=== PATIENT | female | born 1960 | race Caucasian/White ===

== ENCOUNTER 2018-08-02 11:29 | Inpatient (IN) | payer MEDICARE, MEDICAID ==
[2018-08-02] MEDS ORDERED: Sodium Chloride 0.9% 1,000 ML IV ONE (11:40)
--- NOTE | 2018-08-02 11:48 | ED Physician Chart ---
ED Chief Complaint/HPI - Patient Information Date Seen:: 08/02/18 Time Seen:: 11:30 Chief Complaint:: G-Tube Leakage History of Present Illness:: pt presents to ER with G-Tube Leakage, N/V, and hematemesis; no report of trauma , H/As, S/T, neck pain, cough, C/P, SOB, Abd. Pain, A/D/C, fever, chills, or urinary s/s Allergies:: Allergies Allergy/AdvReac Type Severity Reaction Status Date / Time piperacillin sodium Allergy Verified 10/03/15 23:12 [From Zosyn] tazobactam sodium Allergy Verified 10/03/15 23:12 [From Zosyn] Historian:: Patient, EMS Review:: Nurse's Note Reviewed, Old Chart Reviewed, EMS run form Reviewed ED Review of Systems - Review of Systems General/Constitutional: No fever, No chills, No weight loss, No weakness, No diaphoresis, No edema, No loss of appetite Skin: No skin lesions, No rash, No bruising Head: No headache, No light-headedness Eyes: No loss of vision, No pain, No diplopia ENT: No earache, No nasal drainage, No sore throat, No tinnitus Neck: No neck pain, No swelling, No thyromegaly, No stiffness, No mass noted Cardio Vascular: No chest pain, No palpitations, No PND, No orthopnea, No edema Pulmonary: SOB, Cough, No sputum, Wheezing GI: Nausea, Vomiting, Diarrhea, Pain, No melena, No hematochezia, No constipation, Hematemesis G/U: No dysuria, No frequency, No hematuria, No nacturia Stage Rigger: No vaginal discharge, No abnormal vaginal bleed, No contraction Musculoskeletal: No bone or joint pain, No back pain, No muscle pain Endocrine: No polyuria, No polydipsia Psychiatric: No prior psych history, No depression, No anxiety, No suicidal ideation, No homicidal ideation, No auditory hallucination, No visual hallucination Hematopoietic: No bruising, No lymphadenopathy Allergic/Immuno: No urticaria, No angioedema Neurological: No syncope, No focal symptoms, No weakness, No paresthesia, No headache, No seizure, No dizziness, No confusion, No vertigo ED Past Medical History - Past Medical History Past Medical History: No significant medical hx, HTN, DM, Asthma/COPD, Dyslipidemia, Other (Respiratory Failure) Family History: HTN Social History: Non Smoker, No Alcohol, No Drug Use, , Care Facility Surgical History: PEG/GTube, other (Tracheostomy) Psychiatricy History: None Medication: Reviewed Family Medical History - Family Member Mother History Unknown: Yes Ethnicity: Hx Family Coronary Artery Disease: No Hx Family Congestive Heart Failure: No Hx Family Hypertension: Yes Hx Family Stroke: Yes Hx Family Diabetes: Yes Hx Family Seizures: No Hx Family Dementia: No Hx Family AIDS: No Hx Family HIV: No Hx Family COPD: No Hx Family Hepatitis: No Hx Family Psychiatric Problems: No Hx Family Tuberculosis: No ED Physical Exam - Physical Examination General/Constitutional: Awake, Well-developed, well-nourished, Alert, No distress, GCS 15, Non-toxic appearing, Ambulatory Head: Atraumatic Eyes: Lids, conjuctiva normal, PERRL, EOMI Skin: Nl inspection, No rash, No skin lesions, No ecchymosis, Well hydrated, No lymphadenopathy ENMT: External ears, nose nl, TM canals nl, Nasal exam nl, Lips, teeth, gums nl , Oropharynx nl, Tonsils nl Neck: Nontender, Full ROM w/o pain, No JVD, No nuchal rigidity, No bruit, No mass, No stridor Respiratory: Nl effort/Exclusion Other Respiratory comments:: Lungs: + Rales and Rhonchi Cardio Vascular: RRR, No murmur, gallop, rubs, NL S1 S2, Carotid/Femoral/Distal pulses equal bilaterally GI: No tenderness/rebounding/guarding, No organomegaly, No hernia, Normal BS's, Nondistended, No mass/bruits, No McBurney tenderness Other GI comments:: + G-Tube Dysfunction/Leakage : No CVA tenderness Extremities: No tenderness or effusion, Full ROM, normal strength in all extremities, No edema, Normal digits & nails Neuro/Psych: Alert/oriented, DTR's symmetric, Normal sensory exam, Normal motor strength, Judgement/insight normal, Mood normal, Normal gait, No focal deficits Misc: Normal back, No paraspinal tenderness ED Labs/Radiology/EKG Results - Lab Results Comments:: Reviewed - Radiology Results Comments:: CXR: + RLL Infiltrate; COPD - EKG Interpretations EKG Time:: 12:25 Rate & Rhythm: 99; NSR Comments:: non-specific st-t changes ED Septic Shock - . Is Septic Shock (SBP<90, OR Lactate>4 mmol\L) present?: No ED Reassessment (Disposition) - Reassessment Reassessment Condition:: Improved - Diagnosis Diagnosis:: Hematemesis; N/V/D; GI Bleed; Respiratory Failure; G-Tube Dysfunction; Pneumonia ; Sepsis; Hypokalemia - Aftercare/Follow up Instructions Aftercare/Follow-Up Instructions:: Counseled pt regarding lab results/diagnosis & need follow up, Counseled pt & family regarding lab results/diagnosis & need follow up - Patient Disposition Discharge/Transfer:: Acute Care w/in this hosp Accepting Physician:: Dr. Dietz Time Called:: 1300 Time Responded:: 13:00 Admitted to:: ICU Spoke to:: Dr. Dietz Admitting Medical Physician:: Dr. Dietz Condition at Disposition:: Stable, Improved
[2018-08-02 12:10] LABS: % BASOPHILS 0.6 % (0.0-2.0); % EOSINOPHILS 1.8 % (0.0-5.0); % LYMPHOCYTES 23.6 % (20.0-50.0); % MONOCYTES 5.2 % (2.0-10.0); % NEUTROPHILS 68.8 % (40.0-80.0); BASOPHILE ABSOLUTE 0.1 Th/cumm (0-0.2); EOSINOPHILE ABSOLUTE 0.2 Th/cmm (0.1-0.4); HEMATOCRIT 39.7 % (41.0-60); HEMOGLOBIN 12.9 gm/dL (12-16); LYMPHOCYTE ABSOLUTE 2.6 Th/cmm (1.5-3.0); MEAN CELL VOLUME 80.1 fl (81-100); MEAN CORPUSCULAR HEMOGLOBIN 25.9 pg (27.0-31.0); MEAN CORPUSCULAR HGB CONC 32.3 pg (28.0-36.0); MEAN PLATELET VOLUME 7.1 fl; MONOCYTE ABSOLUTE 0.6 Th/cmm (0.3-1.0); NEUTROPHILE ABSOLUTE 7.5 Th/cmm (1.8-8.0); PLATELET COUNT 553 Th/cmm (150-400); RED BLOOD COUNT 4.96 Mil/cmm (3.80-5.10)
[2018-08-02] MEDS ORDERED: Levofloxacin 500mg/100mL 500 MG/100 ML BAG IV ONE ×2 (12:12→12:59)
[2018-08-02] MEDS ORDERED: Albuterol/Ipratropium Neb 3 ML AERS HHN ONE ×2 (12:13→12:26)
[2018-08-02 12:19] LABS: INR 0.93 (0.5-1.4); PROTHROMBIN TIME (TEST) 9.7 SECONDS (9.5-11.5)
[2018-08-02 12:26] LABS: ALB/GLOB RATIO 0.9 (1.0-1.8); ALBUMIN 3.7 gm/dL (3.7-5.3); ALKALINE PHOSPHATASE 126 U/L (34-104); AMYLASE SERUM 17 U/L (29-103); BILIRUBIN,TOTAL 0.3 mg/dL (0.3-1.0); BUN - UREA NITROGEN 13 mg/dL (7-25); CALCIUM SERUM 9.6 mg/dL (8.6-10.3); CARBON DIOXIDE 25.4 mEq/L (21.0-31.0); CHLORIDE 98 mEq/L (98-107); CHOLESTEROL 123 mg/dL (<200); CREATININE - SERUM 0.2 mg/dL (0.6-1.2); CREATININE KINASE 12 U/L (30-223); GFR AFRICAN-AMERICAN > 60.0 ml/min (>90); GFR NON AFRICAN-AMERICAN > 60.0 ml/min; GLUCOSE 135 mg/dL (70-105); HDL -HIGH DENSITY LIPOPROTEIN 40 mg/dL (23-92); LIPASE 7 U/L (11-82); POTASSIUM SERUM 3.4 mEq/L (3.5-5.1); SGOT 11 U/L (13-39); SGPT/ALT 7 U/L (7-52); SODIUM SERUM 138 mEq/L (136-145); TOTAL PROTEIN,SERUM 7.7 gm/dL (6.0-8.3); TRIGLYCERIDES 218 mg/dL (<150)
[2018-08-02] MEDS ORDERED: Potassium Chloride Elixir 20 mEq /15 mL UDC GT ONE (13:13)
[2018-08-02] MEDS ORDERED: D5-0.45NS 1,000 ML IV SCH (14:15)
[2018-08-02] MEDS ORDERED: cefTRIAXone 1 GM in Sodium Chloride 0.9% 50 ML IV SCH (16:00)
[2018-08-02] MEDS ORDERED: Diatrizoate Meglumine/Diatri 30 mL Sol ONE (18:15)
[2018-08-02 20:02] VITALS: BP 148/56
[2018-08-02] MEDS: Azithromycin 500 MG in Sodium Chloride 0.9% 250 ML IV SCH (20:17)
[2018-08-02] MEDS: Chlorhexidine Gluconate 0.12% 15mL Mouthwash MM SCH (20:30)
[2018-08-02] MEDS ORDERED: GLUCAGON HCl 1 MG KIT IM PRN (20:53)
[2018-08-02] MEDS ORDERED: Dextrose 50% 50 mL Abboject IVP PRN (20:53)
[2018-08-02] MEDS: Meropenem 1 GM in Sodium Chloride 0.9% 100 ML IV SCH (21:55)
[2018-08-02] MEDS ORDERED: KCL 20mEq/100mL Premix 20 MEQ/100 ML PIGGYBACK IV ONE (23:00)
[2018-08-03] MEDS: INSULIN LISPRO SLIDING SCALE 100 UNITS/ML UNIT SUBQ SCH ×5 (00:15→23:36)
[2018-08-03 04:36] LABS: % BASOPHILS 0.4 % (0.0-2.0); % EOSINOPHILS 1.5 % (0.0-5.0); % LYMPHOCYTES 24.1 % (20.0-50.0); % MONOCYTES 5.1 % (2.0-10.0); % NEUTROPHILS 68.9 % (40.0-80.0); EOSINOPHILE ABSOLUTE 0.2 Th/cmm (0.1-0.4); HEMATOCRIT 35.5 % (41.0-60); HEMOGLOBIN 11.6 gm/dL (12-16); LYMPHOCYTE ABSOLUTE 2.4 Th/cmm (1.5-3.0); MEAN CELL VOLUME 79.3 fl (81-100); MEAN CORPUSCULAR HGB CONC 32.8 pg (28.0-36.0); MONOCYTE ABSOLUTE 0.5 Th/cmm (0.3-1.0); PLATELET COUNT 479 Th/cmm (150-400); RED BLOOD COUNT 4.47 Mil/cmm (3.80-5.10); WHITE BLOOD COUNT 10.1 Th/cmm (4.8-10.8)
[2018-08-03 04:46] LABS: INR 0.99 (0.5-1.4); PROTHROMBIN TIME (TEST) 10.3 SECONDS (9.5-11.5)
[2018-08-03 05:11] LABS: ANION GAP 14.2 (7.0-16.0); BUN - UREA NITROGEN 9 mg/dL (7-25); CARBON DIOXIDE 22.3 mEq/L (21.0-31.0); CHLORIDE 108 mEq/L (98-107); GLUCOSE 104 mg/dL (70-105); POTASSIUM SERUM 3.5 mEq/L (3.5-5.1); SODIUM SERUM 141 mEq/L (136-145)
[2018-08-03 05:16] LABS: GFR AFRICAN-AMERICAN > 60.0 ml/min (>90); GFR NON AFRICAN-AMERICAN > 60.0 ml/min
[2018-08-03 05:17] LABS: CREATININE - SERUM 0.2 mg/dL (0.6-1.2)
[2018-08-03] MEDS: Meropenem 1 GM in Sodium Chloride 0.9% 100 ML IV SCH ×3 (05:45→20:06)
[2018-08-03 08:02] LABS: URINE SOURCE CLEAN C
[2018-08-03 08:06] LABS: URINE BILIRUBIN NEGATIVE (NEGATIVE); URINE BLOOD TRACE (NEGATIVE); URINE GLUCOSE (UA) NEGATIVE (NEGATIVE); URINE KETONE 15 mg/dL (NEGATIVE); URINE LEUKOCYTE ESTERASE MODERATE (NEGATIVE); URINE MICROSCOPIC INDICATED? YES; URINE NITRATE NEGATIVE (NEGATIVE); URINE PH 8.5 (4.6 - 8.0); URINE PROTEIN 30 mg/dL (NEGATIVE); URINE UROBILINOGEN 0.2 E.U./dL (0.2 - 1.0)
[2018-08-03 08:15] LABS: URINE CLARITY HAZY (CLEAR); URINE COLOR YELLOW
[2018-08-03 08:17] LABS: URINE BACTERIA MODERATE /hpf (NONE SEEN); URINE EPITHELIAL CELLS FEW /lpf (FEW); URINE WBC 25-50 /hpf (0-5)
[2018-08-03] MEDS: Chlorhexidine Gluconate 0.12% 15mL Mouthwash MM SCH ×2 (08:30→20:08)
--- NOTE | 2018-08-03 09:03 | Diagnostic Imaging Report ---
Portable chest x-ray HISTORY: Pain The overall heart size is difficult to assess with portable technique in a poor inspiration. Accentuation of the lower interstitial lung markings. However, no focal pulmonary processes are seen. Tracheostomy noted. IMPRESSION: 1. No acute focal pulmonary processes 2. Tracheostomy
--- NOTE | 2018-08-03 09:18 | Diagnostic Imaging Report ---
Upper GI (Limited) HISTORY: Gastrostomy tube placement Water-soluble contrast was instilled through patient's gastrostomy tube. The exam demonstrates opacification of the gastric lumen. No extravasation. IMPRESSION: 1. Confirmation of gastrostomy tube within the gastric lumen.
--- NOTE | 2018-08-03 11:16 | Diagnostic Imaging Report ---
Renal ultrasound HISTORY: Urinary tract infection The right kidney measures 12.7 x 5.7 x 6.2 cm. Normal cortical contour and echogenicity. No focal lesions. No hydronephrosis. The left kidney measures 12.1 x 6.4 x 8.4 cm. Multiple echogenic foci with acoustic shadowing noted within the medullary region. Findings consistent with calculi. No hydronephrosis. Evaluation of the urinary bladder limited due to lack of distention. IMPRESSION: 1. Findings consistent with multiple nonobstructing calculi within the left kidney. If needed, a CT scan would provide additional assessment and evaluation.
--- NOTE | 2018-08-03 12:44 | History and Physical ---
History of Present Illness - HPI Chief Complaint: 58 y/o female patient was brought in to ER due to complaints of G-tube Leakage. HPI: 58 y/o female patient was admitted to [facility] due to complaints of G- tube Leakage. No report of trauma. Patient has past medical history of Hypertension, Diabetes, Asthma/Copd, Dyslipidemia, Respiratory Failure and UTI. Patient had an ER assessment and a complete workup was done. Patient had a Chest xray done which showed Right lower Lobe Infiltrate;Copd. Patient also had a Renal Ultrasound which showed multiple nonobstructing calculi within the left kidney. Patient had a Upper GI series which showed G-tube within the Gastric Lumen. Patient was diagnosed with Kidney stones, Copd, Asthma and will have G-tube repair. Patient will have a GI consult and I will follow, treat and monitor patient. Patient will continue current treatment plan as ordered. 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 [employer]: Report: No Pertinent Hx GI: Report: Other ( G-tube present, complains of leakage.) Psych: Report: No Pertinent Hx Musculoskeletal: Report: No Pertinent Hx Rheumatologic: Report: No pertinent Hx Infectious Disease: Report: No Pertinent Hx Renal/: Report: No Pertinent Hx Endocrine: Report: Diabetes Dermatology: Report: No Pertinent Hx - Past Surgical History Past Surgical History: Other (Trach and G-tube placement.) Family Medical History - Family Member Mother History Unknown: Yes Ethnicity: Hx Family Coronary Artery Disease: No Hx Family Congestive Heart Failure: No Hx Family Hypertension: Yes Hx Family Stroke: Yes Hx Family Diabetes: Yes Hx Family Seizures: No Hx Family Dementia: No Hx Family AIDS: No Hx Family HIV: No Hx Family COPD: No Hx Family Hepatitis: No Hx Family Psychiatric Problems: No Hx Family Tuberculosis: No Social History Smoke: No Alcohol: None Drugs: None Lives: Long-Term Domestic Violence: Negative Health Maintenance Health Maintenance: Other (see chart.) - Medications Home Medications: Home Medication Medication Instructions Recorded Type Acetaminophen [Tylenol] 650 mg INH Q6H PRN 08/02/18 History Albuterol/Ipratropium Neb [Duoneb 3 ml HHN Q6HR 08/02/18 History Neb] Ascorbic Acid [Vitamin C] 500 mg GT DAILY 08/02/18 History Bacitracin [Baciquent] 1 appl TP DAILY 08/02/18 History Calcium Alginate [Fritz] 1 each TP DAILY 08/02/18 History Clopidogrel [Plavix] 75 mg GT DAILY 08/02/18 History Collagen, Hydrolysate (Bovine) 100 gm MC DAILY 08/02/18 History [Collagen Hydrolysate] Collagenase Clostridium Hist. 1 appl TP DAILY 08/02/18 History [Santyl] Cranberry Fruit Concentrate 900 mg GT DAILY 08/02/18 History [Cranberry] Docusate Sodium 100 mg GT BID 08/02/18 History Famotidine [Pepcid*] 40 mg GT DAILY 08/02/18 History Glipizide 5 mg GT Q12H 08/02/18 History Insulin Glargine [Lantus Insulin] 18 unit SQ HS 08/02/18 History Insulin Lispro [Humalog] 100 unit SQ ACHS 08/02/18 History Metformin HCl 1,000 mg GT Q12H 08/02/18 History Multivitamin w/ Minerals 1 tab GT DAILY 08/02/18 History [Theragran M] Sennosides A and B [Senna] 17.2 mg GT HS 08/02/18 History Triamcinolone Acet 0.1% Cream 1 appl TP DAILY 08/02/18 History [Kenalog 0.1%] - Allergies Allergies/Adverse Reactions: Allergies Allergy/AdvReac Type Severity Reaction Status Date / Time piperacillin sodium Allergy Verified 10/03/15 23:12 [From Zosyn] tazobactam sodium Allergy Verified 10/03/15 23:12 [From Zosyn] Review of Systems - Review of Systems Constitutional: Report: No Significant Eyes: Report: No Significant ENT: Report: No Significant Respiratory: Report: No Significant Cardiovascular: Report: No Significant Gastrointestinal: Report: Other (G-tube leakage.) Genitourinary: Report: No Significant Musculoskeletal: Report: No Significant Skin: Report: No Significant Neurological: Report: No Significant Physical Exam - Physical Exam HEENT: Report: Ears Nose Throat within normal limits Neck: Report: Tracheostomy site noted to be clean Cardiovascular Systems: Report: +s1/s2 noted, Regular, Rate and Rhythm Respiratory: Report: Breath Sounds are within normal limits Abdomen: Report: Other (G-tube leakage.) Back: Report: Inspection of back is within normal limits. Extremities: Report: Non-tender to palpation. Skin: Report: Color of skin is within normal limits Neuro/Psych: Report: Mood affect is within normal limits - Lab Results All Lab Results last 24 hours: Laboratory Results - last 24 hr 08/02/18 08/02/18 08/02/18 11:39 12:00 12:00 WBC 11.0 H RBC 4.96 Hgb 12.9 Hct 39.7 L MCV 80.1 L MCH 25.9 L MCHC Differential 32.3 RDW 19.0 Plt Count 553 H MPV 7.1 Neutrophils % 68.8 Lymphocytes % 23.6 Monocytes % 5.2 Eosinophils % 1.8 Basophils % 0.6 PT 9.7 INR 0.93 PTT (Actin FS) 28.5 Sodium 138 Potassium 3.4 L Chloride 98 Carbon Dioxide 25.4 Anion Gap 18.0 H BUN 13 Creatinine 0.2 L Est GFR ( Amer) > 60.0 Est GFR (Non-Af Amer) > 60.0 BUN/Creatinine Ratio 65.0 Glucose 135 H POC Glucose Whole Bld Lactic Acid Calcium 9.6 Total Bilirubin 0.3 AST 11 L ALT 7 Alkaline Phosphatase 126 H Creatine Kinase 12 L Troponin I B-Natriuretic Peptide Total Protein 7.7 Albumin 3.7 Globulin 4.0 Albumin/Globulin Ratio 0.9 L Triglycerides 218 H Cholesterol 123 LDL Cholesterol Direct 60 L HDL Cholesterol 40 Amylase 17 L Lipase 7 L Urine Source Urine Color Urine Clarity Urine pH Ur Specific [place] Urine Protein Urine Glucose (UA) Urine Ketones Urine Blood Urine Nitrate Urine Bilirubin Urine Urobilinogen Ur Leukocyte Esterase Urine RBC Urine WBC Ur Epithelial Cells Urine Bacteria 08/02/18 08/02/18 08/02/18 12:00 12:00 12:20 WBC RBC Hgb Hct MCV MCH MCHC Differential RDW Plt Count MPV Neutrophils % Lymphocytes % Monocytes % Eosinophils % Basophils % PT INR PTT (Actin FS) Sodium Potassium Chloride Carbon Dioxide Anion Gap BUN Creatinine Est GFR ( Amer) Est GFR (Non-Af Amer) BUN/Creatinine Ratio Glucose POC Glucose Whole Bld Lactic Acid 1.37 Calcium Total Bilirubin AST ALT Alkaline Phosphatase Creatine Kinase Troponin I < 0.01 L B-Natriuretic Peptide 19.9 Total Protein Albumin Globulin Albumin/Globulin Ratio Triglycerides Cholesterol LDL Cholesterol Direct HDL Cholesterol Amylase Lipase Urine Source Urine Color Urine Clarity Urine pH Ur Specific [place] Urine Protein Urine Glucose (UA) Urine Ketones Urine Blood Urine Nitrate Urine Bilirubin Urine Urobilinogen Ur Leukocyte Esterase Urine RBC Urine WBC Ur Epithelial Cells Urine Bacteria 08/03/18 08/03/18 08/03/18 00:27 04:00 04:00 WBC 10.1 RBC 4.47 Hgb 11.6 L Hct 35.5 L MCV 79.3 L MCH 26.0 L MCHC Differential 32.8 RDW 19.0 Plt Count 479 H MPV 7.0 Neutrophils % 68.9 Lymphocytes % 24.1 Monocytes % 5.1 Eosinophils % 1.5 Basophils % 0.4 PT 10.3 INR 0.99 PTT (Actin FS) 28.8 Sodium Potassium Chloride Carbon Dioxide Anion Gap BUN Creatinine Est GFR ( Amer) Est GFR (Non-Af Amer) BUN/Creatinine Ratio Glucose POC Glucose 98 Whole Bld Lactic Acid Calcium Total Bilirubin AST ALT Alkaline Phosphatase Creatine Kinase Troponin I B-Natriuretic Peptide Total Protein Albumin Globulin Albumin/Globulin Ratio Triglycerides Cholesterol LDL Cholesterol Direct HDL Cholesterol Amylase Lipase Urine Source Urine Color Urine Clarity Urine pH Ur Specific [place] Urine Protein Urine Glucose (UA) Urine Ketones Urine Blood Urine Nitrate Urine Bilirubin Urine Urobilinogen Ur Leukocyte Esterase Urine RBC Urine WBC Ur Epithelial Cells Urine Bacteria 08/03/18 08/03/18 08/03/18 04:00 06:20 07:45 WBC RBC Hgb Hct MCV MCH MCHC Differential RDW Plt Count MPV Neutrophils % Lymphocytes % Monocytes % Eosinophils % Basophils % PT INR PTT (Actin FS) Sodium 141 Potassium 3.5 Chloride 108 H Carbon Dioxide 22.3 Anion Gap 14.2 BUN 9 Creatinine 0.2 L Est GFR ( Amer) > 60.0 Est GFR (Non-Af Amer) > 60.0 BUN/Creatinine Ratio 45.0 Glucose 104 POC Glucose 93 Whole Bld Lactic Acid Calcium 9.0 Total Bilirubin AST ALT Alkaline Phosphatase Creatine Kinase Troponin I B-Natriuretic Peptide Total Protein Albumin Globulin Albumin/Globulin Ratio Triglycerides Cholesterol LDL Cholesterol Direct HDL Cholesterol Amylase Lipase Urine Source CLEAN C Urine Color YELLOW Urine Clarity HAZY Urine pH 8.5 Ur Specific [place] 1.010 Urine Protein 30 H Urine Glucose (UA) NEGATIVE Urine Ketones 15 H Urine Blood TRACE Urine Nitrate NEGATIVE Urine Bilirubin NEGATIVE Urine Urobilinogen 0.2 Ur Leukocyte Esterase MODERATE H Urine RBC 2-5 Urine WBC 25-50 H Ur Epithelial Cells FEW Urine Bacteria MODERATE H 08/03/18 11:52 WBC RBC Hgb Hct MCV MCH MCHC Differential RDW Plt Count MPV Neutrophils % Lymphocytes % Monocytes % Eosinophils % Basophils % PT INR PTT (Actin FS) Sodium Potassium Chloride Carbon Dioxide Anion Gap BUN Creatinine Est GFR ( Amer) Est GFR (Non-Af Amer) BUN/Creatinine Ratio Glucose POC Glucose 114 H Whole Bld Lactic Acid Calcium Total Bilirubin AST ALT Alkaline Phosphatase Creatine Kinase Troponin I B-Natriuretic Peptide Total Protein Albumin Globulin Albumin/Globulin Ratio Triglycerides Cholesterol LDL Cholesterol Direct HDL Cholesterol Amylase Lipase Urine Source Urine Color Urine Clarity Urine pH Ur Specific [place] Urine Protein Urine Glucose (UA) Urine Ketones Urine Blood Urine Nitrate Urine Bilirubin Urine Urobilinogen Ur Leukocyte Esterase Urine RBC Urine WBC Ur Epithelial Cells Urine Bacteria - Assessment Assessment: Current Active Problems Problem Status Onset LEAKING GASTRIC TUBE STOMA AREA; COFFEE Acute Kidney stones Htn Diabetes Asthma Copd S/p Trach - Plan Plan: Continuation of care Continue present meds as directed GI consult Monitor labs, vitals G-tube repair/Monitor diet/G-tube Feedings once G-tube repaired Pain management Fall precaution Continue current treatment plan as ordered
[2018-08-03] MEDS: Azithromycin 500 MG in Sodium Chloride 0.9% 250 ML IV SCH (15:30)
[2018-08-03] MEDS: Metoclopramide 5 mg/mL 2mL Vial IVP SCH (19:05)
--- NOTE | 2018-08-03 20:57 | History & Physical ---
ADMIT DATE: 08/03/2018 CHIEF COMPLAINT: G-tube leakage. HISTORY OF PRESENT ILLNESS: This is a 58-year-old female who is a resident of [facility], admitted to the ICU unit due to G-tube leakage. In the ER, the patient had a chest x-ray and showed right lower lobe pneumonia. The patient had upper GI series, which showed G-tube with gastric lumen. For continuation of care the patient now here in ICU. PAST MEDICAL HISTORY: Acute respiratory failure, CVA, VDRF, VRE urine and ESBL, COPD, asthma. PAST SURGICAL HISTORY: Tracheostomy and G-tube placement. SOCIAL HISTORY: The patient is a subacute resident, requiring 24-hour nursing care. FAMILY HISTORY: Noncontributory. ALLERGIES: ZOSYN AND TAZOBACTAM. REVIEW OF SYSTEMS: Unable to obtain due to the patient's mental status. PHYSICAL EXAMINATION: GENERAL: Well developed, well nourished, no apparent distress. VITAL SIGNS: Temperature 98.5, heart rate 100, blood pressure 141/36, respirations 14, O2 99%. HEENT: Head normocephalic, atraumatic. NECK: Tracheostomy site in place. HEART: Regular rhythm. No murmurs, rubs or gallops. ABDOMEN: The patient is noted with G-tube. Surrounding G-tube site is noted with redness with G-tube leakage. LABORATORY DATA: WBC 10.1, H and H 11.6 and 35.5, platelets of 479. Sodium 141, potassium 3.5, chloride 108, BUN 9, creatinine 0.2. ASSESSMENT: Acute on chronic respiratory failure, ventilator-dependent respiratory failure, G-tube site leakage, right lower lobe pneumonia, hypertension, history of cerebrovascular accident, microcytic anemia, hypokalemia, history of diabetes, acute urinary tract infection. PLAN: The patient to be admitted to the ICU. Treat the patient with IV antibiotics of Merrem 1 gram IV q.12 hours. Do a wound culture, urine culture as well. A.m. labs. We will get Pulmonology on the case as well as GI. We will continue to monitor this patient. JOB# [id number]
--- NOTE | 2018-08-03 22:35 | Consultation ---
DATE OF CONSULTATION: 08/03/2018 REASON FOR CONSULTATION: Leaking G-tube. HISTORY OF PRESENT ILLNESS: This consult was obtained through the courtesy of Dr. Dietz for this 58-year-old with multiple medical problems including respiratory failure, status post tracheostomy, dysphagia, status post G-tube, multiple abdominal surgeries, diabetes who was admitted to the hospital for leaking G-tube. The patient seems to be responsive, but nonverbal. Apparently, the tube has not been working well and it was leaking, so the patient was sent to the hospital for further evaluation. Also, there is some maceration around the G-tube. PAST MEDICAL HISTORY: Diabetes, respiratory failure, and dysphagia. PAST SURGICAL HISTORY: She had tracheostomy. She had surgical G-tube. She has abdominal surgery that seems to be hepatobiliary and bowel surgeries. SOCIAL HISTORY: Nonsmoker, nonalcoholic, no IV drug abuser. FAMILY HISTORY: Noncontributory. ALLERGIES: PIPERACILLIN AND TAZOBACTAM. MEDICATIONS: The patient is on Rocephin, Zithromax, insulin, and meropenem. REVIEW OF SYSTEMS: Unobtainable. PHYSICAL EXAMINATION: GENERAL: The patient is awake, responsive, moderate distress, on a vent. VITAL SIGNS: Blood pressure is 118/43, heart rate was 81, respiratory rate was 20, temperature was 99.4. HEAD AND NECK: Pupils reactive to light. Extraocular muscles could not be tested. Oral cavity, no lesion. NECK: Supple. Also, in the neck, the patient had a tracheostomy. CHEST: Good air entry. LUNGS: Showed few rhonchi. CARDIOVASCULAR SYSTEM: Regular rate and rhythm. No murmur or gallop. ABDOMEN: Soft, distended, but not tender. There were several scars of previous surgery. There is a G-tube with some maceration around the G-tube site. EXTREMITIES: Lower extremities cachectic, no edema. CENTRAL NERVOUS SYSTEM: Unable to evaluate. LABORATORY DATA: White count is 11, now is 10.1; H and H of 11.6 and 35.5; MCV slightly low at 79.3; RDW is normal and platelets were 79. PT is normal. Glucose is 140. Liver enzymes were normal except alkaline phosphatase 126. The patient had a Gastrografin study, which showed that G-tube was in place and not leaking. IMPRESSION: A 58-year-old with leaking G-tube. ASSESSMENT AND PLAN: Leaking G-tube without gastroparesis versus delayed gastric emptying versus ileus versus fecal impaction versus atony of the stomach wall. RECOMMENDATIONS: 1. Trial of mineral oil. See if this would facilitate bowel movements and allow stomach and intestine to accommodate feeding. 2. Reglan around the clock. 3. Feeding tube, at a small dose. 4. If this does not help then might consider erythromycin or converting the G-tube to a gastrojejunostomy tube or even taking it out completely and letting the hole close gradually and then put a new one in whether through the same hole or a new hole. Other medical problems such as respiratory failure, diabetes, history of previous surgeries, etc., as per Dr. Dietz. Thank you, Dr. Dietz, for allowing me to participate in the care the patient. If you have any further questions, please let me know. JOB# [id number] MTDD
--- NOTE | 2018-08-03 23:24 | Consultation ---
DATE OF CONSULTATION: 08/03/[address] Dietz. Thank you very much for this consultation, Dr. Dietz. HISTORY OF PRESENT ILLNESS: This is a 58-year-old female with history of chronic respiratory failure and ventilator dependent, who presented with leaking G-tube, was admitted for treatment and management. The patient was started on antibiotics for G-tube site cellulitis. Also, was found to have early infiltrate in right lower lobe area, this is from pneumonia and called for consultation. The patient is on chronic ventilator dependent and IMV mode with pressure support, unable to give any history. PHYSICAL EXAMINATION: VITAL SIGNS: Temperature 99.4, pulse 94, respiration ____, saturation is 100%. HEENT: Atraumatic and normocephalic. Pupils reactive to light and accommodation. Ears, nose and throat normal. NECK: Supple. No JVD. CHEST: There are good breath sounds. No wheezing. Minimal rhonchi. HEART: Regular rate and rhythm. ABDOMEN: Soft. LOWER EXTREMITIES: No edema. LABORATORY DATA: WBC is 10.1, hemoglobin 9.6, hematocrit 35.5 and platelets 479. Sodium is 140, potassium 3.5, BUN is 9, creatinine 0.2. UA showed wbc's, moderate leukocyte esterase. DIAGNOSTIC DATA: Chest x-ray, right lower lobe infiltrate. IMPRESSION: This is a 58-year-old female with: 1. Chronic respiratory failure. 2. G-tube site cellulitis. 3. Urinary tract infection. 4. Pneumonia. PLAN: 1. Continue antibiotics. 2. Nebulizer treatment. 3. Sputum culture and urine culture. We will follow the patient with you. Thank you very much for this consultation. JOB# [id number]
[2018-08-04] MEDS: Metoclopramide 5 mg/mL 2mL Vial IVP SCH ×5 (00:10→23:18)
[2018-08-04] MEDS: Albuterol/Ipratropium Neb 3 ML AERS HHN SCH ×4 (00:35→18:36)
[2018-08-04] MEDS: Meropenem 1 GM in Sodium Chloride 0.9% 100 ML IV SCH ×3 (05:21→20:15)
[2018-08-04] MEDS: INSULIN LISPRO SLIDING SCALE 100 UNITS/ML UNIT SUBQ SCH ×4 (05:25→23:20)
[2018-08-04 07:13] LABS: % BASOPHILS 0.5 % (0.0-2.0); % EOSINOPHILS 1.5 % (0.0-5.0); % LYMPHOCYTES 26.8 % (20.0-50.0); % MONOCYTES 6.4 % (2.0-10.0); % NEUTROPHILS 64.8 % (40.0-80.0); EOSINOPHILE ABSOLUTE 0.1 Th/cmm (0.1-0.4); HEMATOCRIT 31.5 % (41.0-60); HEMOGLOBIN 10.3 gm/dL (12-16); LYMPHOCYTE ABSOLUTE 1.6 Th/cmm (1.5-3.0); MEAN CELL VOLUME 79.2 fl (81-100); MEAN CORPUSCULAR HEMOGLOBIN 25.9 pg (27.0-31.0); MEAN CORPUSCULAR HGB CONC 32.6 pg (28.0-36.0); MEAN PLATELET VOLUME 6.7 fl; MONOCYTE ABSOLUTE 0.4 Th/cmm (0.3-1.0); NEUTROPHILE ABSOLUTE 3.7 Th/cmm (1.8-8.0); PLATELET COUNT 409 Th/cmm (150-400); RED BLOOD COUNT 3.98 Mil/cmm (3.80-5.10); RED CELL DISTRIBUTION WIDTH 18.9 % (11.5-20.0); WHITE BLOOD COUNT 5.8 Th/cmm (4.8-10.8)
[2018-08-04 07:31] LABS: ANION GAP 11.2 (7.0-16.0); BUN - UREA NITROGEN 10 mg/dL (7-25); CALCIUM SERUM 8.7 mg/dL (8.6-10.3); CARBON DIOXIDE 21.6 mEq/L (21.0-31.0); CHLORIDE 112 mEq/L (98-107); CREATININE - SERUM 0.2 mg/dL (0.6-1.2); GFR AFRICAN-AMERICAN > 60.0 ml/min (>90); GFR NON AFRICAN-AMERICAN > 60.0 ml/min; GLUCOSE 174 mg/dL (70-105); SODIUM SERUM 142 mEq/L (136-145)
[2018-08-04 08:10] LABS: POTASSIUM SERUM 2.8 mEq/L (3.5-5.1)
[2018-08-04] MEDS: Potassium Chloride Elixir 20 mEq /15 mL UDC GT SCH ×2 (08:43→12:25)
[2018-08-04] MEDS: Chlorhexidine Gluconate 0.12% 15mL Mouthwash MM SCH ×2 (08:44→20:15)
--- NOTE | 2018-08-04 11:16 | Infectious Disease Prog Note ---
Infectious Disease Subjective - Review of Systems Service Date: 08/04/18 Subjective: On the ventilator Infectious Disease Objective - Results Result Diagrams: 08/04/18 06:52 08/04/18 06:52 Recent Labs: Laboratory Last Values WBC 5.8 Th/cmm (4.8-10.8) 08/04/18 06:52 RBC 3.98 Mil/cmm (3.80-5.10) 08/04/18 06:52 Hgb 10.3 gm/dL (12-16) L 08/04/18 06:52 Hct 31.5 % (41.0-60) L 08/04/18 06:52 MCV 79.2 fl (81-100) L 08/04/18 06:52 MCH 25.9 pg (27.0-31.0) L 08/04/18 06:52 MCHC Differential 32.6 pg (28.0-36.0) 08/04/18 06:52 RDW 18.9 % (11.5-20.0) 08/04/18 06:52 Plt Count 409 Th/cmm (150-400) H 08/04/18 06:52 MPV 6.7 fl 08/04/18 06:52 Neutrophils % 64.8 % (40.0-80.0) 08/04/18 06:52 Lymphocytes % 26.8 % (20.0-50.0) 08/04/18 06:52 Monocytes % 6.4 % (2.0-10.0) 08/04/18 06:52 Eosinophils % 1.5 % (0.0-5.0) 08/04/18 06:52 Basophils % 0.5 % (0.0-2.0) 08/04/18 06:52 PT 10.3 SECONDS (9.5-11.5) 08/03/18 04:00 INR 0.99 (0.5-1.4) 08/03/18 04:00 PTT (Actin FS) 28.8 SECONDS (26.0-38.0) 08/03/18 04:00 Sodium 142 mEq/L (136-145) 08/04/18 06:52 Potassium 2.8 mEq/L (3.5-5.1) L* 08/04/18 06:52 Chloride 112 mEq/L (98-107) H 08/04/18 06:52 Carbon Dioxide 21.6 mEq/L (21.0-31.0) 08/04/18 06:52 Anion Gap 11.2 (7.0-16.0) 08/04/18 06:52 BUN 10 mg/dL (7-25) 08/04/18 06:52 Creatinine 0.2 mg/dL (0.6-1.2) L 08/04/18 06:52 Est GFR ( Amer) > 60.0 ml/min (>90) 08/04/18 06:52 Est GFR (Non-Af Amer) > 60.0 ml/min 08/04/18 06:52 BUN/Creatinine Ratio 50.0 08/04/18 06:52 Glucose 174 mg/dL (70-105) H 08/04/18 06:52 POC Glucose 160 MG/DL (70 - 105) H 08/04/18 05:23 Whole Bld Lactic Acid 1.37 mmol/L (0.60-1.99) 08/02/18 12:20 Calcium 8.7 mg/dL (8.6-10.3) 08/04/18 06:52 Total Bilirubin 0.3 mg/dL (0.3-1.0) 08/02/18 12:00 AST 11 U/L (13-39) L 08/02/18 12:00 ALT 7 U/L (7-52) 08/02/18 12:00 Alkaline Phosphatase 126 U/L (34-104) H 08/02/18 12:00 Creatine Kinase 12 U/L (30-223) L 08/02/18 12:00 Troponin I < 0.01 ng/mL (0.01-0.05) L 08/02/18 12:00 B-Natriuretic Peptide 19.9 pg/mL (5.0-100.0) 08/02/18 12:00 Total Protein 7.7 gm/dL (6.0-8.3) 08/02/18 12:00 Albumin 3.7 gm/dL (3.7-5.3) 08/02/18 12:00 Globulin 4.0 gm/dL 08/02/18 12:00 Albumin/Globulin Ratio 0.9 (1.0-1.8) L 08/02/18 12:00 Triglycerides 218 mg/dL (<150) H 08/02/18 12:00 Cholesterol 123 mg/dL (<200) 08/02/18 12:00 LDL Cholesterol Direct 60 mg/dL (75-193) L 08/02/18 12:00 HDL Cholesterol 40 mg/dL (23-92) 08/02/18 12:00 Amylase 17 U/L (29-103) L 08/02/18 12:00 Lipase 7 U/L (11-82) L 08/02/18 12:00 Urine Source CLEAN C 08/03/18 07:45 Urine Color YELLOW 08/03/18 07:45 Urine Clarity HAZY (CLEAR) 08/03/18 07:45 Urine pH 8.5 (4.6 - 8.0) 08/03/18 07:45 Ur Specific [place] 1.010 (1.005-1.030) 08/03/18 07:45 Urine Protein 30 mg/dL (NEGATIVE) H 08/03/18 07:45 Urine Glucose (UA) NEGATIVE mg/dL (NEGATIVE) 08/03/18 07:45 Urine Ketones 15 mg/dL (NEGATIVE) H 08/03/18 07:45 Urine Blood TRACE (NEGATIVE) 08/03/18 07:45 Urine Nitrate NEGATIVE (NEGATIVE) 08/03/18 07:45 Urine Bilirubin NEGATIVE (NEGATIVE) 08/03/18 07:45 Urine Urobilinogen 0.2 E.U./dL (0.2 - 1.0) 08/03/18 07:45 Ur Leukocyte Esterase MODERATE (NEGATIVE) H 08/03/18 07:45 Urine RBC 2-5 /hpf (0-5) 08/03/18 07:45 Urine WBC 25-50 /hpf (0-5) H 08/03/18 07:45 Ur Epithelial Cells FEW /lpf (FEW) 08/03/18 07:45 Urine Bacteria MODERATE /hpf (NONE SEEN) H 08/03/18 07:45 - Physical Exam Vitals and I&O: Vital Signs Temp 98.1 F 08/04/18 08:00 Pulse 106 08/04/18 09:28 Resp 12 08/04/18 08:00 BP 114/43 08/04/18 08:00 Pulse Ox 99 08/04/18 09:28 Intake & Output 08/03/18 08/04/1819 18:59 06:59 18:59 Intake Total 800 540 Output Total 575 420 Balance 225 120 Weight (lbs) 45.382 kg 45.586 kg Intake: Intake, IV Amount 450 100 Azithromycin 500 mg In 250 Sodium Chloride 0.9% 250 ml @ 250 mls/hr IV Q24HR [facility] Rx#:[id number] Meropenem 1 gm In Sodium 200 100 Chloride 0.9% 100 ml @ 100 mls/hr IV Q8H [facility] Rx# :[id number] Tube Feeding 240 Other 350 200 Output: Gastric Drainage 100 Urine 475 420 Other: # Bowel Movements 1 Stool Characteristics Soft Liquid Brown Weight Source Bedscale Bedscale Active Medications: Current Medications Albuterol/Ipratropium (Duoneb Neb) 3 ml HHN Q6HRT [facility] Stop: 10/03/18 00:59 Last Admin: 08/04/18 07:34 Dose: 3 ml [place] Oil/[place] Balsam/Trypsin (Venelex) 1 appl TP DAILY [facility] Stop: 10/03/18 08:59 Chlorhexidine Gluconate (Peridex) 15 ml MM 0800,1999 [facility] Stop: 10/01/18 19:59 Last Admin: 08/04/18 08:44 Dose: 15 ml Dextrose (D50w) 50 ml IVP PRN PRN PRN Reason: Blood Glucose less than 70 Stop: 10/01/18 20:52 Dextrose (Glutose 40%) 18.75 gm PO PRN PRN PRN Reason: Blood Glucose less than 70 Stop: 10/01/18 20:52 Glucagon (Glucagen) 1 mg IM PRN PRN PRN Reason: Blood Glucose less than 70 Stop: 10/01/18 20:52 Azithromycin 500 mg/ Sodium (Chloride) 250 mls @ 250 mls/hr IV Q24HR [facility] Stop: 10/01/18 14:59 Last Infusion: 08/03/18 18:48 Dose: Infused Meropenem 1 gm/ Sodium (Chloride) 100 mls @ 100 mls/hr IV Q8H [facility] Stop: 10/01/18 20:59 Last Admin: 08/04/18 05:21 Dose: 100 mls/hr Insulin Human Lispro (Humalog Insulin Sliding Scale) 0 units SUBQ Q6HR [facility]; Protocol Stop: 10/02/18 00:00 Last Admin: 08/04/18 05:25 Dose: 2 units Metoclopramide HCl (Reglan) 10 mg IVP Q6HR [facility] Stop: 10/02/18 17:59 Last Admin: 08/04/18 05:21 Dose: 10 mg Mineral Oil (Mineral Oil 30 Ml) 30 ml GT BID [facility] Stop: 08/05/18 19:29 Last Admin: 08/04/18 09:02 Dose: 30 ml Potassium Chloride (Potassium Chloride Elixir) 40 meq GT Q4H [facility] Stop: 08/04/18 12:16 Last Admin: 08/04/18 08:43 Dose: 40 meq General: no acute distress, cachectic HEENT: atraumatic, normocephalic, PERRLA, EOMI Neck: supple, tracheostomy, no thyromegaly, no lymphadenopathy Cardiovascular: S1S2, regular Lungs: clear to auscultation bilaterally, clear to percussion Abdomen: soft, other (g tube keak and redness of surrounding skin with excoriation.), no tender, no distended Extremities: other (severe contractures ), no cyanosis, no clubbing, no edema Neurological: awake, alert, other (aohasic) Skin: intact - Procedures Procedures: Procedures Procedure Code Date CHANGE FEEDING DEVICE IN UP INTEST TRACT, [employer] APPROACH [id number] 10/04/15 CHANGE GASTROSTOMY TUBE 65868 10/04/15 INSERT TUNNELED CV CATH [id number] 10/04/15 INSERTION OF FEEDING DEVICE INTO STOMACH, OPEN APPROACH [id number] 10/06/16 INSERTION OF INFUSION DEV INTO L SUBCLAV VEIN, PERC APPROACH [id number] 10/04/15 INSPECTION OF UPPER VEIN, PERCUTANEOUS APPROACH [id number] 10/04/15 PLACE GASTROSTOMY TUBE 86344 10/06/16 RESPIRATORY VENTILATION, 24-96 CONSECUTIVE HOURS [id number] 08/02/18 ULTRASONOGRAPHY OF LEFT SUBCLAVIAN VEIN, GUIDANCE [id number] 10/04/15 Infectious Disease Assmt/Plan - Problem List Patient Problems: All Active Problems LEAKING GASTRIC TUBE STOMA AREA; COFFEE (Acute) - Assessment Assessment: 1. Abdominal wall cellulitis 2/2 G tube leak. 2. UTI, nephrolithiasis. 3. CVA. 4. G tube malfunction. 5. COPD. 6. Protein calorie malnutrition. - Plan Plan: Will continue meropenem. urology consuklt with Dr Angulo. Nutritional Asmnt/Malnutr-PDOC - Dietary Evaluation Malnutrition Findings (Please click <Entered> for more info): Nutritional Asmnt/Malnutrition Start: 08/03/18 14: 53 Text: Status: Complete Freq: Protocol: Document 08/03/18 15:01 LCROYALG (Rec: 08/03/18 15:35 LCROYALG MIRIAN-[email or web address]) Nutritional Asmnt/Malnutrition Patient General Information Nutritional Screening High Risk Consult Diagnosis Gtube malfunction, PNA Pertinent Medical Hx/Surgical Hx HTN, DM, asthma/COPD, PEG/ Gtube, Trach, dyslipidemia, resp failure Subjective Information Pt seen resting in bed, trach on vent. Consult received for Gtube feeding. Per RN, old Gtube was leaking, waiting for Gtube replacement. Current Diet Order/ Nutrition Support NPO Pertinent Medications humalog Pertinent Labs 08/03 Cl 108, Cr 0.2, Glucose 104, POC 93-114 Nutritional Hx/Data Height 1.52 m Height (Calculated Centimeters) 152.4 Current Weight (lbs) 45.359 kg Weight (Calculated Kilograms) 45.4 Weight (Calculated Grams) 66442.2 Energy Body Weight 100 Body Mass Index (BMI) 19.5 Weight Status Approriate GI Symptoms GI Symptoms None Last BM 08/02 Difficult in: None Usual diet at home Diabetisource at 50ml/hr x 20hr Skin Integrity/Comment: pressure ulcer to coccyx, abrasion to left upper abdomen , rash to left lower thigh Estimated Nutritional Goals BEE in Kcals: Using Current wt Calories/Kcals/Kg 23-27 Kcals Calculated 5282-7912 Protein: Using Current wt Protein g/k.2-1.4 Protein Calculated 54-63 Fluid: ml 1035-1215ml (1ml/kcal) Nutritional Problem 1. Problem Problem inadequte intake from enteral feeding Etiology Gtube malfunction Signs/Symptoms: TF not initiated Malnutrition Alert Is there a minimum of two criteria No selected? Query Text:Check all the applicable criteria. A minimum of two criteria are recommended for diagnosis of either severe or non-severe malnutrition. Malnutrition Related to Morbid Obesity Malnutrition related to morbid obesity No Intervention/Recommendation Comments 1. After GT replaced, recommend Glucerna 1.2 at 50ml /hr x 20hr to provide 1200kcal , 60g protein and 805ml free water, meeting 100% of nutritional needs. 2. Monitor TF rate, tolerance, wt, skin integrity and labs 3. F/U as high risk in 2-3 days Expected Outcomes/Goals Expected Outcomes/Goals 1. Pt to meet at least 90% of nutritional needs via nutrition support with tolerance 2. Wt stability, skin to remain intact, labs to approach WNL.
[2018-08-04] MEDS: Venelex 60gm Tube TP SCH (14:00)
[2018-08-04] MEDS: Azithromycin 500 MG in Sodium Chloride 0.9% 250 ML IV SCH (16:44)
--- NOTE | 2018-08-04 17:01 | Internal Medicine Prog Note ---
Internal Medicine Subjective - Subjective Service Date: 08/04/18 Patient seen and examined:: with staff, chart reviewed Patient is:: asleep, in bed Patient Complaints of:: congestion, other (on ventilator.) Per staff patient has:: no adverse event, no episodes of fall, tolerating meds Internal Medicine Objective - Results Result Diagrams: 08/04/18 06:52 08/04/18 06:52 Recent Labs: Laboratory Last Values WBC 5.8 Th/cmm (4.8-10.8) 08/04/18 06:52 RBC 3.98 Mil/cmm (3.80-5.10) 08/04/18 06:52 Hgb 10.3 gm/dL (12-16) L 08/04/18 06:52 Hct 31.5 % (41.0-60) L 08/04/18 06:52 MCV 79.2 fl (81-100) L 08/04/18 06:52 MCH 25.9 pg (27.0-31.0) L 08/04/18 06:52 MCHC Differential 32.6 pg (28.0-36.0) 08/04/18 06:52 RDW 18.9 % (11.5-20.0) 08/04/18 06:52 Plt Count 409 Th/cmm (150-400) H 08/04/18 06:52 MPV 6.7 fl 08/04/18 06:52 Neutrophils % 64.8 % (40.0-80.0) 08/04/18 06:52 Lymphocytes % 26.8 % (20.0-50.0) 08/04/18 06:52 Monocytes % 6.4 % (2.0-10.0) 08/04/18 06:52 Eosinophils % 1.5 % (0.0-5.0) 08/04/18 06:52 Basophils % 0.5 % (0.0-2.0) 08/04/18 06:52 PT 10.3 SECONDS (9.5-11.5) 08/03/18 04:00 INR 0.99 (0.5-1.4) 08/03/18 04:00 PTT (Actin FS) 28.8 SECONDS (26.0-38.0) 08/03/18 04:00 Sodium 142 mEq/L (136-145) 08/04/18 06:52 Potassium 2.8 mEq/L (3.5-5.1) L* 08/04/18 06:52 Chloride 112 mEq/L (98-107) H 08/04/18 06:52 Carbon Dioxide 21.6 mEq/L (21.0-31.0) 08/04/18 06:52 Anion Gap 11.2 (7.0-16.0) 08/04/18 06:52 BUN 10 mg/dL (7-25) 08/04/18 06:52 Creatinine 0.2 mg/dL (0.6-1.2) L 08/04/18 06:52 Est GFR ( Amer) > 60.0 ml/min (>90) 08/04/18 06:52 Est GFR (Non-Af Amer) > 60.0 ml/min 08/04/18 06:52 BUN/Creatinine Ratio 50.0 08/04/18 06:52 Glucose 174 mg/dL (70-105) H 08/04/18 06:52 POC Glucose 190 MG/DL (70 - 105) H 08/04/18 12:00 Whole Bld Lactic Acid 1.37 mmol/L (0.60-1.99) 08/02/18 12:20 Calcium 8.7 mg/dL (8.6-10.3) 08/04/18 06:52 Total Bilirubin 0.3 mg/dL (0.3-1.0) 08/02/18 12:00 AST 11 U/L (13-39) L 08/02/18 12:00 ALT 7 U/L (7-52) 08/02/18 12:00 Alkaline Phosphatase 126 U/L (34-104) H 08/02/18 12:00 Creatine Kinase 12 U/L (30-223) L 08/02/18 12:00 Troponin I < 0.01 ng/mL (0.01-0.05) L 08/02/18 12:00 B-Natriuretic Peptide 19.9 pg/mL (5.0-100.0) 08/02/18 12:00 Total Protein 7.7 gm/dL (6.0-8.3) 08/02/18 12:00 Albumin 3.7 gm/dL (3.7-5.3) 08/02/18 12:00 Globulin 4.0 gm/dL 08/02/18 12:00 Albumin/Globulin Ratio 0.9 (1.0-1.8) L 08/02/18 12:00 Triglycerides 218 mg/dL (<150) H 08/02/18 12:00 Cholesterol 123 mg/dL (<200) 08/02/18 12:00 LDL Cholesterol Direct 60 mg/dL (75-193) L 08/02/18 12:00 HDL Cholesterol 40 mg/dL (23-92) 08/02/18 12:00 Amylase 17 U/L (29-103) L 08/02/18 12:00 Lipase 7 U/L (11-82) L 08/02/18 12:00 Urine Source CLEAN C 08/03/18 07:45 Urine Color YELLOW 08/03/18 07:45 Urine Clarity HAZY (CLEAR) 08/03/18 07:45 Urine pH 8.5 (4.6 - 8.0) 08/03/18 07:45 Ur Specific [place] 1.010 (1.005-1.030) 08/03/18 07:45 Urine Protein 30 mg/dL (NEGATIVE) H 08/03/18 07:45 Urine Glucose (UA) NEGATIVE mg/dL (NEGATIVE) 08/03/18 07:45 Urine Ketones 15 mg/dL (NEGATIVE) H 08/03/18 07:45 Urine Blood TRACE (NEGATIVE) 08/03/18 07:45 Urine Nitrate NEGATIVE (NEGATIVE) 08/03/18 07:45 Urine Bilirubin NEGATIVE (NEGATIVE) 08/03/18 07:45 Urine Urobilinogen 0.2 E.U./dL (0.2 - 1.0) 08/03/18 07:45 Ur Leukocyte Esterase MODERATE (NEGATIVE) H 08/03/18 07:45 Urine RBC 2-5 /hpf (0-5) 08/03/18 07:45 Urine WBC 25-50 /hpf (0-5) H 08/03/18 07:45 Ur Epithelial Cells FEW /lpf (FEW) 08/03/18 07:45 Urine Bacteria MODERATE /hpf (NONE SEEN) H 08/03/18 07:45 - Physical Exam Vitals and I&O: Vital Signs Temp 98.1 F 08/04/18 12:00 Pulse 94 08/04/18 13:00 Resp 12 08/04/18 13:00 BP 95/32 08/04/18 13:00 Pulse Ox 96 08/04/18 13:00 Intake & Output 08/03/18 08/04/18 08/04/18 18:59 06:59 18:59 Intake Total 800 640 Output Total 575 420 Balance 225 220 Weight (lbs) 45.382 kg 45.586 kg Intake: Intake, IV Amount 450 200 Azithromycin 500 mg In 250 Sodium Chloride 0.9% 250 ml @ 250 mls/hr IV Q24HR [facility] Rx#:[id number] Meropenem 1 gm In Sodium 200 200 Chloride 0.9% 100 ml @ 100 mls/hr IV Q8H [facility] Rx# :[id number] Tube Feeding 240 Other 350 200 Output: Gastric Drainage 100 Urine 475 420 Other: # Bowel Movements 1 Stool Characteristics Soft Liquid Brown Weight Source Bedscale Bedscale Active Medications: Current Medications Albuterol/Ipratropium (Duoneb Neb) 3 ml HHN Q6HRT [facility] Stop: 10/03/18 00:59 Last Admin: 08/04/18 13:00 Dose: 3 ml [place] Oil/[place] Balsam/Trypsin (Venelex) 1 appl TP DAILY [facility] Stop: 10/03/18 08:59 Last Admin: 08/04/18 14:00 Dose: 1 appl Chlorhexidine Gluconate (Peridex) 15 ml MM 0800,1999 [facility] Stop: 10/01/18 19:59 Last Admin: 08/04/18 08:44 Dose: 15 ml Dextrose (D50w) 50 ml IVP PRN PRN PRN Reason: Blood Glucose less than 70 Stop: 10/01/18 20:52 Dextrose (Glutose 40%) 18.75 gm PO PRN PRN PRN Reason: Blood Glucose less than 70 Stop: 10/01/18 20:52 Glucagon (Glucagen) 1 mg IM PRN PRN PRN Reason: Blood Glucose less than 70 Stop: 10/01/18 20:52 Azithromycin 500 mg/ Sodium (Chloride) 250 mls @ 250 mls/hr IV Q24HR [facility] Stop: 10/01/18 14:59 Last Admin: 08/04/18 16:44 Dose: 100 mls/hr Meropenem 1 gm/ Sodium (Chloride) 100 mls @ 100 mls/hr IV Q8H [facility] Stop: 10/01/18 20:59 Last Admin: 08/04/18 12:26 Dose: 100 mls/hr Insulin Human Lispro (Humalog Insulin Sliding Scale) 0 units SUBQ Q6HR [facility]; Protocol Stop: 10/02/18 00:00 Last Admin: 08/04/18 12:06 Dose: 2 units Metoclopramide HCl (Reglan) 10 mg IVP Q6HR [facility] Stop: 10/02/18 17:59 Last Admin: 08/04/18 12:25 Dose: 10 mg Mineral Oil (Mineral Oil 30 Ml) 30 ml GT BID [facility] Stop: 08/05/18 19:29 Last Admin: 08/04/18 09:02 Dose: 30 ml General: weak HEENT: NC/AT, PERRLA Neck: Supple, No JVD Lungs: CTAB Cardiovascular: RRR, Normal S1 Abdomen: soft, non-tender Extremities: clear Neurological: no change - Procedures Procedures: Procedures Procedure Code Date CHANGE FEEDING DEVICE IN UP INTEST TRACT, LIQUID SUGAR MELTER APPROACH [id number] 10/04/15 CHANGE GASTROSTOMY TUBE 76747 10/04/15 INSERT TUNNELED CV CATH 79082 10/04/15 INSERTION OF FEEDING DEVICE INTO STOMACH, OPEN APPROACH [id number] 10/06/16 INSERTION OF INFUSION DEV INTO L SUBCLAV VEIN, PERC APPROACH 21T788Z 10/04/15 INSPECTION OF UPPER VEIN, PERCUTANEOUS APPROACH 03NI5IJ 10/04/15 PLACE GASTROSTOMY TUBE 13218 10/06/16 RESPIRATORY VENTILATION, 24-96 CONSECUTIVE HOURS [id number] 08/02/18 ULTRASONOGRAPHY OF LEFT SUBCLAVIAN VEIN, GUIDANCE [id number] 10/04/15 Internal Medicine Assmt/Plan - Assessment Assessment: Kidney stones Htn Diabetes Asthma Copd S/p Trach Current Active Problems Problem Status Onset LEAKING GASTRIC TUBE STOMA AREA; COFFEE Acute - Plan Plan: Continuation of care Continue present meds as directed GI consult Monitor labs, vitals G-tube repair/Monitor diet/G-tube Feedings once G-tube repaired Pain management Fall precaution Continue current treatment plan as ordered Nutritional Asmnt/Malnutr-PDOC - Dietary Evaluation Malnutrition Findings (Please click <Entered> for more info): Nutritional Asmnt/Malnutrition Start: 08/03/18 14: 53 Text: Status: Complete Freq: Protocol: Document 08/03/18 15:01 LCHENG (Rec: 08/03/18 15:35 [facility] MIRIAN-[email or web address]) Nutritional Asmnt/Malnutrition Patient General Information Nutritional Screening High Risk Consult Diagnosis Gtube malfunction, PNA Pertinent Medical Hx/Surgical Hx HTN, DM, asthma/COPD, PEG/ Gtube, Trach, dyslipidemia, resp failure Subjective Information Pt seen resting in bed, trach on vent. Consult received for Gtube feeding. Per RN, old Gtube was leaking, waiting for Gtube replacement. Current Diet Order/ Nutrition Support NPO Pertinent Medications humalog Pertinent Labs 08/03 Cl 108, Cr 0.2, Glucose 104, POC 93-114 Nutritional Hx/Data Height 1.52 m Height (Calculated Centimeters) 152.4 Current Weight (lbs) 45.359 kg Weight (Calculated Kilograms) 45.4 Weight (Calculated Grams) 75268.2 [place] Body Weight 100 Body Mass Index (BMI) 19.5 Weight Status Approriate GI Symptoms GI Symptoms None Last BM 08/02 Difficult in: None Usual diet at home Diabetisource at 50ml/hr x 20hr Skin Integrity/Comment: pressure ulcer to coccyx, abrasion to left upper abdomen , rash to left lower thigh Estimated Nutritional Goals BEE in Kcals: Using Current wt Calories/Kcals/Kg 23-27 Kcals Calculated 1347-7423 Protein: Using Current wt Protein g/k.2-1.4 Protein Calculated 54-63 Fluid: ml 1035-1215ml (1ml/kcal) Nutritional Problem 1. Problem Problem inadequte intake from enteral feeding Etiology Gtube malfunction Signs/Symptoms: TF not initiated Malnutrition Alert Is there a minimum of two criteria No selected? Query Text:Check all the applicable criteria. A minimum of two criteria are recommended for diagnosis of either severe or non-severe malnutrition. Malnutrition Related to Morbid Obesity Malnutrition related to morbid obesity No Intervention/Recommendation Comments 1. After GT replaced, recommend Glucerna 1.2 at 50ml /hr x 20hr to provide 1200kcal , 60g protein and 805ml free water, meeting 100% of nutritional needs. 2. Monitor TF rate, tolerance, wt, skin integrity and labs 3. F/U as high risk in 2-3 days Expected Outcomes/Goals Expected Outcomes/Goals 1. Pt to meet at least 90% of nutritional needs via nutrition support with tolerance 2. Wt stability, skin to remain intact, labs to approach WNL.
--- NOTE | 2018-08-04 17:08 | Consultation ---
DATE OF CONSULTATION: 08/04/2018 INFECTIOUS DISEASE CONSULTATION REFERRING PHYSICIAN: Dr. Dietz. REASON FOR CONSULTATION: Sepsis, pneumonia. HISTORY OF PRESENT ILLNESS: The patient is known to me from previous admissions. I have admitted this patient to [facility] multiple times. The patient has multiple admissions to long-term acute care facility also. The patient is a 58-year-old female with a past medical history of respiratory failure, on ventilator recently. 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 ESBL Klebsiella pneumoniae, sepsis on multiple occasions, infected ureteral stent, COPD, asthma, removal of broken ureteral stent by suprapubic approach by Dr. Angulo in the past at [facility], seen by multiple urologist for her recurrent UTI and a stent infection, nephrolithiasis, tracheostomy, G-tube placement, admitted to the hospital for G-tube leak. The patient had issues with G-tube in the past and G-tube was removed. , GI consult has taken care at [facility] and [facility] as well as [facility], but still remains same. On initial evaluation, her temperature was 98.5 degree Fahrenheit and WBC count was 11,000. Urinalysis showed bacteriuria and pyuria. ID consult was called for further antibiotic management. Chest x-ray also showed, no active disease. ID consult was called for further evaluation and management. PAST MEDICAL HISTORY: Includes ureteral stent infection, nephrolithiasis, COPD, asthma, cerebrovascular accident, contractures, sacral decubitus ulcer, G-tube leaks on multiple occasions and replacement on multiple times, ESBL Klebsiella pneumoniae infection, VRE in the urine in the past, ESBL Klebsiella sepsis and UTI, stent infection, tracheostomy, G-tube placement, protein-calorie malnutrition, dysphagia, severe flexion contractures, pneumonias in the past. FAMILY HISTORY: Unknown. SOCIAL HISTORY: The patient lives at subacute facility. No history of smoking, alcohol or drug use. REVIEW OF SYSTEMS: The patient unable to give any history. PHYSICAL EXAMINATION: VITAL SIGNS: Shows temperature is 98.5 degrees Fahrenheit, pulse 99, respirations 12, blood pressure 129/29. GENERAL: The patient is comfortable, cachectic, not in acute distress, on the ventilator support. HEENT: Head is normocephalic, atraumatic. Oral cavity moist, pink tongue. Eyes: Pallor is present, no icterus. PERRLA, EOMI. NECK: Supple. Trach site is clear. CHEST: Bilateral breath sounds. Occasional crackles. HEART: S1, S2 within normal limits. Regular rhythm. No murmur, no gallop. ABDOMEN: Soft, nontender, nondistended. Bowel sounds present. G-tube leaking and the patient has excoriation and redness of the abdominal wall. The patient has suprapubic abdominal wall completely healed. EXTREMITIES: No cyanosis, no clubbing. The patient has severe flexion contractures. NEUROLOGIC: Open eyes. Unable to communicate. BACK: The patient has stage 4 sacral decubitus ulcer with well-defined border. No discharge. LABORATORY DATA: Current lab shows WBC count is 11,000, hemoglobin 12.9, hematocrit 39.7, platelets are 553,000, neutrophils 68.8%. Sodium is 138, potassium 3.4, chloride 98, bicarbonate is 25, BUN is 18, creatinine is 0.2, glucose 135. Chest x-ray shows no active disease. Urinalysis pending. IMPRESSION: 1. Recurrent infection secondary to stent infection. 2. G-tube leak with abdominal wall cellulitis. 3. Vent dependent respiratory failure. 4. Chronic obstructive pulmonary disease. 5. Sacral decubitus ulcer stage 4. No sign of infection. 6. Stent infection, hydronephrosis. 7. History of MDRO infections and colonization in the past. 8. Dysphagia, G-tube placement, recurrent G-tube site leak. 9. Cerebrovascular accident. 10. Anemia of chronic disease. 11. Protein calorie mellitus. RECOMMENDATIONS: We will start meropenem and discontinue other antibiotics. Check urinalysis, urine culture. Renal ultrasound. Thank you, Dr. Dietz for involving me in taking care of this patient. JOB# [id number]
--- NOTE | 2018-08-04 17:44 | GI Progress Note ---
Subjective - Review of Systems Service Date: 08/04/18 Events since last encounter: No events Subjective: Non verbal Leakage is less Objective - Results Result Diagrams: 08/04/18 06:52 08/04/18 06:52 Recent Labs: Laboratory Last Values WBC 5.8 Th/cmm (4.8-10.8) 08/04/18 06:52 RBC 3.98 Mil/cmm (3.80-5.10) 08/04/18 06:52 Hgb 10.3 gm/dL (12-16) L 08/04/18 06:52 Hct 31.5 % (41.0-60) L 08/04/18 06:52 MCV 79.2 fl (81-100) L 08/04/18 06:52 MCH 25.9 pg (27.0-31.0) L 08/04/18 06:52 MCHC Differential 32.6 pg (28.0-36.0) 08/04/18 06:52 RDW 18.9 % (11.5-20.0) 08/04/18 06:52 Plt Count 409 Th/cmm (150-400) H 08/04/18 06:52 MPV 6.7 fl 08/04/18 06:52 Neutrophils % 64.8 % (40.0-80.0) 08/04/18 06:52 Lymphocytes % 26.8 % (20.0-50.0) 08/04/18 06:52 Monocytes % 6.4 % (2.0-10.0) 08/04/18 06:52 Eosinophils % 1.5 % (0.0-5.0) 08/04/18 06:52 Basophils % 0.5 % (0.0-2.0) 08/04/18 06:52 PT 10.3 SECONDS (9.5-11.5) 08/03/18 04:00 INR 0.99 (0.5-1.4) 08/03/18 04:00 PTT (Actin FS) 28.8 SECONDS (26.0-38.0) 08/03/18 04:00 Sodium 142 mEq/L (136-145) 08/04/18 06:52 Potassium 2.8 mEq/L (3.5-5.1) L* 08/04/18 06:52 Chloride 112 mEq/L (98-107) H 08/04/18 06:52 Carbon Dioxide 21.6 mEq/L (21.0-31.0) 08/04/18 06:52 Anion Gap 11.2 (7.0-16.0) 08/04/18 06:52 BUN 10 mg/dL (7-25) 08/04/18 06:52 Creatinine 0.2 mg/dL (0.6-1.2) L 08/04/18 06:52 Est GFR ( Amer) > 60.0 ml/min (>90) 08/04/18 06:52 Est GFR (Non-Af Amer) > 60.0 ml/min 08/04/18 06:52 BUN/Creatinine Ratio 50.0 08/04/18 06:52 Glucose 174 mg/dL (70-105) H 08/04/18 06:52 POC Glucose 190 MG/DL (70 - 105) H 08/04/18 12:00 Whole Bld Lactic Acid 1.37 mmol/L (0.60-1.99) 08/02/18 12:20 Calcium 8.7 mg/dL (8.6-10.3) 08/04/18 06:52 Total Bilirubin 0.3 mg/dL (0.3-1.0) 08/02/18 12:00 AST 11 U/L (13-39) L 08/02/18 12:00 ALT 7 U/L (7-52) 08/02/18 12:00 Alkaline Phosphatase 126 U/L (34-104) H 08/02/18 12:00 Creatine Kinase 12 U/L (30-223) L 08/02/18 12:00 Troponin I < 0.01 ng/mL (0.01-0.05) L 08/02/18 12:00 B-Natriuretic Peptide 19.9 pg/mL (5.0-100.0) 08/02/18 12:00 Total Protein 7.7 gm/dL (6.0-8.3) 08/02/18 12:00 Albumin 3.7 gm/dL (3.7-5.3) 08/02/18 12:00 Globulin 4.0 gm/dL 08/02/18 12:00 Albumin/Globulin Ratio 0.9 (1.0-1.8) L 08/02/18 12:00 Triglycerides 218 mg/dL (<150) H 08/02/18 12:00 Cholesterol 123 mg/dL (<200) 08/02/18 12:00 LDL Cholesterol Direct 60 mg/dL (75-193) L 08/02/18 12:00 HDL Cholesterol 40 mg/dL (23-92) 08/02/18 12:00 Amylase 17 U/L (29-103) L 08/02/18 12:00 Lipase 7 U/L (11-82) L 08/02/18 12:00 Urine Source CLEAN C 08/03/18 07:45 Urine Color YELLOW 08/03/18 07:45 Urine Clarity HAZY (CLEAR) 08/03/18 07:45 Urine pH 8.5 (4.6 - 8.0) 08/03/18 07:45 Ur Specific [place] 1.010 (1.005-1.030) 08/03/18 07:45 Urine Protein 30 mg/dL (NEGATIVE) H 08/03/18 07:45 Urine Glucose (UA) NEGATIVE mg/dL (NEGATIVE) 08/03/18 07:45 Urine Ketones 15 mg/dL (NEGATIVE) H 08/03/18 07:45 Urine Blood TRACE (NEGATIVE) 08/03/18 07:45 Urine Nitrate NEGATIVE (NEGATIVE) 08/03/18 07:45 Urine Bilirubin NEGATIVE (NEGATIVE) 08/03/18 07:45 Urine Urobilinogen 0.2 E.U./dL (0.2 - 1.0) 08/03/18 07:45 Ur Leukocyte Esterase MODERATE (NEGATIVE) H 08/03/18 07:45 Urine RBC 2-5 /hpf (0-5) 08/03/18 07:45 Urine WBC 25-50 /hpf (0-5) H 08/03/18 07:45 Ur Epithelial Cells FEW /lpf (FEW) 08/03/18 07:45 Urine Bacteria MODERATE /hpf (NONE SEEN) H 08/03/18 07:45 - Physical Exam Vitals and I&O: Vital Signs Temp 98.1 F 08/04/18 12:00 Pulse 93 08/04/18 17:33 Resp 12 08/04/18 17:00 BP 143/44 08/04/18 17:00 Pulse Ox 99 08/04/18 17:33 Intake & Output 08/03/18 08/04/18 08/04/18 18:59 06:59 18:59 Intake Total 800 640 100 Output Total 575 420 Balance 225 220 100 Weight (lbs) 45.382 kg 45.586 kg Intake: Intake, IV Amount 450 200 100 Azithromycin 500 mg In 250 Sodium Chloride 0.9% 250 ml @ 250 mls/hr IV Q24HR [facility] Rx#:[id number] Meropenem 1 gm In Sodium 200 200 100 Chloride 0.9% 100 ml @ 100 mls/hr IV Q8H [facility] Rx# :[id number] Tube Feeding 240 Other 350 200 Output: Gastric Drainage 100 Urine 475 420 Other: # Bowel Movements 1 Stool Characteristics Soft Soft Liquid Formed Brown Brown Weight Source Bedscale Bedscale Active Medications: Current Medications Albuterol/Ipratropium (Duoneb Neb) 3 ml HHN Q6HRT [facility] Stop: 10/03/18 00:59 Last Admin: 08/04/18 13:00 Dose: 3 ml [place] Oil/[place] Balsam/Trypsin (Venelex) 1 appl TP DAILY [facility] Stop: 10/03/18 08:59 Last Admin: 08/04/18 14:00 Dose: 1 appl Chlorhexidine Gluconate (Peridex) 15 ml MM 08,1999 [facility] Stop: 10/01/18 19:59 Last Admin: 08/04/18 08:44 Dose: 15 ml Dextrose (D50w) 50 ml IVP PRN PRN PRN Reason: Blood Glucose less than 70 Stop: 10/01/18 20:52 Dextrose (Glutose 40%) 18.75 gm PO PRN PRN PRN Reason: Blood Glucose less than 70 Stop: 10/01/18 20:52 Glucagon (Glucagen) 1 mg IM PRN PRN PRN Reason: Blood Glucose less than 70 Stop: 10/01/18 20:52 Azithromycin 500 mg/ Sodium (Chloride) 250 mls @ 250 mls/hr IV Q24HR [facility] Stop: 10/01/18 14:59 Last Admin: 08/04/18 16:44 Dose: 100 mls/hr Meropenem 1 gm/ Sodium (Chloride) 100 mls @ 100 mls/hr IV Q8H [facility] Stop: 10/01/18 20:59 Last Infusion: 08/04/18 17:03 Dose: Infused Insulin Human Lispro (Humalog Insulin Sliding Scale) 0 units SUBQ Q6HR [facility]; Protocol Stop: 10/02/18 00:00 Last Admin: 08/04/18 12:06 Dose: 2 units Metoclopramide HCl (Reglan) 10 mg IVP Q6HR [facility] Stop: 10/02/18 17:59 Last Admin: 08/04/18 12:25 Dose: 10 mg Mineral Oil (Mineral Oil 30 Ml) 30 ml GT BID [facility] Stop: 08/05/18 19:29 Last Admin: 08/04/18 09:02 Dose: 30 ml General: Alert, Mild distress Cardiovascular: Regular rate, Normal S1, Normal S2 Lungs: Other (few rhonchi) - Procedures Procedures: Procedures Procedure Code Date CHANGE FEEDING DEVICE IN UP INTEST TRACT, DIRECTOR OF [employer] [facility] APPROACH [id number] 10/04/15 CHANGE GASTROSTOMY TUBE 15393 10/04/15 INSERT TUNNELED CV CATH 06567 10/04/15 INSERTION OF FEEDING DEVICE INTO STOMACH, OPEN APPROACH [id number] 10/06/16 INSERTION OF INFUSION DEV INTO L SUBCLAV VEIN, PERC APPROACH [id number] 10/04/15 INSPECTION OF UPPER VEIN, PERCUTANEOUS APPROACH [id number] 10/04/15 PLACE GASTROSTOMY TUBE 73217 10/06/16 RESPIRATORY VENTILATION, 24-96 CONSECUTIVE HOURS [id number] 08/02/18 ULTRASONOGRAPHY OF LEFT SUBCLAVIAN VEIN, GUIDANCE [id number] 10/04/15 Assessment/Plan - Problem List Patient Problems: All Active Problems LEAKING GASTRIC TUBE STOMA AREA; COFFEE (Acute) - Assessment Assessment: Leaking G Tube Dysphagia - Plan Plan: 1. Leaking G Tube Slightly better Cont reglan and low rate feeding and advance gradually. Dysphagia as above
--- NOTE | 2018-08-04 23:31 | Progress Notes ---
DATE: 08/04/2018 PULMONARY PROGRESS NOTE SUBJECTIVE: The patient appears to be doing okay, comfortable on the vent, no distress, not much secretion. OBJECTIVE: VITAL SIGNS: Temperature 98.1, pulse 92, respiration 12, blood pressure 195/32, saturation 99%. CHEST: Good breath sounds. No wheezing or crackles. HEART: Regular rate and rhythm. ABDOMEN: Soft. EXTREMITIES: Lower extremities, no edema. LABORATORY AND DIAGNOSTIC DATA: WBC 5.8, hemoglobin 10.3. Sodium 142, potassium 2.8, BUN is 10, creatinine 0.2. IMPRESSION: 1. Respiratory failure. 2. Urinary tract infection. 3. Pneumonia. PLAN: 1. IV antibiotics. 2. Nebulizer. 3. Pulmonary toilet with supportive care. Follow up chest x-ray. 4. Ventilatory support. JOB# [id number]
[2018-08-05] MEDS: Albuterol/Ipratropium Neb 3 ML AERS HHN SCH ×4 (01:08→18:46)
[2018-08-05 04:45] LABS: % BASOPHILS 0.5 % (0.0-2.0); % LYMPHOCYTES 17.8 % (20.0-50.0); % MONOCYTES 5.7 % (2.0-10.0); EOSINOPHILE ABSOLUTE 0.1 Th/cmm (0.1-0.4); HEMATOCRIT 31.3 % (41.0-60); HEMOGLOBIN 10.2 gm/dL (12-16); LYMPHOCYTE ABSOLUTE 1.8 Th/cmm (1.5-3.0); MEAN CELL VOLUME 80.6 fl (81-100); MEAN CORPUSCULAR HEMOGLOBIN 26.2 pg (27.0-31.0); MEAN CORPUSCULAR HGB CONC 32.5 pg (28.0-36.0); MEAN PLATELET VOLUME 6.8 fl; MONOCYTE ABSOLUTE 0.6 Th/cmm (0.3-1.0); NEUTROPHILE ABSOLUTE 7.5 Th/cmm (1.8-8.0); PLATELET COUNT 396 Th/cmm (150-400); RED BLOOD COUNT 3.88 Mil/cmm (3.80-5.10); RED CELL DISTRIBUTION WIDTH 18.4 % (11.5-20.0)
[2018-08-05] MEDS: Meropenem 1 GM in Sodium Chloride 0.9% 100 ML IV SCH ×3 (04:59→21:00)
[2018-08-05] MEDS: Metoclopramide 5 mg/mL 2mL Vial IVP SCH ×3 (05:01→18:39)
[2018-08-05 05:35] LABS: ANION GAP 11.4 (7.0-16.0); BUN - UREA NITROGEN 6 mg/dL (7-25); CALCIUM SERUM 8.4 mg/dL (8.6-10.3); CARBON DIOXIDE 20.8 mEq/L (21.0-31.0); CHLORIDE 109 mEq/L (98-107); GLUCOSE 187 mg/dL (70-105); POTASSIUM SERUM 3.2 mEq/L (3.5-5.1); SODIUM SERUM 138 mEq/L (136-145)
[2018-08-05 05:40] LABS: CREATININE - SERUM 0.2 mg/dL (0.6-1.2); GFR AFRICAN-AMERICAN > 60.0 ml/min (>90); GFR NON AFRICAN-AMERICAN > 60.0 ml/min
[2018-08-05] MEDS: INSULIN LISPRO SLIDING SCALE 100 UNITS/ML UNIT SUBQ SCH ×3 (05:57→17:47)
[2018-08-05] MEDS ORDERED: Potassium Chloride Elixir 20 mEq /15 mL UDC GT ONE (06:27)
--- NOTE | 2018-08-05 06:32 | Consultation ---
DATE OF CONSULTATION: SURGICAL CONSULTATION NOTE HISTORY OF PRESENT ILLNESS: The patient presented to the Emergency Room with a G-tube leakage. There was some cellulitis around the G-tube site, some nausea, vomiting and hematemesis as well. No reports of trauma and surgical consultation requested for management of sacrococcyx decubitus wound and evaluate for possible debridement. PAST MEDICAL HISTORY: Includes hypertension, diabetes, asthma, COPD, dyslipidemia, respiratory failure with trach and vent, encephalopathic. REVIEW OF SYSTEMS: Unable to be obtained. PHYSICAL EXAMINATION: VITAL SIGNS: 52 kilograms. BMI of 22.6. GENERAL: She is resting in bed comfortably, in no acute distress. HEENT AND NECK: Within normal limits. She is encephalopathic, does not follow commands. She has a trach. She has no JVD, carotid bruits or neck mass, lymphadenopathy. CHEST: Clear to auscultation bilaterally. CARDIAC: Regular rhythm and rate. ABDOMEN: Soft, nontender, nondistended. There is a G-tube with surrounding cellulitis. There is some leak of G-tube contents around the G-tube site. There are some dressings intact. The skin opening is slightly larger than the tube. There is no fluctuance or crepitus of the abdominal wall at that site. The patient has a very large sacrococcyx decubitus wound that measures about 8 x 9 cm in size. There was significant tunneling that is noted as well too, but there is no ischemic gangrenous or infected tissue that requires debridement. Some packing was placed and iodoform packing was placed. EXTREMITIES: The patient with some superficial wounds of the lower extremities. LABORATORY DATA: White blood cell count is 5.8, H and H is 10 and 31.5, platelet count is 409. Potassium is 2.8, chloride is 112, creatinine 0.2, glucose 174. Coags are normal. MEDICATIONS: The patient is on azithromycin, insulin, meropenem, Reglan, mineral oil, Protonix. DIAGNOSTIC STUDIES: The patient had an upper GI series confirmation of G-tube within the gastric lumen. Chest x-ray, no acute focal pulmonary processes. Tracheostomy tube is intact. IMPRESSION AND PLAN: The G-tube site has a significant cellulitis from the site that was leaking. Dr. Andre is following this case closely. We will have him manage this. In regards to the sacrococcyx decubitus wound, it is fairly clean. It is a large tunneling wound, but no debridement required at this time. The patient is a poor candidate for flap closure given her multiple medical comorbidities, bedridden state and overall poor protein nutrition and malnutrition. Continue local wound care. No obvious signs of sepsis. Antibiotic for the abdominal G-tube site cellulitis and generalized wounds. The patient with respiratory failure and encephalopathy. [facility]# [id number]
[2018-08-05] MEDS: Venelex 60gm Tube TP SCH (08:12)
[2018-08-05] MEDS: Chlorhexidine Gluconate 0.12% 15mL Mouthwash MM SCH ×2 (08:12→20:00)
--- NOTE | 2018-08-05 08:48 | Diagnostic Imaging Report ---
Exam: Portable chest x-ray HISTORY: Shortness of breath. COMPARISON: 08/02/2018 Findings: Portable summation of chest at the 0 811 reviewed the study compared to prior examination of 08/02/2018 demonstrates COPD changes. Tracheostomy tube remains midline. Bony thorax is intact. Old healed fracture left humeral neck appreciated. The costophrenic angles are clear. IMPRESSION: COPD changes.
--- NOTE | 2018-08-05 12:20 | GI Progress Note ---
Subjective - Review of Systems Service Date: 08/05/18 Events since last encounter: Leaking G tube Subjective: Non verbal Leakage is less Objective - Results Result Diagrams: 08/05/18 04:20 08/05/18 04:20 Recent Labs: Laboratory Last Values WBC 10.0 Th/cmm (4.8-10.8) D 08/05/18 04:20 RBC 3.88 Mil/cmm (3.80-5.10) 08/05/18 04:20 Hgb 10.2 gm/dL (12-16) L 08/05/18 04:20 Hct 31.3 % (41.0-60) L 08/05/18 04:20 MCV 80.6 fl (81-100) L 08/05/18 04:20 MCH 26.2 pg (27.0-31.0) L 08/05/18 04:20 MCHC Differential 32.5 pg (28.0-36.0) 08/05/18 04:20 RDW 18.4 % (11.5-20.0) 08/05/18 04:20 Plt Count 396 Th/cmm (150-400) 08/05/18 04:20 MPV 6.8 fl 08/05/18 04:20 Neutrophils % 75.0 % (40.0-80.0) 08/05/18 04:20 Lymphocytes % 17.8 % (20.0-50.0) L 08/05/18 04:20 Monocytes % 5.7 % (2.0-10.0) 08/05/18 04:20 Eosinophils % 1.0 % (0.0-5.0) 08/05/18 04:20 Basophils % 0.5 % (0.0-2.0) 08/05/18 04:20 PT 10.3 SECONDS (9.5-11.5) 08/03/18 04:00 INR 0.99 (0.5-1.4) 08/03/18 04:00 PTT (Actin FS) 28.8 SECONDS (26.0-38.0) 08/03/18 04:00 Sodium 138 mEq/L (136-145) 08/05/18 04:20 Potassium 3.2 mEq/L (3.5-5.1) L 08/05/18 04:20 Chloride 109 mEq/L (98-107) H 08/05/18 04:20 Carbon Dioxide 20.8 mEq/L (21.0-31.0) L 08/05/18 04:20 Anion Gap 11.4 (7.0-16.0) 08/05/18 04:20 BUN 6 mg/dL (7-25) L 08/05/18 04:20 Creatinine 0.2 mg/dL (0.6-1.2) L 08/05/18 04:20 Est GFR ( Amer) > 60.0 ml/min (>90) 08/05/18 04:20 Est GFR (Non-Af Amer) > 60.0 ml/min 08/05/18 04:20 BUN/Creatinine Ratio 30.0 08/05/18 04:20 Glucose 187 mg/dL (70-105) H 08/05/18 04:20 POC Glucose 142 MG/DL (70 - 105) H 08/05/18 11:22 Whole Bld Lactic Acid 1.37 mmol/L (0.60-1.99) 08/02/18 12:20 Calcium 8.4 mg/dL (8.6-10.3) L 08/05/18 04:20 Total Bilirubin 0.3 mg/dL (0.3-1.0) 08/02/18 12:00 AST 11 U/L (13-39) L 08/02/18 12:00 ALT 7 U/L (7-52) 08/02/18 12:00 Alkaline Phosphatase 126 U/L (34-104) H 08/02/18 12:00 Creatine Kinase 12 U/L (30-223) L 08/02/18 12:00 Troponin I < 0.01 ng/mL (0.01-0.05) L 08/02/18 12:00 B-Natriuretic Peptide 19.9 pg/mL (5.0-100.0) 08/02/18 12:00 Total Protein 7.7 gm/dL (6.0-8.3) 08/02/18 12:00 Albumin 3.7 gm/dL (3.7-5.3) 08/02/18 12:00 Globulin 4.0 gm/dL 08/02/18 12:00 Albumin/Globulin Ratio 0.9 (1.0-1.8) L 08/02/18 12:00 Triglycerides 218 mg/dL (<150) H 08/02/18 12:00 Cholesterol 123 mg/dL (<200) 08/02/18 12:00 LDL Cholesterol Direct 60 mg/dL (75-193) L 08/02/18 12:00 HDL Cholesterol 40 mg/dL (23-92) 08/02/18 12:00 Amylase 17 U/L (29-103) L 08/02/18 12:00 Lipase 7 U/L (11-82) L 08/02/18 12:00 Urine Source CLEAN C 08/03/18 07:45 Urine Color YELLOW 08/03/18 07:45 Urine Clarity HAZY (CLEAR) 08/03/18 07:45 Urine pH 8.5 (4.6 - 8.0) 08/03/18 07:45 Ur Specific [place] 1.010 (1.005-1.030) 08/03/18 07:45 Urine Protein 30 mg/dL (NEGATIVE) H 08/03/18 07:45 Urine Glucose (UA) NEGATIVE mg/dL (NEGATIVE) 08/03/18 07:45 Urine Ketones 15 mg/dL (NEGATIVE) H 08/03/18 07:45 Urine Blood TRACE (NEGATIVE) 08/03/18 07:45 Urine Nitrate NEGATIVE (NEGATIVE) 08/03/18 07:45 Urine Bilirubin NEGATIVE (NEGATIVE) 08/03/18 07:45 Urine Urobilinogen 0.2 E.U./dL (0.2 - 1.0) 08/03/18 07:45 Ur Leukocyte Esterase MODERATE (NEGATIVE) H 08/03/18 07:45 Urine RBC 2-5 /hpf (0-5) 08/03/18 07:45 Urine WBC 25-50 /hpf (0-5) H 08/03/18 07:45 Ur Epithelial Cells FEW /lpf (FEW) 08/03/18 07:45 Urine Bacteria MODERATE /hpf (NONE SEEN) H 08/03/18 07:45 - Physical Exam Vitals and I&O: Vital Signs Temp 97.8 F 08/05/18 10:55 Pulse 93 08/05/18 10:55 Resp 18 08/05/18 10:55 BP 123/35 08/05/18 10:55 Pulse Ox 99 08/05/18 10:55 Intake & Output 08/04/18 08/05/18 08/05/18 18:59 06:59 18:59 Intake Total 790 890 Output Total 1150 1100 Balance -360 -210 Weight (lbs) 52.481 kg 51.795 kg Intake: Intake, IV Amount 100 450 Azithromycin 500 mg In 250 Sodium Chloride 0.9% 250 ml @ 250 mls/hr IV Q24HR [facility] Rx#:[id number] Meropenem 1 gm In Sodium 100 200 Chloride 0.9% 100 ml @ 100 mls/hr IV Q8H [facility] Rx# :[id number] Tube Feeding 240 240 Other 450 200 Output: Urine 1150 1100 Other: # Bowel Movements 1 0 Stool Characteristics Soft Soft Formed Brown Weight Source Bedscale Bedscale Active Medications: Current Medications Albuterol/Ipratropium (Duoneb Neb) 3 ml HHN Q6HRT [facility] Stop: 10/03/18 00:59 Last Admin: 08/05/18 06:44 Dose: 3 ml [place] Oil/[place]ian Balsam/Trypsin (Venelex) 1 appl TP DAILY [facility] Stop: 10/03/18 08:59 Last Admin: 08/05/18 08:12 Dose: 1 appl Chlorhexidine Gluconate (Peridex) 15 ml MM 08,1999 [facility] Stop: 10/01/18 19:59 Last Admin: 08/05/18 08:12 Dose: 15 ml Dextrose (D50w) 50 ml IVP PRN PRN PRN Reason: Blood Glucose less than 70 Stop: 10/01/18 20:52 Dextrose (Glutose 40%) 18.75 gm PO PRN PRN PRN Reason: Blood Glucose less than 70 Stop: 10/01/18 20:52 Glucagon (Glucagen) 1 mg IM PRN PRN PRN Reason: Blood Glucose less than 70 Stop: 10/01/18 20:52 Azithromycin 500 mg/ Sodium (Chloride) 250 mls @ 250 mls/hr IV Q24HR [facility] Stop: 10/01/18 14:59 Last Infusion: 08/04/18 19:15 Dose: Infused Meropenem 1 gm/ Sodium (Chloride) 100 mls @ 100 mls/hr IV Q8H [facility] Stop: 10/01/18 20:59 Last Infusion: 08/05/18 06:00 Dose: Infused Insulin Human Lispro (Humalog Insulin Sliding Scale) 0 units SUBQ Q6HR [facility]; Protocol Stop: 10/02/18 00:00 Last Admin: 08/05/18 11:38 Dose: Not Given Metoclopramide HCl (Reglan) 10 mg IVP Q6HR [facility] Stop: 10/02/18 17:59 Last Admin: 08/05/18 11:41 Dose: 10 mg Mineral Oil (Mineral Oil 30 Ml) 30 ml GT BID [facility] Stop: 08/05/18 19:29 Last Admin: 08/05/18 08:12 Dose: 30 ml Pantoprazole Sodium (Protonix) 40 mg IVP DAILY [facility] Stop: 10/04/18 08:59 Last Admin: 08/05/18 08:12 Dose: 40 mg General: Alert, Mild distress Cardiovascular: Regular rate, Normal S1, Normal S2 Lungs: Other (few rhonchi) Abdomen: Bowel sounds, Soft, Other (G tube and ), no Tender - Procedures Procedures: Procedures Procedure Code Date CHANGE FEEDING DEVICE IN UP INTEST TRACT, [employer]ELOPMENT APPROACH [id number] 10/04/15 CHANGE GASTROSTOMY TUBE 11096 10/04/15 INSERT TUNNELED CV CATH 12560 10/04/15 INSERTION OF FEEDING DEVICE INTO STOMACH, OPEN APPROACH [id number] 10/06/16 INSERTION OF INFUSION DEV INTO L SUBCLAV VEIN, PERC APPROACH [id number] 10/04/15 INSPECTION OF UPPER VEIN, PERCUTANEOUS APPROACH [id number] 10/04/15 PLACE GASTROSTOMY TUBE 11707 10/06/16 RESPIRATORY VENTILATION, 24-96 CONSECUTIVE HOURS [id number] 08/02/18 ULTRASONOGRAPHY OF LEFT SUBCLAVIAN VEIN, GUIDANCE [id number] 10/04/15 Assessment/Plan - Problem List Patient Problems: All Active Problems LEAKING GASTRIC TUBE STOMA AREA; COFFEE (Acute) - Assessment Assessment: Leaking G Tube Dysphagia - Plan Plan: 1. Leaking G Tube Getting worse Remove the G tube and apply a colostomy bag then replace the tube when the opening is smaller Dysphagia PPN/TPN for now
[2018-08-05 14:24] LABS: ALB/GLOB RATIO 0.9 (1.0-1.8); ALKALINE PHOSPHATASE 106 U/L (34-104); ANION GAP 11.7 (7.0-16.0); BILIRUBIN,TOTAL 0.4 mg/dL (0.3-1.0); BUN - UREA NITROGEN 5 mg/dL (7-25); CALCIUM SERUM 8.9 mg/dL (8.6-10.3); CARBON DIOXIDE 20.4 mEq/L (21.0-31.0); CHLORIDE 109 mEq/L (98-107); CREATININE - SERUM 0.2 mg/dL (0.6-1.2); GFR AFRICAN-AMERICAN > 60.0 ml/min (>90); GFR NON AFRICAN-AMERICAN > 60.0 ml/min; GLUCOSE 170 mg/dL (70-105); POTASSIUM SERUM 4.1 mEq/L (3.5-5.1); SGOT 9 U/L (13-39); SGPT/ALT 7 U/L (7-52); SODIUM SERUM 137 mEq/L (136-145); TOTAL PROTEIN,SERUM 6.4 gm/dL (6.0-8.3)
[2018-08-05] MEDS: Azithromycin 500 MG in Sodium Chloride 0.9% 250 ML IV SCH (15:04)
[2018-08-05] MEDS: Amino Acids 3% / Electrolytes 1,000 ML IV SCH (16:34)
--- NOTE | 2018-08-05 18:54 | Internal Medicine Prog Note ---
Internal Medicine Subjective - Subjective Service Date: 08/05/18 Patient is:: asleep, non-verbal, in bed Patient Complaints of:: congestion, other (on ventilator.) Per staff patient has:: no adverse event, no episodes of fall, tolerating meds Internal Medicine Objective - Results Result Diagrams: 08/05/18 04:20 08/05/18 14:00 Recent Labs: Laboratory Last Values WBC 10.0 Th/cmm (4.8-10.8) D 08/05/18 04:20 RBC 3.88 Mil/cmm (3.80-5.10) 08/05/18 04:20 Hgb 10.2 gm/dL (12-16) L 08/05/18 04:20 Hct 31.3 % (41.0-60) L 08/05/18 04:20 MCV 80.6 fl (81-100) L 08/05/18 04:20 MCH 26.2 pg (27.0-31.0) L 08/05/18 04:20 MCHC Differential 32.5 pg (28.0-36.0) 08/05/18 04:20 RDW 18.4 % (11.5-20.0) 08/05/18 04:20 Plt Count 396 Th/cmm (150-400) 08/05/18 04:20 MPV 6.8 fl 08/05/18 04:20 Neutrophils % 75.0 % (40.0-80.0) 08/05/18 04:20 Lymphocytes % 17.8 % (20.0-50.0) L 08/05/18 04:20 Monocytes % 5.7 % (2.0-10.0) 08/05/18 04:20 Eosinophils % 1.0 % (0.0-5.0) 08/05/18 04:20 Basophils % 0.5 % (0.0-2.0) 08/05/18 04:20 PT 10.3 SECONDS (9.5-11.5) 08/03/18 04:00 INR 0.99 (0.5-1.4) 08/03/18 04:00 PTT (Actin FS) 28.8 SECONDS (26.0-38.0) 08/03/18 04:00 Sodium 137 mEq/L (136-145) 08/05/18 14:00 Potassium 4.1 mEq/L (3.5-5.1) 08/05/18 14:00 Chloride 109 mEq/L (98-107) H 08/05/18 14:00 Carbon Dioxide 20.4 mEq/L (21.0-31.0) L 08/05/18 14:00 Anion Gap 11.7 (7.0-16.0) 08/05/18 14:00 BUN 5 mg/dL (7-25) L 08/05/18 14:00 Creatinine 0.2 mg/dL (0.6-1.2) L 08/05/18 14:00 Est GFR ( Amer) > 60.0 ml/min (>90) 08/05/18 14:00 Est GFR (Non-Af Amer) > 60.0 ml/min 08/05/18 14:00 BUN/Creatinine Ratio 25.0 08/05/18 14:00 Glucose 170 mg/dL (70-105) H 08/05/18 14:00 POC Glucose 156 MG/DL (70 - 105) H 08/05/18 17:41 Whole Bld Lactic Acid 1.37 mmol/L (0.60-1.99) 08/02/18 12:20 Calcium 8.9 mg/dL (8.6-10.3) 08/05/18 14:00 Total Bilirubin 0.4 mg/dL (0.3-1.0) 08/05/18 14:00 AST 9 U/L (13-39) L 08/05/18 14:00 ALT 7 U/L (7-52) 08/05/18 14:00 Alkaline Phosphatase 106 U/L (34-104) H 08/05/18 14:00 Creatine Kinase 12 U/L (30-223) L 08/02/18 12:00 Troponin I < 0.01 ng/mL (0.01-0.05) L 08/02/18 12:00 B-Natriuretic Peptide 19.9 pg/mL (5.0-100.0) 08/02/18 12:00 Total Protein 6.4 gm/dL (6.0-8.3) 08/05/18 14:00 Albumin 3.0 gm/dL (3.7-5.3) L 08/05/18 14:00 Globulin 3.4 gm/dL 08/05/18 14:00 Albumin/Globulin Ratio 0.9 (1.0-1.8) L 08/05/18 14:00 Triglycerides 218 mg/dL (<150) H 08/02/18 12:00 Cholesterol 123 mg/dL (<200) 08/02/18 12:00 LDL Cholesterol Direct 60 mg/dL (75-193) L 08/02/18 12:00 HDL Cholesterol 40 mg/dL (23-92) 08/02/18 12:00 Amylase 17 U/L (29-103) L 08/02/18 12:00 Lipase 7 U/L (11-82) L 08/02/18 12:00 Urine Source CLEAN C 08/03/18 07:45 Urine Color YELLOW 08/03/18 07:45 Urine Clarity HAZY (CLEAR) 08/03/18 07:45 Urine pH 8.5 (4.6 - 8.0) 08/03/18 07:45 Ur Specific [place] 1.010 (1.005-1.030) 08/03/18 07:45 Urine Protein 30 mg/dL (NEGATIVE) H 08/03/18 07:45 Urine Glucose (UA) NEGATIVE mg/dL (NEGATIVE) 08/03/18 07:45 Urine Ketones 15 mg/dL (NEGATIVE) H 08/03/18 07:45 Urine Blood TRACE (NEGATIVE) 08/03/18 07:45 Urine Nitrate NEGATIVE (NEGATIVE) 08/03/18 07:45 Urine Bilirubin NEGATIVE (NEGATIVE) 08/03/18 07:45 Urine Urobilinogen 0.2 E.U./dL (0.2 - 1.0) 08/03/18 07:45 Ur Leukocyte Esterase MODERATE (NEGATIVE) H 08/03/18 07:45 Urine RBC 2-5 /hpf (0-5) 08/03/18 07:45 Urine WBC 25-50 /hpf (0-5) H 08/03/18 07:45 Ur Epithelial Cells FEW /lpf (FEW) 08/03/18 07:45 Urine Bacteria MODERATE /hpf (NONE SEEN) H 08/03/18 07:45 - Physical Exam Vitals and I&O: Vital Signs Temp 97.8 F 08/05/18 18:15 Pulse 86 08/05/18 18:46 Resp 18 08/05/18 18:15 BP 129/42 08/05/18 18:15 Pulse Ox 99 08/05/18 18:46 Intake & Output 08/04/18 08/05/18 08/05/18 18:59 06:59 18:59 Intake Total 790 890 450 Output Total 1150 1100 1400 Balance -360 -210 -950 Weight (lbs) 115 lb 11.2 oz 114 lb 3 oz 121 lb Intake: Intake, IV Amount 100 450 350 Azithromycin 500 mg In 250 250 Sodium Chloride 0.9% 250 ml @ 250 mls/hr IV Q24HR [facility] Rx#:[id number] Meropenem 1 gm In Sodium 100 200 100 Chloride 0.9% 100 ml @ 100 mls/hr IV Q8H [facility] Rx# :[id number] Tube Feeding 240 240 100 Other 450 200 Output: Urine 1150 1100 1400 Other: # Bowel Movements 1 0 Stool Characteristics Soft Soft Formed Brown Weight Source Bedscale Bedscale Bedscale Active Medications: Current Medications Albuterol/Ipratropium (Duoneb Neb) 3 ml HHN Q6HRT [facility] Stop: 10/03/18 00:59 Last Admin: 08/05/18 18:46 Dose: 3 ml [place] Oil/Cam[place]onian Balsam/Trypsin (Venelex) 1 appl TP DAILY [facility] Stop: 10/03/18 08:59 Last Admin: 08/05/18 08:12 Dose: 1 appl Chlorhexidine Gluconate (Peridex) 15 ml MM 0800,1999 [facility] Stop: 10/01/18 19:59 Last Admin: 08/05/18 08:12 Dose: 15 ml Dextrose (D50w) 50 ml IVP PRN PRN PRN Reason: Blood Glucose less than 70 Stop: 10/01/18 20:52 Dextrose (Glutose 40%) 18.75 gm PO PRN PRN PRN Reason: Blood Glucose less than 70 Stop: 10/01/18 20:52 Glucagon (Glucagen) 1 mg IM PRN PRN PRN Reason: Blood Glucose less than 70 Stop: 10/01/18 20:52 Azithromycin 500 mg/ Sodium (Chloride) 250 mls @ 250 mls/hr IV Q24HR [facility] Stop: 10/01/18 14:59 Last Infusion: 08/05/18 18:51 Dose: Infused Meropenem 1 gm/ Sodium (Chloride) 100 mls @ 100 mls/hr IV Q8H [facility] Stop: 10/01/18 20:59 Last Infusion: 08/05/18 18:40 Dose: Infused Amino Acids/Electrolytes (Procalamine) 1,000 mls @ 60 mls/hr IV .[id number] [facility] Stop: 10/04/18 15:59 Last Admin: 08/05/18 16:34 Dose: 60 mls/hr Insulin Human Lispro (Humalog Insulin Sliding Scale) 0 units SUBQ Q6HR [facility]; Protocol Stop: 10/02/18 00:00 Last Admin: 08/05/18 17:47 Dose: 2 units Metoclopramide HCl (Reglan) 10 mg IVP Q6HR [facility] Stop: 10/02/18 17:59 Last Admin: 08/05/18 18:39 Dose: Not Given Mineral Oil (Mineral Oil 30 Ml) 30 ml GT BID [facility] Stop: 08/05/18 19:29 Last Admin: 08/05/18 16:52 Dose: Not Given Miscellaneous (Ppn Per Pharmacy) 1 ea [facility] PRN PRN PRN Reason: PROTOCOL Stop: 10/04/18 12:46 Pantoprazole Sodium (Protonix) 40 mg IVP DAILY [facility] Stop: 10/04/18 08:59 Last Admin: 08/05/18 08:12 Dose: 40 mg General: weak HEENT: NC/AT, PERRLA Neck: Supple, No JVD Lungs: CTAB Cardiovascular: RRR, Normal S1 Abdomen: soft, non-tender Extremities: clear Neurological: no change - Procedures Procedures: Procedures Procedure Code Date CHANGE FEEDING DEVICE IN UP INTEST TRACT, COUPON AND BOND COLLECTION CLERK APPROACH [id number] 10/04/15 CHANGE GASTROSTOMY TUBE 21700 10/04/15 INSERT TUNNELED CV CATH 78002 10/04/15 INSERTION OF FEEDING DEVICE INTO STOMACH, OPEN APPROACH [id number] 10/06/16 INSERTION OF INFUSION DEV INTO L SUBCLAV VEIN, PERC APPROACH [id number] 10/04/15 INSPECTION OF UPPER VEIN, PERCUTANEOUS APPROACH [id number] 10/04/15 PLACE GASTROSTOMY TUBE 63351 10/06/16 RESPIRATORY VENTILATION, 24-96 CONSECUTIVE HOURS [id number] 08/02/18 ULTRASONOGRAPHY OF LEFT SUBCLAVIAN VEIN, GUIDANCE [id number] 10/04/15 Internal Medicine Assmt/Plan - Assessment Assessment: Kidney stones Htn Diabetes Asthma Copd S/p Trach - Plan Plan: tpn for nutritional support wound care am labs continue current plan of care Nutritional Asmnt/Malnutr-PDOC - Dietary Evaluation Malnutrition Findings (Please click <Entered> for more info): Nutritional Asmnt/Malnutrition Start: 08/03/18 14: 53 Text: Status: Complete Freq: Protocol: Document 08/03/18 15:01 ALANSheryl (Rec: 08/03/18 15:35 VIJAY [email or web address]) Nutritional Asmnt/Malnutrition Patient General Information Nutritional Screening High Risk Consult Diagnosis Gtube malfunction, PNA Pertinent Medical Hx/Surgical Hx HTN, DM, asthma/COPD, PEG/ Gtube, Trach, dyslipidemia, resp failure Subjective Information Pt seen resting in bed, trach on vent. Consult received for Gtube feeding. Per RN, old Gtube was leaking, waiting for Gtube replacement. Current Diet Order/ Nutrition Support NPO Pertinent Medications humalog Pertinent Labs 08/03 Cl 108, Cr 0.2, Glucose 104, POC 93-114 Nutritional Hx/Data Height 5 ft Height (Calculated Centimeters) 152.4 Current Weight (lbs) 100 lb Weight (Calculated Kilograms) 45.4 Weight (Calculated Grams) 96582.2 [place] Body Weight 100 Body Mass Index (BMI) 19.5 Weight Status Approriate GI Symptoms GI Symptoms None Last BM 08/02 Difficult in: None Usual diet at home Diabetisource at 50ml/hr x 20hr Skin Integrity/Comment: pressure ulcer to coccyx, abrasion to left upper abdomen , rash to left lower thigh Estimated Nutritional Goals BEE in Kcals: Using Current wt Calories/Kcals/Kg 23-27 Kcals Calculated 4406-7956 Protein: Using Current wt Protein g/k.2-1.4 Protein Calculated 54-63 Fluid: ml 1035-1215ml (1ml/kcal) Nutritional Problem 1. Problem Problem inadequte intake from enteral feeding Etiology Gtube malfunction Signs/Symptoms: TF not initiated Malnutrition Alert Is there a minimum of two criteria No selected? Query Text:Check all the applicable criteria. A minimum of two criteria are recommended for diagnosis of either severe or non-severe malnutrition. Malnutrition Related to Morbid Obesity Malnutrition related to morbid obesity No Intervention/Recommendation Comments 1. After GT replaced, recommend Glucerna 1.2 at 50ml /hr x 20hr to provide 1200kcal , 60g protein and 805ml free water, meeting 100% of nutritional needs. 2. Monitor TF rate, tolerance, wt, skin integrity and labs 3. F/U as high risk in 2-3 days Expected Outcomes/Goals Expected Outcomes/Goals 1. Pt to meet at least 90% of nutritional needs via nutrition support with tolerance 2. Wt stability, skin to remain intact, labs to approach WNL.
--- NOTE | 2018-08-05 21:09 | Progress Notes ---
DATE: 08/05/2018 SUBJECTIVE: The patient appears to be doing okay, comfortable, no distress. Breathing with the ventilator and no other spontaneous breathing. PHYSICAL EXAMINATION: VITAL SIGNS: Temperature 98.0, pulse 90, respiration 18, blood pressure 122/44, saturation 98%. CHEST: Good breath sounds. No wheezing, no crackles. HEART: Regular rate and rhythm. ABDOMEN: Soft. EXTREMITIES: No edema. LABORATORY DATA: Sodium is 137, potassium 4.1, BUN 5, creatinine 0.2. WBC is 10.0, hemoglobin 10.2, hematocrit 31.3, platelets 396. IMPRESSION: 1. Respiratory failure, chronic. 2. G-tube malfunction, removed, and will be on TPN. PLAN: 1. Continue nebulizer and antibiotics. 2. We will try weaning as tolerated. According to the family, the patient was on the vent at one point, but the patient does not have much of spontaneous breathing, so we will see how she tolerates lower rate of the IMV. [facility]# [id number]
[2018-08-06] MEDS: INSULIN LISPRO SLIDING SCALE 100 UNITS/ML UNIT SUBQ SCH ×4 (00:10→18:24)
[2018-08-06] MEDS: Albuterol/Ipratropium Neb 3 ML AERS HHN SCH ×4 (00:16→19:37)
[2018-08-06 04:55] LABS: % BASOPHILS 0.4 % (0.0-2.0); % EOSINOPHILS 1.4 % (0.0-5.0); % LYMPHOCYTES 24.2 % (20.0-50.0); % MONOCYTES 7.8 % (2.0-10.0); % NEUTROPHILS 66.2 % (40.0-80.0); EOSINOPHILE ABSOLUTE 0.1 Th/cmm (0.1-0.4); HEMATOCRIT 31.5 % (41.0-60); HEMOGLOBIN 10.4 gm/dL (12-16); MEAN CELL VOLUME 80.5 fl (81-100); MEAN CORPUSCULAR HEMOGLOBIN 26.5 pg (27.0-31.0); MEAN CORPUSCULAR HGB CONC 32.9 pg (28.0-36.0); MONOCYTE ABSOLUTE 0.6 Th/cmm (0.3-1.0); NEUTROPHILE ABSOLUTE 5.4 Th/cmm (1.8-8.0); PLATELET COUNT 389 Th/cmm (150-400); RED BLOOD COUNT 3.91 Mil/cmm (3.80-5.10); RED CELL DISTRIBUTION WIDTH 18.3 % (11.5-20.0); WHITE BLOOD COUNT 8.1 Th/cmm (4.8-10.8)
[2018-08-06 05:20] LABS: ALB/GLOB RATIO 0.9 (1.0-1.8); ALBUMIN 2.8 gm/dL (3.7-5.3); ALKALINE PHOSPHATASE 94 U/L (34-104); ANION GAP 10.9 (7.0-16.0); BILIRUBIN,TOTAL 0.3 mg/dL (0.3-1.0); BUN - UREA NITROGEN 7 mg/dL (7-25); CALCIUM SERUM 8.7 mg/dL (8.6-10.3); CARBON DIOXIDE 22.5 mEq/L (21.0-31.0); CHLORIDE 108 mEq/L (98-107); GLUCOSE 144 mg/dL (70-105); PHOSPHOROUS 2.6 mg/dL (2.5-5.0); POTASSIUM SERUM 3.4 mEq/L (3.5-5.1); SGOT 6 U/L (13-39); SGPT/ALT 6 U/L (7-52); SODIUM SERUM 138 mEq/L (136-145)
[2018-08-06] MEDS: Meropenem 1 GM in Sodium Chloride 0.9% 100 ML IV SCH ×3 (05:20→20:35)
[2018-08-06 05:40] LABS: CREATININE - SERUM 0.2 mg/dL (0.6-1.2); GFR AFRICAN-AMERICAN > 60.0 ml/min (>90); GFR NON AFRICAN-AMERICAN > 60.0 ml/min
--- NOTE | 2018-08-06 06:25 | Progress Notes ---
DATE: 08/05/2018 SURGICAL PROGRESS NOTE TIME: 9:42 p.m. SUBJECTIVE: The patient resting in bed comfortably, in no acute distress. Reportedly, Dr. Andre removed the G-tube because of leaking around the G-tube site and cellulitis around the G-tube site. PHYSICAL EXAMINATION: VITAL SIGNS: Afebrile. Vital signs otherwise stable. CHEST: Clear to auscultation bilaterally. HEART: Regular rhythm and rate. Trace with encephalopathy. ABDOMEN: Has cellulitis around the G-tube site opening. G-tube has been removed. There is no crepitus. There is no fluctuance, but it is tender to examination. The patient has a protuberant abdomen because of her voluntary guarding, bedridden state. LABORATORY DATA: White blood cell count today is 10, H and H is 10 and 31, and platelet count 396. Complete metabolic panel: Chloride 109, bicarbonate 20, BUN and creatinine 5 and 0.2, and alkaline phosphatase 106. IMPRESSION AND PLAN: The patient seen by Dr. Andre earlier today. The G-tube site was leaking and significant cellulitis around the G-tube site. Dr. Andre decided to remove the G tube and ostomy bag has been placed over the G-tube site. The patient is on TPN for now and n.p.o. Regarding the sacrococcyx decubitus wound, it is clean and dried. No debridement required. Continue local wound care. No obvious signs of sepsis. We will allow Dr. Andre to manage the gastrocutaneous fistula and eventual enteral feeding access. [facility]# [id number]
[2018-08-06] MEDS: Chlorhexidine Gluconate 0.12% 15mL Mouthwash MM SCH ×2 (08:10→20:37)
[2018-08-06] MEDS: Venelex 60gm Tube TP SCH (08:10)
[2018-08-06] MEDS: Amino Acids 3% / Electrolytes 1,000 ML IV SCH (08:11)
--- NOTE | 2018-08-06 13:55 | GI Progress Note ---
Subjective - Review of Systems Service Date: 08/06/18 Events since last encounter: Less drainage Subjective: Non verbal Leakage is less Objective - Results Result Diagrams: 08/06/18 04:05 08/06/18 04:05 Recent Labs: Laboratory Last Values WBC 8.1 Th/cmm (4.8-10.8) 08/06/18 04:05 RBC 3.91 Mil/cmm (3.80-5.10) 08/06/18 04:05 Hgb 10.4 gm/dL (12-16) L 08/06/18 04:05 Hct 31.5 % (41.0-60) L 08/06/18 04:05 MCV 80.5 fl (81-100) L 08/06/18 04:05 MCH 26.5 pg (27.0-31.0) L 08/06/18 04:05 MCHC Differential 32.9 pg (28.0-36.0) 08/06/18 04:05 RDW 18.3 % (11.5-20.0) 08/06/18 04:05 Plt Count 389 Th/cmm (150-400) 08/06/18 04:05 MPV 7.0 fl 08/06/18 04:05 Neutrophils % 66.2 % (40.0-80.0) 08/06/18 04:05 Lymphocytes % 24.2 % (20.0-50.0) 08/06/18 04:05 Monocytes % 7.8 % (2.0-10.0) 08/06/18 04:05 Eosinophils % 1.4 % (0.0-5.0) 08/06/18 04:05 Basophils % 0.4 % (0.0-2.0) 08/06/18 04:05 PT 10.3 SECONDS (9.5-11.5) 08/03/18 04:00 INR 0.99 (0.5-1.4) 08/03/18 04:00 PTT (Actin FS) 28.8 SECONDS (26.0-38.0) 08/03/18 04:00 Sodium 138 mEq/L (136-145) 08/06/18 04:05 Potassium 3.4 mEq/L (3.5-5.1) L 08/06/18 04:05 Chloride 108 mEq/L (98-107) H 08/06/18 04:05 Carbon Dioxide 22.5 mEq/L (21.0-31.0) 08/06/18 04:05 Anion Gap 10.9 (7.0-16.0) 08/06/18 04:05 BUN 7 mg/dL (7-25) 08/06/18 04:05 Creatinine 0.2 mg/dL (0.6-1.2) L 08/06/18 04:05 Est GFR ( Amer) > 60.0 ml/min (>90) 08/06/18 04:05 Est GFR (Non-Af Amer) > 60.0 ml/min 08/06/18 04:05 BUN/Creatinine Ratio 35.0 08/06/18 04:05 Glucose 144 mg/dL (70-105) H 08/06/18 04:05 POC Glucose 175 MG/DL (70 - 105) H 08/06/18 05:21 Whole Bld Lactic Acid 1.37 mmol/L (0.60-1.99) 08/02/18 12:20 Calcium 8.7 mg/dL (8.6-10.3) 08/06/18 04:05 Phosphorus 2.6 mg/dL (2.5-5.0) 08/06/18 04:05 Magnesium 2.0 mg/dL (1.9-2.7) 08/06/18 04:05 Total Bilirubin 0.3 mg/dL (0.3-1.0) 08/06/18 04:05 AST 6 U/L (13-39) L 08/06/18 04:05 ALT 6 U/L (7-52) L 08/06/18 04:05 Alkaline Phosphatase 94 U/L (34-104) 08/06/18 04:05 Creatine Kinase 12 U/L (30-223) L 08/02/18 12:00 Troponin I < 0.01 ng/mL (0.01-0.05) L 08/02/18 12:00 B-Natriuretic Peptide 19.9 pg/mL (5.0-100.0) 08/02/18 12:00 Total Protein 6.0 gm/dL (6.0-8.3) 08/06/18 04:05 Albumin 2.8 gm/dL (3.7-5.3) L 08/06/18 04:05 Globulin 3.2 gm/dL 08/06/18 04:05 Albumin/Globulin Ratio 0.9 (1.0-1.8) L 08/06/18 04:05 Triglycerides 218 mg/dL (<150) H 08/02/18 12:00 Cholesterol 123 mg/dL (<200) 08/02/18 12:00 LDL Cholesterol Direct 60 mg/dL (75-193) L 08/02/18 12:00 HDL Cholesterol 40 mg/dL (23-92) 08/02/18 12:00 Amylase 17 U/L (29-103) L 08/02/18 12:00 Lipase 7 U/L (11-82) L 08/02/18 12:00 Urine Source CLEAN C 08/03/18 07:45 Urine Color YELLOW 08/03/18 07:45 Urine Clarity HAZY (CLEAR) 08/03/18 07:45 Urine pH 8.5 (4.6 - 8.0) 08/03/18 07:45 Ur Specific [place] 1.010 (1.005-1.030) 08/03/18 07:45 Urine Protein 30 mg/dL (NEGATIVE) H 08/03/18 07:45 Urine Glucose (UA) NEGATIVE mg/dL (NEGATIVE) 08/03/18 07:45 Urine Ketones 15 mg/dL (NEGATIVE) H 08/03/18 07:45 Urine Blood TRACE (NEGATIVE) 08/03/18 07:45 Urine Nitrate NEGATIVE (NEGATIVE) 08/03/18 07:45 Urine Bilirubin NEGATIVE (NEGATIVE) 08/03/18 07:45 Urine Urobilinogen 0.2 E.U./dL (0.2 - 1.0) 08/03/18 07:45 Ur Leukocyte Esterase MODERATE (NEGATIVE) H 08/03/18 07:45 Urine RBC 2-5 /hpf (0-5) 08/03/18 07:45 Urine WBC 25-50 /hpf (0-5) H 08/03/18 07:45 Ur Epithelial Cells FEW /lpf (FEW) 08/03/18 07:45 Urine Bacteria MODERATE /hpf (NONE SEEN) H 08/03/18 07:45 - Physical Exam Vitals and I&O: Vital Signs Temp 97.5 F 08/06/18 13:30 Pulse 99 08/06/18 13:30 Resp 16 08/06/18 13:30 BP 130/67 08/06/18 13:30 Pulse Ox 98 08/06/18 13:39 Intake & Output 08/05/18 08/06/18 08/06/18 18:59 06:59 18:59 Intake Total 450 920 937 Output Total 1400 1350 Balance -950 -430 937 Weight (lbs) 54.885 kg 45.416 kg Intake: Intake, IV Amount 350 200 937 Amino Acids 3% / 937 Electrolytes 1,000 ml @ 60 mls/hr IV .[id number] [facility] Rx#:[id number] Azithromycin 500 mg In 250 Sodium Chloride 0.9% 250 ml @ 250 mls/hr IV Q24HR [facility] Rx#:[id number] Meropenem 1 gm In Sodium 100 200 Chloride 0.9% 100 ml @ 100 mls/hr IV Q8H [facility] Rx# :[id number] Oral 0 Tube Feeding 100 0 TPN/PPN 720 Output: Gastric Drainage 50 Urine 1400 1300 Other: # Bowel Movements 0 Stool Characteristics Soft Weight Source Bedscale Bedscale Active Medications: Current Medications Albuterol/Ipratropium (Duoneb Neb) 3 ml HHN Q6HRT [facility] Stop: 10/03/18 00:59 Last Admin: 08/06/18 13:14 Dose: 3 ml [place] Oil/[place]itt[place] Balsam/Trypsin (Venelex) 1 appl TP DAILY [facility] Stop: 10/03/18 08:59 Last Admin: 08/06/18 08:10 Dose: 1 appl Chlorhexidine Gluconate (Peridex) 15 ml MM 0800,1999 [facility] Stop: 10/01/18 19:59 Last Admin: 08/06/18 08:10 Dose: 15 ml Dextrose (D50w) 50 ml IVP PRN PRN PRN Reason: BS below 70 & not tolerate po Stop: 10/01/18 20:52 Dextrose (Glutose 40%) 18.75 gm PO PRN PRN PRN Reason: BS below 70 & tolerate po Stop: 10/01/18 20:52 Glucagon (Glucagen) 1 mg IM PRN PRN PRN Reason: BS below 70&dextrose ineffecti Stop: 10/01/18 20:52 Azithromycin 500 mg/ Sodium (Chloride) 250 mls @ 250 mls/hr IV Q24HR [facility] Stop: 10/01/18 14:59 Last Infusion: 08/05/18 18:51 Dose: Infused Meropenem 1 gm/ Sodium (Chloride) 100 mls @ 100 mls/hr IV Q8H [facility] Stop: 10/01/18 20:59 Last Admin: 08/06/18 13:22 Dose: 100 mls/hr Amino Acids/Electrolytes (Procalamine) 1,000 mls @ 60 mls/hr IV .[id number] [facility] Stop: 08/06/18 16:00 Last Admin: 08/06/18 08:11 Dose: 60 mls/hr Multivitamins/Minerals 10 ml/Chromium/Copper/Manganese/Zinc 1 ml/ Insulin Human Regular 5 units/ Amino Acids 1,451.05 mls @ 60 mls/hr IV .Q24H [facility] Stop: 09/02/18 15:59 Insulin Human Lispro (Humalog Insulin Sliding Scale) 0 units SUBQ Q6HR [facility]; Protocol Stop: 10/02/18 00:00 Last Admin: 08/06/18 12:11 Dose: 2 units Miscellaneous (Ppn Per Pharmacy) 1 [facility] PRN PRN PRN Reason: PROTOCOL Stop: 10/04/18 12:46 Pantoprazole Sodium (Protonix) 40 mg IVP DAILY [facility] Stop: 10/04/18 08:59 Last Admin: 08/06/18 08:11 Dose: 40 mg General: Alert, Mild distress Cardiovascular: Regular rate, Normal S1, Normal S2 Lungs: Other (few rhonchi) Abdomen: Bowel sounds, Soft, Other (Colostomy bag overlying the GT site), no Tender - Procedures Procedures: Procedures Procedure Code Date CHANGE FEEDING DEVICE IN UP INTEST TRACT, IT SYSTEMS ADMINISTRATOR APPROACH [id number] 10/04/15 CHANGE GASTROSTOMY TUBE 00450 10/04/15 INSERT TUNNELED CV CATH 53322 10/04/15 INSERTION OF FEEDING DEVICE INTO STOMACH, OPEN APPROACH [id number] 10/06/16 INSERTION OF INFUSION DEV INTO L SUBCLAV VEIN, PERC APPROACH 68T119B 10/04/15 INSPECTION OF UPPER VEIN, PERCUTANEOUS APPROACH 15PS1DJ 10/04/15 PLACE GASTROSTOMY TUBE 58714 10/06/16 REMOVAL OF FEEDING DEV FROM UP INTEST TRACT, IT SYSTEMS ADMINISTRATOR APPROACH [id number] 08/02/18 RESPIRATORY VENTILATION, 24-96 CONSECUTIVE HOURS [id number] 08/02/18 ULTRASONOGRAPHY OF LEFT SUBCLAVIAN VEIN, GUIDANCE [id number] 10/04/15 Assessment/Plan - Problem List Patient Problems: All Active Problems LEAKING GASTRIC TUBE STOMA AREA; COFFEE (Acute) - Assessment Assessment: Leaking G Tube Dysphagia - Plan Plan: 1. Leaking G Tube Getting worse G tube was removed and colostomy bag was placed then replace the tube when the opening is smaller 2.Dysphagia PPN/TPN for now
[2018-08-06] MEDS: Azithromycin 500 MG in Sodium Chloride 0.9% 250 ML IV SCH (14:42)
[2018-08-06] MEDS ORDERED: PPN D20%/AMI 8.5% IV SCH (16:00)
--- NOTE | 2018-08-06 18:03 | Internal Medicine Prog Note ---
Internal Medicine Subjective - Subjective Service Date: 08/06/18 Patient seen and examined:: with staff, chart reviewed Patient is:: asleep, non-verbal, in bed Patient Complaints of:: congestion, other (on ventilator.) Per staff patient has:: no episodes of fall, tolerating meds Internal Medicine Objective - Results Result Diagrams: 08/06/18 04:05 08/06/18 04:05 Recent Labs: Laboratory Last Values WBC 8.1 Th/cmm (4.8-10.8) 08/06/18 04:05 RBC 3.91 Mil/cmm (3.80-5.10) 08/06/18 04:05 Hgb 10.4 gm/dL (12-16) L 08/06/18 04:05 Hct 31.5 % (41.0-60) L 08/06/18 04:05 MCV 80.5 fl (81-100) L 08/06/18 04:05 MCH 26.5 pg (27.0-31.0) L 08/06/18 04:05 MCHC Differential 32.9 pg (28.0-36.0) 08/06/18 04:05 RDW 18.3 % (11.5-20.0) 08/06/18 04:05 Plt Count 389 Th/cmm (150-400) 08/06/18 04:05 MPV 7.0 fl 08/06/18 04:05 Neutrophils % 66.2 % (40.0-80.0) 08/06/18 04:05 Lymphocytes % 24.2 % (20.0-50.0) 08/06/18 04:05 Monocytes % 7.8 % (2.0-10.0) 08/06/18 04:05 Eosinophils % 1.4 % (0.0-5.0) 08/06/18 04:05 Basophils % 0.4 % (0.0-2.0) 08/06/18 04:05 PT 10.3 SECONDS (9.5-11.5) 08/03/18 04:00 INR 0.99 (0.5-1.4) 08/03/18 04:00 PTT (Actin FS) 28.8 SECONDS (26.0-38.0) 08/03/18 04:00 Sodium 138 mEq/L (136-145) 08/06/18 04:05 Potassium 3.4 mEq/L (3.5-5.1) L 08/06/18 04:05 Chloride 108 mEq/L (98-107) H 08/06/18 04:05 Carbon Dioxide 22.5 mEq/L (21.0-31.0) 08/06/18 04:05 Anion Gap 10.9 (7.0-16.0) 08/06/18 04:05 BUN 7 mg/dL (7-25) 08/06/18 04:05 Creatinine 0.2 mg/dL (0.6-1.2) L 08/06/18 04:05 Est GFR ( Amer) > 60.0 ml/min (>90) 08/06/18 04:05 Est GFR (Non-Af Amer) > 60.0 ml/min 08/06/18 04:05 BUN/Creatinine Ratio 35.0 08/06/18 04:05 Glucose 144 mg/dL (70-105) H 08/06/18 04:05 POC Glucose 175 MG/DL (70 - 105) H 08/06/18 05:21 Whole Bld Lactic Acid 1.37 mmol/L (0.60-1.99) 08/02/18 12:20 Calcium 8.7 mg/dL (8.6-10.3) 08/06/18 04:05 Phosphorus 2.6 mg/dL (2.5-5.0) 08/06/18 04:05 Magnesium 2.0 mg/dL (1.9-2.7) 08/06/18 04:05 Total Bilirubin 0.3 mg/dL (0.3-1.0) 08/06/18 04:05 AST 6 U/L (13-39) L 08/06/18 04:05 ALT 6 U/L (7-52) L 08/06/18 04:05 Alkaline Phosphatase 94 U/L (34-104) 08/06/18 04:05 Creatine Kinase 12 U/L (30-223) L 08/02/18 12:00 Troponin I < 0.01 ng/mL (0.01-0.05) L 08/02/18 12:00 B-Natriuretic Peptide 19.9 pg/mL (5.0-100.0) 08/02/18 12:00 Total Protein 6.0 gm/dL (6.0-8.3) 08/06/18 04:05 Albumin 2.8 gm/dL (3.7-5.3) L 08/06/18 04:05 Globulin 3.2 gm/dL 08/06/18 04:05 Albumin/Globulin Ratio 0.9 (1.0-1.8) L 08/06/18 04:05 Triglycerides 218 mg/dL (<150) H 08/02/18 12:00 Cholesterol 123 mg/dL (<200) 08/02/18 12:00 LDL Cholesterol Direct 60 mg/dL (75-193) L 08/02/18 12:00 HDL Cholesterol 40 mg/dL (23-92) 08/02/18 12:00 Amylase 17 U/L (29-103) L 08/02/18 12:00 Lipase 7 U/L (11-82) L 08/02/18 12:00 Urine Source CLEAN C 08/03/18 07:45 Urine Color YELLOW 08/03/18 07:45 Urine Clarity HAZY (CLEAR) 08/03/18 07:45 Urine pH 8.5 (4.6 - 8.0) 08/03/18 07:45 Ur Specific [place] 1.010 (1.005-1.030) 08/03/18 07:45 Urine Protein 30 mg/dL (NEGATIVE) H 08/03/18 07:45 Urine Glucose (UA) NEGATIVE mg/dL (NEGATIVE) 08/03/18 07:45 Urine Ketones 15 mg/dL (NEGATIVE) H 08/03/18 07:45 Urine Blood TRACE (NEGATIVE) 08/03/18 07:45 Urine Nitrate NEGATIVE (NEGATIVE) 08/03/18 07:45 Urine Bilirubin NEGATIVE (NEGATIVE) 08/03/18 07:45 Urine Urobilinogen 0.2 E.U./dL (0.2 - 1.0) 08/03/18 07:45 Ur Leukocyte Esterase MODERATE (NEGATIVE) H 08/03/18 07:45 Urine RBC 2-5 /hpf (0-5) 08/03/18 07:45 Urine WBC 25-50 /hpf (0-5) H 08/03/18 07:45 Ur Epithelial Cells FEW /lpf (FEW) 08/03/18 07:45 Urine Bacteria MODERATE /hpf (NONE SEEN) H 08/03/18 07:45 - Physical Exam Vitals and I&O: Vital Signs Temp 98.1 F 08/06/18 17:00 Pulse 99 08/06/18 17:20 Resp 18 08/06/18 17:00 BP 124/32 08/06/18 17:00 Pulse Ox 100 08/06/18 17:20 Intake & Output 08/05/18 08/06/18 08/06/18 18:59 06:59 18:59 Intake Total 405 954 6250 Output Total 1400 1350 Balance -950 -430 1037 Weight (lbs) 54.885 kg 45.416 kg Intake: Intake, IV Amount 397 176 1687 Amino Acids 3% / 937 Electrolytes 1,000 ml @ 60 mls/hr IV .[id number] [facility] Rx#:[id number] Azithromycin 500 mg In 250 Sodium Chloride 0.9% 250 ml @ 250 mls/hr IV Q24HR [facility] Rx#:[id number] Meropenem 1 gm In Sodium 100 200 100 Chloride 0.9% 100 ml @ 100 mls/hr IV Q8H [facility] Rx# :[id number] Oral 0 Tube Feeding 100 0 TPN/PPN 720 Output: Gastric Drainage 50 Urine 1400 1300 Other: # Bowel Movements 0 Stool Characteristics Soft Weight Source Bedscale Bedscale Active Medications: Current Medications Albuterol/Ipratropium (Duoneb Neb) 3 ml HHN Q6HRT [facility] Stop: 10/03/18 00:59 Last Admin: 08/06/18 13:14 Dose: 3 ml [place] Oil/[place] Balsam/Trypsin (Venelex) 1 appl TP DAILY [facility] Stop: 10/03/18 08:59 Last Admin: 08/06/18 08:10 Dose: 1 appl Chlorhexidine Gluconate (Peridex) 15 ml MM 0800,1999 [facility] Stop: 10/01/18 19:59 Last Admin: 08/06/18 08:10 Dose: 15 ml Dextrose (D50w) 50 ml IVP PRN PRN PRN Reason: BS below 70 & not tolerate po Stop: 10/01/18 20:52 Dextrose (Glutose 40%) 18.75 gm PO PRN PRN PRN Reason: BS below 70 & tolerate po Stop: 10/01/18 20:52 Glucagon (Glucagen) 1 mg IM PRN PRN PRN Reason: BS below 70&dextrose ineffecti Stop: 10/01/18 20:52 Azithromycin 500 mg/ Sodium (Chloride) 250 mls @ 250 mls/hr IV Q24HR [facility] Stop: 10/01/18 14:59 Last Admin: 08/06/18 14:42 Dose: 100 mls/hr Meropenem 1 gm/ Sodium (Chloride) 100 mls @ 100 mls/hr IV Q8H [facility] Stop: 10/01/18 20:59 Last Infusion: 08/06/18 14:39 Dose: Infused Multivitamins/Minerals 10 ml/Chromium/Copper/Manganese/Zinc 1 ml/ Insulin Human Regular 5 units/ Amino Acids 1,451.05 mls @ 60 mls/hr IV .Q24H [facility] Stop: 09/02/18 15:59 Last Admin: 08/06/18 15:07 Dose: 60 mls/hr Insulin Human Lispro (Humalog Insulin Sliding Scale) 0 units SUBQ Q6HR [facility]; Protocol Stop: 10/02/18 00:00 Last Admin: 08/06/18 12:11 Dose: 2 units Miscellaneous (Ppn Per Pharmacy) 1 ea MC PRN PRN PRN Reason: PROTOCOL Stop: 10/04/18 12:46 Pantoprazole Sodium (Protonix) 40 mg IVP DAILY [facility] Stop: 10/04/18 08:59 Last Admin: 08/06/18 08:11 Dose: 40 mg General: weak HEENT: NC/AT, PERRLA Neck: Supple, No JVD Lungs: CTAB Cardiovascular: RRR, Normal S1 Abdomen: soft, non-tender Extremities: clear Neurological: no change - Procedures Procedures: Procedures Procedure Code Date CHANGE FEEDING DEVICE IN UP INTEST TRACT, GIS CONSULTANT APPROACH [id number] 10/04/15 CHANGE GASTROSTOMY TUBE 84818 10/04/15 INSERT TUNNELED CV CATH [id number] 10/04/15 INSERTION OF FEEDING DEVICE INTO STOMACH, OPEN APPROACH [id number] 10/06/16 INSERTION OF INFUSION DEV INTO L SUBCLAV VEIN, PERC APPROACH 55N745C 10/04/15 INSPECTION OF UPPER VEIN, PERCUTANEOUS APPROACH 16CP5ZP 10/04/15 PLACE GASTROSTOMY TUBE 50944 10/06/16 REMOVAL OF FEEDING DEV FROM UP INTEST TRACT, GIS CONSULTANT APPROACH [id number] 08/02/18 RESPIRATORY VENTILATION, 24-96 CONSECUTIVE HOURS [id number] 08/02/18 RESPIRATORY VENTILATION, GREATER THAN 96 CONSECUTIVE HOURS [id number] 08/02/18 ULTRASONOGRAPHY OF LEFT SUBCLAVIAN VEIN, GUIDANCE [id number] 10/04/15 Internal Medicine Assmt/Plan - Assessment Assessment: Kidney stones Htn Diabetes Asthma Copd S/p Trach Less leakage Current Active Problems Problem Status Onset LEAKING GASTRIC TUBE STOMA AREA; COFFEE Acute - Plan Plan: Continuation of care Continue present meds as directed GI followup G- tube was removed and Colostomy bag was replaced then tube will be replaced when the opening is smaller by GI. Monitor labs, vitals, Nutritional support Wound care Pain management Fall precaution Continue current treatment plan as ordered Nutritional Asmnt/Malnutr-PDOC - Dietary Evaluation Malnutrition Findings (Please click <Entered> for more info): Nutritional Asmnt/Malnutrition Start: 08/03/18 14: 53 Text: Status: Complete Freq: Protocol: Document 08/03/18 15:01 ALANG (Rec: 08/03/18 15:35 LCROYALG [email or web address]) Nutritional Asmnt/Malnutrition Patient General Information Nutritional Screening High Risk Consult Diagnosis Gtube malfunction, PNA Pertinent Medical Hx/Surgical Hx HTN, DM, asthma/COPD, PEG/ Gtube, Trach, dyslipidemia, resp failure Subjective Information Pt seen resting in bed, trach on vent. Consult received for Gtube feeding. Per RN, old Gtube was leaking, waiting for Gtube replacement. Current Diet Order/ Nutrition Support NPO Pertinent Medications humalog Pertinent Labs 08/03 Cl 108, Cr 0.2, Glucose 104, POC 93-114 Nutritional Hx/Data Height 1.52 m Height (Calculated Centimeters) 152.4 Current Weight (lbs) 45.359 kg Weight (Calculated Kilograms) 45.4 Weight (Calculated Grams) 40093.2 [place] Body Weight 100 Body Mass Index (BMI) 19.5 Weight Status Approriate GI Symptoms GI Symptoms None Last BM 08/02 Difficult in: None Usual diet at home Diabetisource at 50ml/hr x 20hr Skin Integrity/Comment: pressure ulcer to coccyx, abrasion to left upper abdomen , rash to left lower thigh Estimated Nutritional Goals BEE in Kcals: Using Current wt Calories/Kcals/Kg 23-27 Kcals Calculated 7487-5794 Protein: Using Current wt Protein g/k.2-1.4 Protein Calculated 54-63 Fluid: ml 1035-1215ml (1ml/kcal) Nutritional Problem 1. Problem Problem inadequte intake from enteral feeding Etiology Gtube malfunction Signs/Symptoms: TF not initiated Malnutrition Alert Is there a minimum of two criteria No selected? Query Text:Check all the applicable criteria. A minimum of two criteria are recommended for diagnosis of either severe or non-severe malnutrition. Malnutrition Related to Morbid Obesity Malnutrition related to morbid obesity No Intervention/Recommendation Comments 1. After GT replaced, recommend Glucerna 1.2 at 50ml /hr x 20hr to provide 1200kcal , 60g protein and 805ml free water, meeting 100% of nutritional needs. 2. Monitor TF rate, tolerance, wt, skin integrity and labs 3. F/U as high risk in 2-3 days Expected Outcomes/Goals Expected Outcomes/Goals 1. Pt to meet at least 90% of nutritional needs via nutrition support with tolerance 2. Wt stability, skin to remain intact, labs to approach WNL.
--- NOTE | 2018-08-06 22:56 | Progress Notes ---
DATE: 08/06/2018 SURGICAL PROGRESS NOTE TIME: 1:41 p.m. OBJECTIVE: VITAL SIGNS: The patient is afebrile. Vital signs otherwise stable. GENERAL: Resting in bed comfortably, in no acute distress, encephalopathy, trach. CHEST: Clear to auscultation bilaterally. HEART: Regular rhythm and rate. ABDOMEN: Soft, nontender, nondistended. There is no guarding, rebound, or generalized peritoneal signs. The G-tube is removed and the patient has an ostomy bag over the G-tube site with some gastric drainage. NEUROVASCULAR AND EXTREMITIES: Otherwise normal. LABORATORY DATA: White blood cell count 8.1, H and H of 10 and 31.5, platelet count 389. Potassium 3.4, chloride 108. Metabolic panel otherwise unremarkable. IMPRESSION/PLAN: Overall stable. G-tube removed by GI. There is an ostomy bag with good seal around the G-tube site. The cellulitis has improved. Continue IV antibiotics. [facility] If that is the case, will likely be followed by GI, Dr. Andre and associates. If surgeon help with required at that time, I am available. Continue local wound care at the G-tube site. We will allow the whole site to contracture and then likely replace the G-tube through the same opening later. Continue TPN for now. JOB# [id number]
--- NOTE | 2018-08-07 00:08 | Consultation ---
DATE OF CONSULTATION: UROLOGY CONSULTATION The patient was seen earlier today in the ICU for kidney stones. HISTORY OF PRESENT ILLNESS: This is a 58-year-old care home resident who is noncommunicative and was admitted for leakage around the G-tube with some cellulitis. NG tube was removed with the plans to insert a new one later on. During the workup, an ultrasound was done that showed multiple stones in one of the kidneys, but nonobstructive. The patient also has a Knutson catheter, mostly for preventing and treating bedsores. PAST MEDICAL HISTORY: Consists of CVA followed by respiratory failure and ventilator dependency. She has had multiple infections in the urine with VRE and ESBL. She has history of COPD and asthma as well. She also has diabetes. HOME MEDICATIONS: Pantoprazole, vitamins, insulin, inhalers, senna, metformin, glipizide, stool softeners, Plavix, calcium supplement. ALLERGIES: PIPERACILLIN AND TAZOBACTAM. SURGICAL HISTORY: Tracheostomy and G-tube placement. She has also had suprapubic procedure most likely to remove bladder stones. However, I was not able to confirm this from her family members who had stepped out of the ICU when I saw her. REVIEW OF SYSTEMS: The patient had no fever or documented weight loss, but she does have evidence of malnutrition and contractures in all 4 extremities and decubiti. No chest pain recorded or seizures seen. She is stable on the ventilator. No vomiting or diarrhea noted. Knutson catheter has clear urine and no blood. PHYSICAL EXAMINATION: GENERAL: On exam, she is bedbound, quadriplegic with contractures in all 4 extremities. VITAL SIGNS: Temperature 98.5, heart rate 102, blood pressure 134/64, O2 saturation 100% on FiO2 of 30%. HEAD AND NECK: Normocephalic. Trachea central with tracheostomy. Pupils equal and reactive. No jaundice. Thyroid not palpable. No lymphadenopathy. CHEST: Symmetrical. LUNGS: Clear with coarse breath sounds, occasional rhonchi. No rales. HEART: Sounds normal in sinus rhythm, no murmur. ABDOMEN: Soft, nontender, no organomegaly, mass, or hernia. G-tube site is covered up with a bandage after removal of the tube. Knutson catheter draining clear urine. EXTREMITIES: No edema or lymphadenopathy, but all 4 are contracted as mentioned earlier. LAB: White count 8.1 down from 11.1 on admission, hemoglobin 10.4, platelets normal. PT, PTT are normal. Electrolytes are unremarkable with BUN 7, creatinine 0.2, glucose numbers 239, 171, 175, 162. Liver functions also within normal range and blood cultures were negative. MRSA was not seen and urine culture shows mixed urogenital tiny. Ultrasound of the kidneys showed multiple nonobstructing stones in the left kidney without hydronephrosis or masses. The patient was seen in consultation by Dr. Andre, who recommended mineral oil, Reglan and if necessary, converting the G-tube to a gastrojejunostomy. Dr. Rodríguez also saw her and recommended to continue antibiotics for the left lower lobe infiltrate and nebulizer treatment. She was also seen by Infectious Disease, Dr. Torres for the sepsis and pneumonia. He recommended meropenem and urine cultures and renal ultrasound. IMPRESSION: Nonobstructing stones in the left kidney in a bedbound patient, which is somewhat not uncommon and needs to be treated on selective basis and as needed for emergency. No EV or simple treatment would be applicable in this setting as access to the stones would be very difficult in her condition with the ventilator and contractures. I would only treat urinary tract infections if they are symptomatic with a temperature more than 101 and leukocytosis. If not, the stones can be simply observed and treated as needed. 1. G-tube related infection and cellulitis as per gastroenterologists. 2. Ventilator dependency with chronic obstructive pulmonary disease and possibly pneumonia, being seen by Pulmonary Medicine. 3. History of stroke, quadriplegia, and contractures with ongoing chronic care. 4. Diabetes as per medical treatment and sliding scale. JOB# [id number]
--- NOTE | 2018-08-07 01:14 | Progress Notes ---
DATE: 08/04/2018 PULMONARY PROGRESS NOTE SUBJECTIVE: The patient appears to be doing to be okay, no distress. OBJECTIVE: VITAL SIGNS: Temperature 98.2, pulse 100, respiration 19, blood pressure 146/48, saturation 98%. CHEST: Good breath sounds. No wheeze, no crackles. HEART: Regular rate and rhythm. ABDOMEN: Soft. EXTREMITIES: Lower extremities, no edema. LABORATORY DATA: WBC is 8.1, hemoglobin 10.4, hematocrit 31.5, platelets 389. Sodium 138, potassium 3.4, BUN is 7, creatinine 0.2. IMPRESSION: 1. Respiratory failure. 2. G-tube malfunction, leaking, status post removal, on PPN now. PLAN: Going to LTAC for further evaluation, PPN treatment, antibiotics until the G-tube site heals or reinsertion of a new one. JOB# [id number]
--- NOTE | 2018-08-16 19:49 | Discharge Summary ---
DATE OF DISCHARGE: 08/06/2018 The patient was admitted on 08/02 and the patient was discharged and sent to [facility] on 08/06. The patient known to me from [facility]. Unfortunate patient with a history of hypertension, diabetes, hyperlipidemia, respiratory failure, status post PEG, status post trach and the patient is contracted, came in for increasing respiratory failure, was admitted initially to the ICU and also had pneumonia. The patient was treated with IV antibiotics and had ID doctor see the patient as well as pulmonary doctor see the patient. The patient improved, but still having some leakage through gastric stoma, which was addressed. The patient was still short of breath requiring continued respiratory management as well as IV antibiotic therapy. The patient was sent to long-term acute care at [facility]. I will be following the patient. Condition at the time of discharge is stable. JOB# [id number]
== END 2018-08-06 21:17 | DRG 393 ==
LOC: ER 11:29 → ICU 14:05
PROVIDERS: ADMIT Internal Medicine; ATTEND Internal Medicine
PROC: 5A1955Z Respiratory Ventilation, Greater than 96 Consecutive Hours (ICD-10-PCS; principal; 2018-08-02)
PROC: 0DP6XUZ Removal of Feeding Device from Stomach, External Approach (ICD-10-PCS; 2018-08-05)
PROC: 3E0336Z Introduction of Nutritional Substance into Peripheral Vein, Percutaneous Approach (ICD-10-PCS; 2018-08-05)
DX: K94.22 Gastrostomy infection (principal); A41.9 Sepsis, unspecified organism; L89.154 Pressure ulcer of sacral region, stage 4; J96.20 Acute and chronic respiratory failure, unspecified whether with hypoxia or hypercapnia; G82.50 Quadriplegia, unspecified; J18.1 Lobar pneumonia, unspecified organism; E41 Nutritional marasmus; T85.598A Other mechanical complication of other gastrointestinal prosthetic devices, implants and grafts, initial encounter; T83.592A Infection and inflammatory reaction due to indwelling ureteral stent, initial encounter; E87.1 Hypo-osmolality and hyponatremia; K92.2 Gastrointestinal hemorrhage, unspecified; J44.0 Chronic obstructive pulmonary disease with (acute) lower respiratory infection; L03.311 Cellulitis of abdominal wall; N13.6 Pyonephrosis; Z68.1 Body mass index [BMI] 19.9 or less, adult; Z99.11 Dependence on respirator [ventilator] status; K94.23 Gastrostomy malfunction; I10 Essential (primary) hypertension; E11.9 Type 2 diabetes mellitus without complications; E78.5 Hyperlipidemia, unspecified; E87.6 Hypokalemia; N20.0 Calculus of kidney; Y83.8 Other surgical procedures as the cause of abnormal reaction of the patient, or of later complication, without mention of misadventure at the time of the procedure; D50.9 Iron deficiency anemia, unspecified; D63.8 Anemia in other chronic diseases classified elsewhere; R13.10 Dysphagia, unspecified; Y92.89 Other specified places as the place of occurrence of the external cause; Z74.01 Bed confinement status; Z79.4 Long term (current) use of insulin; Z86.73 Personal history of transient ischemic attack (TIA), and cerebral infarction without residual deficits
CPT/HCPCS: 36415-UA; 71045-TC; 76770-TC; 80048-TC; 80053-TC; 80061-TC; 81001-TC; 82150-TC; 82550-TC; 82948-90; 83036-90; 83605; 83690-TC; 83735-TC; 83880-TC; 84100-TC; 84484-TC; 85025-TC; 85610-TC; 85730-TC; 87070; 87086-90; 90799; 93005; 94002; 94003; 94640; 94760; 96374; 96375; A4217; C9113; J0456; J0696; J1815; J1956; J2185; J2765; J3480; J7030; X6598; Z7610

== ENCOUNTER 2018-09-13 19:50 | Inpatient (IN) | payer MEDICARE, MEDICAID ==
--- NOTE | 2018-09-13 21:02 | ED Physician Chart ---
ED Chief Complaint/HPI - Patient Information Date Seen:: 09/13/18 Time Seen:: 20:00 Chief Complaint:: leaking g tube Allergies:: Allergies Allergy/AdvReac Type Severity Reaction Status Date / Time Penicillins Allergy Verified 09/13/18 19:56 piperacillin sodium Allergy Verified 10/03/15 23:12 [From Zosyn] tazobactam sodium Allergy Verified 10/03/15 23:12 [From Zosyn] Vitals:: Vital Signs - 8 hr 09/13/18 19:55 Temp 98.5 F HR 101 RR 18 BP 98/68 O2 Sat % 97 Review:: Nurse's Note Reviewed, Old Chart Reviewed, Patient unable to respond ED Review of Systems - Review of Systems General/Constitutional: No fever ED Past Medical History - Past Medical History Past Medical History: DM, Asthma/COPD, CVA/TIA Surgical History: None (trach gtube) Family Medical History - Family Member Mother History Unknown: Yes Ethnicity: Hx Family Coronary Artery Disease: No Hx Family Congestive Heart Failure: No Hx Family Hypertension: Yes Hx Family Stroke: Yes Hx Family Diabetes: Yes Hx Family Seizures: No Hx Family Dementia: No Hx Family AIDS: No Hx Family HIV: No Hx Family COPD: No Hx Family Hepatitis: No Hx Family Psychiatric Problems: No Hx Family Tuberculosis: No ED Physical Exam - Physical Examination General/Constitutional: No distress, Non-toxic appearing Head: Atraumatic Eyes: Lids, conjuctiva normal Skin: No rash (minimal induration g tube) ENMT: External ears, nose nl Respiratory: Nl effort/Exclusion ED Assessment - Assessment General Assessment: malfunctiong gtube ED Septic Shock - . Is Septic Shock (SBP<90, OR Lactate>4 mmol\L) present?: No - <6hrs of presentation: Vital Signs: Vital Signs - 8 hr 09/13/18 19:55 Temp 98.5 F HR 101 RR 18 BP 98/68 O2 Sat % 97 ED Reassessment (Disposition) - Patient Disposition Discharge/Transfer:: Acute Care w/in this hosp
[2018-09-13 21:55] LABS: % BASOPHILS 0.8 % (0.0-2.0); % EOSINOPHILS 1.4 % (0.0-5.0); % LYMPHOCYTES 26.1 % (20.0-50.0); % MONOCYTES 5.3 % (2.0-10.0); % NEUTROPHILS 66.4 % (40.0-80.0); BASOPHILE ABSOLUTE 0.1 Th/cumm (0-0.2); EOSINOPHILE ABSOLUTE 0.1 Th/cmm (0.1-0.4); HEMATOCRIT 41.1 % (41.0-60); HEMOGLOBIN 13.3 gm/dL (12-16); LYMPHOCYTE ABSOLUTE 2.3 Th/cmm (1.5-3.0); MEAN CELL VOLUME 78.7 fl (81-100); MEAN CORPUSCULAR HEMOGLOBIN 25.5 pg (27.0-31.0); MEAN CORPUSCULAR HGB CONC 32.4 pg (28.0-36.0); MEAN PLATELET VOLUME 7.2 fl; MONOCYTE ABSOLUTE 0.5 Th/cmm (0.3-1.0); NEUTROPHILE ABSOLUTE 5.7 Th/cmm (1.8-8.0); PLATELET COUNT 547 Th/cmm (150-400); RED BLOOD COUNT 5.22 Mil/cmm (3.80-5.10); RED CELL DISTRIBUTION WIDTH 16.5 % (11.5-20.0); WHITE BLOOD COUNT 8.7 Th/cmm (4.8-10.8)
[2018-09-13 22:09] LABS: ALB/GLOB RATIO 0.7 (1.0-1.8); ALBUMIN 3.5 gm/dL (3.7-5.3); ALKALINE PHOSPHATASE 140 U/L (34-104); ANION GAP 12.7 (7.0-16.0); BILIRUBIN,TOTAL 0.2 mg/dL (0.3-1.0); BUN - UREA NITROGEN 13 mg/dL (7-25); CALCIUM SERUM 9.7 mg/dL (8.6-10.3); CARBON DIOXIDE 26.4 mEq/L (21.0-31.0); CHLORIDE 99 mEq/L (98-107); CREATININE - SERUM 0.3 mg/dL (0.6-1.2); GFR AFRICAN-AMERICAN > 60.0 ml/min (>90); GFR NON AFRICAN-AMERICAN > 60.0 ml/min; GLUCOSE 280 mg/dL (70-105); POTASSIUM SERUM 4.1 mEq/L (3.5-5.1); SGOT 9 U/L (13-39); SGPT/ALT 7 U/L (7-52); SODIUM SERUM 134 mEq/L (136-145); TOTAL PROTEIN,SERUM 8.6 gm/dL (6.0-8.3)
[2018-09-13 22:45] VITALS: BP 105/74
[2018-09-13] MEDS ORDERED: Albuterol Nebulizer 2.5mg/3mL HHN PRN (22:58)
[2018-09-13] MEDS: D5-0.45NS 1,000 ML IV SCH (23:10)
[2018-09-14 05:42] LABS: % BASOPHILS 0.6 % (0.0-2.0); % EOSINOPHILS 2.2 % (0.0-5.0); % LYMPHOCYTES 29.2 % (20.0-50.0); % MONOCYTES 4.3 % (2.0-10.0); % NEUTROPHILS 63.7 % (40.0-80.0); BASOPHILE ABSOLUTE 0.1 Th/cumm (0-0.2); EOSINOPHILE ABSOLUTE 0.2 Th/cmm (0.1-0.4); HEMOGLOBIN 11.3 gm/dL (12-16); LYMPHOCYTE ABSOLUTE 2.6 Th/cmm (1.5-3.0); MEAN CELL VOLUME 77.5 fl (81-100); MEAN CORPUSCULAR HEMOGLOBIN 25.3 pg (27.0-31.0); MEAN CORPUSCULAR HGB CONC 32.6 pg (28.0-36.0); MEAN PLATELET VOLUME 7.6 fl; MONOCYTE ABSOLUTE 0.4 Th/cmm (0.3-1.0); NEUTROPHILE ABSOLUTE 5.6 Th/cmm (1.8-8.0); PLATELET COUNT 508 Th/cmm (150-400); RED BLOOD COUNT 4.47 Mil/cmm (3.80-5.10); RED CELL DISTRIBUTION WIDTH 15.9 % (11.5-20.0); WHITE BLOOD COUNT 8.9 Th/cmm (4.8-10.8)
[2018-09-14 05:49] LABS: ANION GAP 11.5 (7.0-16.0); BUN - UREA NITROGEN 11 mg/dL (7-25); CALCIUM SERUM 9.2 mg/dL (8.6-10.3); CARBON DIOXIDE 26.2 mEq/L (21.0-31.0); CHLORIDE 102 mEq/L (98-107); CREATININE - SERUM 0.3 mg/dL (0.6-1.2); GFR AFRICAN-AMERICAN > 60.0 ml/min (>90); GFR NON AFRICAN-AMERICAN > 60.0 ml/min; GLUCOSE 288 mg/dL (70-105); POTASSIUM SERUM 3.7 mEq/L (3.5-5.1); SODIUM SERUM 136 mEq/L (136-145)
[2018-09-14 05:51] LABS: HEMATOCRIT 34.6 % (41.0-60)
[2018-09-14 06:03] LABS: INR 0.99 (0.5-1.4); PROTHROMBIN TIME (TEST) 10.3 SECONDS (9.5-11.5)
[2018-09-14] MEDS: Diltiazem 30 mg Tab GT SCH ×2 (13:58→20:23)
[2018-09-14] MEDS ORDERED: Diatrizoate Meglumine/Diatri 30 mL Sol PO ONE (14:33)
[2018-09-14 16:47] LABS: URINE SOURCE FOLEY PORT
[2018-09-14 16:50] LABS: URINE BILIRUBIN NEGATIVE (NEGATIVE); URINE BLOOD TRACE (NEGATIVE); URINE GLUCOSE (UA) NEGATIVE (NEGATIVE); URINE KETONE NEGATIVE (NEGATIVE); URINE LEUKOCYTE ESTERASE LARGE (NEGATIVE); URINE MICROSCOPIC INDICATED? YES; URINE NITRATE NEGATIVE (NEGATIVE); URINE PROTEIN TRACE mg/dL (NEGATIVE); URINE UROBILINOGEN 0.2 E.U./dL (0.2 - 1.0)
[2018-09-14 16:51] LABS: URINE CLARITY HAZY (CLEAR); URINE COLOR YELLOW
[2018-09-14 16:57] LABS: URINE BACTERIA 3+ /hpf (NONE SEEN); URINE EPITHELIAL CELLS FEW /lpf (FEW)
[2018-09-14] MEDS: Docusate Sodium 100 mg/10 mL UD GT SCH (17:32)
[2018-09-14] MEDS ORDERED: Menthol/Zinc Oxide Oint 113gm Tube TP PRN (18:13)
[2018-09-14] MEDS: Albuterol/Ipratropium Neb 3 ML AERS HHN SCH (19:13)
--- NOTE | 2018-09-14 23:13 | History & Physical ---
ADMIT DATE: 09/13/2018 CHIEF COMPLAINT: G-tube leakage. HISTORY OF PRESENT ILLNESS: A 58-year-old female who is a [facility] resident of [facility], admitted to the med/surg unit due to 1-day history of leaking G-tube. The patient has been admitted in the past for the same reason. PAST MEDICAL HISTORY: Acute respiratory failure, diabetes, asthma, COPD, CVA. PAST SURGICAL HISTORY: Tracheostomy and G-tube. ALLERGIES: PENICILLIN and ZOSYN. FAMILY HISTORY: Noncontributory. SOCIAL HISTORY: The patient is a [facility] resident. MEDICATIONS: See medication list. REVIEW OF SYSTEMS: Unable to obtain due to the patient's mental status. PHYSICAL EXAMINATION: GENERAL: The patient is well developed, well nourished, in no apparent distress. VITAL SIGNS: Temperature 96.8, heart rate 84, blood pressure 98/63, respirations 17, O2 96%. HEAD: Normocephalic, atraumatic. NECK: Supple. No mass. LUNGS: Clear bilaterally. CARDIOVASCULAR: Regular rhythm. ABDOMEN: Soft, nontender, nondistended. LABORATORY DATA: WBC 8.9, H and H 11.3 and 34.6, platelets of 508. Sodium 136, potassium 3.7, chloride 102, BUN 11, creatinine 0.3. ASSESSMENT: G-tube malfunction, acute respiratory failure, tracheostomy status, gastrostomy status, anemia, moderate protein-calorie malnutrition, type 2 diabetes, history of cerebrovascular accident, asthma, and chronic obstructive pulmonary disease. PLAN: The patient will be admitted to med/surg unit. We will get GI on the case. We will get wound care on the case as well. We will continue to monitor this patient. JOB# [id number]
--- NOTE | 2018-09-15 00:17 | Consultation ---
DATE OF CONSULTATION: 09/14/2018 REQUESTING PHYSICIAN: Dr. Dietz. REASON FOR CONSULTATION: Malfunctioning G-tube. HISTORY OF PRESENT ILLNESS: Thank you for asking me to see this patient in consultation. This is a 58-year-old female who is a halfway resident who has dysphagia and advanced disability, who presents with malfunctioning G-tube. Of note, the patient was here approximately 2 months ago with malfunctioning G-tube, at that time required removal of G-tube to allow wound to clean, to heal up, and then reinserted the G-tube afterwards. At this time, she has a cracked G-tube as well as some jimmy-ostomy leakage. PAST MEDICAL HISTORY: Acute respiratory failure, diabetes, asthma, and COPD. PAST SURGICAL HISTORY: Tracheostomy and G-tube. MEDICATIONS: Have been reviewed. SOCIAL HISTORY: She lives in a halfway. PHYSICAL EXAMINATION: VITAL SIGNS: Temperature 96.8, heart rate of 84, blood pressure is 98/63, respiratory rate of 18, and satting 96% on room air. GENERALLY: She is in no acute distress. HEENT: Normocephalic, atraumatic. PERRLA positive. LUNGS: Clear bilaterally. No wheezes, rales, or rhonchi. HEART: Regular rate and rhythm, normal S1, S2. ABDOMEN: Soft and nontender. There is an intact G-tube seen with a crack in the middle of the G-tube, right at the exit of the ostomy site. EXTREMITIES: Show no lower extremity edema. LABORATORY DATA: White count of 8.9, hemoglobin of 11.3, and platelet count of 508,000. ASSESSMENT AND PLAN: This is a 58-year-old female with chronic respiratory failure, tracheostomy status, and gastrostomy status, who presents with malfunctioning G-tube. 1. Malfunctioning G-tube. 2. Jimmy-ostomy leakage. 3. Dysphagia. Given the patient's malfunctioning G-tube, we will change his G-tube at the bedside. I discussed the plan of care with the patient's . PROCEDURE IN DETAIL: First the previous G-tube was visualized. Then, we deflated this with removing approximately 20 mL of sterile water. The G-tube was a 22-Thai and was easily removed. Then, in its place, I replaced it with a repeat 22-Thai G-tube which went in smoothly. I inflated the balloon port with about 15 mL of sterile water and brought this close to the ostomy edge to try and tamponade any further leakage. The gastrostomy tube was then held firmly in place and secured. RECOMMENDATIONS: 1. Obtain KUB with Gastrografin to confirm G-tube placement. 2. Following confirmation of G-tube, would rate at least 24 hours to allow us to start G-tube feedings to prevent any jimmy-ostomy leakage. 3. Supportive care and management per primary team. Thank you for allowing us to participate in this patient's care. JOB# [id number] RYNE
[2018-09-15] MEDS: Albuterol/Ipratropium Neb 3 ML AERS HHN SCH ×3 (00:57→12:52)
[2018-09-15] MEDS: D5-0.45NS 1,000 ML IV SCH (04:55)
[2018-09-15 05:42] LABS: % MONOCYTES 6.9 % (2.0-10.0); EOSINOPHILE ABSOLUTE 0.1 Th/cmm (0.1-0.4); MEAN PLATELET VOLUME 7.3 fl; MONOCYTE ABSOLUTE 0.6 Th/cmm (0.3-1.0); NEUTROPHILE ABSOLUTE 5.7 Th/cmm (1.8-8.0)
[2018-09-15 05:56] LABS: % BASOPHILS 0.4 % (0.0-2.0); % LYMPHOCYTES 23.8 % (20.0-50.0); % NEUTROPHILS 67.9 % (40.0-80.0); HEMATOCRIT 35.8 % (41.0-60); HEMOGLOBIN 11.3 gm/dL (12-16); MEAN CELL VOLUME 78.8 fl (81-100); MEAN CORPUSCULAR HEMOGLOBIN 24.9 pg (27.0-31.0); MEAN CORPUSCULAR HGB CONC 31.6 pg (28.0-36.0); PLATELET COUNT 477 Th/cmm (150-400); RED BLOOD COUNT 4.54 Mil/cmm (3.80-5.10); RED CELL DISTRIBUTION WIDTH 16.3 % (11.5-20.0); WHITE BLOOD COUNT 8.4 Th/cmm (4.8-10.8)
[2018-09-15 06:05] LABS: ANION GAP 12.3 (7.0-16.0); BUN - UREA NITROGEN 17 mg/dL (7-25); CARBON DIOXIDE 25.4 mEq/L (21.0-31.0); CHLORIDE 104 mEq/L (98-107); CREATININE - SERUM 0.3 mg/dL (0.6-1.2); GFR AFRICAN-AMERICAN > 60.0 ml/min (>90); GFR NON AFRICAN-AMERICAN > 60.0 ml/min; GLUCOSE 320 mg/dL (70-105); POTASSIUM SERUM 3.7 mEq/L (3.5-5.1); SODIUM SERUM 138 mEq/L (136-145)
--- NOTE | 2018-09-15 08:27 | Diagnostic Imaging Report ---
Upper GI (Limited) HISTORY: Gastrostomy tube placement Water-soluble contrast was instilled through the patient's gastrostomy tube. The exam demonstrates opacification of the gastric lumen. IMPRESSION: 1. Confirmation of gastrostomy tube within the gastric lumen
[2018-09-15] MEDS ORDERED: Venelex 60gm Tube TP SCH (09:00)
[2018-09-15] MEDS ORDERED: Multivitamin w/ Minerals Tab GT SCH (09:00)
[2018-09-15] MEDS ORDERED: Non-Formulary Item 1 EA (Amino Acids/Protein Hydrolys [Pro-Stat Awc Liquid] 30 ML) GT SCH (09:00)
[2018-09-15] MEDS: Diltiazem 30 mg Tab GT SCH ×2 (09:14→13:08)
[2018-09-15] MEDS ORDERED: Albuterol/Ipratropium Neb 3 ML AERS HHN PRN (09:56)
[2018-09-15] MEDS ORDERED: GLUCAGON HCl 1 MG KIT IM PRN (10:01)
[2018-09-15] MEDS ORDERED: Dextrose 50% 50 mL Abboject IVP PRN (10:01)
[2018-09-15] MEDS: Docusate Sodium 100 mg/10 mL UD GT SCH ×2 (10:06→16:01)
--- NOTE | 2018-09-15 11:25 | Internal Medicine Prog Note ---
Internal Medicine Subjective - Subjective Service Date: 09/15/18 Patient seen and examined:: with staff, chart reviewed Patient is:: awake Patient Complaints of:: other ( Malfunctioning G-tube persists.) Per staff patient has:: no adverse event, no episodes of fall Internal Medicine Objective - Results Result Diagrams: 09/15/18 05:00 09/15/18 05:00 Recent Labs: Laboratory Last Values WBC 8.4 Th/cmm (4.8-10.8) 09/15/18 05:00 RBC 4.54 Mil/cmm (3.80-5.10) 09/15/18 05:00 Hgb 11.3 gm/dL (12-16) L 09/15/18 05:00 Hct 35.8 % (41.0-60) L 09/15/18 05:00 MCV 78.8 fl (81-100) L 09/15/18 05:00 MCH 24.9 pg (27.0-31.0) L 09/15/18 05:00 MCHC Differential 31.6 pg (28.0-36.0) 09/15/18 05:00 RDW 16.3 % (11.5-20.0) 09/15/18 05:00 Plt Count 477 Th/cmm (150-400) H 09/15/18 05:00 MPV 7.3 fl 09/15/18 05:00 Neutrophils % 67.9 % (40.0-80.0) 09/15/18 05:00 Lymphocytes % 23.8 % (20.0-50.0) 09/15/18 05:00 Monocytes % 6.9 % (2.0-10.0) 09/15/18 05:00 Eosinophils % 1.0 % (0.0-5.0) 09/15/18 05:00 Basophils % 0.4 % (0.0-2.0) 09/15/18 05:00 PT 10.3 SECONDS (9.5-11.5) 09/14/18 04:40 INR 0.99 (0.5-1.4) 09/14/18 04:40 PTT (Actin FS) 28.9 SECONDS (26.0-38.0) 09/14/18 04:40 Sodium 138 mEq/L (136-145) 09/15/18 05:00 Potassium 3.7 mEq/L (3.5-5.1) 09/15/18 05:00 Chloride 104 mEq/L (98-107) 09/15/18 05:00 Carbon Dioxide 25.4 mEq/L (21.0-31.0) 09/15/18 05:00 Anion Gap 12.3 (7.0-16.0) 09/15/18 05:00 BUN 17 mg/dL (7-25) 09/15/18 05:00 Creatinine 0.3 mg/dL (0.6-1.2) L 09/15/18 05:00 Est GFR ( Amer) > 60.0 ml/min (>90) 09/15/18 05:00 Est GFR (Non-Af Amer) > 60.0 ml/min 09/15/18 05:00 BUN/Creatinine Ratio 56.7 09/15/18 05:00 Glucose 320 mg/dL (70-105) H 09/15/18 05:00 Calcium 9.0 mg/dL (8.6-10.3) 09/15/18 05:00 Total Bilirubin 0.2 mg/dL (0.3-1.0) L 09/13/18 21:35 AST 9 U/L (13-39) L 09/13/18 21:35 ALT 7 U/L (7-52) 09/13/18 21:35 Alkaline Phosphatase 140 U/L (34-104) H 09/13/18 21:35 Total Protein 8.6 gm/dL (6.0-8.3) H 09/13/18 21:35 Albumin 3.5 gm/dL (3.7-5.3) L 09/13/18 21:35 Globulin 5.1 gm/dL 09/13/18 21:35 Albumin/Globulin Ratio 0.7 (1.0-1.8) L 09/13/18 21:35 Urine Source [place] 09/14/18 16:00 Urine Color YELLOW 09/14/18 16:00 Urine Clarity HAZY (CLEAR) 09/14/18 16:00 Urine pH 7.0 (4.6 - 8.0) 09/14/18 16:00 Ur Specific [place] 1.010 (1.005-1.030) 09/14/18 16:00 Urine Protein TRACE mg/dL (NEGATIVE) 09/14/18 16:00 Urine Glucose (UA) NEGATIVE mg/dL (NEGATIVE) 09/14/18 16:00 Urine Ketones NEGATIVE mg/dL (NEGATIVE) 09/14/18 16:00 Urine Blood TRACE (NEGATIVE) 09/14/18 16:00 Urine Nitrate NEGATIVE (NEGATIVE) 09/14/18 16:00 Urine Bilirubin NEGATIVE (NEGATIVE) 09/14/18 16:00 Urine Urobilinogen 0.2 E.U./dL (0.2 - 1.0) 09/14/18 16:00 Ur Leukocyte Esterase LARGE (NEGATIVE) H 09/14/18 16:00 Urine RBC 2-5 /hpf (0-5) 09/14/18 16:00 Urine WBC 10-25 /hpf (0-5) H 09/14/18 16:00 Ur Epithelial Cells FEW /lpf (FEW) 09/14/18 16:00 Urine Bacteria 3+ /hpf (NONE SEEN) H 09/14/18 16:00 - Physical Exam Vitals and I&O: Vital Signs Temp 96.0 F 09/15/18 09:07 Pulse 90 09/15/18 09:14 Resp 18 09/15/18 09:07 BP 93/56 09/15/18 09:07 Pulse Ox 98 09/15/18 09:07 Intake & Output 09/14/18 09/15/18 09/15/18 18:59 06:59 18:59 Intake Total 100 1000 Output Total 300 450 Balance -200 550 Weight (lbs) 44.135 kg 44.135 kg Intake: Intake, IV Amount 100 1000 D5-0.45NS 1,000 ml @ 50 1000 mls/hr IV .Q20H [facility] Rx#: [id number] Tigecycline 50 mg In 100 Sodium Chloride 0.9% 100 ml @ 100 mls/hr IV Q12H [facility] Rx#:[id number] Output: Urine 300 450 Other: # Bowel Movements 0 Weight Source Bedscale Bedscale Active Medications: Current Medications Acetaminophen (Tylenol 650mg/20.3ml Suspension) 650 mg GT Q6H PRN PRN Reason: MILD PAIN OR FEVER >100.4 Last Admin: 09/14/18 20:22 Dose: 650 mg Albuterol Sulfate (Albuterol 2.5mg/3ml Neb Ud) 2.5 mg HHN Q4HRT PRN PRN Reason: Congestion Stop: 11/12/18 22:57 Last Admin: 09/14/18 14:26 Dose: 2.5 mg Albuterol/Ipratropium (Duoneb Neb) 3 ml HHN Q6HRT [facility] Stop: 11/13/18 18:59 Last Admin: 09/15/18 07:02 Dose: 3 ml Albuterol/Ipratropium (Duoneb Neb) 3 ml HHN Q2HR PRN PRN Reason: Shortness of Breath Stop: 11/14/18 09:55 Ascorbic Acid (Vitamin C) 500 mg GT DAILY [facility] Stop: 11/14/18 08:59 Last Admin: 09/15/18 10:07 Dose: 500 mg Calamine/Phenol (Calmoseptine) 1 appl TP QID PRN PRN Reason: Skin Irritation Stop: 11/13/18 18:12 Spearman Oil/Spanish Balsam/Trypsin (Venelex) 1 appl TP DAILY [facility] Stop: 11/14/18 08:59 Last Admin: 09/15/18 10:02 Dose: 1 appl Ciprofloxacin (Cipro) 500 mg GT Q12HR [facility] Stop: 11/13/18 20:59 Last Admin: 09/15/18 10:06 Dose: 500 mg Dextrose (D50w) 50 ml IVP PRN PRN PRN Reason: BS below 70& not tolerate po Stop: 11/14/18 10:00 Dextrose (Glutose 40%) 18.75 gm PO PRN PRN PRN Reason: BS below 70&tolerate po Stop: 11/14/18 10:00 Diltiazem HCl (Cardizem) 60 mg GT TID [facility] Stop: 11/13/18 13:59 Last Admin: 09/15/18 09:14 Dose: Not Given Docusate Sodium (Colace) 100 mg GT BID [facility] Stop: 11/13/18 16:59 Last Admin: 09/15/18 10:06 Dose: 100 mg Glucagon (Glucagen) 1 mg IM PRN PRN PRN Reason: BS below 70&dextrose ineffecti Stop: 11/14/18 10:00 Dextrose/Sodium Chloride (D5-0.45ns) 1,000 mls @ 50 mls/hr IV .Q20H [facility] Stop: 11/12/18 22:59 Last Admin: 09/15/18 04:55 Dose: 50 mls/hr Tigecycline 50 mg/ Sodium (Chloride) 100 mls @ 100 mls/hr IV Q12H [facility] Stop: 11/13/18 16:59 Last Admin: 09/15/18 04:47 Dose: 100 mls/hr Insulin Glargine (Lantus Insulin) 10 units SUBQ BID [facility] Stop: 11/14/18 16:59 Insulin Human Lispro (Humalog Insulin Sliding Scale) 0 units SUBQ Q6HR [facility]; Protocol Stop: 11/14/18 11:59 Metoclopramide HCl (Reglan) 10 mg GT Q8HR [facility] Stop: 11/13/18 20:59 Last Admin: 09/15/18 04:46 Dose: 10 mg Zinc Sulfate (Zinc Sulfate) 220 mg GT DAILY [facility] Stop: 11/14/18 08:59 Last Admin: 09/15/18 10:06 Dose: 220 mg Physical Exam: 58 y/o female patient has trach status and has persistent malfuctioning G-tube General: weak HEENT: NC/AT Neck: + trach Lungs: other (Acute respiratory failure.) Cardiovascular: RRR, Normal S1 Abdomen: soft, non-tender, +GT, other (G-tube malfunctioning.) Extremities: clear Neurological: no change - Procedures Procedures: Procedures Procedure Code Date CHANGE FEEDING DEVICE IN UP INTEST TRACT, POUND KEEPER APPROACH [id number] 10/04/15 CHANGE GASTROSTOMY TUBE 97245 10/04/15 INSERT TUNNELED CV CATH 26336 10/04/15 INSERTION OF FEEDING DEVICE INTO STOMACH, OPEN APPROACH [id number] 10/06/16 INSERTION OF INFUSION DEV INTO L SUBCLAV VEIN, PERC APPROACH 83D865M 10/04/15 INSPECTION OF UPPER VEIN, PERCUTANEOUS APPROACH [id number] 10/04/15 INTRODUCTION OF NUTRITIONAL INTO PERIPH VEIN, PERC APPROACH [id number] 08/02/[address] PLACE GASTROSTOMY TUBE 97139 10/06/16 REMOVAL OF FEEDING DEVICE FROM STOMACH, EXTERNAL APPROACH [id number] 08/02/18 RESPIRATORY VENTILATION, GREATER THAN 96 CONSECUTIVE HOURS [id number] 08/02/18 ULTRASONOGRAPHY OF LEFT SUBCLAVIAN VEIN, GUIDANCE [id number] 10/04/15 Internal Medicine Assmt/Plan - Assessment Assessment: G-tube malfunction. Acute respiratory failure. Trach status. Anemia. Moderate protein-calorie malnutrition. Diabetes Type 2. Hx of CVA . Asthma. COPD. - Plan Plan: Continuation of care. GI consult/followup. G-tube care. Continue present meds as directed. Monitor vitals, diet and labs. Fall precaution. Pain management. Breathing Treatments and Pulmonary support prn. Continue present care management. Nutritional Asmnt/Malnutr-PDOC - Dietary Evaluation Malnutrition Findings (Please click <Entered> for more info): Nutritional Asmnt/Malnutrition Start: 09/14/18 11: 56 Text: Status: Complete Freq: Protocol: Document 09/14/18 11:56 VIJAY (Rec: 09/14/18 12:05 ROYAL [email or web address]) Nutritional Asmnt/Malnutrition Patient General Information Nutritional Screening High Risk Consult Diagnosis gtube malfunction Pertinent Medical Hx/Surgical Hx DM, asthma/COPD, CVA/TIA, trach, gtube Subjective Information Pt came for leaking gtube. Pt is on trach, non verbal. Per nurse note, GT was replaced in the afternoon by MD. Current Diet Order/ Nutrition Support NPO Pertinent Medications D5-0.45ns Pertinent Labs 09/14 Cr 0.3, Glucose 288 09/13 Na 134, Cr 0.3, Glucose 280, alb 3.5 Nutritional Hx/Data Height 1.52 m Height (Calculated Centimeters) 152.4 Current Weight (lbs) 43.998 kg Weight (Calculated Kilograms) 44.0 Weight (Calculated Grams) 04798.5 [place] Body Weight 100 Body Mass Index (BMI) 18.9 Weight Status Approriate GI Symptoms GI Symptoms None Last BM none Difficult in: None Usual diet at home diabetisource at 60ml/hr x 20hr to provide 1440kcal., supplement prostate 30ml daily at care facility per pt chart . Skin Integrity/Comment: decubitus ulceration to sacrum Estimated Nutritional Goals BEE in Kcals: Using Current wt Calories/Kcals/Kg 27-32 Kcals Calculated 7519-5817 Protein: Using Current wt Protein g/k.2 Protein Calculated 56 Fluid: ml 1269-1504ml (1ml/kcal) Nutritional Problem 3. Problem Problem increased nutritional needs ( kcal and protein) Etiology impaired skin integrity Signs/Symptoms: decubitus ulcer to sacrum 2. Problem Problem inadequate intake from enteral feeding Etiology Gtube malfunction Signs/Symptoms: TF not initiated 1. Problem Problem altered nutrition related labs Etiology hyperglycemia Signs/Symptoms: glucose 280-288 Intervention/Recommendation Comments 1. When medically appropriate, recommend TF with Glucerna 1. 2 at 50ml/hr x 20hr. It provides 1200kcal, 60g protein , 805ml free water, meeting 100% of nutritional needs. Add Jeanmarie BID for wound healing. 2. Monitor TF rate, tolerance, wt, skin integrity and labs 3. F/U as high risk in 2-3 days Expected Outcomes/Goals Expected Outcomes/Goals 1. Pt to meet at least 90% of nutritional needs via nutrition support with tolerance 2. Wt stability, skin to remain intact, labs to approach WNL.
[2018-09-15] MEDS ORDERED: INSULIN LISPRO SLIDING SCALE 100 UNITS/ML UNIT SUBQ SCH (12:00)
[2018-09-15] MEDS ORDERED: Insulin Glargine 100 units/ml 10ml Vial SUBQ SCH (17:00)
--- NOTE | 2018-09-15 17:29 | GI Progress Note ---
Subjective - Review of Systems Service Date: 09/15/18 Events since last encounter: No events Subjective: responsive but not oriented Objective - Results Result Diagrams: 09/15/18 05:00 09/15/18 05:00 Recent Labs: Laboratory Last Values WBC 8.4 Th/cmm (4.8-10.8) 09/15/18 05:00 RBC 4.54 Mil/cmm (3.80-5.10) 09/15/18 05:00 Hgb 11.3 gm/dL (12-16) L 09/15/18 05:00 Hct 35.8 % (41.0-60) L 09/15/18 05:00 MCV 78.8 fl (81-100) L 09/15/18 05:00 MCH 24.9 pg (27.0-31.0) L 09/15/18 05:00 MCHC Differential 31.6 pg (28.0-36.0) 09/15/18 05:00 RDW 16.3 % (11.5-20.0) 09/15/18 05:00 Plt Count 477 Th/cmm (150-400) H 09/15/18 05:00 MPV 7.3 fl 09/15/18 05:00 Neutrophils % 67.9 % (40.0-80.0) 09/15/18 05:00 Lymphocytes % 23.8 % (20.0-50.0) 09/15/18 05:00 Monocytes % 6.9 % (2.0-10.0) 09/15/18 05:00 Eosinophils % 1.0 % (0.0-5.0) 09/15/18 05:00 Basophils % 0.4 % (0.0-2.0) 09/15/18 05:00 PT 10.3 SECONDS (9.5-11.5) 09/14/18 04:40 INR 0.99 (0.5-1.4) 09/14/18 04:40 PTT (Actin FS) 28.9 SECONDS (26.0-38.0) 09/14/18 04:40 Sodium 138 mEq/L (136-145) 09/15/18 05:00 Potassium 3.7 mEq/L (3.5-5.1) 09/15/18 05:00 Chloride 104 mEq/L (98-107) 09/15/18 05:00 Carbon Dioxide 25.4 mEq/L (21.0-31.0) 09/15/18 05:00 Anion Gap 12.3 (7.0-16.0) 09/15/18 05:00 BUN 17 mg/dL (7-25) 09/15/18 05:00 Creatinine 0.3 mg/dL (0.6-1.2) L 09/15/18 05:00 Est GFR ( Amer) > 60.0 ml/min (>90) 09/15/18 05:00 Est GFR (Non-Af Amer) > 60.0 ml/min 09/15/18 05:00 BUN/Creatinine Ratio 56.7 09/15/18 05:00 Glucose 320 mg/dL (70-105) H 09/15/18 05:00 POC Glucose 304 MG/DL (70 - 105) H 09/15/18 11:49 Calcium 9.0 mg/dL (8.6-10.3) 09/15/18 05:00 Total Bilirubin 0.2 mg/dL (0.3-1.0) L 09/13/18 21:35 AST 9 U/L (13-39) L 09/13/18 21:35 ALT 7 U/L (7-52) 09/13/18 21:35 Alkaline Phosphatase 140 U/L (34-104) H 09/13/18 21:35 Total Protein 8.6 gm/dL (6.0-8.3) H 09/13/18 21:35 Albumin 3.5 gm/dL (3.7-5.3) L 09/13/18 21:35 Globulin 5.1 gm/dL 09/13/18 21:35 Albumin/Globulin Ratio 0.7 (1.0-1.8) L 09/13/18 21:35 Urine Source [place] 09/14/18 16:00 Urine Color YELLOW 09/14/18 16:00 Urine Clarity HAZY (CLEAR) 09/14/18 16:00 Urine pH 7.0 (4.6 - 8.0) 09/14/18 16:00 Ur Specific [place] 1.010 (1.005-1.030) 09/14/18 16:00 Urine Protein TRACE mg/dL (NEGATIVE) 09/14/18 16:00 Urine Glucose (UA) NEGATIVE mg/dL (NEGATIVE) 09/14/18 16:00 Urine Ketones NEGATIVE mg/dL (NEGATIVE) 09/14/18 16:00 Urine Blood TRACE (NEGATIVE) 09/14/18 16:00 Urine Nitrate NEGATIVE (NEGATIVE) 09/14/18 16:00 Urine Bilirubin NEGATIVE (NEGATIVE) 09/14/18 16:00 Urine Urobilinogen 0.2 E.U./dL (0.2 - 1.0) 09/14/18 16:00 Ur Leukocyte Esterase LARGE (NEGATIVE) H 09/14/18 16:00 Urine RBC 2-5 /hpf (0-5) 09/14/18 16:00 Urine WBC 10-25 /hpf (0-5) H 09/14/18 16:00 Ur Epithelial Cells FEW /lpf (FEW) 09/14/18 16:00 Urine Bacteria 3+ /hpf (NONE SEEN) H 09/14/18 16:00 - Physical Exam Vitals and I&O: Vital Signs Temp 97.8 F 09/15/18 15:30 Pulse 97 09/15/18 15:30 Resp 18 09/15/18 15:30 BP 97/67 09/15/18 15:30 Pulse Ox 98 09/15/18 15:30 Intake & Output 09/14/18 09/15/18 09/15/18 18:59 06:59 18:59 Intake Total 100 1100 150 Output Total 300 450 350 Balance -200 650 -200 Weight (lbs) 44.135 kg 44.135 kg 43.998 kg Intake: Intake, IV Amount 100 1100 D5-0.45NS 1,000 ml @ 50 1000 mls/hr IV .Q20H [facility] Rx#: [id number] Tigecycline 50 mg In 100 100 Sodium Chloride 0.9% 100 ml @ 100 mls/hr IV Q12H [facility] Rx#:[id number] Tube Feeding 150 Output: Urine 300 450 350 Other: # Bowel Movements 0 Weight Source Bedscale Bedscale Bedscale Cardiovascular: Regular rate, Normal S1 Lungs: Clear to auscultation Abdomen: Bowel sounds, Soft, Other (G tube), no Tender - Procedures Procedures: Procedures Procedure Code Date CHANGE FEEDING DEVICE IN UP INTEST TRACT, STRAIGHT CUTTER MACHINE APPROACH [id number] 10/04/15 CHANGE GASTROSTOMY TUBE 56887 10/04/15 INSERT TUNNELED CV CATH 78841 10/04/15 INSERTION OF FEEDING DEVICE INTO STOMACH, OPEN APPROACH [id number] 10/06/16 INSERTION OF INFUSION DEV INTO L SUBCLAV VEIN, PERC APPROACH 89V958T 10/04/15 INSPECTION OF UPPER VEIN, PERCUTANEOUS APPROACH 89OV7MB 10/04/15 INTRODUCTION OF NUTRITIONAL INTO PERIPH VEIN, PERC APPROACH [id number] 08/02/18 PLACE GASTROSTOMY TUBE 34035 10/06/16 REMOVAL OF FEEDING DEVICE FROM STOMACH, EXTERNAL APPROACH [id number] 08/02/18 RESPIRATORY VENTILATION, GREATER THAN 96 CONSECUTIVE HOURS [id number] 08/02/18 ULTRASONOGRAPHY OF LEFT SUBCLAVIAN VEIN, GUIDANCE [id number] 10/04/15 Assessment/Plan - Assessment Assessment: 1. Malfunctioning G tube 2. Dysphagia - Plan Plan: 1. Malfunctioning G tube S/P change Better 2. Dysphagia Start tube feeding
== END 2018-09-15 17:05 | DRG 393 ==
LOC: ER 19:50 → MSI 21:00
PROVIDERS: ADMIT Internal Medicine; ATTEND Internal Medicine
PROC: 0D20XUZ Change Feeding Device in Upper Intestinal Tract, External Approach (ICD-10-PCS; principal; 2018-09-14)
DX: K94.23 Gastrostomy malfunction (principal); J96.20 Acute and chronic respiratory failure, unspecified whether with hypoxia or hypercapnia; E44.0 Moderate protein-calorie malnutrition; Z68.1 Body mass index [BMI] 19.9 or less, adult; E11.9 Type 2 diabetes mellitus without complications; J44.9 Chronic obstructive pulmonary disease, unspecified; D64.9 Anemia, unspecified; R13.10 Dysphagia, unspecified; Y83.3 Surgical operation with formation of external stoma as the cause of abnormal reaction of the patient, or of later complication, without mention of misadventure at the time of the procedure; Y92.89 Other specified places as the place of occurrence of the external cause; Z86.73 Personal history of transient ischemic attack (TIA), and cerebral infarction without residual deficits; Z88.0 Allergy status to penicillin
CPT/HCPCS: 36415-UA; 80048-TC; 80053-TC; 81001-TC; 82948-90; 83036-90; 85025-TC; 85610-TC; 87086-90; 94640; 94760; J1815; J3243; J7613; Z7610

== ENCOUNTER 2018-09-23 17:21 | Inpatient (IN) | payer MEDICARE, MEDICAID ==
--- NOTE | 2018-09-23 17:34 | ED Physician Chart ---
ED Chief Complaint/HPI - Patient Information Date Seen:: 09/23/18 Time Seen:: 17:25 Chief Complaint:: G-tube malfunction History of Present Illness:: Patient was sent here for G-tube malfunction. Allergies:: Allergies Allergy/AdvReac Type Severity Reaction Status Date / Time Penicillins Allergy Verified 09/13/18 19:56 piperacillin sodium Allergy Verified 10/03/15 23:12 [From Zosyn] tazobactam sodium Allergy Verified 10/03/15 23:12 [From Zosyn] Historian:: EMS Review:: Transfer documents Reviewed ED Review of Systems - Review of Systems General/Constitutional: No fever, No chills, No weight loss, No weakness, No diaphoresis, No edema, No loss of appetite Skin: No skin lesions, No rash, No bruising Head: No headache, No light-headedness Eyes: No loss of vision, No pain, No diplopia ENT: No earache, No nasal drainage, No sore throat, No tinnitus Neck: No neck pain, No swelling, No thyromegaly, No stiffness, No mass noted Cardio Vascular: No chest pain, No palpitations, No PND, No orthopnea, No edema Pulmonary: No SOB, No cough, No sputum, No wheezing GI: No nausea, No vomiting, No diarrhea, No pain, No melena, No hematochezia, No constipation, No hematemesis G/U: No dysuria, No frequency, No hematuria Musculoskeletal: No bone or joint pain, No back pain, No muscle pain Endocrine: No polyuria, No polydipsia Psychiatric: No prior psych history, No depression, No anxiety, No suicidal ideation Hematopoietic: No bruising, No lymphadenopathy Allergic/Immuno: No urticaria, No angioedema Neurological: No syncope, No focal symptoms, No weakness, No paresthesia, No headache, No seizure, No dizziness, No confusion, No vertigo ED Past Medical History - Past Medical History Past Medical History: HTN, DM, Asthma/COPD, PUD/GERD, Other (status post 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; anemia; urinary tract infection; history of pneumonia) Family History: Other Social History: Care Facility Surgical History: PEG/GTube, other (trach) Psychiatricy History: Other (nonresponsive) Medication: Reviewed Family Medical History - Family Member Mother History Unknown: Yes Ethnicity: Hx Family Coronary Artery Disease: No Hx Family Congestive Heart Failure: No Hx Family Hypertension: Yes Hx Family Stroke: Yes Hx Family Diabetes: Yes Hx Family Seizures: No Hx Family Dementia: No Hx Family AIDS: No Hx Family HIV: No Hx Family COPD: No Hx Family Hepatitis: No Hx Family Psychiatric Problems: No Hx Family Tuberculosis: No ED Physical Exam - Physical Examination Other Gen/Cons comments:: Chronically ill-appearing; nonresponsive; extremities contractured Head: Atraumatic Eyes: Lids, conjuctiva normal Other Skin comments:: About 15 cm of erythema and crusting around the G-tube stoma ENMT: External ears, nose nl Neck: No mass Respiratory: Nl effort/Exclusion, Clear to Auscultation Cardio Vascular: RRR, No murmur, gallop, rubs GI: Normal BS's, Nondistended, No mass/bruits Other comments:: Contractured extremities Extremities: No edema Other Neuro/Psych comments:: Nonresponsive ED Labs/Radiology/EKG Results - Lab Results Results: Laboratory Results WBC 16.7 Th/cmm (4.8-10.8) H 09/23/18 18:45 RBC 5.52 Mil/cmm (3.80-5.10) H 09/23/18 18:45 Hgb 13.7 gm/dL (12-16) 09/23/18 18:45 Hct 43.0 % (41.0-60) 09/23/18 18:45 MCV 77.8 fl (81-100) L 09/23/18 18:45 MCH 24.9 pg (27.0-31.0) L 09/23/18 18:45 MCHC Differential 32.0 pg (28.0-36.0) 09/23/18 18:45 RDW 16.1 % (11.5-20.0) 09/23/18 18:45 Plt Count 433 Th/cmm (150-400) H 09/23/18 18:45 MPV 8.8 fl 09/23/18 18:45 Add Manual Diff YES 09/23/18 18:45 Neutrophils % BUS STEWARD 09/23/18 18:45 Band Neutrophils % 0 % (0-10) 09/23/18 18:45 Lymphocytes % BUS STEWARD 09/23/18 18:45 Monocytes % BUS STEWARD 09/23/18 18:45 Eosinophils % BUS STEWARD 09/23/18 18:45 Basophils % BUS STEWARD 09/23/18 18:45 Neutrophils (Manual) 80 % (40-80) 09/23/18 18:45 Lymphocytes 15 % (20-50) L 09/23/18 18:45 Monocytes 4 % (2-10) 09/23/18 18:45 Eosinophils 1 % (0-5) 09/23/18 18:45 Basophils 0 % (0-3) 09/23/18 18:45 Platelet Estimate ADEQUATE (NORMAL) 09/23/18 18:45 PT 11.4 SECONDS (9.5-11.5) 09/23/18 18:45 INR 1.11 (0.5-1.4) 09/23/18 18:45 PTT (Actin FS) 28.0 SECONDS (26.0-38.0) 09/23/18 18:45 Sodium 150 mEq/L (136-145) H 09/23/18 18:45 Potassium 3.2 mEq/L (3.5-5.1) L 09/23/18 18:45 Chloride 109 mEq/L (98-107) H 09/23/18 18:45 Carbon Dioxide 35.3 mEq/L (21.0-31.0) H 09/23/18 18:45 Anion Gap 8.9 (7.0-16.0) 09/23/18 18:45 BUN 25 mg/dL (7-25) 09/23/18 18:45 Creatinine 0.3 mg/dL (0.6-1.2) L 09/23/18 18:45 Est GFR ( Amer) > 60.0 ml/min (>90) 09/23/18 18:45 Est GFR (Non-Af Amer) > 60.0 ml/min 09/23/18 18:45 BUN/Creatinine Ratio 83.3 09/23/18 18:45 Glucose 149 mg/dL (70-105) H 09/23/18 18:45 Calcium 9.5 mg/dL (8.6-10.3) 09/23/18 18:45 ED Assessment - Assessment General Assessment: As of 1859 blood could not be drawn because of the patient's extreme contractures. ED Septic Shock - . Is Septic Shock (SBP<90, OR Lactate>4 mmol\L) present?: No ED Reassessment (Disposition) - Reassessment Reassessment Condition:: Unchanged - Diagnosis Diagnosis:: G-tube leak; abdominal wall cellulitis and crusting - Patient Disposition Admitted to:: Med/Surg
[2018-09-23 18:52] LABS: MEAN CELL VOLUME 77.8 fl (81-100)
[2018-09-23 19:04] LABS: ANION GAP 8.9 (7.0-16.0); BUN - UREA NITROGEN 25 mg/dL (7-25); CALCIUM SERUM 9.5 mg/dL (8.6-10.3); CARBON DIOXIDE 35.3 mEq/L (21.0-31.0); CHLORIDE 109 mEq/L (98-107); CREATININE - SERUM 0.3 mg/dL (0.6-1.2); GFR AFRICAN-AMERICAN > 60.0 ml/min (>90); GFR NON AFRICAN-AMERICAN > 60.0 ml/min; GLUCOSE 149 mg/dL (70-105); POTASSIUM SERUM 3.2 mEq/L (3.5-5.1); SODIUM SERUM 150 mEq/L (136-145)
[2018-09-23 19:05] LABS: INR 1.11 (0.5-1.4)
[2018-09-23 19:15] LABS: HEMOGLOBIN 13.7 gm/dL (12-16); MEAN CORPUSCULAR HEMOGLOBIN 24.9 pg (27.0-31.0); RED CELL DISTRIBUTION WIDTH 16.1 % (11.5-20.0)
[2018-09-23 19:37] LABS: BAND NEUTROPHILE 0 % (0-10)
[2018-09-23 19:38] LABS: BASOPHIL 0 % (0-3); EOSINOPHIL 1 % (0-5); MONOCYTE 4 % (2-10)
[2018-09-23 19:44] LABS: RED BLOOD COUNT 5.52 Mil/cmm (3.80-5.10)
[2018-09-23 19:46] LABS: PLATELET ESTIMATE INCREASED PLATELETS (NORMAL)
[2018-09-23 19:58] LABS: LYMPHOCYTE 15 % (20-50)
[2018-09-23 20:04] LABS: WHITE BLOOD COUNT 16.7 Th/cmm (4.8-10.8)
[2018-09-23 20:07] LABS: PLATELET COUNT 433 Th/cmm (150-400)
[2018-09-23 20:09] LABS: NEUTROPHILS 80 % (40-80)
[2018-09-23 22:27] VITALS: BP 130/90
[2018-09-23] MEDS ORDERED: Dextrose 50% 50 mL Abboject IVP PRN (23:12)
[2018-09-23] MEDS ORDERED: GLUCAGON HCl 1 MG KIT IM PRN (23:12)
[2018-09-23] MEDS ORDERED: Albuterol/Ipratropium Neb 3 ML AERS HHN PRN (23:15)
[2018-09-23] MEDS: D5-0.45NS 1,000 ML IV SCH (23:56)
[2018-09-24] MEDS: INSULIN LISPRO SLIDING SCALE 100 UNITS/ML UNIT SUBQ SCH ×4 (00:16→18:42)
[2018-09-24] MEDS: Albuterol/Ipratropium Neb 3 ML AERS HHN SCH ×4 (00:30→18:58)
[2018-09-24 07:41] LABS: EOSINOPHILE ABSOLUTE 0.1 Th/cmm (0.1-0.4)
[2018-09-24 07:57] LABS: ALB/GLOB RATIO 0.6 (1.0-1.8); ALBUMIN 2.8 gm/dL (3.7-5.3); ALKALINE PHOSPHATASE 243 U/L (34-104); ANION GAP 11.6 (7.0-16.0); BILIRUBIN,TOTAL 0.6 mg/dL (0.3-1.0); BUN - UREA NITROGEN 23 mg/dL (7-25); CALCIUM SERUM 9.3 mg/dL (8.6-10.3); CARBON DIOXIDE 34.6 mEq/L (21.0-31.0); CHLORIDE 111 mEq/L (98-107); CREATININE - SERUM 0.3 mg/dL (0.6-1.2); GFR AFRICAN-AMERICAN > 60.0 ml/min (>90); GFR NON AFRICAN-AMERICAN > 60.0 ml/min; GLUCOSE 196 mg/dL (70-105); POTASSIUM SERUM 3.2 mEq/L (3.5-5.1); SGOT 20 U/L (13-39); SGPT/ALT 18 U/L (7-52); SODIUM SERUM 154 mEq/L (136-145); TOTAL PROTEIN,SERUM 7.5 gm/dL (6.0-8.3)
[2018-09-24] MEDS ORDERED: Albuterol/Ipratropium Neb 3 ML AERS HHN PRN (08:23)
[2018-09-24] MEDS ORDERED: Non-Formulary Item 1 EA (Amino Acids/Protein Hydrolys [Pro-Stat Awc Liquid] 30 ML) GT SCH (09:00)
[2018-09-24 09:30] LABS: % BASOPHILS 0.3 % (0.0-2.0); % LYMPHOCYTES 23.6 % (20.0-50.0); % MONOCYTES 6.4 % (2.0-10.0); % NEUTROPHILS 68.7 % (40.0-80.0); HEMATOCRIT 41.8 % (41.0-60); HEMOGLOBIN 13.3 gm/dL (12-16); LYMPHOCYTE ABSOLUTE 2.8 Th/cmm (1.5-3.0); MEAN CELL VOLUME 78.6 fl (81-100); MEAN CORPUSCULAR HGB CONC 31.8 pg (28.0-36.0); MONOCYTE ABSOLUTE 0.8 Th/cmm (0.3-1.0); NEUTROPHILE ABSOLUTE 8.3 Th/cmm (1.8-8.0); PLATELET COUNT 403 Th/cmm (150-400); RED BLOOD COUNT 5.32 Mil/cmm (3.80-5.10); RED CELL DISTRIBUTION WIDTH 16.3 % (11.5-20.0)
[2018-09-24] MEDS: Diltiazem 30 mg Tab GT SCH ×3 (09:35→22:19)
[2018-09-24] MEDS: Insulin Glargine 100 units/ml 10ml Vial SUBQ SCH ×2 (09:36→18:45)
[2018-09-24] MEDS: Docusate Sodium 100 mg/10 mL UD GT SCH ×2 (09:36→18:46)
--- NOTE | 2018-09-24 11:49 | History and Physical ---
History of Present Illness - HPI Chief Complaint: 58 y/o female patient was brought into ER due to G-tube malfunction. HPI: 58 y/o female patient was admitted due to [facility] due to G- tube leakage/malfunction. Patient has history of Hypertension, Diabetes, Asthma, COPD, PUD, GERD, Anemia, Urinary Tract Infection, G-tube status and Trach status. Patient had an ER Assessment and had a complete workup done. Patient was diagnosed with G-tube leakage/malfunction, Abdominal wall cellulitis and crusting. Patient will have a GI consult and I will follow, treat and monitor patient. Patient will continue current treatment plan as ordered. Vital Signs: Last Vital Signs Temp 96.8 F 09/24/18 08:00 Pulse 97 09/24/18 09:35 Resp 20 09/24/18 08:00 BP 120/67 09/24/18 08:00 Pulse Ox 97 09/24/18 08:00 Past Medical History Cardiovascular: Report: HTN Pulmonary: Report: Asthma, COPD PHYSICAL THER: Report: Other (Extreme contractures.) GI: Report: GERD, Peptic Ulcer Psych: Report: Other Musculoskeletal: Report: Other (Extreme contractures.) Rheumatologic: Report: No pertinent Hx Infectious Disease: Report: No Pertinent Hx Renal/: Report: No Pertinent Hx Endocrine: Report: Diabetes Dermatology: Report: No Pertinent Hx - Past Surgical History Past Surgical History: Other (S/P G-tube and S/P Trach.) Family Medical History - Family Member Mother History Unknown: Yes Ethnicity: Hx Family Coronary Artery Disease: No Hx Family Congestive Heart Failure: No Hx Family Hypertension: Yes Hx Family Stroke: Yes Hx Family Diabetes: Yes Hx Family Seizures: No Hx Family Dementia: No Hx Family AIDS: No Hx Family HIV: No Hx Family COPD: No Hx Family Hepatitis: No Hx Family Psychiatric Problems: No Hx Family Tuberculosis: No Social History Smoke: No Alcohol: None Drugs: None Lives: Assisted Domestic Violence: Negative Health Maintenance Health Maintenance: Other (see chart.) - Medications Home Medications: Home Medication Medication Instructions Recorded Type Acetaminophen [Tylenol] 650 mg GT Q6H PRN 08/02/18 History Albuterol/Ipratropium Neb [Duoneb 3 ml HHN Q2HR PRN 08/02/18 History Neb] Ascorbic Acid [Vitamin C] 500 mg GT DAILY 08/02/18 History Docusate Sodium 100 mg GT BID 08/02/18 History Insulin Glargine [Lantus Insulin] 10 unit SQ BID 08/02/18 History Multivitamin w/ Minerals 1 tab GT DAILY 08/02/18 History [Theragran M] Albuterol/Ipratropium Neb [Duoneb 3 ml HHN Q6HRT aers 08/06/18 Rx Neb] Amino Acids/Protein Hydrolys 30 ml GT DAILY 09/13/18 History [Pro-Stat Awc Liquid] Ciprofloxacin [Cipro] 500 mg GT Q12HR 09/13/18 History Diltiazem [Cardizem*] 60 mg GT TID 09/13/18 History Insulin Aspart Sliding Scale See Protocol SUBQ Q6HR 09/13/18 History [NovoLOG INSULIN SLIDING SCALE] Metoclopramide HCl [Reglan] 10 mg GT Q8HR 09/13/18 History Zinc Sulfate 220 mg GT DAILY 09/13/18 History Tigecycline [Tygacil] 50 mg IV Q12H vial 09/15/18 Rx Other Medications: Please see medication reconciliation sheet. - Allergies Allergies/Adverse Reactions: Allergies Allergy/AdvReac Type Severity Reaction Status Date / Time Penicillins Allergy Verified 09/23/18 17:28 piperacillin sodium Allergy Verified 09/23/18 17:28 [From Zosyn] tazobactam sodium Allergy Verified 09/23/18 17:28 [From Zosyn] Review of Systems - Review of Systems Review of Systems: Patient is very weak. Constitutional: Report: Weakness Eyes: Report: No Significant ENT: Report: No Significant Respiratory: Report: No Significant Cardiovascular: Report: No Significant Gastrointestinal: Report: No Significant Genitourinary: Report: Frequency Musculoskeletal: Report: Other (Extreme contractures.) Neurological: Report: Weakness Physical Exam - Physical Exam HEENT: Report: Ears Nose Throat within normal limits Neck: Report: Tracheostomy site noted to be clean Cardiovascular Systems: Report: +s1/s2 noted, Regular, Rate and Rhythm Respiratory: Report: Breath Sounds are within normal limits Abdomen: Report: PEG site is clean Back: Report: Inspection of back is within normal limits. Extremities: Report: Non-tender to palpation. Skin: Report: Color of skin is within normal limits Neuro/Psych: Report: Other (AMS, Hx of Dementia.) - Lab Results All Lab Results last 24 hours: Laboratory Results - last 24 hr 09/23/18 09/23/18 09/23/18 18:45 18:45 18:45 WBC 16.7 H RBC 5.52 H Hgb 13.7 Hct 43.0 MCV 77.8 L MCH 24.9 L MCHC Differential 32.0 RDW 16.1 Plt Count 433 H MPV 8.8 Add Manual Diff YES Neutrophils % NEWS PHOTOGRAPHER Band Neutrophils % 0 Lymphocytes % NEWS PHOTOGRAPHER Monocytes % NEWS PHOTOGRAPHER Eosinophils % NEWS PHOTOGRAPHER Basophils % NEWS PHOTOGRAPHER Neutrophils (Manual) 80 Lymphocytes 15 L Monocytes 4 Eosinophils 1 Basophils 0 Platelet Estimate INCREASED PLATELETS Microcytosis 1+ Smear Path Review PT 11.4 INR 1.11 PTT (Actin FS) 28.0 Sodium 150 H Potassium 3.2 L Chloride 109 H Carbon Dioxide 35.3 H Anion Gap 8.9 BUN 25 Creatinine 0.3 L Est GFR ( Amer) > 60.0 Est GFR (Non-Af Amer) > 60.0 BUN/Creatinine Ratio 83.3 Glucose 149 H POC Glucose Whole Bld Lactic Acid Calcium 9.5 Total Bilirubin AST ALT Alkaline Phosphatase Total Protein Albumin Globulin Albumin/Globulin Ratio 09/23/18 09/23/18 09/24/18 18:48 22:38 00:16 WBC RBC Hgb Hct MCV MCH MCHC Differential RDW Plt Count MPV Add Manual Diff Neutrophils % Band Neutrophils % Lymphocytes % Monocytes % Eosinophils % Basophils % Neutrophils (Manual) Lymphocytes Monocytes Eosinophils Basophils Platelet Estimate Microcytosis Smear Path Review PT INR PTT (Actin FS) Sodium Potassium Chloride Carbon Dioxide Anion Gap BUN Creatinine Est GFR ( Amer) Est GFR (Non-Af Amer) BUN/Creatinine Ratio Glucose POC Glucose 185 H Whole Bld Lactic Acid 1.49 1.00 Calcium Total Bilirubin AST ALT Alkaline Phosphatase Total Protein Albumin Globulin Albumin/Globulin Ratio 09/24/18 09/24/18 09/24/18 05:14 07:10 07:10 WBC 12.0 H D RBC 5.32 H Hgb 13.3 Hct 41.8 MCV 78.6 L MCH 25.0 L MCHC Differential 31.8 RDW 16.3 Plt Count 403 H MPV 8.9 Add Manual Diff Neutrophils % 68.7 Band Neutrophils % Lymphocytes % 23.6 Monocytes % 6.4 Eosinophils % 1.0 Basophils % 0.3 Neutrophils (Manual) Lymphocytes Monocytes Eosinophils Basophils Platelet Estimate Microcytosis Smear Path Review PT INR PTT (Actin FS) Sodium 154 H Potassium 3.2 L Chloride 111 H Carbon Dioxide 34.6 H Anion Gap 11.6 BUN 23 Creatinine 0.3 L Est GFR ( Amer) > 60.0 Est GFR (Non-Af Amer) > 60.0 BUN/Creatinine Ratio 76.7 Glucose 196 H POC Glucose 196 H Whole Bld Lactic Acid Calcium 9.3 Total Bilirubin 0.6 AST 20 ALT 18 Alkaline Phosphatase 243 H Total Protein 7.5 Albumin 2.8 L Globulin 4.7 Albumin/Globulin Ratio 0.6 L - Assessment Assessment: G-tube Leakage/Malfunction. Cellulitis abdominal wall. HTN. Diabetes. Asthma. COPD. PUD. GERD. Extreme contractures. History of Anemia. History of UTI. - Plan Plan: Continuation of care. GI consult requested. Monitor Labs, Monitor Hemoglobin levels. Continue present meds as directed. Respiratory treatments and Pulmonary support prn. Supplemental Oxygen prn. Aspiration precaution. Deep suctioning prn. Monitor Diet/Nutritional support/Continue PEG tube feedings. PEG tube and Trach care. Monitor mental status progression. Monitor behavioral health status. Pain Management. Physical therapy. Occupational therapy. Safety precaution. Supportive care. Fall precaution, frequent nursing rounds, and as needed restraints to prevent fall. Continue collaborating with consulting specialists, case management and nursing team. Will Monitor patient and continue current treatment plan as ordered.
[2018-09-24] MEDS ORDERED: Albuterol/Ipratropium Neb 3 ML AERS HHN SCH (13:00)
[2018-09-24] MEDS ORDERED: VTE Chemical Prophylaxis Screen/Admission MC PRN (13:27)
[2018-09-24] MEDS: Metoclopramide 5 mg/mL 2mL Vial IVP SCH ×2 (13:47→22:17)
[2018-09-24] MEDS ORDERED: Menthol/Zinc Oxide Oint 113gm Tube TP PRN (16:37)
[2018-09-24] MEDS: D5-0.45NS 1,000 ML IV SCH (18:54)
--- NOTE | 2018-09-24 20:08 | Consultation ---
Consult Note - Consult Note Service Date: 09/24/18 Referring Physician: Rasheed Dietz Consult Note: PHYSICIAN Consultation Note: Date of Admission: 09/23/18 Purpose of Consultation: decubitus ulcer Chief Complaint: non healing ulcer History of Present Illness: Patient ZACH ORANTES was admitted to [facility] I with GT SITE CELLULITIS. Past Medical History: Allergies Allergy/AdvReac Type Severity Reaction Status Date / Time Penicillins Allergy Verified 09/23/18 17:28 piperacillin sodium Allergy Verified 09/23/18 17:28 [From Zosyn] tazobactam sodium Allergy Verified 09/23/18 17:28 [From Zosyn] Vital Signs Temp 97.5 F 09/24/18 16:00 Pulse 75 09/24/18 16:00 Resp 19 09/24/18 16:00 BP 107/57 09/24/18 16:00 Pulse Ox 98 09/24/18 16:00 Intake & Output 09/24/18 09/24/18 09/25/18 06:59 18:59 06:59 Intake Total 948.333 Balance 948.333 Weight (lbs) 91 lb 8 oz Intake: Intake, IV Amount 948.333 D5-0.45NS 1,000 ml @ 50 948.333 mls/hr IV .Q20H [facility] Rx#: [id number] Laboratory Results - last 24 hr 09/23/18 09/23/18 09/24/18 18:45 22:38 00:16 WBC 16.7 H RBC 5.52 H Hgb Hct MCV MCH MCHC Differential RDW Plt Count 433 H MPV Neutrophils % Lymphocytes % Monocytes % Eosinophils % Basophils % Neutrophils (Manual) 80 Lymphocytes 15 L Smear Path Review Sodium Potassium Chloride Carbon Dioxide Anion Gap BUN Creatinine Est GFR ( Amer) Est GFR (Non-Af Amer) BUN/Creatinine Ratio Glucose POC Glucose 185 H Whole Bld Lactic Acid 1.00 Calcium Total Bilirubin AST ALT Alkaline Phosphatase Total Protein Albumin Globulin Albumin/Globulin Ratio 09/24/18 09/24/18 09/24/18 05:14 07:10 07:10 WBC 12.0 H D RBC 5.32 H Hgb 13.3 Hct 41.8 MCV 78.6 L MCH 25.0 L MCHC Differential 31.8 RDW 16.3 Plt Count 403 H MPV 8.9 Neutrophils % 68.7 Lymphocytes % 23.6 Monocytes % 6.4 Eosinophils % 1.0 Basophils % 0.3 Neutrophils (Manual) Lymphocytes Smear Path Review Sodium 154 H Potassium 3.2 L Chloride 111 H Carbon Dioxide 34.6 H Anion Gap 11.6 BUN 23 Creatinine 0.3 L Est GFR ( Amer) > 60.0 Est GFR (Non-Af Amer) > 60.0 BUN/Creatinine Ratio 76.7 Glucose 196 H POC Glucose 196 H Whole Bld Lactic Acid Calcium 9.3 Total Bilirubin 0.6 AST 20 ALT 18 Alkaline Phosphatase 243 H Total Protein 7.5 Albumin 2.8 L Globulin 4.7 Albumin/Globulin Ratio 0.6 L 09/24/18 09/24/18 11:49 18:18 WBC RBC Hgb Hct MCV MCH MCHC Differential RDW Plt Count MPV Neutrophils % Lymphocytes % Monocytes % Eosinophils % Basophils % Neutrophils (Manual) Lymphocytes Smear Path Review Sodium Potassium Chloride Carbon Dioxide Anion Gap BUN Creatinine Est GFR ( Amer) Est GFR (Non-Af Amer) BUN/Creatinine Ratio Glucose POC Glucose 224 H 177 H Whole Bld Lactic Acid Calcium Total Bilirubin AST ALT Alkaline Phosphatase Total Protein Albumin Globulin Albumin/Globulin Ratio Home Medication Medication Instructions Recorded Type Acetaminophen [Tylenol] 650 mg GT Q6H PRN 08/02/18 History Albuterol/Ipratropium Neb [Duoneb 3 ml HHN Q2HR PRN 08/02/18 History Neb] Ascorbic Acid [Vitamin C] 500 mg GT DAILY 08/02/18 History Docusate Sodium 100 mg GT BID 08/02/18 History Insulin Glargine [Lantus Insulin] 10 unit SQ BID 08/02/18 History Multivitamin w/ Minerals 1 tab GT DAILY 08/02/18 History [Theragran M] Albuterol/Ipratropium Neb [Duoneb 3 ml HHN Q6HRT aers 08/06/18 Rx Neb] Amino Acids/Protein Hydrolys 30 ml GT DAILY 09/13/18 History [Pro-Stat Awc Liquid] Ciprofloxacin [Cipro] 500 mg GT Q12HR 09/13/18 History Diltiazem [Cardizem*] 60 mg GT TID 09/13/18 History Insulin Aspart Sliding Scale See Protocol SUBQ Q6HR 09/13/18 History [NovoLOG INSULIN SLIDING SCALE] Metoclopramide HCl [Reglan] 10 mg GT Q8HR 09/13/18 History Zinc Sulfate 220 mg GT DAILY 09/13/18 History Tigecycline [Tygacil] 50 mg IV Q12H vial 09/15/18 Rx Current Medications Generic Name Dose Route Start Last Admin Trade Name Freq PRN Reason Stop Dose Admin Acetaminophen 650 mg 09/24/18 08:23 Tylenol 650mg/20.3ml Suspension GT Q6H PRN MILD PAIN OR FEVER >100.4 Albuterol/Ipratropium 3 ml 09/24/18 00:00 09/24/18 18:58 Duoneb Neb [facility] 11/23/18 00:00 3 ml Q6HRT ELVIA Administration Albuterol/Ipratropium 3 ml 09/23/18 23:15 Duoneb Neb [facility] 11/22/18 23:14 Q2HRT PRN Wheezing Ascorbic Acid 500 mg 09/24/18 09:00 09/24/18 09:36 Vitamin C GT 11/23/18 08:59 500 mg DAILY ELVIA Administration Calamine/Phenol 1 appl 09/24/18 16:37 Calmoseptine TP 11/23/18 16:36 QID PRN Skin Irritation [place] Oil/[place]eless Balsam/Trypsin 1 appl 09/25/18 09:00 Venelex TP 11/24/18 08:59 DAILY ELVIA Dextrose 50 ml 09/23/18 23:12 D50w IVP 11/22/18 23:11 PRN PRN Blood Glucose less than 70 Dextrose 18.75 gm 09/23/18 23:12 Glutose 40% PO 11/22/18 23:11 PRN PRN Blood Glucose less than 70 Diltiazem HCl 60 mg 09/24/18 09:00 09/24/18 13:47 Cardizem GT 11/23/18 08:59 60 mg TID ELVIA Administration Docusate Sodium 100 mg 09/24/18 09:00 09/24/18 18:46 Colace GT 11/23/18 08:59 100 mg BID ELVIA Administration Glucagon 1 mg 09/23/18 23:12 Glucagen IM 11/22/18 23:11 PRN PRN Blood Glucose less than 70 Heparin Sodium (Porcine) 5,000 units 09/24/18 21:00 Heparin SUBQ 11/23/18 20:59 Q12H ELVIA Dextrose/Sodium Chloride 1,000 mls @ 50 mls/hr 09/23/18 22:24 09/24/18 18:54 D5-0.45ns IV 11/22/18 22:23 50 mls/hr .Q20H ELVIA Administration Insulin Glargine 10 units 09/24/18 09:00 09/24/18 18:45 Lantus Insulin SUBQ 11/23/18 08:59 10 units BID ELVIA Administration Insulin Human Lispro 0 units 09/24/18 00:00 09/24/18 18:42 Humalog Insulin Sliding Scale SUBQ 11/23/18 00:00 4 units Q6HR ELVIA Administration Protocol Metoclopramide HCl 10 mg 09/24/18 13:00 09/24/18 13:47 Reglan IVP 11/23/18 12:59 10 mg Q8HR ELVIA Administration Miscellaneous 1 ea 09/24/18 13:27 Vte Chemical Prophylaxis Screen/ Admission 11/23/18 13:26 PRN PRN PROTOCOL Review of Systems: A 12 point ROS was reviewed with the pertinent positive and negatives noted in the HPI. Social History Smoking Status Smoker, status unknown Family Medical History Family Medical History Start: 09/23/18 22: 22 Freq: ONCE Status: Active Protocol: Document 09/23/18 22:40 BENNETT (Rec: 09/23/18 22:47 BENNETT [id number]) Family Medical History Mother History Unknown Yes Physical Exam: General: HEENT: Neck: Cardio: Respiratory: Abdominal: Genital/Urinary: sacral decubitus ulcer 10 x 5 cm Extremities: Neurological: Assessment: decubitus ulcer sacrum leaking Gtube will need to be revised at some time Plan: medical clearance medline placement consent for debridement of sacral decubitus ulcer with possible wound vac and minilaparotomy for new g tube placement and closure of old g tube Signed, Marely Kaplan [id number]
[2018-09-24] MEDS: Heparin Sod 5,000Units/ML 5,000 UNITS/ML VIAL SUBQ SCH (22:21)
[2018-09-25] MEDS: INSULIN LISPRO SLIDING SCALE 100 UNITS/ML UNIT SUBQ SCH ×5 (00:58→23:22)
[2018-09-25] MEDS: Albuterol/Ipratropium Neb 3 ML AERS HHN SCH ×4 (01:21→18:53)
--- NOTE | 2018-09-25 01:31 | Consultation ---
DATE OF CONSULTATION: 09/24/2018 REASON FOR CONSULTATION: Cellulitis of the G-tube site. HISTORY OF PRESENT ILLNESS: This consult was obtained through the courtesy of Dr. Dietz for this 58-year-old who has multiple medical problems including respiratory failure, status post tracheostomy, diabetes, asthma, COPD, dysphagia on G-tube feeding, who had a problem with a G-tube for a long time and she had surgery to replace the G-tube and close it 2016. The patient has been having issues with G-tube for the last several months. She was seen on several occasions including at [facility] and here for the same problem and she presented again with another attack of cellulitis. The patient is responsive, not able to provide any history. PAST MEDICAL HISTORY: Diabetes, respiratory failure, dysphagia, asthma. PAST SURGICAL HISTORY: Tracheostomy, G-tube. SOCIAL HISTORY: Nonsmoker, nonalcoholic, no IV drug abuser. FAMILY HISTORY: Unobtainable, noncontributory. ALLERGIES: PENICILLIN, ZOSYN, TAZOBACTAM. MEDICATIONS: The patient is on Tylenol, albuterol, DuoNeb, vitamin C, Cardizem, Colace, glucagon, insulin. REVIEW OF SYSTEMS: Unobtainable. PHYSICAL EXAMINATION: GENERAL: The patient is awake, responsive, mild distress. VITAL SIGNS: Blood pressure is 120/67, heart rate 97, respiratory rate 20, temperature 96.8. HEAD AND NECK: Pupils reactive to light and accommodation. NECK: Supple. No jugular venous distention, no carotid bruit, no lymph node. CHEST: Good respiratory movements. CARDIOVASCULAR SYSTEM: Regular S1, S2. No S3 or murmur. ABDOMEN: Soft, positive bowel sound. Abdomen was not tender. There is some maceration at the G-tube site with some cellulitis, but there was no current leaking. CENTRAL NERVOUS SYSTEM: Unable to evaluate. LABORATORY DATA: White count 12, it was 16.7; H and H are 13.3 and 41.8 with platelets of 403. Sodium is 154. Liver enzymes are normal except alkaline phosphatase 243. IMPRESSION: A 59-year-old with dysphagia presenting with cellulitis of G-tube site. ASSESSMENT AND PLAN: Cellulitis. This is a difficult problem, it has been going on for a while. It was treated surgically and it recurred again. So, at this time, options would be either to continue conservative management, trying to optimize G-tube meaning using a good size, using motility agent trying to promote emptying of the stomach to promote healing or converting the G-tube to a gastrojejunostomy tube. Other option would be to repeat surgery and try to do this on both of them carried own down sides, but on the other hand, it seems trying to conservative management would be better for on the patient on long-term if it succeed. So at this time, we will recommend to start using some Reglan, use tube feeding, keep the patient in a position, which does not leak and if this fails, then do a gastrojejunostomy. Other medical problems such as asthma, respiratory failure, diabetes, COPD, and CVA as per Dr. Dietz. Thank you Dr. Dietz for allowing me to participate in the care of the patient. If you have any further questions, please let me know. JOB# [id number]
[2018-09-25] MEDS: Metoclopramide 5 mg/mL 2mL Vial IVP SCH ×3 (04:51→21:10)
[2018-09-25 06:20] LABS: % EOSINOPHILS 1.7 % (0.0-5.0); % LYMPHOCYTES 29.1 % (20.0-50.0); % NEUTROPHILS 62.2 % (40.0-80.0); EOSINOPHILE ABSOLUTE 0.2 Th/cmm (0.1-0.4); HEMATOCRIT 41.6 % (41.0-60); HEMOGLOBIN 13.1 gm/dL (12-16); LYMPHOCYTE ABSOLUTE 3.1 Th/cmm (1.5-3.0); MEAN CELL VOLUME 77.3 fl (81-100); MEAN CORPUSCULAR HEMOGLOBIN 24.4 pg (27.0-31.0); MEAN CORPUSCULAR HGB CONC 31.6 pg (28.0-36.0); MONOCYTE ABSOLUTE 0.7 Th/cmm (0.3-1.0); NEUTROPHILE ABSOLUTE 6.6 Th/cmm (1.8-8.0); RED BLOOD COUNT 5.38 Mil/cmm (3.80-5.10); RED CELL DISTRIBUTION WIDTH 16.4 % (11.5-20.0); WHITE BLOOD COUNT 10.6 Th/cmm (4.8-10.8)
[2018-09-25 06:24] LABS: PLATELET COUNT 251 Th/cmm (150-400)
[2018-09-25 06:27] LABS: BUN - UREA NITROGEN 17 mg/dL (7-25); CALCIUM SERUM 9.1 mg/dL (8.6-10.3); CARBON DIOXIDE 30.5 mEq/L (21.0-31.0); CHLORIDE 108 mEq/L (98-107); CREATININE - SERUM 0.3 mg/dL (0.6-1.2); GFR AFRICAN-AMERICAN > 60.0 ml/min (>90); GFR NON AFRICAN-AMERICAN > 60.0 ml/min; GLUCOSE 232 mg/dL (70-105); POTASSIUM SERUM 3.5 mEq/L (3.5-5.1); SODIUM SERUM 146 mEq/L (136-145)
[2018-09-25] MEDS: Docusate Sodium 100 mg/10 mL UD GT SCH ×2 (08:43→17:33)
[2018-09-25] MEDS: Diltiazem 30 mg Tab GT SCH ×3 (08:43→21:10)
[2018-09-25] MEDS: Heparin Sod 5,000Units/ML 5,000 UNITS/ML VIAL SUBQ SCH ×2 (08:44→21:10)
[2018-09-25] MEDS: Venelex 60gm Tube TP SCH (08:51)
[2018-09-25] MEDS: Insulin Glargine 100 units/ml 10ml Vial SUBQ SCH ×2 (08:52→17:32)
--- NOTE | 2018-09-25 11:14 | GI Progress Note ---
Subjective - Review of Systems Service Date: 09/25/18 Events since last encounter: No events Subjective: Leaking G tube Objective - Results Result Diagrams: 09/25/18 06:00 09/25/18 06:00 Recent Labs: Laboratory Last Values WBC 10.6 Th/cmm (4.8-10.8) 09/25/18 06:00 RBC 5.38 Mil/cmm (3.80-5.10) H 09/25/18 06:00 Hgb 13.1 gm/dL (12-16) 09/25/18 06:00 Hct 41.6 % (41.0-60) 09/25/18 06:00 MCV 77.3 fl (81-100) L 09/25/18 06:00 MCH 24.4 pg (27.0-31.0) L 09/25/18 06:00 MCHC Differential 31.6 pg (28.0-36.0) 09/25/18 06:00 RDW 16.4 % (11.5-20.0) 09/25/18 06:00 Plt Count 251 Th/cmm (150-400) D 09/25/18 06:00 MPV 9.6 fl 09/25/18 06:00 Add Manual Diff YES 09/23/18 18:45 Neutrophils % 62.2 % (40.0-80.0) 09/25/18 06:00 Band Neutrophils % 0 % (0-10) 09/23/18 18:45 Lymphocytes % 29.1 % (20.0-50.0) 09/25/18 06:00 Monocytes % 7.0 % (2.0-10.0) 09/25/18 06:00 Eosinophils % 1.7 % (0.0-5.0) 09/25/18 06:00 Basophils % 0.0 % (0.0-2.0) 09/25/18 06:00 Neutrophils (Manual) 80 % (40-80) 09/23/18 18:45 Lymphocytes 15 % (20-50) L 09/23/18 18:45 Monocytes 4 % (2-10) 09/23/18 18:45 Eosinophils 1 % (0-5) 09/23/18 18:45 Basophils 0 % (0-3) 09/23/18 18:45 Platelet Estimate INCREASED PLATELETS (NORMAL) 09/23/18 18:45 Microcytosis 1+ 09/23/18 18:45 Smear Path Review 09/23/18 18:45 PT 11.4 SECONDS (9.5-11.5) 09/23/18 18:45 INR 1.11 (0.5-1.4) 09/23/18 18:45 PTT (Actin FS) 28.0 SECONDS (26.0-38.0) 09/23/18 18:45 Sodium 146 mEq/L (136-145) H 09/25/18 06:00 Potassium 3.5 mEq/L (3.5-5.1) 09/25/18 06:00 Chloride 108 mEq/L (98-107) H 09/25/18 06:00 Carbon Dioxide 30.5 mEq/L (21.0-31.0) 09/25/18 06:00 Anion Gap 11.0 (7.0-16.0) 09/25/18 06:00 BUN 17 mg/dL (7-25) 09/25/18 06:00 Creatinine 0.3 mg/dL (0.6-1.2) L 09/25/18 06:00 Est GFR ( Amer) > 60.0 ml/min (>90) 09/25/18 06:00 Est GFR (Non-Af Amer) > 60.0 ml/min 09/25/18 06:00 BUN/Creatinine Ratio 56.7 09/25/18 06:00 Glucose 232 mg/dL (70-105) H 09/25/18 06:00 POC Glucose 195 MG/DL (70 - 105) H 09/25/18 05:32 Whole Bld Lactic Acid 1.00 mmol/L (0.60-1.99) 09/23/18 22:38 Calcium 9.1 mg/dL (8.6-10.3) 09/25/18 06:00 Total Bilirubin 0.6 mg/dL (0.3-1.0) 09/24/18 07:10 AST 20 U/L (13-39) 09/24/18 07:10 ALT 18 U/L (7-52) 09/24/18 07:10 Alkaline Phosphatase 243 U/L (34-104) H 09/24/18 07:10 Total Protein 7.5 gm/dL (6.0-8.3) 09/24/18 07:10 Albumin 2.8 gm/dL (3.7-5.3) L 09/24/18 07:10 Globulin 4.7 gm/dL 09/24/18 07:10 Albumin/Globulin Ratio 0.6 (1.0-1.8) L 09/24/18 07:10 - Physical Exam Vitals and I&O: Vital Signs Temp 96.8 F 09/25/18 07:53 Pulse 70 09/25/18 08:43 Resp 21 09/25/18 07:53 BP 119/68 09/25/18 07:53 Pulse Ox 98 09/25/18 07:53 Intake & Output 09/24/18 09/25/18 09/25/18 18:59 06:59 18:59 Intake Total 948.333 Output Total 300 Balance 948.333 -300 Weight (lbs) 43.998 kg Intake: Intake, IV Amount 948.333 D5-0.45NS 1,000 ml @ 50 948.333 mls/hr IV .Q20H [facility] Rx#: [id number] Output: Urine 300 Other: Weight Source Bedscale Active Medications: Current Medications Acetaminophen (Tylenol 650mg/20.3ml Suspension) 650 mg GT Q6H PRN PRN Reason: MILD PAIN OR FEVER >100.4 Albuterol/Ipratropium (Duoneb Neb) 3 ml HHN Q6HRT ELVIA Stop: 11/23/18 00:00 Last Admin: 09/25/18 07:15 Dose: 3 ml Albuterol/Ipratropium (Duoneb Neb) 3 ml HHN Q2HRT PRN PRN Reason: Wheezing Stop: 11/22/18 23:14 Ascorbic Acid (Vitamin C) 500 mg GT DAILY [facility] Stop: 11/23/18 08:59 Last Admin: 09/25/18 08:43 Dose: 500 mg Calamine/Phenol (Calmoseptine) 1 appl TP QID PRN PRN Reason: Skin Irritation Stop: 11/23/18 16:36 [place] Oil/[place] Balsam/Trypsin (Venelex) 1 appl TP DAILY [facility] Stop: 11/24/18 08:59 Last Admin: 09/25/18 08:51 Dose: 1 appl Dextrose (D50w) 50 ml IVP PRN PRN PRN Reason: Blood Glucose less than 70 Stop: 11/22/18 23:11 Dextrose (Glutose 40%) 18.75 gm PO PRN PRN PRN Reason: Blood Glucose less than 70 Stop: 11/22/18 23:11 Diltiazem HCl (Cardizem) 60 mg GT TID [facility] Stop: 11/23/18 08:59 Last Admin: 09/25/18 08:43 Dose: 60 mg Docusate Sodium (Colace) 100 mg GT BID [facility] Stop: 11/23/18 08:59 Last Admin: 09/25/18 08:43 Dose: 100 mg Glucagon (Glucagen) 1 mg IM PRN PRN PRN Reason: Blood Glucose less than 70 Stop: 11/22/18 23:11 Heparin Sodium (Porcine) (Heparin) 5,000 units SUBQ Q12H [facility] Stop: 11/23/18 20:59 Last Admin: 09/25/18 08:44 Dose: 5,000 units Dextrose/Sodium Chloride (D5-0.45ns) 1,000 mls @ 50 mls/hr IV .Q20H [facility] Stop: 11/22/18 22:23 Last Admin: 09/24/18 18:54 Dose: 50 mls/hr Insulin Glargine (Lantus Insulin) 10 units SUBQ BID [facility] Stop: 11/23/18 08:59 Last Admin: 09/25/18 08:52 Dose: 10 units Insulin Human Lispro (Humalog Insulin Sliding Scale) 0 units SUBQ Q6HR [facility]; Protocol Stop: 11/23/18 00:00 Last Admin: 09/25/18 06:18 Dose: 2 units Metoclopramide HCl (Reglan) 10 mg IVP Q8HR [facility] Stop: 11/23/18 12:59 Last Admin: 09/25/18 04:51 Dose: 10 mg Miscellaneous (Vte Chemical Prophylaxis Screen/ Admission) 1 ea [facility] PRN PRN PRN Reason: PROTOCOL Stop: 11/23/18 13:26 General: No acute distress Cardiovascular: Regular rate, Normal S1, Normal S2 Lungs: Clear to auscultation Abdomen: Bowel sounds, Soft, Other (G Tube with a colostomy bag around it), no Tender - Procedures Procedures: Procedures Procedure Code Date CHANGE FEEDING DEVICE IN UP INTEST TRACT, PRESS CLIPPER APPROACH [id number] 09/13/18 CHANGE GASTROSTOMY TUBE 35878 10/04/15 INSERT TUNNELED CV CATH [id number] 10/04/15 INSERTION OF FEEDING DEVICE INTO STOMACH, OPEN APPROACH [id number] 10/06/16 INSERTION OF INFUSION DEV INTO L SUBCLAV VEIN, PERC APPROACH [id number] 10/04/15 INSPECTION OF UPPER VEIN, PERCUTANEOUS APPROACH [id number] 10/04/15 INTRODUCTION OF NUTRITIONAL INTO PERIPH VEIN, PERC APPROACH [id number] 08/02/18 PLACE GASTROSTOMY TUBE 09646 10/06/16 REMOVAL OF FEEDING DEVICE FROM STOMACH, EXTERNAL APPROACH [id number] 08/02/18 RESPIRATORY VENTILATION, GREATER THAN 96 CONSECUTIVE HOURS [id number] 08/02/18 ULTRASONOGRAPHY OF LEFT SUBCLAVIAN VEIN, GUIDANCE [id number] 10/04/15 Assessment/Plan - Assessment Assessment: 1. Malfunctioning G tube 2.Dysphagia - Plan Plan: 1. Malfunctioning G tube Cont conservative management May have surgery On Thursday to close the current fistula and insert a new GT 2.Dysphagia As above Feeding if possible
--- NOTE | 2018-09-25 14:36 | General Progress Note ---
Subjective - Review of Systems Service Date: 09/25/18 Subjective: Patient still has chronic respiratory failure with tracheostomy Objective - Results Result Diagrams: 09/25/18 06:00 09/25/18 06:00 Recent Labs: Laboratory Last Values WBC 10.6 Th/cmm (4.8-10.8) 09/25/18 06:00 RBC 5.38 Mil/cmm (3.80-5.10) H 09/25/18 06:00 Hgb 13.1 gm/dL (12-16) 09/25/18 06:00 Hct 41.6 % (41.0-60) 09/25/18 06:00 MCV 77.3 fl (81-100) L 09/25/18 06:00 MCH 24.4 pg (27.0-31.0) L 09/25/18 06:00 MCHC Differential 31.6 pg (28.0-36.0) 09/25/18 06:00 RDW 16.4 % (11.5-20.0) 09/25/18 06:00 Plt Count 251 Th/cmm (150-400) D 09/25/18 06:00 MPV 9.6 fl 09/25/18 06:00 Add Manual Diff YES 09/23/18 18:45 Neutrophils % 62.2 % (40.0-80.0) 09/25/18 06:00 Band Neutrophils % 0 % (0-10) 09/23/18 18:45 Lymphocytes % 29.1 % (20.0-50.0) 09/25/18 06:00 Monocytes % 7.0 % (2.0-10.0) 09/25/18 06:00 Eosinophils % 1.7 % (0.0-5.0) 09/25/18 06:00 Basophils % 0.0 % (0.0-2.0) 09/25/18 06:00 Neutrophils (Manual) 80 % (40-80) 09/23/18 18:45 Lymphocytes 15 % (20-50) L 09/23/18 18:45 Monocytes 4 % (2-10) 09/23/18 18:45 Eosinophils 1 % (0-5) 09/23/18 18:45 Basophils 0 % (0-3) 09/23/18 18:45 Platelet Estimate INCREASED PLATELETS (NORMAL) 09/23/18 18:45 Microcytosis 1+ 09/23/18 18:45 Smear Path Review 09/23/18 18:45 PT 11.4 SECONDS (9.5-11.5) 09/23/18 18:45 INR 1.11 (0.5-1.4) 09/23/18 18:45 PTT (Actin FS) 28.0 SECONDS (26.0-38.0) 09/23/18 18:45 Sodium 146 mEq/L (136-145) H 09/25/18 06:00 Potassium 3.5 mEq/L (3.5-5.1) 09/25/18 06:00 Chloride 108 mEq/L (98-107) H 09/25/18 06:00 Carbon Dioxide 30.5 mEq/L (21.0-31.0) 09/25/18 06:00 Anion Gap 11.0 (7.0-16.0) 09/25/18 06:00 BUN 17 mg/dL (7-25) 09/25/18 06:00 Creatinine 0.3 mg/dL (0.6-1.2) L 09/25/18 06:00 Est GFR ( Amer) > 60.0 ml/min (>90) 09/25/18 06:00 Est GFR (Non-Af Amer) > 60.0 ml/min 09/25/18 06:00 BUN/Creatinine Ratio 56.7 09/25/18 06:00 Glucose 232 mg/dL (70-105) H 09/25/18 06:00 POC Glucose 248 MG/DL (70 - 105) H 09/25/18 11:54 Whole Bld Lactic Acid 1.00 mmol/L (0.60-1.99) 09/23/18 22:38 Calcium 9.1 mg/dL (8.6-10.3) 09/25/18 06:00 Total Bilirubin 0.6 mg/dL (0.3-1.0) 09/24/18 07:10 AST 20 U/L (13-39) 09/24/18 07:10 ALT 18 U/L (7-52) 09/24/18 07:10 Alkaline Phosphatase 243 U/L (34-104) H 09/24/18 07:10 Total Protein 7.5 gm/dL (6.0-8.3) 09/24/18 07:10 Albumin 2.8 gm/dL (3.7-5.3) L 09/24/18 07:10 Globulin 4.7 gm/dL 09/24/18 07:10 Albumin/Globulin Ratio 0.6 (1.0-1.8) L 09/24/18 07:10 - Physical Exam Vitals and I&O: Vital Signs Temp 97.2 F 09/25/18 12:00 Pulse 95 09/25/18 13:21 Resp 18 09/25/18 12:23 BP 114/42 09/25/18 12:00 Pulse Ox 96 09/25/18 12:23 Intake & Output 09/24/18 09/25/18 09/25/18 18:59 06:59 18:59 Intake Total 948.333 Output Total 300 Balance 948.333 -300 Weight (lbs) 43.998 kg Intake: Intake, IV Amount 948.333 D5-0.45NS 1,000 ml @ 50 948.333 mls/hr IV .Q20H [facility] Rx#: [id number] Output: Urine 300 Other: Weight Source Bedscale Active Medications: Current Medications Acetaminophen (Tylenol 650mg/20.3ml Suspension) 650 mg GT Q6H PRN PRN Reason: MILD PAIN OR FEVER >100.4 Albuterol/Ipratropium (Duoneb Neb) 3 ml HHN Q6HRT [facility] Stop: 11/23/18 00:00 Last Admin: 09/25/18 12:14 Dose: 3 ml Albuterol/Ipratropium (Duoneb Neb) 3 ml HHN Q2HRT PRN PRN Reason: Wheezing Stop: 11/22/18 23:14 Ascorbic Acid (Vitamin C) 500 mg GT DAILY [facility] Stop: 11/23/18 08:59 Last Admin: 09/25/18 08:43 Dose: 500 mg Calamine/Phenol (Calmoseptine) 1 appl TP QID PRN PRN Reason: Skin Irritation Stop: 11/23/18 16:36 [place] Oil/[place] Balsam/Trypsin (Venelex) 1 appl TP DAILY [facility] Stop: 11/24/18 08:59 Last Admin: 09/25/18 08:51 Dose: 1 appl Dextrose (D50w) 50 ml IVP PRN PRN PRN Reason: Blood Glucose less than 70 Stop: 11/22/18 23:11 Dextrose (Glutose 40%) 18.75 gm PO PRN PRN PRN Reason: Blood Glucose less than 70 Stop: 11/22/18 23:11 Diltiazem HCl (Cardizem) 60 mg GT TID [facility] Stop: 11/23/18 08:59 Last Admin: 09/25/18 13:21 Dose: 60 mg Docusate Sodium (Colace) 100 mg GT BID [facility] Stop: 11/23/18 08:59 Last Admin: 09/25/18 08:43 Dose: 100 mg Glucagon (Glucagen) 1 mg IM PRN PRN PRN Reason: Blood Glucose less than 70 Stop: 11/22/18 23:11 Heparin Sodium (Porcine) (Heparin) 5,000 units SUBQ Q12H [facility] Stop: 11/23/18 20:59 Last Admin: 09/25/18 08:44 Dose: 5,000 units Dextrose/Sodium Chloride (D5-0.45ns) 1,000 mls @ 50 mls/hr IV .Q20H [facility] Stop: 11/22/18 22:23 Last Admin: 09/24/18 18:54 Dose: 50 mls/hr Insulin Glargine (Lantus Insulin) 10 units SUBQ BID [facility] Stop: 11/23/18 08:59 Last Admin: 09/25/18 08:52 Dose: 10 units Insulin Human Lispro (Humalog Insulin Sliding Scale) 0 units SUBQ Q6HR [facility]; Protocol Stop: 11/23/18 00:00 Last Admin: 09/25/18 12:29 Dose: 4 units Metoclopramide HCl (Reglan) 10 mg IVP Q8HR [facility] Stop: 11/23/18 12:59 Last Admin: 09/25/18 13:21 Dose: 10 mg Miscellaneous (Vte Chemical Prophylaxis Screen/ Admission) 1 ea MC PRN PRN PRN Reason: PROTOCOL Stop: 11/23/18 13:26 General: No acute distress Cardiovascular: Regular rate, Normal S1, Normal S2 Lungs: Clear to auscultation Abdomen: Bowel sounds, Soft, Other (G-tube in place), no Tender Extremities: Other (contractures of both extremities) - Procedures Procedures: Procedures Procedure Code Date CHANGE FEEDING DEVICE IN UP INTEST TRACT, GEOINT ANALYST APPROACH [id number] 09/13/18 CHANGE GASTROSTOMY TUBE 78728 10/04/15 INSERT TUNNELED CV CATH [id number] 10/04/15 INSERTION OF FEEDING DEVICE INTO STOMACH, OPEN APPROACH [id number] 10/06/16 INSERTION OF INFUSION DEV INTO L SUBCLAV VEIN, PERC APPROACH [id number] 10/04/15 INSPECTION OF UPPER VEIN, PERCUTANEOUS APPROACH [id number] 10/04/15 INTRODUCTION OF NUTRITIONAL INTO PERIPH VEIN, PERC APPROACH [id number] 08/02/[address] PL[address] GASTROSTOMY TUBE 91116 10/06/16 REMOVAL OF FEEDING DEVICE FROM STOMACH, EXTERNAL APPROACH [id number] 08/02/18 RESPIRATORY VENTILATION, GREATER THAN 96 CONSECUTIVE HOURS [id number] 08/02/18 ULTRASONOGRAPHY OF LEFT SUBCLAVIAN VEIN, GUIDANCE [id number] 10/04/15 Assessment/Plan - Assessment Assessment: Sacral decubitus ulcer stage IV Chronic respiratory failure with tracheostomy G-tube protein calorie malnutrition Diabetes mellitus type 2 COPD Asthma Peptic ulcer GERD Contracture of the extremities 9 deficiency anemia Urinary tract infection - Plan Plan: Continue present management patient cleared for surgery Nutritional Asmnt/Malnutr-PDOC - Dietary Evaluation Malnutrition Findings (Please click <Entered> for more info): Nutritional Asmnt/Malnutrition Start: 09/24/18 15: 59 Text: Status: Complete Freq: Protocol: Document 09/24/18 15:59 LCHENG (Rec: 09/24/18 16:19 LCHENG [email or web address]) Nutritional Asmnt/Malnutrition Patient General Information Nutritional Screening High Risk Consult Diagnosis GI site cellulitis Pertinent Medical Hx/Surgical Hx HTN, DM asthma/COPD, PUD/GERD, 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 Per nurse note, glucerna 1.2 initiated at 60ml /hr in the afternoon, no residual noted. Current Diet Order/ Nutrition Support glucerna 1.2 at 60m, Pertinent Medications vit C, D5-0.45ns, colace, lantus, humalog, reglan Pertinent Labs 09/24 Na 154, K 3.2, Cl 111, Cr 0.3, Glucose 196, POC 185-224 , Alb 2.8 09/23 Na 150, K 3.2, Cr 0.3, Glucose 149 Nutritional Hx/Data Height 1.52 m Height (Calculated Centimeters) 152.4 Current Weight (lbs) 41.277 kg Weight (Calculated Kilograms) 41.3 Weight (Calculated Grams) 33425.9 [place] Body Weight 100 Body Mass Index (BMI) 17.7 Weight Status Underweight GI Symptoms GI Symptoms None Last BM not indicated Difficult in: None Skin Integrity/Comment: pressure ulcer to sacro/coccyx Estimated Nutritional Goals BEE in Kcals: Using Current wt Calories/Kcals/Kg 30-35 Kcals Calculated 9601-9624 Protein: Using Current wt Protein g/k.2-1.4 Protein Calculated 49-57 Fluid: ml 1230-1435ml (1ml/kcal) Nutritional Problem 1. Problem Problem increased nutrition needs Etiology impaired skin integrity Signs/Symptoms: pressure ulcer Intervention/Recommendation Comments 1. Recommend Glucerna 1.2 at 60ml/hr x 16hr to meet nutritional needs. It will provide 1152kcal, 57g protein and 773ml free water. 2. Monitor TF rate, tolerance, wt, skin integrity and labs 3. F/U as high risk in 2-3 days Expected Outcomes/Goals Expected Outcomes/Goals 1. Pt to meet at least 90% of nutritional needs via nutrition support with tolerance 2. Wt stability, skin to remain intact, labs to approach WNL.
[2018-09-25] MEDS: D5-0.45NS 1,000 ML IV SCH (17:36)
--- NOTE | 2018-09-25 23:15 | Consultation ---
DATE OF CONSULTATION: 09/25/[address] Dietz. HISTORY AND PHYSICAL: This is a 58-year-old female patient, who was brought to the hospital with infected sacral decubitus ulcer. The patient needs a clearance for debridement of surgery. PAST MEDICAL HISTORY: Sacral decubitus ulcer stage 4, chronic respiratory failure with tracheostomy, G-tube with protein-calorie malnutrition, diabetes mellitus type 2, COPD, asthma, peptic ulcer disease, GERD, contracture of the extremities, anemia, urinary tract infection. FAMILY HISTORY: Unremarkable. SOCIAL HISTORY: No history of smoking or alcohol abuse. ALLERGIES: None. PHYSICAL EXAMINATION: VITAL SIGNS: Blood pressure 130/80, pulse 70, respirations 20. The patient has tracheostomy. HEENT: Head normocephalic. No lumps or bumps. EYES: Pupils equal, reactive to light. Fundi show AV nicking, sclerae white, conjunctivae pink. NECK: Carotid 2+. Normal upstroke. JVD 10 cm above sternal angle. Thyroid not palpable. Lymph nodes not palpable. CHEST: Shows increased AP diameter. No kyphosis or scoliosis. LUNGS: Bilateral wheezing, rhonchi, prolonged expiration. HEART: PMI fifth intercostal space with lateral to midclavicular line. S1, S2, S3, S4, soft systolic murmur. ABDOMEN: Soft. Liver, spleen not palpable. No organomegaly. The patient has G-tube and sacral decubitus ulcer stage 4. EXTREMITIES: Peripheral pulses 1+. No pedal edema. The patient has contracture of both upper and lower extremity. CLINICAL IMPRESSION: Sacral decubitus ulcer stage 4, chronic respiratory failure, tracheostomy, G-tube with protein-calorie malnutrition, diabetes mellitus type 2, chronic obstructive pulmonary disease, asthma, peptic ulcer disease, gastroesophageal reflux disease, contracture of the extremities, anemia iron deficiency, urinary tract infection. PLAN: The patient is cleared for surgery. JOB# [id number]
[2018-09-26] MEDS: Albuterol/Ipratropium Neb 3 ML AERS HHN SCH ×4 (00:45→20:17)
[2018-09-26] MEDS: Metoclopramide 5 mg/mL 2mL Vial IVP SCH ×3 (05:40→21:51)
[2018-09-26] MEDS: INSULIN LISPRO SLIDING SCALE 100 UNITS/ML UNIT SUBQ SCH ×3 (05:44→18:20)
--- NOTE | 2018-09-26 09:44 | Diagnostic Imaging Report ---
Exam: Chest x-ray HISTORY: PICC line placement Findings: Frontal examination of chest was reviewed, the study demonstrates right-sided PICC line terminates in superior vena cava. Gastrostomy tube midline. There is evidence for right lower infiltrate and effusion. Visualized bony thorax is intact. IMPRESSION: Right-sided PICC line terminates in superior vena cava. Right lower lobe infiltrate and effusion. Follow-up exam is recommended
[2018-09-26] MEDS: Diltiazem 30 mg Tab GT SCH ×3 (09:59→21:47)
[2018-09-26] MEDS: Heparin Sod 5,000Units/ML 5,000 UNITS/ML VIAL SUBQ SCH ×3 (10:05→21:51)
[2018-09-26] MEDS: Docusate Sodium 100 mg/10 mL UD GT SCH ×2 (10:06→16:04)
[2018-09-26] MEDS: Venelex 60gm Tube TP SCH (10:06)
[2018-09-26] MEDS: Insulin Glargine 100 units/ml 10ml Vial SUBQ SCH ×2 (10:06→16:02)
--- NOTE | 2018-09-26 10:11 | GI Progress Note ---
Subjective - Review of Systems Service Date: 09/26/18 Events since last encounter: No events Subjective: Leaking G tube Objective - Results Result Diagrams: 09/25/18 06:00 09/25/18 06:00 Recent Labs: Laboratory Last Values WBC 10.6 Th/cmm (4.8-10.8) 09/25/18 06:00 RBC 5.38 Mil/cmm (3.80-5.10) H 09/25/18 06:00 Hgb 13.1 gm/dL (12-16) 09/25/18 06:00 Hct 41.6 % (41.0-60) 09/25/18 06:00 MCV 77.3 fl (81-100) L 09/25/18 06:00 MCH 24.4 pg (27.0-31.0) L 09/25/18 06:00 MCHC Differential 31.6 pg (28.0-36.0) 09/25/18 06:00 RDW 16.4 % (11.5-20.0) 09/25/18 06:00 Plt Count 251 Th/cmm (150-400) D 09/25/18 06:00 MPV 9.6 fl 09/25/18 06:00 Add Manual Diff YES 09/23/18 18:45 Neutrophils % 62.2 % (40.0-80.0) 09/25/18 06:00 Band Neutrophils % 0 % (0-10) 09/23/18 18:45 Lymphocytes % 29.1 % (20.0-50.0) 09/25/18 06:00 Monocytes % 7.0 % (2.0-10.0) 09/25/18 06:00 Eosinophils % 1.7 % (0.0-5.0) 09/25/18 06:00 Basophils % 0.0 % (0.0-2.0) 09/25/18 06:00 Neutrophils (Manual) 80 % (40-80) 09/23/18 18:45 Lymphocytes 15 % (20-50) L 09/23/18 18:45 Monocytes 4 % (2-10) 09/23/18 18:45 Eosinophils 1 % (0-5) 09/23/18 18:45 Basophils 0 % (0-3) 09/23/18 18:45 Platelet Estimate INCREASED PLATELETS (NORMAL) 09/23/18 18:45 Microcytosis 1+ 09/23/18 18:45 Smear Path Review 09/23/18 18:45 PT 11.4 SECONDS (9.5-11.5) 09/23/18 18:45 INR 1.11 (0.5-1.4) 09/23/18 18:45 PTT (Actin FS) 28.0 SECONDS (26.0-38.0) 09/23/18 18:45 Sodium 146 mEq/L (136-145) H 09/25/18 06:00 Potassium 3.5 mEq/L (3.5-5.1) 09/25/18 06:00 Chloride 108 mEq/L (98-107) H 09/25/18 06:00 Carbon Dioxide 30.5 mEq/L (21.0-31.0) 09/25/18 06:00 Anion Gap 11.0 (7.0-16.0) 09/25/18 06:00 BUN 17 mg/dL (7-25) 09/25/18 06:00 Creatinine 0.3 mg/dL (0.6-1.2) L 09/25/18 06:00 Est GFR ( Amer) > 60.0 ml/min (>90) 09/25/18 06:00 Est GFR (Non-Af Amer) > 60.0 ml/min 09/25/18 06:00 BUN/Creatinine Ratio 56.7 09/25/18 06:00 Glucose 232 mg/dL (70-105) H 09/25/18 06:00 POC Glucose 165 MG/DL (70 - 105) H 09/25/18 16:44 Whole Bld Lactic Acid 1.00 mmol/L (0.60-1.99) 09/23/18 22:38 Calcium 9.1 mg/dL (8.6-10.3) 09/25/18 06:00 Total Bilirubin 0.6 mg/dL (0.3-1.0) 09/24/18 07:10 AST 20 U/L (13-39) 09/24/18 07:10 ALT 18 U/L (7-52) 09/24/18 07:10 Alkaline Phosphatase 243 U/L (34-104) H 09/24/18 07:10 Total Protein 7.5 gm/dL (6.0-8.3) 09/24/18 07:10 Albumin 2.8 gm/dL (3.7-5.3) L 09/24/18 07:10 Globulin 4.7 gm/dL 09/24/18 07:10 Albumin/Globulin Ratio 0.6 (1.0-1.8) L 09/24/18 07:10 - Physical Exam Vitals and I&O: Vital Signs Temp 97.8 F 09/26/18 04:00 Pulse 75 09/26/18 09:59 Resp 12 09/26/18 06:20 BP 106/60 09/26/18 04:00 Pulse Ox 92 09/26/18 06:20 Intake & Output 09/25/18 09/26/18 09/26/18 18:59 06:59 18:59 Intake Total 1000 480 Balance 1000 480 Weight (lbs) 43.998 kg Intake: Intake, IV Amount 1000 D5-0.45NS 1,000 ml @ 50 1000 mls/hr IV .Q20H [facility] Rx#: [id number] Tube Feeding 480 Other: Weight Source Bedscale Active Medications: Current Medications Acetaminophen (Tylenol 650mg/20.3ml Suspension) 650 mg GT Q6H PRN PRN Reason: MILD PAIN OR FEVER >100.4 Albuterol/Ipratropium (Duoneb Neb) 3 ml HHN Q6HRT [facility] Stop: 11/23/18 00:00 Last Admin: 09/26/18 06:17 Dose: 3 ml Albuterol/Ipratropium (Duoneb Neb) 3 ml HHN Q2HRT PRN PRN Reason: Wheezing Stop: 11/22/18 23:14 Ascorbic Acid (Vitamin C) 500 mg GT DAILY [facility] Stop: 11/23/18 08:59 Last Admin: 09/25/18 08:43 Dose: 500 mg Calamine/Phenol (Calmoseptine) 1 appl TP QID PRN PRN Reason: Skin Irritation Stop: 11/23/18 16:36 [place] Oil/[place] Balsam/Trypsin (Venelex) 1 appl TP DAILY [facility] Stop: 11/24/18 08:59 Last Admin: 09/26/18 10:06 Dose: 1 appl Dextrose (D50w) 50 ml IVP PRN PRN PRN Reason: Blood Glucose less than 70 Stop: 11/22/18 23:11 Dextrose (Glutose 40%) 18.75 gm PO PRN PRN PRN Reason: Blood Glucose less than 70 Stop: 11/22/18 23:11 Diltiazem HCl (Cardizem) 60 mg GT TID [facility] Stop: 11/23/18 08:59 Last Admin: 09/26/18 09:59 Dose: Not Given Docusate Sodium (Colace) 100 mg GT BID [facility] Stop: 11/23/18 08:59 Last Admin: 09/26/18 10:06 Dose: 100 mg Glucagon (Glucagen) 1 mg IM PRN PRN PRN Reason: Blood Glucose less than 70 Stop: 11/22/18 23:11 Heparin Sodium (Porcine) (Heparin) 5,000 units SUBQ Q12H [facility] Stop: 11/23/18 20:59 Last Admin: 09/26/18 10:05 Dose: 5,000 units Dextrose/Sodium Chloride (D5-0.45ns) 1,000 mls @ 50 mls/hr IV .Q20H [facility] Stop: 11/22/18 22:23 Last Admin: 09/25/18 17:36 Dose: 50 mls/hr Insulin Glargine (Lantus Insulin) 10 units SUBQ BID [facility] Stop: 11/23/18 08:59 Last Admin: 09/26/18 10:06 Dose: 10 units Insulin Human Lispro (Humalog Insulin Sliding Scale) 0 units SUBQ Q6HR [facility]; Protocol Stop: 11/23/18 00:00 Last Admin: 09/26/18 05:44 Dose: 4 units Metoclopramide HCl (Reglan) 10 mg IVP Q8HR [facility] Stop: 11/23/18 12:59 Last Admin: 09/26/18 05:40 Dose: 10 mg Miscellaneous (Vte Chemical Prophylaxis Screen/ Admission) 1 ea MC PRN PRN PRN Reason: PROTOCOL Stop: 11/23/18 13:26 Mupirocin (Bactroban Oint) 1 appl NS BID [facility] Stop: 09/30/18 17:01 General: No acute distress Cardiovascular: Regular rate, Normal S1, Normal S2 Lungs: Clear to auscultation Abdomen: Bowel sounds, Soft, Other (G-tube in place), no Tender Extremities: Other (contractures of both extremities) - Procedures Procedures: Procedures Procedure Code Date CHANGE FEEDING DEVICE IN UP INTEST TRACT, CONTINUUM OF CARE MANAGER APPROACH [id number] 09/13/18 CHANGE GASTROSTOMY TUBE 94696 10/04/15 INSERT TUNNELED CV CATH [id number] 10/04/15 INSERTION OF FEEDING DEVICE INTO STOMACH, OPEN APPROACH [id number] 10/06/16 INSERTION OF INFUSION DEV INTO L SUBCLAV VEIN, PERC APPROACH [id number] 10/04/15 INSPECTION OF UPPER VEIN, PERCUTANEOUS APPROACH [id number] 10/04/15 INTRODUCTION OF NUTRITIONAL INTO PERIPH VEIN, PERC APPROACH [id number] 08/02/[address] PLACE GASTROSTOMY TUBE 88262 10/06/16 REMOVAL OF FEEDING DEVICE FROM STOMACH, EXTERNAL APPROACH [id number] 08/02/18 RESPIRATORY VENTILATION, GREATER THAN 96 CONSECUTIVE HOURS [id number] 08/02/18 ULTRASONOGRAPHY OF LEFT SUBCLAVIAN VEIN, GUIDANCE [id number] 10/04/15 Assessment/Plan - Assessment Assessment: 1. Malfunctioning G tube 2.Dysphagia - Plan Plan: 1. Malfunctioning G tube Cont conservative management May have surgery On Thursday to close the current fistula and insert a new GT 2.Dysphagia As above Feeding if possible Seems to be tolerated
--- NOTE | 2018-09-26 10:12 | Internal Medicine Prog Note ---
Internal Medicine Subjective - Subjective Patient is:: awake, stares blankly, other (pt has been cleared for debridement ) Patient Complaints of:: cough (pt is cleared for debridement ) Internal Medicine Objective - Results Result Diagrams: 09/25/18 06:00 09/25/18 06:00 Recent Labs: Laboratory Last Values WBC 10.6 Th/cmm (4.8-10.8) 09/25/18 06:00 RBC 5.38 Mil/cmm (3.80-5.10) H 09/25/18 06:00 Hgb 13.1 gm/dL (12-16) 09/25/18 06:00 Hct 41.6 % (41.0-60) 09/25/18 06:00 MCV 77.3 fl (81-100) L 09/25/18 06:00 MCH 24.4 pg (27.0-31.0) L 09/25/18 06:00 MCHC Differential 31.6 pg (28.0-36.0) 09/25/18 06:00 RDW 16.4 % (11.5-20.0) 09/25/18 06:00 Plt Count 251 Th/cmm (150-400) D 09/25/18 06:00 MPV 9.6 fl 09/25/18 06:00 Add Manual Diff YES 09/23/18 18:45 Neutrophils % 62.2 % (40.0-80.0) 09/25/18 06:00 Band Neutrophils % 0 % (0-10) 09/23/18 18:45 Lymphocytes % 29.1 % (20.0-50.0) 09/25/18 06:00 Monocytes % 7.0 % (2.0-10.0) 09/25/18 06:00 Eosinophils % 1.7 % (0.0-5.0) 09/25/18 06:00 Basophils % 0.0 % (0.0-2.0) 09/25/18 06:00 Neutrophils (Manual) 80 % (40-80) 09/23/18 18:45 Lymphocytes 15 % (20-50) L 09/23/18 18:45 Monocytes 4 % (2-10) 09/23/18 18:45 Eosinophils 1 % (0-5) 09/23/18 18:45 Basophils 0 % (0-3) 09/23/18 18:45 Platelet Estimate INCREASED PLATELETS (NORMAL) 09/23/18 18:45 Microcytosis 1+ 09/23/18 18:45 Smear Path Review 09/23/18 18:45 PT 11.4 SECONDS (9.5-11.5) 05 18:45 INR 1.11 (0.5-1.4) 09/23/18 18:45 PTT (Actin FS) 28.0 SECONDS (26.0-38.0) 09/23/18 18:45 Sodium 146 mEq/L (136-145) H 09/25/18 06:00 Potassium 3.5 mEq/L (3.5-5.1) 09/25/18 06:00 Chloride 108 mEq/L (98-107) H 09/25/18 06:00 Carbon Dioxide 30.5 mEq/L (21.0-31.0) 09/25/18 06:00 Anion Gap 11.0 (7.0-16.0) 09/25/18 06:00 BUN 17 mg/dL (7-25) 09/25/18 06:00 Creatinine 0.3 mg/dL (0.6-1.2) L 09/25/18 06:00 Est GFR ( Amer) > 60.0 ml/min (>90) 09/25/18 06:00 Est GFR (Non-Af Amer) > 60.0 ml/min 09/25/18 06:00 BUN/Creatinine Ratio 56.7 09/25/18 06:00 Glucose 232 mg/dL (70-105) H 09/25/18 06:00 POC Glucose 165 MG/DL (70 - 105) H 09/25/18 16:44 Whole Bld Lactic Acid 1.00 mmol/L (0.60-1.99) 09/23/18 22:38 Calcium 9.1 mg/dL (8.6-10.3) 09/25/18 06:00 Total Bilirubin 0.6 mg/dL (0.3-1.0) 09/24/18 07:10 AST 20 U/L (13-39) 09/24/18 07:10 ALT 18 U/L (7-52) 09/24/18 07:10 Alkaline Phosphatase 243 U/L (34-104) H 09/24/18 07:10 Total Protein 7.5 gm/dL (6.0-8.3) 09/24/18 07:10 Albumin 2.8 gm/dL (3.7-5.3) L 09/24/18 07:10 Globulin 4.7 gm/dL 09/24/18 07:10 Albumin/Globulin Ratio 0.6 (1.0-1.8) L 09/24/18 07:10 - Physical Exam Vitals and I&O: Vital Signs Temp 97.8 F 09/26/18 04:00 Pulse 75 09/26/18 09:59 Resp 12 09/26/18 06:20 BP 106/60 09/26/18 04:00 Pulse Ox 92 09/26/18 06:20 Intake & Output 09/25/18 09/26/18 09/26/18 18:59 06:59 18:59 Intake Total 1000 480 Balance 1000 480 Weight (lbs) 43.998 kg Intake: Intake, IV Amount 1000 D5-0.45NS 1,000 ml @ 50 1000 mls/hr IV .Q20H [facility] Rx#: [id number] Tube Feeding 480 Other: Weight Source Bedscale Active Medications: Current Medications Acetaminophen (Tylenol 650mg/20.3ml Suspension) 650 mg GT Q6H PRN PRN Reason: MILD PAIN OR FEVER >100.4 Albuterol/Ipratropium (Duoneb Neb) 3 ml HHN Q6HRT [facility] Stop: 11/23/18 00:00 Last Admin: 09/26/18 06:17 Dose: 3 ml Albuterol/Ipratropium (Duoneb Neb) 3 ml HHN Q2HRT PRN PRN Reason: Wheezing Stop: 11/22/18 23:14 Ascorbic Acid (Vitamin C) 500 mg GT DAILY [facility] Stop: 11/23/18 08:59 Last Admin: 09/25/18 08:43 Dose: 500 mg Calamine/Phenol (Calmoseptine) 1 appl TP QID PRN PRN Reason: Skin Irritation Stop: 11/23/18 16:36 [place] Oil/[place] Balsam/Trypsin (Venelex) 1 appl TP DAILY [facility] Stop: 11/24/18 08:59 Last Admin: 09/26/18 10:06 Dose: 1 appl Dextrose (D50w) 50 ml IVP PRN PRN PRN Reason: Blood Glucose less than 70 Stop: 11/22/18 23:11 Dextrose (Glutose 40%) 18.75 gm PO PRN PRN PRN Reason: Blood Glucose less than 70 Stop: 11/22/18 23:11 Diltiazem HCl (Cardizem) 60 mg GT TID [facility] Stop: 11/23/18 08:59 Last Admin: 09/26/18 09:59 Dose: Not Given Docusate Sodium (Colace) 100 mg GT BID [facility] Stop: 11/23/18 08:59 Last Admin: 09/26/18 10:06 Dose: 100 mg Glucagon (Glucagen) 1 mg IM PRN PRN PRN Reason: Blood Glucose less than 70 Stop: 11/22/18 23:11 Heparin Sodium (Porcine) (Heparin) 5,000 units SUBQ Q12H [facility] Stop: 11/23/18 20:59 Last Admin: 09/26/18 10:05 Dose: 5,000 units Dextrose/Sodium Chloride (D5-0.45ns) 1,000 mls @ 50 mls/hr IV .Q20H [facility] Stop: 11/22/18 22:23 Last Admin: 09/25/18 17:36 Dose: 50 mls/hr Insulin Glargine (Lantus Insulin) 10 units SUBQ BID [facility] Stop: 11/23/18 08:59 Last Admin: 09/26/18 10:06 Dose: 10 units Insulin Human Lispro (Humalog Insulin Sliding Scale) 0 units SUBQ Q6HR [facility]; Protocol Stop: 11/23/18 00:00 Last Admin: 09/26/18 05:44 Dose: 4 units Metoclopramide HCl (Reglan) 10 mg IVP Q8HR [facility] Stop: 11/23/18 12:59 Last Admin: 09/26/18 05:40 Dose: 10 mg Miscellaneous (Vte Chemical Prophylaxis Screen/ Admission) 1 ea [facility] PRN PRN PRN Reason: PROTOCOL Stop: 11/23/18 13:26 Mupirocin (Bactroban Oint) 1 appl NS BID [facility] Stop: 09/30/18 17:01 General: weak HEENT: NC/AT Neck: Supple Lungs: wheezing, rales Cardiovascular: RRR, Normal S1, Normal S2 Abdomen: other (gtube sacral decubitus ulcer stage 4) Extremities: clear Neurological: no change - Procedures Procedures: Procedures Procedure Code Date CHANGE FEEDING DEVICE IN UP INTEST TRACT, GIG TENDER APPROACH [id number] 09/13/18 CHANGE GASTROSTOMY TUBE 56619 10/04/15 INSERT TUNNELED CV CATH [id number] 10/04/15 INSERTION OF FEEDING DEVICE INTO STOMACH, OPEN APPROACH [id number] 10/06/16 INSERTION OF INFUSION DEV INTO L SUBCLAV VEIN, PERC APPROACH [id number] 10/04/15 INSPECTION OF UPPER VEIN, PERCUTANEOUS APPROACH [id number] 10/04/15 INTRODUCTION OF NUTRITIONAL INTO PERIPH VEIN, PERC APPROACH [id number] 08/02/[address] PLACE GASTROSTOMY TUBE 96109 10/06/16 REMOVAL OF FEEDING DEVICE FROM STOMACH, EXTERNAL APPROACH [id number] 08/02/18 RESPIRATORY VENTILATION, GREATER THAN 96 CONSECUTIVE HOURS [id number] 08/02/18 ULTRASONOGRAPHY OF LEFT SUBCLAVIAN VEIN, GUIDANCE [id number] 10/04/15 Internal Medicine Assmt/Plan - Assessment Assessment: G-tube Leakage/Malfunction. Cellulitis abdominal wall. HTN. Diabetes. Asthma. COPD. PUD. GERD. Extreme contractures. History of Anemia. History of UTI. - Plan Plan: Continuation of care. GI consult requested. Monitor Labs, Monitor Hemoglobin levels. Continue present meds as directed. Respiratory treatments and Pulmonary support prn. Supplemental Oxygen prn. Aspiration precaution. Deep suctioning prn. Monitor Diet/Nutritional support/Continue PEG tube feedings. PEG tube and Trach care. Monitor mental status progression. Monitor behavioral health status. Pain Management. Physical therapy. Occupational therapy. Safety precaution. Supportive care. Fall precaution, frequent nursing rounds, and as needed restraints to prevent fall. Continue collaborating with consulting specialists, case management and nursing team. Will Monitor patient and continue current treatment plan as ordered. 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 Per nurse note, glucerna 1.2 initiated at 60ml /hr in the afternoon, no residual noted. Current Diet Order/ Nutrition Support glucerna 1.2 at 60m, Pertinent Medications vit C, D5-0.45ns, colace, lantus, humalog, reglan Pertinent Labs 09/24 Na 154, K 3.2, Cl 111, Cr 0.3, Glucose 196, POC 185-224 , Alb 2.8 09/23 Na 150, K 3.2, Cr 0.3, Glucose 149 Nutritional Hx/Data Height 1.52 m Height (Calculated Centimeters) 152.4 Current Weight (lbs) 41.277 kg Weight (Calculated Kilograms) 41.3 Weight (Calculated Grams) 10733.9 [place] Body Weight 100 Body Mass Index (BMI) 17.7 Weight Status Underweight GI Symptoms GI Symptoms None Last BM not indicated Difficult in: None Skin Integrity/Comment: pressure ulcer to sacro/coccyx Estimated Nutritional Goals BEE in Kcals: Using Current wt Calories/Kcals/Kg 30-35 Kcals Calculated 1861-4073 Protein: Using Current wt Protein g/k.2-1.4 Protein Calculated 49-57 Fluid: ml 1230-1435ml (1ml/kcal) Nutritional Problem 1. Problem Problem increased nutrition needs Etiology impaired skin integrity Signs/Symptoms: pressure ulcer Intervention/Recommendation Comments 1. Recommend Glucerna 1.2 at 60ml/hr x 16hr to meet nutritional needs. It will provide 1152kcal, 57g protein and 773ml free water. 2. Monitor TF rate, tolerance, wt, skin integrity and labs 3. F/U as high risk in 2-3 days Expected Outcomes/Goals Expected Outcomes/Goals 1. Pt to meet at least 90% of nutritional needs via nutrition support with tolerance 2. Wt stability, skin to remain intact, labs to approach WNL.
[2018-09-26] MEDS: D5-0.45NS 1,000 ML IV SCH (13:29)
--- NOTE | 2018-09-26 14:10 | General Progress Note ---
Subjective - Review of Systems Service Date: 09/26/18 Subjective: Patient still has chronic respiratory failure with tracheostomy Objective - Results Result Diagrams: 09/25/18 06:00 09/25/18 06:00 Recent Labs: Laboratory Last Values WBC 10.6 Th/cmm (4.8-10.8) 09/25/18 06:00 RBC 5.38 Mil/cmm (3.80-5.10) H 09/25/18 06:00 Hgb 13.1 gm/dL (12-16) 09/25/18 06:00 Hct 41.6 % (41.0-60) 09/25/18 06:00 MCV 77.3 fl (81-100) L 09/25/18 06:00 MCH 24.4 pg (27.0-31.0) L 09/25/18 06:00 MCHC Differential 31.6 pg (28.0-36.0) 09/25/18 06:00 RDW 16.4 % (11.5-20.0) 09/25/18 06:00 Plt Count 251 Th/cmm (150-400) D 09/25/18 06:00 MPV 9.6 fl 09/25/18 06:00 Add Manual Diff YES 09/23/18 18:45 Neutrophils % 62.2 % (40.0-80.0) 09/25/18 06:00 Band Neutrophils % 0 % (0-10) 09/23/18 18:45 Lymphocytes % 29.1 % (20.0-50.0) 09/25/18 06:00 Monocytes % 7.0 % (2.0-10.0) 09/25/18 06:00 Eosinophils % 1.7 % (0.0-5.0) 09/25/18 06:00 Basophils % 0.0 % (0.0-2.0) 09/25/18 06:00 Neutrophils (Manual) 80 % (40-80) 09/23/18 18:45 Lymphocytes 15 % (20-50) L 09/23/18 18:45 Monocytes 4 % (2-10) 09/23/18 18:45 Eosinophils 1 % (0-5) 09/23/18 18:45 Basophils 0 % (0-3) 09/23/18 18:45 Platelet Estimate INCREASED PLATELETS (NORMAL) 09/23/18 18:45 Microcytosis 1+ 09/23/18 18:45 Smear Path Review 09/23/18 18:45 PT 11.4 SECONDS (9.5-11.5) 09/23/18 18:45 INR 1.11 (0.5-1.4) 09/23/18 18:45 PTT (Actin FS) 28.0 SECONDS (26.0-38.0) 09/23/18 18:45 Sodium 146 mEq/L (136-145) H 09/25/18 06:00 Potassium 3.5 mEq/L (3.5-5.1) 09/25/18 06:00 Chloride 108 mEq/L (98-107) H 09/25/18 06:00 Carbon Dioxide 30.5 mEq/L (21.0-31.0) 09/25/18 06:00 Anion Gap 11.0 (7.0-16.0) 09/25/18 06:00 BUN 17 mg/dL (7-25) 09/25/18 06:00 Creatinine 0.3 mg/dL (0.6-1.2) L 09/25/18 06:00 Est GFR ( Amer) > 60.0 ml/min (>90) 09/25/18 06:00 Est GFR (Non-Af Amer) > 60.0 ml/min 09/25/18 06:00 BUN/Creatinine Ratio 56.7 09/25/18 06:00 Glucose 232 mg/dL (70-105) H 09/25/18 06:00 POC Glucose 314 MG/DL (70 - 105) H 09/26/18 12:06 Whole Bld Lactic Acid 1.00 mmol/L (0.60-1.99) 09/23/18 22:38 Calcium 9.1 mg/dL (8.6-10.3) 09/25/18 06:00 Total Bilirubin 0.6 mg/dL (0.3-1.0) 09/24/18 07:10 AST 20 U/L (13-39) 09/24/18 07:10 ALT 18 U/L (7-52) 09/24/18 07:10 Alkaline Phosphatase 243 U/L (34-104) H 09/24/18 07:10 Total Protein 7.5 gm/dL (6.0-8.3) 09/24/18 07:10 Albumin 2.8 gm/dL (3.7-5.3) L 09/24/18 07:10 Globulin 4.7 gm/dL 09/24/18 07:10 Albumin/Globulin Ratio 0.6 (1.0-1.8) L 09/24/18 07:10 - Physical Exam Vitals and I&O: Vital Signs Temp 97.8 F 09/26/18 04:00 Pulse 77 09/26/18 13:29 Resp 16 09/26/18 12:13 BP 106/60 09/26/18 04:00 Pulse Ox 91 09/26/18 12:13 Intake & Output 09/25/18 09/26/18 09/26/18 18:59 06:59 18:59 Intake Total 1000 480 994.167 Balance 1000 480 994.167 Weight (lbs) 43.998 kg Intake: Intake, IV Amount 1000 994.167 D5-0.45NS 1,000 ml @ 50 1000 994.167 mls/hr IV .Q20H [facility] Rx#: [id number] Tube Feeding 480 Other: Weight Source Bedscale Active Medications: Current Medications Acetaminophen (Tylenol 650mg/20.3ml Suspension) 650 mg GT Q6H PRN PRN Reason: MILD PAIN OR FEVER >100.4 Albuterol/Ipratropium (Duoneb Neb) 3 ml HHN Q6HRT [facility] Stop: 11/23/18 00:00 Last Admin: 09/26/18 12:10 Dose: 3 ml Albuterol/Ipratropium (Duoneb Neb) 3 ml HHN Q2HRT PRN PRN Reason: Wheezing Stop: 11/22/18 23:14 Ascorbic Acid (Vitamin C) 500 mg GT DAILY [facility] Stop: 11/23/18 08:59 Last Admin: 09/26/18 11:11 Dose: 500 mg Calamine/Phenol (Calmoseptine) 1 appl TP QID PRN PRN Reason: Skin Irritation Stop: 11/23/18 16:36 [place] Oil/[place] Balsam/Trypsin (Venelex) 1 appl TP DAILY [facility] Stop: 11/24/18 08:59 Last Admin: 09/26/18 10:06 Dose: 1 appl Dextrose (D50w) 50 ml IVP PRN PRN PRN Reason: Blood Glucose less than 70 Stop: 11/22/18 23:11 Dextrose (Glutose 40%) 18.75 gm PO PRN PRN PRN Reason: Blood Glucose less than 70 Stop: 11/22/18 23:11 Diltiazem HCl (Cardizem) 60 mg GT TID [facility] Stop: 11/23/18 08:59 Last Admin: 09/26/18 13:29 Dose: 60 mg Docusate Sodium (Colace) 100 mg GT BID [facility] Stop: 11/23/18 08:59 Last Admin: 09/26/18 10:06 Dose: 100 mg Glucagon (Glucagen) 1 mg IM PRN PRN PRN Reason: Blood Glucose less than 70 Stop: 11/22/18 23:11 Heparin Sodium (Porcine) (Heparin) 5,000 units SUBQ Q12H [facility] Stop: 11/23/18 20:59 Last Admin: 09/26/18 10:05 Dose: 5,000 units Dextrose/Sodium Chloride (D5-0.45ns) 1,000 mls @ 50 mls/hr IV .Q20H [facility] Stop: 11/22/18 22:23 Last Admin: 09/26/18 13:29 Dose: 50 mls/hr Insulin Glargine (Lantus Insulin) 10 units SUBQ BID [facility] Stop: 11/23/18 08:59 Last Admin: 09/26/18 10:06 Dose: 10 units Insulin Human Lispro (Humalog Insulin Sliding Scale) 0 units SUBQ Q6HR [facility]; Protocol Stop: 11/23/18 00:00 Last Admin: 09/26/18 12:23 Dose: 8 units Metoclopramide HCl (Reglan) 10 mg IVP Q8HR [facility] Stop: 11/23/18 12:59 Last Admin: 09/26/18 13:29 Dose: 10 mg Miscellaneous (Vte Chemical Prophylaxis Screen/ Admission) 1 ea MC PRN PRN PRN Reason: PROTOCOL Stop: 11/23/18 13:26 Mupirocin (Bactroban Oint) 1 appl NS BID [facility] Stop: 09/30/18 17:01 General: No acute distress Cardiovascular: Regular rate, Normal S1, Normal S2 Lungs: Clear to auscultation Abdomen: Bowel sounds, Soft, Other (G-tube in place), no Tender Extremities: Other (contractures of both extremities) - Procedures Procedures: Procedures Procedure Code Date CHANGE FEEDING DEVICE IN UP INTEST TRACT, DUMPER BAILER OPERATOR APPROACH [id number] 09/13/18 CHANGE GASTROSTOMY TUBE 46791 10/04/15 INSERT TUNNELED CV CATH [id number] 10/04/15 INSERTION OF FEEDING DEVICE INTO STOMACH, OPEN APPROACH [id number] 10/06/16 INSERTION OF INFUSION DEV INTO L SUBCLAV VEIN, PERC APPROACH [id number] 10/04/15 INSPECTION OF UPPER VEIN, PERCUTANEOUS APPROACH [id number] 10/04/15 INTRODUCTION OF NUTRITIONAL INTO PERIPH VEIN, PERC APPROACH [id number] 08/02/[address] PL[address] GASTROSTOMY TUBE 97225 10/06/16 REMOVAL OF FEEDING DEVICE FROM STOMACH, EXTERNAL APPROACH [id number] 08/02/18 RESPIRATORY VENTILATION, GREATER THAN 96 CONSECUTIVE HOURS [id number] 08/02/18 ULTRASONOGRAPHY OF LEFT SUBCLAVIAN VEIN, GUIDANCE [id number] 10/04/15 Assessment/Plan - Assessment Assessment: Sacral decubitus ulcer stage IV Chronic respiratory failure with tracheostomy G-tube protein calorie malnutrition Diabetes mellitus type 2 COPD Asthma Peptic ulcer GERD Contracture of the extremities 9 deficiency anemia Urinary tract infection - Plan Plan: Continue present management patient cleared for surgery Nutritional Asmnt/Malnutr-PDOC - Dietary Evaluation Malnutrition Findings (Please click <Entered> for more info): Nutritional Asmnt/Malnutrition Start: 09/24/18 15: 59 Text: Status: Complete Freq: Protocol: Document 09/24/18 15:59 LCHENG (Rec: 09/24/18 16:19 LCHENG [email or web address]) Nutritional Asmnt/Malnutrition Patient General Information Nutritional Screening High Risk Consult Diagnosis GI site cellulitis Pertinent Medical Hx/Surgical Hx HTN, DM asthma/COPD, PUD/GERD, 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 Per nurse note, glucerna 1.2 initiated at 60ml /hr in the afternoon, no residual noted. Current Diet Order/ Nutrition Support glucerna 1.2 at 60m, Pertinent Medications vit C, D5-0.45ns, colace, lantus, humalog, reglan Pertinent Labs 09/24 Na 154, K 3.2, Cl 111, Cr 0.3, Glucose 196, POC 185-224 , Alb 2.8 5/9 Na 150, K 3.2, Cr 0.3, Glucose 149 Nutritional Hx/Data Height 1.52 m Height (Calculated Centimeters) 152.4 Current Weight (lbs) 41.277 kg Weight (Calculated Kilograms) 41.3 Weight (Calculated Grams) 59032.9 [place] Body Weight 100 Body Mass Index (BMI) 17.7 Weight Status Underweight GI Symptoms GI Symptoms None Last BM not indicated Difficult in: None Skin Integrity/Comment: pressure ulcer to sacro/coccyx Estimated Nutritional Goals BEE in Kcals: Using Current wt Calories/Kcals/Kg 30-35 Kcals Calculated 7417-9385 Protein: Using Current wt Protein g/k.2-1.4 Protein Calculated 49-57 Fluid: ml 1230-1435ml (1ml/kcal) Nutritional Problem 1. Problem Problem increased nutrition needs Etiology impaired skin integrity Signs/Symptoms: pressure ulcer Intervention/Recommendation Comments 1. Recommend Glucerna 1.2 at 60ml/hr x 16hr to meet nutritional needs. It will provide 1152kcal, 57g protein and 773ml free water. 2. Monitor TF rate, tolerance, wt, skin integrity and labs 3. F/U as high risk in 2-3 days Expected Outcomes/Goals Expected Outcomes/Goals 1. Pt to meet at least 90% of nutritional needs via nutrition support with tolerance 2. Wt stability, skin to remain intact, labs to approach WNL.
[2018-09-26] MEDS ORDERED: AMIKACIN IV ONE (17:00)
[2018-09-26] MEDS ORDERED: SODIUM CHLORIDE 0.9% IV ONE (17:00)
--- NOTE | 2018-09-26 20:01 | General Progress Note ---
Subjective - Review of Systems Service Date: 09/25/18 Events since last encounter: patient family consented for the surgery planning for thursday am continued feeding at this time with discussion with Dr Andre for repair of leaking fistula at the level of G tube) Objective - Results Result Diagrams: 09/25/18 06:00 09/25/18 06:00 Recent Labs: Laboratory Last Values WBC 10.6 Th/cmm (4.8-10.8) 09/25/18 06:00 RBC 5.38 Mil/cmm (3.80-5.10) H 09/25/18 06:00 Hgb 13.1 gm/dL (12-16) 09/25/18 06:00 Hct 41.6 % (41.0-60) 09/25/18 06:00 MCV 77.3 fl (81-100) L 09/25/18 06:00 MCH 24.4 pg (27.0-31.0) L 09/25/18 06:00 MCHC Differential 31.6 pg (28.0-36.0) 09/25/18 06:00 RDW 16.4 % (11.5-20.0) 09/25/18 06:00 Plt Count 251 Th/cmm (150-400) D 09/25/18 06:00 MPV 9.6 fl 09/25/18 06:00 Add Manual Diff YES 09/23/18 18:45 Neutrophils % 62.2 % (40.0-80.0) 09/25/18 06:00 Band Neutrophils % 0 % (0-10) 09/23/18 18:45 Lymphocytes % 29.1 % (20.0-50.0) 09/25/18 06:00 Monocytes % 7.0 % (2.0-10.0) 09/25/18 06:00 Eosinophils % 1.7 % (0.0-5.0) 09/25/18 06:00 Basophils % 0.0 % (0.0-2.0) 09/25/18 06:00 Neutrophils (Manual) 80 % (40-80) 09/23/18 18:45 Lymphocytes 15 % (20-50) L 09/23/18 18:45 Monocytes 4 % (2-10) 09/23/18 18:45 Eosinophils 1 % (0-5) 09/23/18 18:45 Basophils 0 % (0-3) 09/23/18 18:45 Platelet Estimate INCREASED PLATELETS (NORMAL) 09/23/18 18:45 Microcytosis 1+ 09/23/18 18:45 Smear Path Review 09/23/18 18:45 PT 11.4 SECONDS (9.5-11.5) 09/23/18 18:45 INR 1.11 (0.5-1.4) 09/23/18 18:45 PTT (Actin FS) 28.0 SECONDS (26.0-38.0) 09/23/18 18:45 Sodium 146 mEq/L (136-145) H 09/25/18 06:00 Potassium 3.5 mEq/L (3.5-5.1) 09/25/18 06:00 Chloride 108 mEq/L (98-107) H 09/25/18 06:00 Carbon Dioxide 30.5 mEq/L (21.0-31.0) 09/25/18 06:00 Anion Gap 11.0 (7.0-16.0) 09/25/18 06:00 BUN 17 mg/dL (7-25) 09/25/18 06:00 Creatinine 0.3 mg/dL (0.6-1.2) L 09/25/18 06:00 Est GFR ( Amer) > 60.0 ml/min (>90) 09/25/18 06:00 Est GFR (Non-Af Amer) > 60.0 ml/min 09/25/18 06:00 BUN/Creatinine Ratio 56.7 09/25/18 06:00 Glucose 232 mg/dL (70-105) H 09/25/18 06:00 POC Glucose 223 MG/DL (70 - 105) H 09/26/18 17:56 Whole Bld Lactic Acid 1.00 mmol/L (0.60-1.99) 09/23/18 22:38 Calcium 9.1 mg/dL (8.6-10.3) 09/25/18 06:00 Total Bilirubin 0.6 mg/dL (0.3-1.0) 09/24/18 07:10 AST 20 U/L (13-39) 09/24/18 07:10 ALT 18 U/L (7-52) 09/24/18 07:10 Alkaline Phosphatase 243 U/L (34-104) H 09/24/18 07:10 Total Protein 7.5 gm/dL (6.0-8.3) 09/24/18 07:10 Albumin 2.8 gm/dL (3.7-5.3) L 09/24/18 07:10 Globulin 4.7 gm/dL 09/24/18 07:10 Albumin/Globulin Ratio 0.6 (1.0-1.8) L 09/24/18 07:10 - Physical Exam Vitals and I&O: Vital Signs Temp 98.6 F 09/26/18 16:00 Pulse 79 09/26/18 16:00 Resp 17 09/26/18 18:00 BP 116/72 09/26/18 16:00 Pulse Ox 96 09/26/18 16:00 Intake & Output 09/26/18 09/26/18 09/27/18 06:59 18:59 06:59 Intake Total 480 994.167 Balance 480 994.167 Weight (lbs) 97 lb Intake: Intake, IV Amount 994.167 D5-0.45NS 1,000 ml @ 50 994.167 mls/hr IV .Q20H [facility] Rx#: [id number] Tube Feeding 480 Other: Weight Source Bedscale Active Medications: Current Medications Acetaminophen (Tylenol 650mg/20.3ml Suspension) 650 mg GT Q6H PRN PRN Reason: MILD PAIN OR FEVER >100.4 Albuterol/Ipratropium (Duoneb Neb) 3 ml HHN Q6HRT [facility] Stop: 11/23/18 00:00 Last Admin: 09/26/18 12:10 Dose: 3 ml Albuterol/Ipratropium (Duoneb Neb) 3 ml HHN Q2HRT PRN PRN Reason: Wheezing Stop: 11/22/18 23:14 Ascorbic Acid (Vitamin C) 500 mg GT DAILY [facility] Stop: 11/23/18 08:59 Last Admin: 09/26/18 11:11 Dose: 500 mg Calamine/Phenol (Calmoseptine) 1 appl TP QID PRN PRN Reason: Skin Irritation Stop: 11/23/18 16:36 [place] Oil/[place] Balsam/Trypsin (Venelex) 1 appl TP DAILY [facility] Stop: 11/24/18 08:59 Last Admin: 09/26/18 10:06 Dose: 1 appl Dextrose (D50w) 50 ml IVP PRN PRN PRN Reason: Blood Glucose less than 70 Stop: 11/22/18 23:11 Dextrose (Glutose 40%) 18.75 gm PO PRN PRN PRN Reason: Blood Glucose less than 70 Stop: 11/22/18 23:11 Diltiazem HCl (Cardizem) 60 mg GT TID [facility] Stop: 11/23/18 08:59 Last Admin: 09/26/18 13:29 Dose: 60 mg Docusate Sodium (Colace) 100 mg GT BID [facility] Stop: 11/23/18 08:59 Last Admin: 09/26/18 16:04 Dose: 100 mg Glucagon (Glucagen) 1 mg IM PRN PRN PRN Reason: Blood Glucose less than 70 Stop: 11/22/18 23:11 Heparin Sodium (Porcine) (Heparin) 5,000 units SUBQ Q12H [facility] Stop: 11/23/18 20:59 Last Admin: 09/26/18 10:05 Dose: 5,000 units Dextrose/Sodium Chloride (D5-0.45ns) 1,000 mls @ 50 mls/hr IV .Q20H [facility] Stop: 11/22/18 22:23 Last Admin: 09/26/18 13:29 Dose: 50 mls/hr Amikacin Sulfate 330 mg/ (Sodium Chloride) 101.32 mls @ 101.32 mls/hr IV Q12HR [facility] Stop: 11/26/18 08:59 Insulin Glargine (Lantus Insulin) 10 units SUBQ BID [facility] Stop: 11/23/18 08:59 Last Admin: 09/26/18 16:02 Dose: 10 units Insulin Human Lispro (Humalog Insulin Sliding Scale) 0 units SUBQ Q6HR [facility]; Protocol Stop: 11/23/18 00:00 Last Admin: 09/26/18 18:20 Dose: 4 units Metoclopramide HCl (Reglan) 10 mg IVP Q8HR [facility] Stop: 11/23/18 12:59 Last Admin: 09/26/18 13:29 Dose: 10 mg Miscellaneous (Vte Chemical Prophylaxis Screen/ Admission) 1 ea MC PRN PRN PRN Reason: PROTOCOL Stop: 11/23/18 13:26 Miscellaneous (Amikacin Iv Per Pharmacy) 1 ea PRN PRN PRN Reason: PROTOCOL Stop: 11/25/18 15:27 Mupirocin (Bactroban Oint) 1 appl NS BID [facility] Stop: 09/30/18 17:01 General: No acute distress Cardiovascular: Regular rate, Normal S1, Normal S2 Lungs: Clear to auscultation Abdomen: Bowel sounds, Soft, Other (G-tube in place), no Tender Extremities: Other (contractures of both extremities) - Procedures Procedures: Procedures Procedure Code Date CHANGE FEEDING DEVICE IN UP INTEST TRACT, HYDRAULIC CONTROLS TECHNICIAN APPROACH [id number] 09/13/18 CHANGE GASTROSTOMY TUBE 12276 10/04/15 INSERT TUNNELED CV CATH [id number] 10/04/15 INSERTION OF FEEDING DEVICE INTO STOMACH, OPEN APPROACH [id number] 10/06/16 INSERTION OF INFUSION DEV INTO L SUBCLAV VEIN, PERC APPROACH 14R627Z 10/04/15 INSPECTION OF UPPER VEIN, PERCUTANEOUS APPROACH [id number] 10/04/15 INTRODUCTION OF NUTRITIONAL INTO PERIPH VEIN, PERC APPROACH [id number] 08/02/[address] PL[address] GASTROSTOMY TUBE 37755 10/06/16 REMOVAL OF FEEDING DEVICE FROM STOMACH, EXTERNAL APPROACH [id number] 08/02/18 RESPIRATORY VENTILATION, GREATER THAN 96 CONSECUTIVE HOURS [id number] 08/02/18 ULTRASONOGRAPHY OF LEFT SUBCLAVIAN VEIN, GUIDANCE [id number] 10/04/15 Nutritional Asmnt/Malnutr-PDOC - Dietary Evaluation Malnutrition Findings (Please click <Entered> for more info): Nutritional Asmnt/Malnutrition Start: 09/24/18 15: 59 Text: Status: Complete Freq: Protocol: Document 09/24/18 15:59 LCHENG (Rec: 09/24/18 16:19 LCHENG [email or web address]) Nutritional Asmnt/Malnutrition Patient General Information Nutritional Screening High Risk Consult Diagnosis GI site cellulitis Pertinent Medical Hx/Surgical Hx HTN, DM asthma/COPD, PUD/GERD, 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 Per nurse note, glucerna 1.2 initiated at 60ml /hr in the afternoon, no residual noted. Current Diet Order/ Nutrition Support glucerna 1.2 at 60m, Pertinent Medications vit C, D5-0.45ns, colace, lantus, humalog, reglan Pertinent Labs 09/24 Na 154, K 3.2, Cl 111, Cr 0.3, Glucose 196, POC 185-224 , Alb 2.8 09/23 Na 150, K 3.2, Cr 0.3, Glucose 149 Nutritional Hx/Data Height 5 ft Height (Calculated Centimeters) 152.4 Current Weight (lbs) 91 lb Weight (Calculated Kilograms) 41.3 Weight (Calculated Grams) 45600.9 [place] Body Weight 100 Body Mass Index (BMI) 17.7 Weight Status Underweight GI Symptoms GI Symptoms None Last BM not indicated Difficult in: None Skin Integrity/Comment: pressure ulcer to sacro/coccyx Estimated Nutritional Goals BEE in Kcals: Using Current wt Calories/Kcals/Kg 30-35 Kcals Calculated 6896-8953 Protein: Using Current wt Protein g/k.2-1.4 Protein Calculated 49-57 Fluid: ml 1230-1435ml (1ml/kcal) Nutritional Problem 1. Problem Problem increased nutrition needs Etiology impaired skin integrity Signs/Symptoms: pressure ulcer Intervention/Recommendation Comments 1. Recommend Glucerna 1.2 at 60ml/hr x 16hr to meet nutritional needs. It will provide 1152kcal, 57g protein and 773ml free water. 2. Monitor TF rate, tolerance, wt, skin integrity and labs 3. F/U as high risk in 2-3 days Expected Outcomes/Goals Expected Outcomes/Goals 1. Pt to meet at least 90% of nutritional needs via nutrition support with tolerance 2. Wt stability, skin to remain intact, labs to approach WNL.
--- NOTE | 2018-09-26 20:09 | General Progress Note ---
Subjective - Review of Systems Service Date: 09/26/18 Subjective: patient with Pseudomonas Auroginosa in the wound discussed with family about the options for repair vs new feeding jejunostomy Objective - Results Result Diagrams: 09/25/18 06:00 09/25/18 06:00 Recent Labs: Laboratory Last Values WBC 10.6 Th/cmm (4.8-10.8) 09/25/18 06:00 RBC 5.38 Mil/cmm (3.80-5.10) H 09/25/18 06:00 Hgb 13.1 gm/dL (12-16) 09/25/18 06:00 Hct 41.6 % (41.0-60) 09/25/18 06:00 MCV 77.3 fl (81-100) L 09/25/18 06:00 MCH 24.4 pg (27.0-31.0) L 09/25/18 06:00 MCHC Differential 31.6 pg (28.0-36.0) 09/25/18 06:00 RDW 16.4 % (11.5-20.0) 09/25/18 06:00 Plt Count 251 Th/cmm (150-400) D 09/25/18 06:00 MPV 9.6 fl 09/25/18 06:00 Add Manual Diff YES 09/23/18 18:45 Neutrophils % 62.2 % (40.0-80.0) 09/25/18 06:00 Band Neutrophils % 0 % (0-10) 09/23/18 18:45 Lymphocytes % 29.1 % (20.0-50.0) 09/25/18 06:00 Monocytes % 7.0 % (2.0-10.0) 09/25/18 06:00 Eosinophils % 1.7 % (0.0-5.0) 09/25/18 06:00 Basophils % 0.0 % (0.0-2.0) 09/25/18 06:00 Neutrophils (Manual) 80 % (40-80) 09/23/18 18:45 Lymphocytes 15 % (20-50) L 09/23/18 18:45 Monocytes 4 % (2-10) 09/23/18 18:45 Eosinophils 1 % (0-5) 09/23/18 18:45 Basophils 0 % (0-3) 09/23/18 18:45 Platelet Estimate INCREASED PLATELETS (NORMAL) 09/23/18 18:45 Microcytosis 1+ 09/23/18 18:45 Smear Path Review 09/23/18 18:45 PT 11.4 SECONDS (9.5-11.5) 05 18:45 INR 1.11 (0.5-1.4) 09/23/18 18:45 PTT (Actin FS) 28.0 SECONDS (26.0-38.0) 09/23/18 18:45 Sodium 146 mEq/L (136-145) H 09/25/18 06:00 Potassium 3.5 mEq/L (3.5-5.1) 09/25/18 06:00 Chloride 108 mEq/L (98-107) H 09/25/18 06:00 Carbon Dioxide 30.5 mEq/L (21.0-31.0) 09/25/18 06:00 Anion Gap 11.0 (7.0-16.0) 09/25/18 06:00 BUN 17 mg/dL (7-25) 09/25/18 06:00 Creatinine 0.3 mg/dL (0.6-1.2) L 09/25/18 06:00 Est GFR ( Amer) > 60.0 ml/min (>90) 09/25/18 06:00 Est GFR (Non-Af Amer) > 60.0 ml/min 09/25/18 06:00 BUN/Creatinine Ratio 56.7 09/25/18 06:00 Glucose 232 mg/dL (70-105) H 09/25/18 06:00 POC Glucose 223 MG/DL (70 - 105) H 09/26/18 17:56 Whole Bld Lactic Acid 1.00 mmol/L (0.60-1.99) 09/23/18 22:38 Calcium 9.1 mg/dL (8.6-10.3) 09/25/18 06:00 Total Bilirubin 0.6 mg/dL (0.3-1.0) 09/24/18 07:10 AST 20 U/L (13-39) 09/24/18 07:10 ALT 18 U/L (7-52) 09/24/18 07:10 Alkaline Phosphatase 243 U/L (34-104) H 09/24/18 07:10 Total Protein 7.5 gm/dL (6.0-8.3) 09/24/18 07:10 Albumin 2.8 gm/dL (3.7-5.3) L 09/24/18 07:10 Globulin 4.7 gm/dL 09/24/18 07:10 Albumin/Globulin Ratio 0.6 (1.0-1.8) L 09/24/18 07:10 - Physical Exam Vitals and I&O: Vital Signs Temp 98.6 F 09/26/18 16:00 Pulse 79 09/26/18 16:00 Resp 17 09/26/18 18:00 BP 116/72 09/26/18 16:00 Pulse Ox 96 09/26/18 16:00 Intake & Output 09/26/18 09/26/18 09/27/18 06:59 18:59 06:59 Intake Total 480 994.167 Balance 480 994.167 Weight (lbs) 97 lb Intake: Intake, IV Amount 994.167 D5-0.45NS 1,000 ml @ 50 994.167 mls/hr IV .Q20H [facility] Rx#: [id number] Tube Feeding 480 Other: Weight Source Bedscale Active Medications: Current Medications Acetaminophen (Tylenol 650mg/20.3ml Suspension) 650 mg GT Q6H PRN PRN Reason: MILD PAIN OR FEVER >100.4 Albuterol/Ipratropium (Duoneb Neb) 3 ml HHN Q6HRT [facility] Stop: 11/23/18 00:00 Last Admin: 09/26/18 12:10 Dose: 3 ml Albuterol/Ipratropium (Duoneb Neb) 3 ml HHN Q2HRT PRN PRN Reason: Wheezing Stop: 11/22/18 23:14 Ascorbic Acid (Vitamin C) 500 mg GT DAILY [facility] Stop: 11/23/18 08:59 Last Admin: 09/26/18 11:11 Dose: 500 mg Calamine/Phenol (Calmoseptine) 1 appl TP QID PRN PRN Reason: Skin Irritation Stop: 11/23/18 16:36 [place] Oil/[place] Balsam/Trypsin (Venelex) 1 appl TP DAILY [facility] Stop: 11/24/18 08:59 Last Admin: 09/26/18 10:06 Dose: 1 appl Dextrose (D50w) 50 ml IVP PRN PRN PRN Reason: Blood Glucose less than 70 Stop: 11/22/18 23:11 Dextrose (Glutose 40%) 18.75 gm PO PRN PRN PRN Reason: Blood Glucose less than 70 Stop: 11/22/18 23:11 Diltiazem HCl (Cardizem) 60 mg GT TID [facility] Stop: 11/23/18 08:59 Last Admin: 09/26/18 13:29 Dose: 60 mg Docusate Sodium (Colace) 100 mg GT BID [facility] Stop: 11/23/18 08:59 Last Admin: 09/26/18 16:04 Dose: 100 mg Glucagon (Glucagen) 1 mg IM PRN PRN PRN Reason: Blood Glucose less than 70 Stop: 11/22/18 23:11 Heparin Sodium (Porcine) (Heparin) 5,000 units SUBQ Q12H [facility] Stop: 11/23/18 20:59 Last Admin: 09/26/18 10:05 Dose: 5,000 units Dextrose/Sodium Chloride (D5-0.45ns) 1,000 mls @ 50 mls/hr IV .Q20H [facility] Stop: 11/22/18 22:23 Last Admin: 09/26/18 13:29 Dose: 50 mls/hr Amikacin Sulfate 330 mg/ (Sodium Chloride) 101.32 mls @ 101.32 mls/hr IV Q12HR [facility] Stop: 11/26/18 08:59 Insulin Glargine (Lantus Insulin) 10 units SUBQ BID [facility] Stop: 11/23/18 08:59 Last Admin: 09/26/18 16:02 Dose: 10 units Insulin Human Lispro (Humalog Insulin Sliding Scale) 0 units SUBQ Q6HR [facility]; Protocol Stop: 11/23/18 00:00 Last Admin: 09/26/18 18:20 Dose: 4 units Metoclopramide HCl (Reglan) 10 mg IVP Q8HR [facility] Stop: 11/23/18 12:59 Last Admin: 09/26/18 13:29 Dose: 10 mg Miscellaneous (Vte Chemical Prophylaxis Screen/ Admission) 1 ea PRN PRN PRN Reason: PROTOCOL Stop: 11/23/18 13:26 Miscellaneous (Amikacin Iv Per Pharmacy) 1 ea PRN PRN PRN Reason: PROTOCOL Stop: 11/25/18 15:27 Mupirocin (Bactroban Oint) 1 appl NS BID [facility] Stop: 09/30/18 17:01 General: No acute distress Cardiovascular: Regular rate, Normal S1, Normal S2 Lungs: Clear to auscultation Abdomen: Bowel sounds, Soft, Other (G-tube in place), no Tender Extremities: Other (contractures of both extremities) - Procedures Procedures: Procedures Procedure Code Date CHANGE FEEDING DEVICE IN UP INTEST TRACT, INDUSTRIAL REHABILITATION CONSULTANT APPROACH [id number] 09/13/18 CHANGE GASTROSTOMY TUBE 95987 10/04/15 INSERT TUNNELED CV CATH [id number] 10/04/15 INSERTION OF FEEDING DEVICE INTO STOMACH, OPEN APPROACH [id number] 10/06/16 INSERTION OF INFUSION DEV INTO L SUBCLAV VEIN, PERC APPROACH 99N274M 10/04/15 INSPECTION OF UPPER VEIN, PERCUTANEOUS APPROACH 02LI4KI 10/04/15 INTRODUCTION OF NUTRITIONAL INTO PERIPH VEIN, PERC APPROACH 9G1095G 08/02/[address] PL[address] GASTROSTOMY TUBE 01790 10/06/16 REMOVAL OF FEEDING DEVICE FROM STOMACH, EXTERNAL APPROACH [id number] 08/02/18 RESPIRATORY VENTILATION, GREATER THAN 96 CONSECUTIVE HOURS [id number] 08/02/18 ULTRASONOGRAPHY OF LEFT SUBCLAVIAN VEIN, GUIDANCE [id number] 10/04/15 Assessment/Plan - Assessment Assessment: patient from [facility] over 5 years from chronic disease from [facility] [place] with trach and Gtube . acute respiratory failure at the time wound infection with breakdown of tissues surrounding G tube - Plan Plan: surgery tomorrow am Nutritional Asmnt/Malnutr-PDOC - Dietary Evaluation Malnutrition Findings (Please click <Entered> for more info): Nutritional Asmnt/Malnutrition Start: 09/24/18 15: 59 Text: Status: Complete Freq: Protocol: Document 09/24/18 15:59 LCHENG (Rec: 09/24/18 16:19 LCROYALG [email or web address]) Nutritional Asmnt/Malnutrition Patient General Information Nutritional Screening High Risk Consult Diagnosis GI site cellulitis Pertinent Medical Hx/Surgical Hx HTN, DM asthma/COPD, PUD/GERD, 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 Per nurse note, glucerna 1.2 initiated at 60ml /hr in the afternoon, no residual noted. Current Diet Order/ Nutrition Support glucerna 1.2 at 60m, Pertinent Medications vit C, D5-0.45ns, colace, lantus, humalog, reglan Pertinent Labs 09/24 Na 154, K 3.2, Cl 111, Cr 0.3, Glucose 196, POC 185-224 , Alb 2.8 09/23 Na 150, K 3.2, Cr 0.3, Glucose 149 Nutritional Hx/Data Height 5 ft Height (Calculated Centimeters) 152.4 Current Weight (lbs) 91 lb Weight (Calculated Kilograms) 41.3 Weight (Calculated Grams) 06848.9 [place] Body Weight 100 Body Mass Index (BMI) 17.7 Weight Status Underweight GI Symptoms GI Symptoms None Last BM not indicated Difficult in: None Skin Integrity/Comment: pressure ulcer to sacro/coccyx Estimated Nutritional Goals BEE in Kcals: Using Current wt Calories/Kcals/Kg 30-35 Kcals Calculated 2140-0702 Protein: Using Current wt Protein g/k.2-1.4 Protein Calculated 49-57 Fluid: ml 1230-1435ml (1ml/kcal) Nutritional Problem 1. Problem Problem increased nutrition needs Etiology impaired skin integrity Signs/Symptoms: pressure ulcer Intervention/Recommendation Comments 1. Recommend Glucerna 1.2 at 60ml/hr x 16hr to meet nutritional needs. It will provide 1152kcal, 57g protein and 773ml free water. 2. Monitor TF rate, tolerance, wt, skin integrity and labs 3. F/U as high risk in 2-3 days Expected Outcomes/Goals Expected Outcomes/Goals 1. Pt to meet at least 90% of nutritional needs via nutrition support with tolerance 2. Wt stability, skin to remain intact, labs to approach WNL.
[2018-09-26 20:29] LABS: % BASOPHILS 0.2 % (0.0-2.0); % LYMPHOCYTES 22.1 % (20.0-50.0); % MONOCYTES 4.5 % (2.0-10.0); % NEUTROPHILS 72.2 % (40.0-80.0); EOSINOPHILE ABSOLUTE 0.1 Th/cmm (0.1-0.4); HEMATOCRIT 36.5 % (41.0-60); HEMOGLOBIN 11.6 gm/dL (12-16); LYMPHOCYTE ABSOLUTE 2.2 Th/cmm (1.5-3.0); MEAN CELL VOLUME 78.4 fl (81-100); MEAN CORPUSCULAR HEMOGLOBIN 24.9 pg (27.0-31.0); MEAN CORPUSCULAR HGB CONC 31.7 pg (28.0-36.0); MONOCYTE ABSOLUTE 0.5 Th/cmm (0.3-1.0); NEUTROPHILE ABSOLUTE 7.2 Th/cmm (1.8-8.0); PLATELET COUNT 274 Th/cmm (150-400); RED BLOOD COUNT 4.65 Mil/cmm (3.80-5.10); RED CELL DISTRIBUTION WIDTH 16.6 % (11.5-20.0)
[2018-09-26 20:58] LABS: ALB/GLOB RATIO 0.6 (1.0-1.8); ALBUMIN 2.6 gm/dL (3.7-5.3); ALKALINE PHOSPHATASE 176 U/L (34-104); ANION GAP 9.6 (7.0-16.0); BILIRUBIN,TOTAL 0.2 mg/dL (0.3-1.0); BUN - UREA NITROGEN 10 mg/dL (7-25); CALCIUM SERUM 8.7 mg/dL (8.6-10.3); CARBON DIOXIDE 27.6 mEq/L (21.0-31.0); CHLORIDE 107 mEq/L (98-107); CREATININE - SERUM 0.2 mg/dL (0.6-1.2); GFR AFRICAN-AMERICAN > 60.0 ml/min (>90); GFR NON AFRICAN-AMERICAN > 60.0 ml/min; GLUCOSE 207 mg/dL (70-105); POTASSIUM SERUM 3.2 mEq/L (3.5-5.1); SGOT 12 U/L (13-39); SGPT/ALT 10 U/L (7-52); SODIUM SERUM 141 mEq/L (136-145); TOTAL PROTEIN,SERUM 6.7 gm/dL (6.0-8.3)
[2018-09-27] MEDS: INSULIN LISPRO SLIDING SCALE 100 UNITS/ML UNIT SUBQ SCH ×5 (00:08→23:53)
[2018-09-27] MEDS: Albuterol/Ipratropium Neb 3 ML AERS HHN SCH ×4 (01:36→19:31)
[2018-09-27] MEDS: Metoclopramide 5 mg/mL 2mL Vial IVP SCH ×3 (05:00→20:40)
[2018-09-27] MEDS: D5-0.45NS 1,000 ML IV SCH ×2 (07:16→16:52)
[2018-09-27] MEDS: AMIKACIN IV SCH ×2 (09:32→20:39)
[2018-09-27] MEDS: SODIUM CHLORIDE 0.9% IV SCH ×2 (09:32→20:39)
[2018-09-27] MEDS: Diltiazem 30 mg Tab GT SCH ×3 (09:33→20:40)
[2018-09-27] MEDS: Docusate Sodium 100 mg/10 mL UD GT SCH ×2 (09:33→16:51)
[2018-09-27] MEDS: Venelex 60gm Tube TP SCH (09:34)
[2018-09-27] MEDS: Insulin Glargine 100 units/ml 10ml Vial SUBQ SCH ×2 (09:34→16:51)
[2018-09-27] MEDS: Heparin Sod 5,000Units/ML 5,000 UNITS/ML VIAL SUBQ SCH ×2 (09:34→20:41)
--- NOTE | 2018-09-27 10:36 | GI Progress Note ---
Subjective - Review of Systems Service Date: 09/27/18 Events since last encounter: No events Subjective: Leaking G tube Objective - Results Result Diagrams: 09/26/18 20:25 09/26/18 20:25 Recent Labs: Laboratory Last Values WBC 10.0 Th/cmm (4.8-10.8) 09/26/18 20:25 RBC 4.65 Mil/cmm (3.80-5.10) 09/26/18 20:25 Hgb 11.6 gm/dL (12-16) L 09/26/18 20:25 Hct 36.5 % (41.0-60) L 09/26/18 20:25 MCV 78.4 fl (81-100) L 09/26/18 20:25 MCH 24.9 pg (27.0-31.0) L 09/26/18 20: MCHC Differential 31.7 pg (28.0-36.0) 09/26/18 20:25 RDW 16.6 % (11.5-20.0) 09/26/18 20:25 Plt Count 274 Th/cmm (150-400) 09/26/18 20:25 MPV 8.1 fl 09/26/18 20:25 Add Manual Diff YES 09/23/18 18:45 Neutrophils % 72.2 % (40.0-80.0) 09/26/18 20:25 Band Neutrophils % 0 % (0-10) 09/23/18 18:45 Lymphocytes % 22.1 % (20.0-50.0) 09/26/18 20:25 Monocytes % 4.5 % (2.0-10.0) 09/26/18 20: Eosinophils % 1.0 % (0.0-5.0) 09/26/18 20:25 Basophils % 0.2 % (0.0-2.0) 09/26/18 20:25 Neutrophils (Manual) 80 % (40-80) 09/23/18 18:45 Lymphocytes 15 % (20-50) L 09/23/18 18:45 Monocytes 4 % (2-10) 09/23/18 18:45 Eosinophils 1 % (0-5) 09/23/18 18:45 Basophils 0 % (0-3) 09/23/18 18:45 Platelet Estimate INCREASED PLATELETS (NORMAL) 09/23/18 18:45 Microcytosis 1+ 09/23/18 18:45 Smear Path Review 09/23/18 18:45 PT 11.4 SECONDS (9.5-11.5) 09/23/18 18:45 INR 1.11 (0.5-1.4) 09/23/18 18:45 PTT (Actin FS) 28.0 SECONDS (26.0-38.0) 09/23/18 18:45 Sodium 141 mEq/L (136-145) 09/26/18 20:25 Potassium 3.2 mEq/L (3.5-5.1) L 09/26/18 20:25 Chloride 107 mEq/L (98-107) 09/26/18 20:25 Carbon Dioxide 27.6 mEq/L (21.0-31.0) 09/26/18 20:25 Anion Gap 9.6 (7.0-16.0) 09/26/18 20:25 BUN 10 mg/dL (7-25) 09/26/18 20:25 Creatinine 0.2 mg/dL (0.6-1.2) L 09/26/18 20:25 Est GFR ( Amer) > 60.0 ml/min (>90) 09/26/18 20:25 Est GFR (Non-Af Amer) > 60.0 ml/min 09/26/18 20:25 BUN/Creatinine Ratio 50.0 09/26/18 20:25 Glucose 207 mg/dL (70-105) H 09/26/18 20:25 POC Glucose 170 MG/DL (70 - 105) H 09/27/18 05:04 Whole Bld Lactic Acid 1.00 mmol/L (0.60-1.99) 09/23/18 22:38 Calcium 8.7 mg/dL (8.6-10.3) 09/26/18 20:25 Total Bilirubin 0.2 mg/dL (0.3-1.0) L 09/26/18 20:25 AST 12 U/L (13-39) L 09/26/18 20:25 ALT 10 U/L (7-52) 09/26/18 20:25 Alkaline Phosphatase 176 U/L (34-104) H 09/26/18 20:25 Total Protein 6.7 gm/dL (6.0-8.3) 09/26/18 20:25 Albumin 2.6 gm/dL (3.7-5.3) L 09/26/18 20:25 Globulin 4.1 gm/dL 09/26/18 20:25 Albumin/Globulin Ratio 0.6 (1.0-1.8) L 09/26/18 20:25 - Physical Exam Vitals and I&O: Vital Signs Temp 97.7 F 09/27/18 08:00 Pulse 90 09/27/18 09:33 Resp 18 09/27/18 09:58 BP 131/78 09/27/18 08:00 Pulse Ox 95 09/27/18 08:00 Intake & Output 09/26/18 09/27/18 09/27/18 18:59 06:59 18:59 Intake Total 994.167 889.167 Output Total 1150 Balance 994.167 -1150 889.167 Weight (lbs) 46.584 kg Intake: Intake, IV Amount 994.167 889.167 D5-0.45NS 1,000 ml @ 50 994.167 889.167 mls/hr IV .Q20H [facility] Rx#: [id number] Output: Urine 1150 Other: # Bowel Movements 0 Weight Source Bedscale Active Medications: Current Medications Acetaminophen (Tylenol 650mg/20.3ml Suspension) 650 mg GT Q6H PRN PRN Reason: MILD PAIN OR FEVER >100.4 Albuterol/Ipratropium (Duoneb Neb) 3 ml HHN Q6HRT [facility] Stop: 11/23/18 00:00 Last Admin: 09/27/18 07:52 Dose: 3 ml Albuterol/Ipratropium (Duoneb Neb) 3 ml HHN Q2HRT PRN PRN Reason: Wheezing Stop: 11/22/18 23:14 Ascorbic Acid (Vitamin C) 500 mg GT DAILY [facility] Stop: 11/23/18 08:59 Last Admin: 09/27/18 09:33 Dose: 500 mg Calamine/Phenol (Calmoseptine) 1 appl TP QID PRN PRN Reason: Skin Irritation Stop: 11/23/18 16:36 [place] Oil/Serbian Balsam/Trypsin (Venelex) 1 appl TP DAILY [facility] Stop: 11/24/18 08:59 Last Admin: 09/27/18 09:34 Dose: 1 appl Dextrose (D50w) 50 ml IVP PRN PRN PRN Reason: Blood Glucose less than 70 Stop: 11/22/18 23:11 Dextrose (Glutose 40%) 18.75 gm PO PRN PRN PRN Reason: Blood Glucose less than 70 Stop: 11/22/18 23:11 Diltiazem HCl (Cardizem) 60 mg GT TID [facility] Stop: 11/23/18 08:59 Last Admin: 09/27/18 09:33 Dose: 60 mg Docusate Sodium (Colace) 100 mg GT BID [facility] Stop: 11/23/18 08:59 Last Admin: 09/27/18 09:33 Dose: 100 mg Glucagon (Glucagen) 1 mg IM PRN PRN PRN Reason: Blood Glucose less than 70 Stop: 11/22/18 23:11 Heparin Sodium (Porcine) (Heparin) 5,000 units SUBQ Q12H [facility] Stop: 11/23/18 20:59 Last Admin: 09/27/18 09:34 Dose: 5,000 units Dextrose/Sodium Chloride (D5-0.45ns) 1,000 mls @ 50 mls/hr IV .Q20H [facility] Stop: 11/22/18 22:23 Last Admin: 09/27/18 07:16 Dose: 50 mls/hr Amikacin Sulfate 330 mg/ (Sodium Chloride) 101.32 mls @ 101.32 mls/hr IV Q12HR [facility] Stop: 11/26/18 08:59 Last Admin: 09/27/18 09:32 Dose: 101.32 mls/hr Insulin Glargine (Lantus Insulin) 10 units SUBQ BID [facility] Stop: 11/23/18 08:59 Last Admin: 09/27/18 09:34 Dose: 10 units Insulin Human Lispro (Humalog Insulin Sliding Scale) 0 units SUBQ Q6HR [facility]; Protocol Stop: 11/23/18 00:00 Last Admin: 09/27/18 05:16 Dose: 2 units Metoclopramide HCl (Reglan) 10 mg IVP Q8HR [facility] Stop: 11/23/18 12:59 Last Admin: 09/27/18 05:00 Dose: 10 mg Miscellaneous (Vte Chemical Prophylaxis Screen/ Admission) 1 e[facility] PRN PRN PRN Reason: PROTOCOL Stop: 11/23/18 13:26 Miscellaneous (Amikacin Iv Per Pharmacy) 1 [facility] PRN PRN PRN Reason: PROTOCOL Stop: 11/25/18 15:27 Mupirocin (Bactroban Oint) 1 appl NS BID [facility] Stop: 09/30/18 17:01 General: No acute distress Cardiovascular: Regular rate, Normal S1, Normal S2 Lungs: Clear to auscultation Abdomen: Bowel sounds, Soft, Other (G-tube in place with a colostomy bag), no Tender Extremities: Other (contractures of both extremities) - Procedures Procedures: Procedures Procedure Code Date CHANGE FEEDING DEVICE IN UP INTEST TRACT, 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 MACHINE 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 APPROACH [id number] 09/13/18 CHANGE GASTROSTOMY TUBE 57818 10/04/15 INSERT TUNNELED CV CATH [id number] 10/04/15 INSERTION OF FEEDING DEVICE INTO STOMACH, OPEN APPROACH [id number] 10/06/16 INSERTION OF INFUSION DEV INTO L SUBCLAV VEIN, PERC APPROACH [id number] 10/04/15 INSPECTION OF UPPER VEIN, PERCUTANEOUS APPROACH [id number] 10/04/15 INTRODUCTION OF NUTRITIONAL INTO PERIPH VEIN, PERC APPROACH [id number] 08/02/[address] PL[address] GASTROSTOMY TUBE 11623 10/06/16 REMOVAL OF FEEDING DEVICE FROM STOMACH, EXTERNAL APPROACH [id number] 08/02/18 RESPIRATORY VENTILATION, GREATER THAN 96 CONSECUTIVE HOURS [id number] 08/02/18 ULTRASONOGRAPHY OF LEFT SUBCLAVIAN VEIN, GUIDANCE [id number] 10/04/15 Assessment/Plan - Assessment Assessment: 1. Malfunctioning G tube 2.Dysphagia - Plan Plan: 1. Malfunctioning G tube Cont conservative management May have surgery On Thursday to close the current fistula and insert a new GT 2.Dysphagia As above Feeding if possible Seems to be tolerated
--- NOTE | 2018-09-27 12:21 | General Progress Note ---
Subjective - Review of Systems Service Date: 09/27/18 Subjective: Patient still has chronic respiratory failure with tracheostomy Objective - Results Result Diagrams: 09/26/18 20:25 09/26/18 20:25 Recent Labs: Laboratory Last Values WBC 10.0 Th/cmm (4.8-10.8) 09/26/18 20:25 RBC 4.65 Mil/cmm (3.80-5.10) 09/26/18 20:25 Hgb 11.6 gm/dL (12-16) L 09/26/18 20:25 Hct 36.5 % (41.0-60) L 09/26/18 20:25 MCV 78.4 fl (81-100) L 09/26/18 20:25 MCH 24.9 pg (27.0-31.0) L 09/26/18 20:25 MCHC Differential 31.7 pg (28.0-36.0) 09/26/18 20:25 RDW 16.6 % (11.5-20.0) 09/26/18 20:25 Plt Count 274 Th/cmm (150-400) 09/26/18 20:25 MPV 8.1 fl 09/26/18 20:25 Add Manual Diff YES 09/23/18 18:45 Neutrophils % 72.2 % (40.0-80.0) 09/26/18 20:25 Band Neutrophils % 0 % (0-10) 09/23/18 18:45 Lymphocytes % 22.1 % (20.0-50.0) 09/26/18 20:25 Monocytes % 4.5 % (2.0-10.0) 09/26/18 20:25 Eosinophils % 1.0 % (0.0-5.0) 09/26/18 20:25 Basophils % 0.2 % (0.0-2.0) 09/26/18 20:25 Neutrophils (Manual) 80 % (40-80) 09/23/18 18:45 Lymphocytes 15 % (20-50) L 09/23/18 18:45 Monocytes 4 % (2-10) 09/23/18 18:45 Eosinophils 1 % (0-5) 09/23/18 18:45 Basophils 0 % (0-3) 09/23/18 18:45 Platelet Estimate INCREASED PLATELETS (NORMAL) 09/23/18 18:45 Microcytosis 1+ 09/23/18 18:45 Smear Path Review 09/23/18 18:45 PT 11.4 SECONDS (9.5-11.5) 09/23/18 18:45 INR 1.11 (0.5-1.4) 09/23/18 18:45 PTT (Actin FS) 28.0 SECONDS (26.0-38.0) 09/23/18 18:45 Sodium 141 mEq/L (136-145) 09/26/18 20:25 Potassium 3.2 mEq/L (3.5-5.1) L 09/26/18 20:25 Chloride 107 mEq/L (98-107) 09/26/18 20:25 Carbon Dioxide 27.6 mEq/L (21.0-31.0) 09/26/18 20:25 Anion Gap 9.6 (7.0-16.0) 09/26/18 20:25 BUN 10 mg/dL (7-25) 09/26/18 20:25 Creatinine 0.2 mg/dL (0.6-1.2) L 09/26/18 20:25 Est GFR ( Amer) > 60.0 ml/min (>90) 09/26/18 20:25 Est GFR (Non-Af Amer) > 60.0 ml/min 09/26/18 20:25 BUN/Creatinine Ratio 50.0 09/26/18 20:25 Glucose 207 mg/dL (70-105) H 09/26/18 20:25 POC Glucose 215 MG/DL (70 - 105) H 09/27/18 11:47 Whole Bld Lactic Acid 1.00 mmol/L (0.60-1.99) 09/23/18 22:38 Calcium 8.7 mg/dL (8.6-10.3) 09/26/18 20:25 Total Bilirubin 0.2 mg/dL (0.3-1.0) L 09/26/18 20:25 AST 12 U/L (13-39) L 09/26/18 20:25 ALT 10 U/L (7-52) 09/26/18 20:25 Alkaline Phosphatase 176 U/L (34-104) H 09/26/18 20:25 Total Protein 6.7 gm/dL (6.0-8.3) 09/26/18 20:25 Albumin 2.6 gm/dL (3.7-5.3) L 09/26/18 20:25 Globulin 4.1 gm/dL 09/26/18 20:25 Albumin/Globulin Ratio 0.6 (1.0-1.8) L 09/26/18 20:25 - Physical Exam Vitals and I&O: Vital Signs Temp 97.7 F 09/27/18 08:00 Pulse 90 09/27/18 09:33 Resp 18 09/27/18 09:58 BP 131/78 09/27/18 08:00 Pulse Ox 95 09/27/18 08:00 Intake & Output 09/26/18 09/27/18 09/27/18 18:59 06:59 18:59 Intake Total 994.167 889.167 Output Total 1150 Balance 994.167 -1150 889.167 Weight (lbs) 46.584 kg Intake: Intake, IV Amount 994.167 889.167 D5-0.45NS 1,000 ml @ 50 994.167 889.167 mls/hr IV .Q20H [facility] Rx#: [id number] Output: Urine 1150 Other: # Bowel Movements 0 Weight Source Bedscale Active Medications: Current Medications Acetaminophen (Tylenol 650mg/20.3ml Suspension) 650 mg GT Q6H PRN PRN Reason: MILD PAIN OR FEVER >100.4 Albuterol/Ipratropium (Duoneb Neb) 3 ml HHN Q6HRT [facility] Stop: 11/23/18 00:00 Last Admin: 09/27/18 07:52 Dose: 3 ml Albuterol/Ipratropium (Duoneb Neb) 3 ml HHN Q2HRT PRN PRN Reason: Wheezing Stop: 11/22/18 23:14 Ascorbic Acid (Vitamin C) 500 mg GT DAILY [facility] Stop: 11/23/18 08:59 Last Admin: 09/27/18 09:33 Dose: 500 mg Calamine/Phenol (Calmoseptine) 1 appl TP QID PRN PRN Reason: Skin Irritation Stop: 11/23/18 16:36 [place] Oil/Malagasy Balsam/Trypsin (Venelex) 1 appl TP DAILY [facility] Stop: 11/24/18 08:59 Last Admin: 09/27/18 09:34 Dose: 1 appl Dextrose (D50w) 50 ml IVP PRN PRN PRN Reason: Blood Glucose less than 70 Stop: 11/22/18 23:11 Dextrose (Glutose 40%) 18.75 gm PO PRN PRN PRN Reason: Blood Glucose less than 70 Stop: 11/22/18 23:11 Diltiazem HCl (Cardizem) 60 mg GT TID [facility] Stop: 11/23/18 08:59 Last Admin: 09/27/18 09:33 Dose: 60 mg Docusate Sodium (Colace) 100 mg GT BID [facility] Stop: 11/23/18 08:59 Last Admin: 09/27/18 09:33 Dose: 100 mg Glucagon (Glucagen) 1 mg IM PRN PRN PRN Reason: Blood Glucose less than 70 Stop: 11/22/18 23:11 Heparin Sodium (Porcine) (Heparin) 5,000 units SUBQ Q12H [facility] Stop: 11/23/18 20:59 Last Admin: 09/27/18 09:34 Dose: 5,000 units Dextrose/Sodium Chloride (D5-0.45ns) 1,000 mls @ 50 mls/hr IV .Q20H [facility] Stop: 11/22/18 22:23 Last Admin: 09/27/18 07:16 Dose: 50 mls/hr Amikacin Sulfate 330 mg/ (Sodium Chloride) 101.32 mls @ 101.32 mls/hr IV Q12HR [facility] Stop: 11/26/18 08:59 Last Admin: 09/27/18 09:32 Dose: 101.32 mls/hr Insulin Glargine (Lantus Insulin) 10 units SUBQ BID [facility] Stop: 11/23/18 08:59 Last Admin: 09/27/18 09:34 Dose: 10 units Insulin Human Lispro (Humalog Insulin Sliding Scale) 0 units SUBQ Q6HR [facility]; Protocol Stop: 11/23/18 00:00 Last Admin: 09/27/18 12:02 Dose: 4 units Metoclopramide HCl (Reglan) 10 mg IVP Q8HR [facility] Stop: 11/23/18 12:59 Last Admin: 09/27/18 05:00 Dose: 10 mg Miscellaneous (Vte Chemical Prophylaxis Screen/ Admission) 1 [facility] PRN PRN PRN Reason: PROTOCOL Stop: 11/23/18 13:26 Miscellaneous (Amikacin Iv Per Pharmacy) 1 [facility] PRN PRN PRN Reason: PROTOCOL Stop: 11/25/18 15:27 Mupirocin (Bactroban Oint) 1 appl NS BID [facility] Stop: 09/30/18 17:01 Potassium Chloride (Potassium Chloride Elixir) 40 meq GT X1 ONE Stop: 09/27/18 13:01 General: No acute distress Cardiovascular: Regular rate, Normal S1, Normal S2 Lungs: Clear to auscultation Abdomen: Bowel sounds, Soft, Other (G-tube in place with a colostomy bag), no Tender Extremities: Other (contractures of both extremities) - Procedures Procedures: Procedures Procedure Code Date CHANGE FEEDING DEVICE IN UP INTEST TRACT, TRAINING DEVELOPMENT DIRECTOR APPROACH [id number] 09/13/18 CHANGE GASTROSTOMY TUBE 70290 10/04/15 INSERT TUNNELED CV CATH [id number] 10/04/15 INSERTION OF FEEDING DEVICE INTO STOMACH, OPEN APPROACH [id number] 10/06/16 INSERTION OF INFUSION DEV INTO L SUBCLAV VEIN, PERC APPROACH 83L769L 10/04/15 INSPECTION OF UPPER VEIN, PERCUTANEOUS APPROACH 20DO4YK 10/04/15 INTRODUCTION OF NUTRITIONAL INTO PERIPH VEIN, PERC APPROACH [id number] 08/02/[address] PL[address] GASTROSTOMY TUBE 95792 10/06/16 REMOVAL OF FEEDING DEVICE FROM STOMACH, EXTERNAL APPROACH [id number] 08/02/18 RESPIRATORY VENTILATION, GREATER THAN 96 CONSECUTIVE HOURS [id number] 08/02/18 ULTRASONOGRAPHY OF LEFT SUBCLAVIAN VEIN, GUIDANCE [id number] 10/04/15 Assessment/Plan - Assessment Assessment: Sacral decubitus ulcer stage IV Chronic respiratory failure with tracheostomy G-tube protein calorie malnutrition Diabetes mellitus type 2 COPD Asthma Peptic ulcer GERD Contracture of the extremities 9 deficiency anemia Urinary tract infection - Plan Plan: Continue present management patient cleared for surgery Nutritional Asmnt/Malnutr-PDOC - Dietary Evaluation Malnutrition Findings (Please click <Entered> for more info): Nutritional Asmnt/Malnutrition Start: 09/24/18 15: 59 Text: Status: Complete Freq: Protocol: Document 09/24/18 15:59 [email or web address] (Rec: 09/24/18 16:19 [email or web address]) Nutritional Asmnt/Malnutrition Patient General Information Nutritional Screening High Risk Consult Diagnosis GI site cellulitis Pertinent Medical Hx/Surgical Hx HTN, DM asthma/COPD, PUD/GERD, 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 Per nurse note, glucerna 1.2 initiated at 60ml /hr in the afternoon, no residual noted. Current Diet Order/ Nutrition Support glucerna 1.2 at 60m, Pertinent Medications vit C, D5-0.45ns, colace, lantus, humalog, reglan Pertinent Labs 5 Na 154, K 3.2, Cl 111, Cr 0.3, Glucose 196, POC 185-224 , Alb 2.8 09/23 Na 150, K 3.2, Cr 0.3, Glucose 149 Nutritional Hx/Data Height 1.52 m Height (Calculated Centimeters) 152.4 Current Weight (lbs) 41.277 kg Weight (Calculated Kilograms) 41.3 Weight (Calculated Grams) 56461.9 [place] Body Weight 100 Body Mass Index (BMI) 17.7 Weight Status Underweight GI Symptoms GI Symptoms None Last BM not indicated Difficult in: None Skin Integrity/Comment: pressure ulcer to sacro/coccyx Estimated Nutritional Goals BEE in Kcals: Using Current wt Calories/Kcals/Kg 30-35 Kcals Calculated [id number] Protein: Using Current wt Protein g/k.2-1.4 Protein Calculated 49-57 Fluid: ml 1230-1435ml (1ml/kcal) Nutritional Problem 1. Problem Problem increased nutrition needs Etiology impaired skin integrity Signs/Symptoms: pressure ulcer Intervention/Recommendation Comments 1. Recommend Glucerna 1.2 at 60ml/hr x 16hr to meet nutritional needs. It will provide 1152kcal, 57g protein and 773ml free water. 2. Monitor TF rate, tolerance, wt, skin integrity and labs 3. F/U as high risk in 2-3 days Expected Outcomes/Goals Expected Outcomes/Goals 1. Pt to meet at least 90% of nutritional needs via nutrition support with tolerance 2. Wt stability, skin to remain intact, labs to approach WNL.
[2018-09-27] MEDS ORDERED: Potassium Chloride Elixir 20 mEq /15 mL UDC GT ONE (13:00)
--- NOTE | 2018-09-27 13:08 | Internal Medicine Prog Note ---
Internal Medicine Subjective - Subjective Service Date: 09/27/18 Patient seen and examined:: with staff, chart reviewed Patient is:: awake, stares blankly, other (pt has been cleared for debridement ) Patient Complaints of:: cough (pt is cleared for debridement ) Per staff patient has:: no adverse event, no episodes of fall Internal Medicine Objective - Results Result Diagrams: 09/26/18 20:25 09/26/18 20:25 Recent Labs: Laboratory Last Values WBC 10.0 Th/cmm (4.8-10.8) 09/26/18 20:25 RBC 4.65 Mil/cmm (3.80-5.10) 09/26/18 20:25 Hgb 11.6 gm/dL (12-16) L 09/26/18 20:25 Hct 36.5 % (41.0-60) L 09/26/18 20:25 MCV 78.4 fl (81-100) L 09/26/18 20:25 MCH 24.9 pg (27.0-31.0) L 09/26/18 20:25 MCHC Differential 31.7 pg (28.0-36.0) 09/26/18 20:25 RDW 16.6 % (11.5-20.0) 09/26/18 20: Plt Count 274 Th/cmm (150-400) 09/26/18 20:25 MPV 8.1 fl 09/26/18 20:25 Add Manual Diff YES 09/23/18 18:45 Neutrophils % 72.2 % (40.0-80.0) 09/26/18 20:25 Band Neutrophils % 0 % (0-10) 09/23/18 18:45 Lymphocytes % 22.1 % (20.0-50.0) 09/26/18 20:25 Monocytes % 4.5 % (2.0-10.0) 09/26/18 20:25 Eosinophils % 1.0 % (0.0-5.0) 09/26/18 20: Basophils % 0.2 % (0.0-2.0) 09/26/18 20:25 Neutrophils (Manual) 80 % (40-80) 09/23/18 18:45 Lymphocytes 15 % (20-50) L 09/23/18 18:45 Monocytes 4 % (2-10) 09/23/18 18:45 Eosinophils 1 % (0-5) 09/23/18 18:45 Basophils 0 % (0-3) 09/23/18 18:45 Platelet Estimate INCREASED PLATELETS (NORMAL) 09/23/18 18:45 Microcytosis 1+ 09/23/18 18:45 Smear Path Review 09/23/18 18:45 PT 11.4 SECONDS (9.5-11.5) 09/23/18 18:45 INR 1.11 (0.5-1.4) 09/23/18 18:45 PTT (Actin FS) 28.0 SECONDS (26.0-38.0) 09/23/18 18:45 Sodium 141 mEq/L (136-145) 09/26/18 20:25 Potassium 3.2 mEq/L (3.5-5.1) L 09/26/18 20:25 Chloride 107 mEq/L (98-107) 09/26/18 20:25 Carbon Dioxide 27.6 mEq/L (21.0-31.0) 09/26/18 20:25 Anion Gap 9.6 (7.0-16.0) 09/26/18 20:25 BUN 10 mg/dL (7-25) 09/26/18 20:25 Creatinine 0.2 mg/dL (0.6-1.2) L 09/26/18 20:25 Est GFR ( Amer) > 60.0 ml/min (>90) 09/26/18 20:25 Est GFR (Non-Af Amer) > 60.0 ml/min 09/26/18 20:25 BUN/Creatinine Ratio 50.0 09/26/18 20:25 Glucose 207 mg/dL (70-105) H 09/26/18 20:25 POC Glucose 215 MG/DL (70 - 105) H 09/27/18 11:47 Whole Bld Lactic Acid 1.00 mmol/L (0.60-1.99) 09/23/18 22:38 Calcium 8.7 mg/dL (8.6-10.3) 09/26/18 20:25 Total Bilirubin 0.2 mg/dL (0.3-1.0) L 09/26/18 20:25 AST 12 U/L (13-39) L 09/26/18 20:25 ALT 10 U/L (7-52) 09/26/18 20:25 Alkaline Phosphatase 176 U/L (34-104) H 09/26/18 20:25 Total Protein 6.7 gm/dL (6.0-8.3) 09/26/18 20:25 Albumin 2.6 gm/dL (3.7-5.3) L 09/26/18 20:25 Globulin 4.1 gm/dL 09/26/18 20:25 Albumin/Globulin Ratio 0.6 (1.0-1.8) L 09/26/18 20:25 - Physical Exam Vitals and I&O: Vital Signs Temp 97.7 F 09/27/18 08:00 Pulse 90 09/27/18 09:33 Resp 18 09/27/18 09:58 BP 131/78 09/27/18 08:00 Pulse Ox 95 09/27/18 08:00 Intake & Output 09/26/18 09/27/18 09/27/18 18:59 06:59 18:59 Intake Total 994.167 889.167 Output Total 1150 Balance 994.167 -1150 889.167 Weight (lbs) 46.584 kg Intake: Intake, IV Amount 994.167 889.167 D5-0.45NS 1,000 ml @ 50 994.167 889.167 mls/hr IV .Q20H [facility] Rx#: [id number] Output: Urine 1150 Other: # Bowel Movements 0 Weight Source Bedscale Active Medications: Current Medications Acetaminophen (Tylenol 650mg/20.3ml Suspension) 650 mg GT Q6H PRN PRN Reason: MILD PAIN OR FEVER >100.4 Albuterol/Ipratropium (Duoneb Neb) 3 ml HHN Q6HRT [facility] Stop: 11/23/18 00:00 Last Admin: 09/27/18 07:52 Dose: 3 ml Albuterol/Ipratropium (Duoneb Neb) 3 ml HHN Q2HRT PRN PRN Reason: Wheezing Stop: 11/22/18 23:14 Ascorbic Acid (Vitamin C) 500 mg GT DAILY [facility] Stop: 11/23/18 08:59 Last Admin: 09/27/18 09:33 Dose: 500 mg Calamine/Phenol (Calmoseptine) 1 appl TP QID PRN PRN Reason: Skin Irritation Stop: 11/23/18 16:36 [place] Oil/Mal[place]ian Balsam/Trypsin (Venelex) 1 appl TP DAILY [facility] Stop: 11/24/18 08:59 Last Admin: 09/27/18 09:34 Dose: 1 appl Dextrose (D50w) 50 ml IVP PRN PRN PRN Reason: Blood Glucose less than 70 Stop: 11/22/18 23:11 Dextrose (Glutose 40%) 18.75 gm PO PRN PRN PRN Reason: Blood Glucose less than 70 Stop: 11/22/18 23:11 Diltiazem HCl (Cardizem) 60 mg GT TID [facility] Stop: 11/23/18 08:59 Last Admin: 09/27/18 09:33 Dose: 60 mg Docusate Sodium (Colace) 100 mg GT BID [facility] Stop: 11/23/18 08:59 Last Admin: 09/27/18 09:33 Dose: 100 mg Glucagon (Glucagen) 1 mg IM PRN PRN PRN Reason: Blood Glucose less than 70 Stop: 11/22/18 23:11 Heparin Sodium (Porcine) (Heparin) 5,000 units SUBQ Q12H [facility] Stop: 11/23/18 20:59 Last Admin: 09/27/18 09:34 Dose: 5,000 units Dextrose/Sodium Chloride (D5-0.45ns) 1,000 mls @ 50 mls/hr IV .Q20H [facility] Stop: 11/22/18 22:23 Last Admin: 09/27/18 07:16 Dose: 50 mls/hr Amikacin Sulfate 330 mg/ (Sodium Chloride) 101.32 mls @ 101.32 mls/hr IV Q12HR [facility] Stop: 11/26/18 08:59 Last Admin: 09/27/18 09:32 Dose: 101.32 mls/hr Insulin Glargine (Lantus Insulin) 10 units SUBQ BID [facility] Stop: 11/23/18 08:59 Last Admin: 09/27/18 09:34 Dose: 10 units Insulin Human Lispro (Humalog Insulin Sliding Scale) 0 units SUBQ Q6HR [facility]; Protocol Stop: 11/23/18 00:00 Last Admin: 09/27/18 12:02 Dose: 4 units Metoclopramide HCl (Reglan) 10 mg IVP Q8HR [facility] Stop: 11/23/18 12:59 Last Admin: 09/27/18 05:00 Dose: 10 mg Miscellaneous (Vte Chemical Prophylaxis Screen/ Admission) 1 ea PRN PRN PRN Reason: PROTOCOL Stop: 11/23/18 13:26 Miscellaneous (Amikacin Iv Per Pharmacy) 1 ea PRN PRN PRN Reason: PROTOCOL Stop: 11/25/18 15:27 Mupirocin (Bactroban Oint) 1 appl NS BID [facility] Stop: 09/30/18 17:01 Physical Exam: 58 y/o female patient has dysphagia and will e having insert of new g-tube. General: weak HEENT: NC/AT Neck: Supple Lungs: wheezing, rales Cardiovascular: RRR, Normal S1, Normal S2 Abdomen: other (s/p g-tube, sacral decubitus ulcer stage 4) Extremities: clear Neurological: no change - Procedures Procedures: Procedures Procedure Code Date CHANGE FEEDING DEVICE IN UP INTEST TRACT, ACCOUNTS PAYABLE REPRESENTATIVE APPROACH [id number] 09/13/18 CHANGE GASTROSTOMY TUBE 52533 10/04/15 INSERT TUNNELED CV CATH [id number] 10/04/15 INSERTION OF FEEDING DEVICE INTO STOMACH, OPEN APPROACH [id number] 10/06/16 INSERTION OF INFUSION DEV INTO L SUBCLAV VEIN, PERC APPROACH [id number] 10/04/15 INSPECTION OF UPPER VEIN, PERCUTANEOUS APPROACH [id number] 10/04/15 INTRODUCTION OF NUTRITIONAL INTO PERIPH VEIN, PERC APPROACH [id number] 08/02/[address] PL[address] GASTROSTOMY TUBE 03003 10/06/16 REMOVAL OF FEEDING DEVICE FROM STOMACH, EXTERNAL APPROACH [id number] 08/02/18 RESPIRATORY VENTILATION, GREATER THAN 96 CONSECUTIVE HOURS [id number] 08/02/18 ULTRASONOGRAPHY OF LEFT SUBCLAVIAN VEIN, GUIDANCE [id number] 10/04/15 Internal Medicine Assmt/Plan - Assessment Assessment: G-tube Leakage/Malfunction. Cellulitis abdominal wall. HTN. Diabetes. Asthma. COPD. PUD. GERD. Extreme contractures. History of Anemia. History of UTI. - Plan Plan: Continuation of care. GI consult requested. Monitor Labs, Monitor Hemoglobin levels. Continue present meds as directed. Respiratory treatments and Pulmonary support prn. Supplemental Oxygen prn. Aspiration precaution. Deep suctioning prn. Monitor Diet/Nutritional support/Continue PEG tube feedings. PEG tube and Trach care. Monitor mental status progression. Monitor behavioral health status. Pain Management. Physical therapy. Occupational therapy. Safety precaution. Supportive care. Fall precaution, frequent nursing rounds, and as needed restraints to prevent fall. Continue collaborating with consulting specialists, case management and nursing team. Will Monitor patient and continue current treatment plan as ordered. 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 Per nurse note, glucerna 1.2 initiated at 60ml /hr in the afternoon, no residual noted. Current Diet Order/ Nutrition Support glucerna 1.2 at 60m, Pertinent Medications vit C, D5-0.45ns, colace, lantus, humalog, reglan Pertinent Labs 09/24 Na 154, K 3.2, Cl 111, Cr 0.3, Glucose 196, POC 185-224 , Alb 2.8 09/23 Na 150, K 3.2, Cr 0.3, Glucose 149 Nutritional Hx/Data Height 1.52 m Height (Calculated Centimeters) 152.4 Current Weight (lbs) 41.277 kg Weight (Calculated Kilograms) 41.3 Weight (Calculated Grams) 28632.9 [place] Body Weight 100 Body Mass Index (BMI) 17.7 Weight Status Underweight GI Symptoms GI Symptoms None Last BM not indicated Difficult in: None Skin Integrity/Comment: pressure ulcer to sacro/coccyx Estimated Nutritional Goals BEE in Kcals: Using Current wt Calories/Kcals/Kg 30-35 Kcals Calculated 9089-1074 Protein: Using Current wt Protein g/k.2-1.4 Protein Calculated 49-57 Fluid: ml 1230-1435ml (1ml/kcal) Nutritional Problem 1. Problem Problem increased nutrition needs Etiology impaired skin integrity Signs/Symptoms: pressure ulcer Intervention/Recommendation Comments 1. Recommend Glucerna 1.2 at 60ml/hr x 16hr to meet nutritional needs. It will provide 1152kcal, 57g protein and 773ml free water. 2. Monitor TF rate, tolerance, wt, skin integrity and labs 3. F/U as high risk in 2-3 days Expected Outcomes/Goals Expected Outcomes/Goals 1. Pt to meet at least 90% of nutritional needs via nutrition support with tolerance 2. Wt stability, skin to remain intact, labs to approach WNL.
[2018-09-28] MEDS: Albuterol/Ipratropium Neb 3 ML AERS HHN SCH ×4 (02:12→19:34)
--- NOTE | 2018-09-28 03:12 | Consultation ---
DATE OF CONSULTATION: 09/27/2018 INFECTIOUS DISEASE CONSULTATION REFERRING PHYSICIAN: Dr. Dietz. REASON FOR CONSULTATION: UTI, sacral decubitus ulcer infected, and pneumonia. 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 At this time, she was brought to the ER for G-tube malfunction. She was found to have infected sacral decubitus ulcer. Surgical consultation was called. On initial evaluation, the patient's temperature was 97.6 degrees Fahrenheit and WBC count was 16,700. Sepsis workup was performed. Chest x-ray, right lower lobe infiltrate. There is already erythema surrounding the G-tube site. PAST MEDICAL HISTORY: As mentioned above. ALLERGIES: THE PATIENT IS ALLERGIC TO PENICILLIN AND ZOSYN. I started meropenem without any problems. MEDICATIONS: As per medication reconciliation sheet. Antibiotic vizcarra, the patient is receiving Amikacin. FAMILY HISTORY: Unknown. SOCIAL HISTORY: The patient lives at subacute facility, now [facility]. There is no history of smoking, alcohol or drug use. REVIEW OF SYSTEMS: The patient unable to give any history. The patient has no fever. PHYSICAL EXAMINATION: VITAL SIGNS: Temperature 97.4, pulse 99, respirations 19, blood pressure 104/77. GENERAL: The patient is cachectic, not in acute distress, on T-bar oxygen. HEENT: Head is normocephalic, atraumatic. Oral cavity moist. [place] tongue. EYES: No pallor. No icterus. PERRLA, EOMI. NECK: Supple. No JVD. No carotid bruit. Trachea in midline. CHEST: Bilateral breath sounds. No crackles or wheezing. HEART: S1, S2 within normal limits. Regular rhythm. No murmur, no gallop. ABDOMEN: Soft, nontender, nondistended. Bowel sounds present. G-tube site is showing surrounding excoriation. There is erythema present all over the abdomen. G-tube is in place. There were some surgical scars of supraclavicular approach. EXTREMITIES: No cyanosis, no clubbing, no edema. The patient has severe flexion contractures. BACK: In the back, the patient has a large sacral decubitus ulcer stage 4 with some pus present. CENTRAL NERVOUS SYSTEM: Alert, awake. LABORATORY DATA: Lab vizcarra, current lab shows WBC count 10,000, hemoglobin 11.6, hematocrit 36.5, platelets are 274,000, neutrophil is 72.2%. Sodium 141, potassium 3.2, chloride 107, bicarbonate is 27.6, BUN is 10, creatinine 0.2, glucose is 207. Urine shows a large ____ with no urinalysis available. Urine culture grew Klebsiella pneumoniae, multidrug-resistant. Coccyx wound culture grew Pseudomonas aeruginosa, Proteus mirabilis. Blood culture 2 sets are negative. Chest x-ray, right lower lobe infiltrate and effusion. IMPRESSION: 1. Recurrent urinary tract infections, at this time ESBL, CRE Klebsiella pneumoniae. 2. G-tube leak with abdominal wall cellulitis and excoriation. 3. Leukocytosis, improved. 4. Chronic obstructive pulmonary disease. 5. Respiratory failure, on T-bar oxygen. 6. Sacral decubitus ulcer stage 4, mildly infected. 7 History of multidrug-resistant organism infection and colonization in the past. 8. Dysphagia, G-tube placement, G-tube malfunction and surrounding erythema. 9. Cerebrovascular accident. 10. Anemia of chronic disease. 11. Protein-calorie malnutrition. 12. History of multiple infections in the past. 13. Pneumonia. RECOMMENDATIONS: continue amikacin at this time for 10 days. Wound care. Thank you, Dr Dietz for involving me in taking care of this patient. JOB# [id number] RYNE
[2018-09-28] MEDS: Metoclopramide 5 mg/mL 2mL Vial IVP SCH ×3 (05:46→20:53)
[2018-09-28] MEDS: D5-0.45NS 1,000 ML IV SCH (05:47)
[2018-09-28] MEDS: INSULIN LISPRO SLIDING SCALE 100 UNITS/ML UNIT SUBQ SCH ×4 (05:50→23:53)
[2018-09-28 08:03] LABS: % BASOPHILS 0.4 % (0.0-2.0); % EOSINOPHILS 2.6 % (0.0-5.0); % LYMPHOCYTES 31.7 % (20.0-50.0); % NEUTROPHILS 62.3 % (40.0-80.0); EOSINOPHILE ABSOLUTE 0.2 Th/cmm (0.1-0.4); HEMATOCRIT 34.3 % (41.0-60); HEMOGLOBIN 11.1 gm/dL (12-16); LYMPHOCYTE ABSOLUTE 2.9 Th/cmm (1.5-3.0); MEAN CELL VOLUME 77.5 fl (81-100); MEAN CORPUSCULAR HEMOGLOBIN 25.2 pg (27.0-31.0); MEAN CORPUSCULAR HGB CONC 32.5 pg (28.0-36.0); MONOCYTE ABSOLUTE 0.3 Th/cmm (0.3-1.0); NEUTROPHILE ABSOLUTE 5.9 Th/cmm (1.8-8.0); PLATELET COUNT 217 Th/cmm (150-400); RED BLOOD COUNT 4.42 Mil/cmm (3.80-5.10); RED CELL DISTRIBUTION WIDTH 16.3 % (11.5-20.0); WHITE BLOOD COUNT 9.3 Th/cmm (4.8-10.8)
[2018-09-28 08:16] LABS: ANION GAP 9.8 (7.0-16.0); BUN - UREA NITROGEN 8 mg/dL (7-25); CALCIUM SERUM 8.7 mg/dL (8.6-10.3); CARBON DIOXIDE 28.7 mEq/L (21.0-31.0); CHLORIDE 104 mEq/L (98-107); CREATININE - SERUM 0.2 mg/dL (0.6-1.2); GFR AFRICAN-AMERICAN > 60.0 ml/min (>90); GFR NON AFRICAN-AMERICAN > 60.0 ml/min; GLUCOSE 89 mg/dL (70-105); POTASSIUM SERUM 3.5 mEq/L (3.5-5.1); SODIUM SERUM 139 mEq/L (136-145)
[2018-09-28] MEDS: AMIKACIN IV SCH ×2 (08:56→20:56)
[2018-09-28] MEDS: SODIUM CHLORIDE 0.9% IV SCH ×2 (08:56→20:56)
[2018-09-28] MEDS: Insulin Glargine 100 units/ml 10ml Vial SUBQ SCH ×2 (08:57→16:34)
[2018-09-28] MEDS: Heparin Sod 5,000Units/ML 5,000 UNITS/ML VIAL SUBQ SCH ×2 (08:57→20:54)
[2018-09-28] MEDS: Docusate Sodium 100 mg/10 mL UD GT SCH ×2 (08:57→16:19)
[2018-09-28] MEDS: Diltiazem 30 mg Tab GT SCH ×3 (08:58→20:53)
[2018-09-28] MEDS: Venelex 60gm Tube TP SCH (09:08)
--- NOTE | 2018-09-28 12:17 | General Progress Note ---
Subjective - Review of Systems Service Date: 09/28/18 Subjective: Patient still has chronic respiratory failure with tracheostomy Objective - Results Result Diagrams: 09/28/18 07:45 09/28/18 07:45 Recent Labs: Laboratory Last Values WBC 9.3 Th/cmm (4.8-10.8) 09/28/18 07:45 RBC 4.42 Mil/cmm (3.80-5.10) 09/28/18 07:45 Hgb 11.1 gm/dL (12-16) L 09/28/18 07:45 Hct 34.3 % (41.0-60) L 09/28/18 07:45 MCV 77.5 fl (81-100) L 09/28/18 07:45 MCH 25.2 pg (27.0-31.0) L 09/28/18 07:45 MCHC Differential 32.5 pg (28.0-36.0) 09/28/18 07:45 RDW 16.3 % (11.5-20.0) 09/28/18 07:45 Plt Count 217 Th/cmm (150-400) 09/28/18 07:45 MPV 8.3 fl 09/28/18 07:45 Add Manual Diff YES 09/23/18 18:45 Neutrophils % 62.3 % (40.0-80.0) 09/28/18 07:45 Band Neutrophils % 0 % (0-10) 09/23/18 18:45 Lymphocytes % 31.7 % (20.0-50.0) 09/28/18 07:45 Monocytes % 3.0 % (2.0-10.0) 09/28/18 07:45 Eosinophils % 2.6 % (0.0-5.0) 09/28/18 07:45 Basophils % 0.4 % (0.0-2.0) 09/28/18 07:45 Neutrophils (Manual) 80 % (40-80) 09/23/18 18:45 Lymphocytes 15 % (20-50) L 09/23/18 18:45 Monocytes 4 % (2-10) 09/23/18 18:45 Eosinophils 1 % (0-5) 09/23/18 18:45 Basophils 0 % (0-3) 09/23/18 18:45 Platelet Estimate INCREASED PLATELETS (NORMAL) 09/23/18 18:45 Microcytosis 1+ 09/23/18 18:45 Smear Path Review 09/23/18 18:45 PT 11.4 SECONDS (9.5-11.5) 09/23/18 18:45 INR 1.11 (0.5-1.4) 09/23/18 18:45 PTT (Actin FS) 28.0 SECONDS (26.0-38.0) 09/23/18 18:45 Sodium 139 mEq/L (136-145) 09/28/18 07:45 Potassium 3.5 mEq/L (3.5-5.1) 09/28/18 07:45 Chloride 104 mEq/L (98-107) 09/28/18 07:45 Carbon Dioxide 28.7 mEq/L (21.0-31.0) 09/28/18 07:45 Anion Gap 9.8 (7.0-16.0) 09/28/18 07:45 BUN 8 mg/dL (7-25) 09/28/18 07:45 Creatinine 0.2 mg/dL (0.6-1.2) L 09/28/18 07:45 Est GFR ( Amer) > 60.0 ml/min (>90) 09/28/18 07:45 Est GFR (Non-Af Amer) > 60.0 ml/min 09/28/18 07:45 BUN/Creatinine Ratio 40.0 09/28/18 07:45 Glucose 89 mg/dL (70-105) 09/28/18 07:45 POC Glucose 96 MG/DL (70 - 105) 09/28/18 11:28 Whole Bld Lactic Acid 1.00 mmol/L (0.60-1.99) 09/23/18 22:38 Calcium 8.7 mg/dL (8.6-10.3) 09/28/18 07:45 Total Bilirubin 0.2 mg/dL (0.3-1.0) L 09/26/18 20:25 AST 12 U/L (13-39) L 09/26/18 20:25 ALT 10 U/L (7-52) 09/26/18 20:25 Alkaline Phosphatase 176 U/L (34-104) H 09/26/18 20:25 Total Protein 6.7 gm/dL (6.0-8.3) 09/26/18 20:25 Albumin 2.6 gm/dL (3.7-5.3) L 09/26/18 20:25 Globulin 4.1 gm/dL 09/26/18 20:25 Albumin/Globulin Ratio 0.6 (1.0-1.8) L 09/26/18 20:25 - Physical Exam Vitals and I&O: Vital Signs Temp 97.1 F 09/28/18 07:48 Pulse 82 09/28/18 08:58 Resp 18 09/28/18 12:03 BP 103/66 09/28/18 07:48 Pulse Ox 96 09/28/18 07:48 Intake & Output 09/27/18 09/28/18 09/28/18 18:59 06:59 18:59 Intake Total 1470.487 747.153 Output Total 950 Balance 1470.487 -202.847 Weight (lbs) 46.266 kg Intake: Intake, IV Amount 1470.487 747.153 Amikacin 330 mg In Sodium 101.32 101.32 Chloride 0.9% 100 ml @ 101.32 mls/hr IV Q12HR [facility] Rx#:[id number] D5-0.45NS 1,000 ml @ 50 1369.167 645.833 mls/hr IV .Q20H [facility] Rx#: [id number] Output: Urine 950 Other: Stool Characteristics Soft Soft Soft Weight Source Bedscale Active Medications: Current Medications Acetaminophen (Tylenol 650mg/20.3ml Suspension) 650 mg GT Q6H PRN PRN Reason: MILD PAIN OR FEVER >100.4 Albuterol/Ipratropium (Duoneb Neb) 3 ml HHN Q6HRT [facility] Stop: 11/23/18 00:00 Last Admin: 09/28/18 07:19 Dose: 3 ml Albuterol/Ipratropium (Duoneb Neb) 3 ml HHN Q2HRT PRN PRN Reason: Wheezing Stop: 11/22/18 23:14 Ascorbic Acid (Vitamin C) 500 mg GT DAILY [facility] Stop: 11/23/18 08:59 Last Admin: 09/28/18 08:57 Dose: 500 mg Calamine/Phenol (Calmoseptine) 1 appl TP QID PRN PRN Reason: Skin Irritation Stop: 11/23/18 16:36 [place] Oil/[place] Balsam/Trypsin (Venelex) 1 appl TP DAILY [facility] Stop: 11/24/18 08:59 Last Admin: 09/28/18 09:08 Dose: 1 appl Dextrose (D50w) 50 ml IVP PRN PRN PRN Reason: Blood Glucose less than 70 Stop: 11/22/18 23:11 Dextrose (Glutose 40%) 18.75 gm PO PRN PRN PRN Reason: Blood Glucose less than 70 Stop: 11/22/18 23:11 Diltiazem HCl (Cardizem) 60 mg GT TID [facility] Stop: 11/23/18 08:59 Last Admin: 09/28/18 08:58 Dose: 60 mg Docusate Sodium (Colace) 100 mg GT BID [facility] Stop: 11/23/18 08:59 Last Admin: 09/28/18 08:57 Dose: 100 mg Glucagon (Glucagen) 1 mg IM PRN PRN PRN Reason: Blood Glucose less than 70 Stop: 11/22/18 23:11 Heparin Sodium (Porcine) (Heparin) 5,000 units SUBQ Q12H [facility] Stop: 11/23/18 20:59 Last Admin: 09/28/18 08:57 Dose: 5,000 units Dextrose/Sodium Chloride (D5-0.45ns) 1,000 mls @ 50 mls/hr IV .Q20H [facility] Stop: 11/22/18 22:23 Last Admin: 09/28/18 05:47 Dose: 50 mls/hr Amikacin Sulfate 330 mg/ (Sodium Chloride) 101.32 mls @ 101.32 mls/hr IV Q12HR [facility] Stop: 11/26/18 08:59 Last Admin: 09/28/18 08:56 Dose: 101.32 mls/hr Insulin Glargine (Lantus Insulin) 10 units SUBQ BID [facility] Stop: 11/23/18 08:59 Last Admin: 09/28/18 08:57 Dose: 10 units Insulin Human Lispro (Humalog Insulin Sliding Scale) 0 units SUBQ Q6HR [facility]; Protocol Stop: 11/23/18 00:00 Last Admin: 09/28/18 11:32 Dose: Not Given Metoclopramide HCl (Reglan) 10 mg IVP Q8HR [facility] Stop: 11/23/18 12:59 Last Admin: 09/28/18 11:59 Dose: 10 mg Miscellaneous (Vte Chemical Prophylaxis Screen/ Admission) 1 ea MC PRN PRN PRN Reason: PROTOCOL Stop: 11/23/18 13:26 Miscellaneous (Amikacin Iv Per Pharmacy) 1 ea MC PRN PRN PRN Reason: PROTOCOL Stop: 11/25/18 15:27 Mupirocin (Bactroban Oint) 1 appl NS Q12HR [facility] Stop: 10/02/18 09:01 Last Admin: 09/28/18 10:01 Dose: 1 appl General: No acute distress Cardiovascular: Regular rate, Normal S1, Normal S2 Lungs: Clear to auscultation Abdomen: Bowel sounds, Soft, Other (G-tube in place with a colostomy bag), no Tender Extremities: Other (contractures of both extremities) - Procedures Procedures: Procedures Procedure Code Date CHANGE FEEDING DEVICE IN UP INTEST TRACT, ENTRY LEVEL SALES CONSULTANT APPROACH [id number] 09/13/18 CHANGE GASTROSTOMY TUBE 68589 10/04/15 INSERT TUNNELED CV CATH 60174 10/04/15 INSERTION OF FEEDING DEVICE INTO STOMACH, OPEN APPROACH [id number] 10/06/16 INSERTION OF INFUSION DEV INTO L SUBCLAV VEIN, PERC APPROACH [id number] 10/04/15 INSPECTION OF UPPER VEIN, PERCUTANEOUS APPROACH [id number] 10/04/15 INTRODUCTION OF NUTRITIONAL INTO PERIPH VEIN, PERC APPROACH [id number] 08/02/[address] PLACE GASTROSTOMY TUBE 21155 10/06/16 REMOVAL OF FEEDING DEVICE FROM STOMACH, EXTERNAL APPROACH [id number] 08/02/18 RESPIRATORY VENTILATION, GREATER THAN 96 CONSECUTIVE HOURS [id number] 08/02/18 ULTRASONOGRAPHY OF LEFT SUBCLAVIAN VEIN, GUIDANCE [id number] 10/04/15 Assessment/Plan - Assessment Assessment: Sacral decubitus ulcer stage IV Chronic respiratory failure with tracheostomy G-tube protein calorie malnutrition Diabetes mellitus type 2 COPD Asthma Peptic ulcer GERD Contracture of the extremities 9 deficiency anemia Urinary tract infection - Plan Plan: Continue present management patient cleared for surgery Nutritional Asmnt/Malnutr-PDOC - Dietary Evaluation Malnutrition Findings (Please click <Entered> for more info): Nutritional Asmnt/Malnutrition Start: 09/24/18 15: 59 Text: Status: Complete Freq: Protocol: Document 09/24/18 15:59 LCHENG (Rec: 09/24/18 16:19 [facility] [email or web address]) Nutritional Asmnt/Malnutrition Patient General Information Nutritional Screening High Risk Consult Diagnosis GI site cellulitis Pertinent Medical Hx/Surgical Hx HTN, DM asthma/COPD, PUD/GERD, 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 Per nurse note, glucerna 1.2 initiated at 60ml /hr in the afternoon, no residual noted. Current Diet Order/ Nutrition Support glucerna 1.2 at 60m, Pertinent Medications vit C, D5-0.45ns, colace, lantus, humalog, reglan Pertinent Labs 09/24 Na 154, K 3.2, Cl 111, Cr 0.3, Glucose 196, POC 185-224 , Alb 2.8 09/23 Na 150, K 3.2, Cr 0.3, Glucose 149 Nutritional Hx/Data Height 1.52 m Height (Calculated Centimeters) 152.4 Current Weight (lbs) 41.277 kg Weight (Calculated Kilograms) 41.3 Weight (Calculated Grams) 50309.9 [place] Body Weight 100 Body Mass Index (BMI) 17.7 Weight Status Underweight GI Symptoms GI Symptoms None Last BM not indicated Difficult in: None Skin Integrity/Comment: pressure ulcer to sacro/coccyx Estimated Nutritional Goals BEE in Kcals: Using Current wt Calories/Kcals/Kg 30-35 Kcals Calculated 4019-1825 Protein: Using Current wt Protein g/k.2-1.4 Protein Calculated 49-57 Fluid: ml 1230-1435ml (1ml/kcal) Nutritional Problem 1. Problem Problem increased nutrition needs Etiology impaired skin integrity Signs/Symptoms: pressure ulcer Intervention/Recommendation Comments 1. Recommend Glucerna 1.2 at 60ml/hr x 16hr to meet nutritional needs. It will provide 1152kcal, 57g protein and 773ml free water. 2. Monitor TF rate, tolerance, wt, skin integrity and labs 3. F/U as high risk in 2-3 days Expected Outcomes/Goals Expected Outcomes/Goals 1. Pt to meet at least 90% of nutritional needs via nutrition support with tolerance 2. Wt stability, skin to remain intact, labs to approach WNL.
--- NOTE | 2018-09-28 18:47 | Operative Report ---
DATE OF SURGERY: 09/28/2018 PROCEDURE: Change of G-tube. INDICATION FOR PROCEDURE: Malfunctioning G-tube. PREOPERATIVE DIAGNOSIS: Malfunctioning G-tube. POSTOPERATIVE DIAGNOSIS: Malfunctioning G-tube status post change to size 24. DESCRIPTION OF PROCEDURE: With the patient lying on her back, the old G-tube was deflated, pulled out of the patient's abdomen, replacement new one was tested outside, then inserted through the same hole. Balloon was inflated. G-tube was secured in place. Water was infused into the stomach aspirating it again, documenting its good position. RECOMMENDATIONS: Start feeding at 30 mL an hour. Thank you Dr. Dietz for allowing me to participate in the care of the patient. If you have any further questions, please let me know. JOB# [id number]
--- NOTE | 2018-09-28 23:13 | Internal Medicine Prog Note ---
Internal Medicine Subjective - Subjective Service Date: 09/28/18 Patient seen and examined:: with staff, chart reviewed Patient is:: awake, stares blankly, other (pt has been cleared for debridement.) Patient Complaints of:: cough (pt is cleared for debridement ), other (leaking g -tube.) Per staff patient has:: no adverse event, no episodes of fall Internal Medicine Objective - Results Result Diagrams: 09/29/18 05:00 09/29/18 05:00 Recent Labs: Laboratory Last Values WBC 9.3 Th/cmm (4.8-10.8) 09/28/18 07:45 RBC 4.42 Mil/cmm (3.80-5.10) 09/28/18 07:45 Hgb 11.1 gm/dL (12-16) L 09/28/18 07:45 Hct 34.3 % (41.0-60) L 09/28/18 07:45 MCV 77.5 fl (81-100) L 09/28/18 07:45 MCH 25.2 pg (27.0-31.0) L 09/28/18 07:45 MCHC Differential 32.5 pg (28.0-36.0) 09/28/18 07:45 RDW 16.3 % (11.5-20.0) 09/28/18 07:45 Plt Count 217 Th/cmm (150-400) 09/28/18 07:45 MPV 8.3 fl 09/28/18 07:45 Add Manual Diff YES 09/23/18 18:45 Neutrophils % 62.3 % (40.0-80.0) 09/28/18 07:45 Band Neutrophils % 0 % (0-10) 09/23/18 18:45 Lymphocytes % 31.7 % (20.0-50.0) 09/28/18 07:45 Monocytes % 3.0 % (2.0-10.0) 09/28/18 07:45 Eosinophils % 2.6 % (0.0-5.0) 09/28/18 07:45 Basophils % 0.4 % (0.0-2.0) 09/28/18 07:45 Neutrophils (Manual) 80 % (40-80) 09/23/18 18:45 Lymphocytes 15 % (20-50) L 09/23/18 18:45 Monocytes 4 % (2-10) 09/23/18 18:45 Eosinophils 1 % (0-5) 09/23/18 18:45 Basophils 0 % (0-3) 09/23/18 18:45 Platelet Estimate INCREASED PLATELETS (NORMAL) 09/23/18 18:45 Microcytosis 1+ 09/23/18 18:45 Smear Path Review 09/23/18 18:45 PT 11.4 SECONDS (9.5-11.5) 09/23/18 18:45 INR 1.11 (0.5-1.4) 09/23/18 18:45 PTT (Actin FS) 28.0 SECONDS (26.0-38.0) 09/23/18 18:45 Sodium 139 mEq/L (136-145) 09/28/18 07:45 Potassium 3.5 mEq/L (3.5-5.1) 09/28/18 07:45 Chloride 104 mEq/L (98-107) 09/28/18 07:45 Carbon Dioxide 28.7 mEq/L (21.0-31.0) 09/28/18 07:45 Anion Gap 9.8 (7.0-16.0) 09/28/18 07:45 BUN 8 mg/dL (7-25) 09/28/18 07:45 Creatinine 0.2 mg/dL (0.6-1.2) L 09/28/18 07:45 Est GFR ( Amer) > 60.0 ml/min (>90) 09/28/18 07:45 Est GFR (Non-Af Amer) > 60.0 ml/min 09/28/18 07:45 BUN/Creatinine Ratio 40.0 09/28/18 07:45 Glucose 89 mg/dL (70-105) 09/28/18 07:45 POC Glucose 95 MG/DL (70 - 105) 09/28/18 16:30 Whole Bld Lactic Acid 1.00 mmol/L (0.60-1.99) 09/23/18 22:38 Calcium 8.7 mg/dL (8.6-10.3) 09/28/18 07:45 Total Bilirubin 0.2 mg/dL (0.3-1.0) L 09/26/18 20:25 AST 12 U/L (13-39) L 09/26/18 20:25 ALT 10 U/L (7-52) 09/26/18 20:25 Alkaline Phosphatase 176 U/L (34-104) H 09/26/18 20:25 Total Protein 6.7 gm/dL (6.0-8.3) 09/26/18 20:25 Albumin 2.6 gm/dL (3.7-5.3) L 09/26/18 20:25 Globulin 4.1 gm/dL 09/26/18 20:25 Albumin/Globulin Ratio 0.6 (1.0-1.8) L 09/26/18 20:25 - Physical Exam Vitals and I&O: Vital Signs Temp 98.5 F 09/28/18 20:00 Pulse 85 09/28/18 20:53 Resp 18 09/28/18 21:00 BP 101/60 09/28/18 20:00 Pulse Ox 99 09/28/18 20:00 Intake & Output 09/28/18 09/28/18 09/29/18 06:59 18:59 06:59 Intake Total 747.153 221.32 Output Total 950 800 Balance -202.847 -578.68 Weight (lbs) 46.266 kg 47.627 kg Intake: Intake, IV Amount 747.153 101.32 Amikacin 330 mg In Sodium 101.32 101.32 Chloride 0.9% 100 ml @ 101.32 mls/hr IV Q12HR ON LICENSE OF [facility] Rx#:[id number] D5-0.45NS 1,000 ml @ 50 645.833 mls/hr IV .Q20H ON LICENSE OF [facility] Rx#: [id number] Tube Feeding 120 Output: Urine 950 800 Other: # Bowel Movements 0 Stool Characteristics Soft Soft Soft Weight Source Bedscale Bedscale Active Medications: Current Medications Acetaminophen (Tylenol 650mg/20.3ml Suspension) 650 mg GT Q6H PRN PRN Reason: MILD PAIN OR FEVER >100.4 Albuterol/Ipratropium (Duoneb Neb) 3 ml HHN Q6HRT [facility] Stop: 11/23/18 00:00 Last Admin: 09/28/18 19:34 Dose: 3 ml Albuterol/Ipratropium (Duoneb Neb) 3 ml HHN Q2HRT PRN PRN Reason: Wheezing Stop: 11/22/18 23:14 Ascorbic Acid (Vitamin C) 500 mg GT DAILY ON LICENSE OF [facility] Stop: 11/23/18 08:59 Last Admin: 09/28/18 08:57 Dose: 500 mg Calamine/Phenol (Calmoseptine) 1 appl TP QID PRN PRN Reason: Skin Irritation Stop: 11/23/18 16:36 [place] Oil/[place] Balsam/Trypsin (Venelex) 1 appl TP DAILY ON LICENSE OF [facility] Stop: 11/24/18 08:59 Last Admin: 09/28/18 09:08 Dose: 1 appl Dextrose (D50w) 50 ml IVP PRN PRN PRN Reason: Blood Glucose less than 70 Stop: 11/22/18 23:11 Dextrose (Glutose 40%) 18.75 gm PO PRN PRN PRN Reason: Blood Glucose less than 70 Stop: 11/22/18 23:11 Diltiazem HCl (Cardizem) 60 mg GT TID ON LICENSE OF [facility] Stop: 11/23/18 08:59 Last Admin: 09/28/18 20:53 Dose: 60 mg Docusate Sodium (Colace) 100 mg GT BID ON LICENSE OF [facility] Stop: 11/23/18 08:59 Last Admin: 09/28/18 16:19 Dose: Not Given Glucagon (Glucagen) 1 mg IM PRN PRN PRN Reason: Blood Glucose less than 70 Stop: 11/22/18 23:11 Heparin Sodium (Porcine) (Heparin) 5,000 units SUBQ Q12H ON LICENSE OF [facility] Stop: 11/23/18 20:59 Last Admin: 09/28/18 20:54 Dose: 5,000 units Dextrose/Sodium Chloride (D5-0.45ns) 1,000 mls @ 50 mls/hr IV .Q20H ON LICENSE OF [facility] Stop: 11/22/18 22:23 Last Admin: 09/28/18 05:47 Dose: 50 mls/hr Amikacin Sulfate 330 mg/ (Sodium Chloride) 101.32 mls @ 101.32 mls/hr IV Q12HR ON LICENSE OF [facility] Stop: 11/26/18 08:59 Last Admin: 09/28/18 20:56 Dose: 101.32 mls/hr Insulin Glargine (Lantus Insulin) 10 units SUBQ BID ON LICENSE OF [facility] Stop: 11/23/18 08:59 Last Admin: 09/28/18 16:34 Dose: Not Given Insulin Human Lispro (Humalog Insulin Sliding Scale) 0 units SUBQ Q6HR ON LICENSE OF [facility]; Protocol Stop: 11/23/18 00:00 Last Admin: 09/28/18 17:02 Dose: Not Given Metoclopramide HCl (Reglan) 10 mg IVP Q8HR ON LICENSE OF [facility] Stop: 11/23/18 12:59 Last Admin: 09/28/18 20:53 Dose: 10 mg Miscellaneous (Vte Chemical Prophylaxis Screen/ Admission) 1 ea PRN PRN PRN Reason: PROTOCOL Stop: 11/23/18 13:26 Miscellaneous (Amikacin Iv Per Pharmacy) 1 ea PRN PRN PRN Reason: PROTOCOL Stop: 11/25/18 15:27 Mupirocin (Bactroban Oint) 1 appl NS Q12HR ON LICENSE OF [facility] Stop: 10/02/18 09:01 Last Admin: 09/28/18 20:53 Dose: 1 appl Physical Exam: 58 y/o female patient has dysphagia and will be having insert of new g-tube. Patient is currently having some leakage. General: weak HEENT: NC/AT Neck: Supple Lungs: wheezing, rales Cardiovascular: RRR, Normal S1, Normal S2 Abdomen: other (s/p g-tube, sacral decubitus ulcer stage 4) Extremities: clear Neurological: no change - Procedures Procedures: Procedures Procedure Code Date CHANGE FEEDING DEVICE IN UP INTEST TRACT, JOURNAL ENTRY AUDIT CLERK APPROACH [id number] 09/13/18 CHANGE GASTROSTOMY TUBE 87768 10/04/15 INSERT TUNNELED CV CATH [id number] 10/04/15 INSERTION OF FEEDING DEVICE INTO STOMACH, OPEN APPROACH [id number] 10/06/16 INSERTION OF INFUSION DEV INTO L SUBCLAV VEIN, PERC APPROACH [id number] 10/04/15 INSPECTION OF UPPER VEIN, PERCUTANEOUS APPROACH [id number] 10/04/15 INTRODUCTION OF NUTRITIONAL INTO PERIPH VEIN, PERC APPROACH [id number] 08/02/[address] PL[address] GASTROSTOMY TUBE 13290 10/06/16 REMOVAL OF FEEDING DEVICE FROM STOMACH, EXTERNAL APPROACH [id number] 08/02/18 RESPIRATORY VENTILATION, GREATER THAN 96 CONSECUTIVE HOURS [id number] 08/02/18 ULTRASONOGRAPHY OF LEFT SUBCLAVIAN VEIN, GUIDANCE [id number] 10/04/15 Internal Medicine Assmt/Plan - Assessment Assessment: G-tube Leakage/Malfunction. Cellulitis abdominal wall. HTN. Diabetes. Asthma. COPD. PUD. GERD. Extreme contractures. History of Anemia. History of UTI. - Plan Plan: Continuation of care. GI consult requested. Monitor Labs, Monitor Hemoglobin levels. Continue present meds as directed. Respiratory treatments and Pulmonary support prn. Supplemental Oxygen prn. Aspiration precaution. Deep suctioning prn. Monitor Diet/Nutritional support/Continue PEG tube feedings. PEG tube and Trach care. Monitor mental status progression. Monitor behavioral health status. Pain Management. Physical therapy. Occupational therapy. Safety precaution. Supportive care. Fall precaution, frequent nursing rounds, and as needed restraints to prevent fall. Continue collaborating with consulting specialists, case management and nursing team. Will Monitor patient and continue current treatment plan as ordered. 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 Per nurse note, glucerna 1.2 initiated at 60ml /hr in the afternoon, no residual noted. Current Diet Order/ Nutrition Support glucerna 1.2 at 60m, Pertinent Medications vit C, D5-0.45ns, colace, lantus, humalog, reglan Pertinent Labs 09/24 Na 154, K 3.2, Cl 111, Cr 0.3, Glucose 196, POC 185-224 , Alb 2.8 09/23 Na 150, K 3.2, Cr 0.3, Glucose 149 Nutritional Hx/Data Height 1.52 m Height (Calculated Centimeters) 152.4 Current Weight (lbs) 41.277 kg Weight (Calculated Kilograms) 41.3 Weight (Calculated Grams) 79794.9 [place] Body Weight 100 Body Mass Index (BMI) 17.7 Weight Status Underweight GI Symptoms GI Symptoms None Last BM not indicated Difficult in: None Skin Integrity/Comment: pressure ulcer to sacro/coccyx Estimated Nutritional Goals BEE in Kcals: Using Current wt Calories/Kcals/Kg 30-35 Kcals Calculated 4158-4435 Protein: Using Current wt Protein g/k.2-1.4 Protein Calculated 49-57 Fluid: ml 1230-1435ml (1ml/kcal) Nutritional Problem 1. Problem Problem increased nutrition needs Etiology impaired skin integrity Signs/Symptoms: pressure ulcer Intervention/Recommendation Comments 1. Recommend Glucerna 1.2 at 60ml/hr x 16hr to meet nutritional needs. It will provide 1152kcal, 57g protein and 773ml free water. 2. Monitor TF rate, tolerance, wt, skin integrity and labs 3. F/U as high risk in 2-3 days Expected Outcomes/Goals Expected Outcomes/Goals 1. Pt to meet at least 90% of nutritional needs via nutrition support with tolerance 2. Wt stability, skin to remain intact, labs to approach WNL.
[2018-09-29] MEDS: Albuterol/Ipratropium Neb 3 ML AERS HHN SCH ×4 (01:02→18:26)
--- NOTE | 2018-09-29 03:11 | Infectious Disease Prog Note ---
Infectious Disease Subjective - Review of Systems Service Date: 09/28/18 Events since last encounter: G tube was replaced. Subjective: There is no new change, no fever. Infectious Disease Objective - Results Result Diagrams: 09/28/18 07:45 09/28/18 07:45 Recent Labs: Laboratory Last Values WBC 9.3 Th/cmm (4.8-10.8) 09/28/18 07:45 RBC 4.42 Mil/cmm (3.80-5.10) 09/28/18 07:45 Hgb 11.1 gm/dL (12-16) L 09/28/18 07:45 Hct 34.3 % (41.0-60) L 09/28/18 07:45 MCV 77.5 fl (81-100) L 09/28/18 07:45 MCH 25.2 pg (27.0-31.0) L 09/28/18 07:45 MCHC Differential 32.5 pg (28.0-36.0) 09/28/18 07:45 RDW 16.3 % (11.5-20.0) 09/28/18 07:45 Plt Count 217 Th/cmm (150-400) 09/28/18 07:45 MPV 8.3 fl 09/28/18 07:45 Add Manual Diff YES 09/23/18 18:45 Neutrophils % 62.3 % (40.0-80.0) 09/28/18 07:45 Band Neutrophils % 0 % (0-10) 09/23/18 18:45 Lymphocytes % 31.7 % (20.0-50.0) 09/28/18 07:45 Monocytes % 3.0 % (2.0-10.0) 09/28/18 07:45 Eosinophils % 2.6 % (0.0-5.0) 09/28/18 07:45 Basophils % 0.4 % (0.0-2.0) 09/28/18 07:45 Neutrophils (Manual) 80 % (40-80) 09/23/18 18:45 Lymphocytes 15 % (20-50) L 09/23/18 18:45 Monocytes 4 % (2-10) 09/23/18 18:45 Eosinophils 1 % (0-5) 09/23/18 18:45 Basophils 0 % (0-3) 09/23/18 18:45 Platelet Estimate INCREASED PLATELETS (NORMAL) 09/23/18 18:45 Microcytosis 1+ 09/23/18 18:45 Smear Path Review 09/23/18 18:45 PT 11.4 SECONDS (9.5-11.5) 09/23/18 18:45 INR 1.11 (0.5-1.4) 09/23/18 18:45 PTT (Actin FS) 28.0 SECONDS (26.0-38.0) 09/23/18 18:45 Sodium 139 mEq/L (136-145) 09/28/18 07:45 Potassium 3.5 mEq/L (3.5-5.1) 09/28/18 07:45 Chloride 104 mEq/L (98-107) 09/28/18 07:45 Carbon Dioxide 28.7 mEq/L (21.0-31.0) 09/28/18 07:45 Anion Gap 9.8 (7.0-16.0) 09/28/18 07:45 BUN 8 mg/dL (7-25) 09/28/18 07:45 Creatinine 0.2 mg/dL (0.6-1.2) L 09/28/18 07:45 Est GFR ( Amer) > 60.0 ml/min (>90) 09/28/18 07:45 Est GFR (Non-Af Amer) > 60.0 ml/min 09/28/18 07:45 BUN/Creatinine Ratio 40.0 09/28/18 07:45 Glucose 89 mg/dL (70-105) 09/28/18 07:45 POC Glucose 152 MG/DL (70 - 105) H 09/28/18 23:41 Whole Bld Lactic Acid 1.00 mmol/L (0.60-1.99) 09/23/18 22:38 Calcium 8.7 mg/dL (8.6-10.3) 09/28/18 07:45 Total Bilirubin 0.2 mg/dL (0.3-1.0) L 09/26/18 20:25 AST 12 U/L (13-39) L 09/26/18 20:25 ALT 10 U/L (7-52) 09/26/18 20:25 Alkaline Phosphatase 176 U/L (34-104) H 09/26/18 20:25 Total Protein 6.7 gm/dL (6.0-8.3) 09/26/18 20:25 Albumin 2.6 gm/dL (3.7-5.3) L 09/26/18 20:25 Globulin 4.1 gm/dL 09/26/18 20:25 Albumin/Globulin Ratio 0.6 (1.0-1.8) L 09/26/18 20:25 - Physical Exam Vitals and I&O: Vital Signs Temp 98.7 F 09/29/18 00:00 Pulse 79 09/29/18 01:03 Resp 18 09/29/18 01:03 BP 97/62 09/29/18 00:00 Pulse Ox 97 09/29/18 01:03 Intake & Output 09/28/18 09/28/18 09/29/18 06:59 18:59 06:59 Intake Total 747.153 221.32 Output Total 950 800 Balance -202.847 -578.68 Weight (lbs) 46.266 kg 47.627 kg Intake: Intake, IV Amount 747.153 101.32 Amikacin 330 mg In Sodium 101.32 101.32 Chloride 0.9% 100 ml @ 101.32 mls/hr IV Q12HR [facility] Rx#:[id number] D5-0.45NS 1,000 ml @ 50 645.833 mls/hr IV .Q20H [facility] Rx#: [id number] Tube Feeding 120 Output: Urine 950 800 Other: # Bowel Movements 0 Stool Characteristics Soft Soft Soft Weight Source Bedscale Bedscale Active Medications: Current Medications Acetaminophen (Tylenol 650mg/20.3ml Suspension) 650 mg GT Q6H PRN PRN Reason: MILD PAIN OR FEVER >100.4 Albuterol/Ipratropium (Duoneb Neb) 3 ml HHN Q6HRT [facility] Stop: 11/23/18 00:00 Last Admin: 09/29/18 01:02 Dose: 3 ml Albuterol/Ipratropium (Duoneb Neb) 3 ml HHN Q2HRT PRN PRN Reason: Wheezing Stop: 11/22/18 23:14 Ascorbic Acid (Vitamin C) 500 mg GT DAILY [facility] Stop: 11/23/18 08:59 Last Admin: 09/28/18 08:57 Dose: 500 mg Calamine/Phenol (Calmoseptine) 1 appl TP QID PRN PRN Reason: Skin Irritation Stop: 11/23/18 16:36 [place] Oil/[place] Balsam/Trypsin (Venelex) 1 appl TP DAILY [facility] Stop: 11/24/18 08:59 Last Admin: 09/28/18 09:08 Dose: 1 appl Dextrose (D50w) 50 ml IVP PRN PRN PRN Reason: Blood Glucose less than 70 Stop: 11/22/18 23:11 Dextrose (Glutose 40%) 18.75 gm PO PRN PRN PRN Reason: Blood Glucose less than 70 Stop: 11/22/18 23:11 Diltiazem HCl (Cardizem) 60 mg GT TID [facility] Stop: 11/23/18 08:59 Last Admin: 09/28/18 20:53 Dose: 60 mg Docusate Sodium (Colace) 100 mg GT BID [facility] Stop: 11/23/18 08:59 Last Admin: 09/28/18 16:19 Dose: Not Given Glucagon (Glucagen) 1 mg IM PRN PRN PRN Reason: Blood Glucose less than 70 Stop: 11/22/18 23:11 Heparin Sodium (Porcine) (Heparin) 5,000 units SUBQ Q12H [facility] Stop: 11/23/18 20:59 Last Admin: 09/28/18 20:54 Dose: 5,000 units Dextrose/Sodium Chloride (D5-0.45ns) 1,000 mls @ 50 mls/hr IV .Q20H [facility] Stop: 11/22/18 22:23 Last Admin: 09/28/18 05:47 Dose: 50 mls/hr Amikacin Sulfate 330 mg/ (Sodium Chloride) 101.32 mls @ 101.32 mls/hr IV Q12HR [facility] Stop: 11/26/18 08:59 Last Admin: 09/28/18 20:56 Dose: 101.32 mls/hr Insulin Glargine (Lantus Insulin) 10 units SUBQ BID [facility] Stop: 11/23/18 08:59 Last Admin: 09/28/18 16:34 Dose: Not Given Insulin Human Lispro (Humalog Insulin Sliding Scale) 0 units SUBQ Q6HR [facility]; Protocol Stop: 11/23/18 00:00 Last Admin: 09/28/18 23:53 Dose: 2 units Metoclopramide HCl (Reglan) 10 mg IVP Q8HR [facility] Stop: 11/23/18 12:59 Last Admin: 09/28/18 20:53 Dose: 10 mg Miscellaneous (Vte Chemical Prophylaxis Screen/ Admission) 1 ea PRN PRN PRN Reason: PROTOCOL Stop: 11/23/18 13:26 Miscellaneous (Amikacin Iv Per Pharmacy) 1 [facility] PRN PRN PRN Reason: PROTOCOL Stop: 11/25/18 15:27 Mupirocin (Bactroban Oint) 1 appl NS Q12HR [facility] Stop: 10/02/18 09:01 Last Admin: 09/28/18 20:53 Dose: 1 appl General: no acute distress, cachectic HEENT: atraumatic, normocephalic, PERRLA, EOMI Neck: supple, no thyromegaly Cardiovascular: S1S2, regular Lungs: clear to auscultation bilaterally, clear to percussion Abdomen: soft, no tender, no distended, no mass Extremities: no cyanosis, no clubbing, no edema Neurological: awake, alert Skin: other (sacral stage 4 ulcer.) - Procedures Procedures: Procedures Procedure Code Date CHANGE FEEDING DEVICE IN UP INTEST TRACT, CHIMNEY BUILDER APPROACH [id number] 09/13/18 CHANGE GASTROSTOMY TUBE 19424 10/04/15 INSERT TUNNELED CV CATH [id number] 10/04/15 INSERTION OF FEEDING DEVICE INTO STOMACH, OPEN APPROACH [id number] 10/06/16 INSERTION OF INFUSION DEV INTO L SUBCLAV VEIN, PERC APPROACH [id number] 10/04/15 INSPECTION OF UPPER VEIN, PERCUTANEOUS APPROACH [id number] 10/04/15 INTRODUCTION OF NUTRITIONAL INTO PERIPH VEIN, PERC APPROACH [id number] 08/02/[address] PLACE GASTROSTOMY TUBE 20868 10/06/16 REMOVAL OF FEEDING DEVICE FROM STOMACH, EXTERNAL APPROACH [id number] 08/02/18 RESPIRATORY VENTILATION, GREATER THAN 96 CONSECUTIVE HOURS [id number] 08/02/18 ULTRASONOGRAPHY OF LEFT SUBCLAVIAN VEIN, GUIDANCE [id number] 10/04/15 Infectious Disease Assmt/Plan - Assessment Assessment: 1. Pneumonia, HAP. 2. Infected sacral decubitus ulcer. 3. Protein calorie malnutrition. 4. UTI. 4. Malfunctioning G tube : was replaced today. 5. COPD. 6. Respiratory failure with T bar. 7. Abd wall cellultis. 8. - Plan Plan: Continue Amikacin for 10 days more.. WOund care. 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 Per nurse note, glucerna 1.2 initiated at 60ml /hr in the afternoon, no residual noted. Current Diet Order/ Nutrition Support glucerna 1.2 at 60m, Pertinent Medications vit C, D5-0.45ns, colace, lantus, humalog, reglan Pertinent Labs 09/24 Na 154, K 3.2, Cl 111, Cr 0.3, Glucose 196, POC 185-224 , Alb 2.8 09/23 Na 150, K 3.2, Cr 0.3, Glucose 149 Nutritional Hx/Data Height 1.52 m Height (Calculated Centimeters) 152.4 Current Weight (lbs) 41.277 kg Weight (Calculated Kilograms) 41.3 Weight (Calculated Grams) 01007.9 [place] Body Weight 100 Body Mass Index (BMI) 17.7 Weight Status Underweight GI Symptoms GI Symptoms None Last BM not indicated Difficult in: None Skin Integrity/Comment: pressure ulcer to sacro/coccyx Estimated Nutritional Goals BEE in Kcals: Using Current wt Calories/Kcals/Kg 30-35 Kcals Calculated 9523-5128 Protein: Using Current wt Protein g/k.2-1.4 Protein Calculated 49-57 Fluid: ml 1230-1435ml (1ml/kcal) Nutritional Problem 1. Problem Problem increased nutrition needs Etiology impaired skin integrity Signs/Symptoms: pressure ulcer Intervention/Recommendation Comments 1. Recommend Glucerna 1.2 at 60ml/hr x 16hr to meet nutritional needs. It will provide 1152kcal, 57g protein and 773ml free water. 2. Monitor TF rate, tolerance, wt, skin integrity and labs 3. F/U as high risk in 2-3 days Expected Outcomes/Goals Expected Outcomes/Goals 1. Pt to meet at least 90% of nutritional needs via nutrition support with tolerance 2. Wt stability, skin to remain intact, labs to approach WNL.
[2018-09-29 05:17] LABS: % BASOPHILS 0.1 % (0.0-2.0); % EOSINOPHILS 2.4 % (0.0-5.0); % LYMPHOCYTES 30.1 % (20.0-50.0); % MONOCYTES 3.7 % (2.0-10.0); % NEUTROPHILS 63.7 % (40.0-80.0); EOSINOPHILE ABSOLUTE 0.2 Th/cmm (0.1-0.4); HEMATOCRIT 34.8 % (41.0-60); HEMOGLOBIN 11.3 gm/dL (12-16); LYMPHOCYTE ABSOLUTE 2.3 Th/cmm (1.5-3.0); MEAN CELL VOLUME 76.5 fl (81-100); MEAN CORPUSCULAR HEMOGLOBIN 24.9 pg (27.0-31.0); MEAN CORPUSCULAR HGB CONC 32.6 pg (28.0-36.0); MONOCYTE ABSOLUTE 0.3 Th/cmm (0.3-1.0); NEUTROPHILE ABSOLUTE 4.9 Th/cmm (1.8-8.0); RED BLOOD COUNT 4.55 Mil/cmm (3.80-5.10); RED CELL DISTRIBUTION WIDTH 16.7 % (11.5-20.0); WHITE BLOOD COUNT 7.7 Th/cmm (4.8-10.8)
[2018-09-29 05:23] LABS: PLATELET COUNT 316 Th/cmm (150-400)
[2018-09-29 05:47] LABS: ALB/GLOB RATIO 0.6 (1.0-1.8); ALBUMIN 2.5 gm/dL (3.7-5.3); ALKALINE PHOSPHATASE 134 U/L (34-104); ANION GAP 12.1 (7.0-16.0); BILIRUBIN,TOTAL 0.2 mg/dL (0.3-1.0); BUN - UREA NITROGEN 6 mg/dL (7-25); CALCIUM SERUM 8.8 mg/dL (8.6-10.3); CARBON DIOXIDE 26.4 mEq/L (21.0-31.0); CHLORIDE 104 mEq/L (98-107); CREATININE - SERUM 0.2 mg/dL (0.6-1.2); GFR AFRICAN-AMERICAN > 60.0 ml/min (>90); GFR NON AFRICAN-AMERICAN > 60.0 ml/min; GLUCOSE 159 mg/dL (70-105); POTASSIUM SERUM 3.5 mEq/L (3.5-5.1); SGOT 14 U/L (13-39); SGPT/ALT 10 U/L (7-52); SODIUM SERUM 139 mEq/L (136-145); TOTAL PROTEIN,SERUM 6.5 gm/dL (6.0-8.3)
[2018-09-29] MEDS: Metoclopramide 5 mg/mL 2mL Vial IVP SCH ×3 (06:13→22:28)
[2018-09-29] MEDS: INSULIN LISPRO SLIDING SCALE 100 UNITS/ML UNIT SUBQ SCH ×4 (06:15→22:28)
--- NOTE | 2018-09-29 08:46 | GI Progress Note ---
Subjective - Review of Systems Service Date: 09/29/18 Events since last encounter: S/P change G tube to size 24 Fr Subjective: Leaking G tube but much better Objective - Results Result Diagrams: 09/29/18 05:00 09/29/18 05:00 Recent Labs: Laboratory Last Values WBC 7.7 Th/cmm (4.8-10.8) 09/29/18 05:00 RBC 4.55 Mil/cmm (3.80-5.10) 09/29/18 05:00 Hgb 11.3 gm/dL (12-16) L 09/29/18 05:00 Hct 34.8 % (41.0-60) L 09/29/18 05:00 MCV 76.5 fl (81-100) L 09/29/18 05:00 MCH 24.9 pg (27.0-31.0) L 09/29/18 05:00 MCHC Differential 32.6 pg (28.0-36.0) 09/29/18 05:00 RDW 16.7 % (11.5-20.0) 09/29/18 05:00 Plt Count 316 Th/cmm (150-400) D 09/29/18 05:00 MPV 7.8 fl 09/29/18 05:00 Add Manual Diff YES 09/23/18 18:45 Neutrophils % 63.7 % (40.0-80.0) 09/29/18 05:00 Band Neutrophils % 0 % (0-10) 09/23/18 18:45 Lymphocytes % 30.1 % (20.0-50.0) 09/29/18 05:00 Monocytes % 3.7 % (2.0-10.0) 09/29/18 05:00 Eosinophils % 2.4 % (0.0-5.0) 09/29/18 05:00 Basophils % 0.1 % (0.0-2.0) 09/29/18 05:00 Neutrophils (Manual) 80 % (40-80) 09/23/18 18:45 Lymphocytes 15 % (20-50) L 09/23/18 18:45 Monocytes 4 % (2-10) 09/23/18 18:45 Eosinophils 1 % (0-5) 09/23/18 18:45 Basophils 0 % (0-3) 09/23/18 18:45 Platelet Estimate INCREASED PLATELETS (NORMAL) 09/23/18 18:45 Microcytosis 1+ 09/23/18 18:45 Smear Path Review 09/23/18 18:45 PT 11.4 SECONDS (9.5-11.5) 09/23/18 18:45 INR 1.11 (0.5-1.4) 09/23/18 18:45 PTT (Actin FS) 28.0 SECONDS (26.0-38.0) 09/23/18 18:45 Sodium 139 mEq/L (136-145) 09/29/18 05:00 Potassium 3.5 mEq/L (3.5-5.1) 09/29/18 05:00 Chloride 104 mEq/L (98-107) 09/29/18 05:00 Carbon Dioxide 26.4 mEq/L (21.0-31.0) 09/29/18 05:00 Anion Gap 12.1 (7.0-16.0) 09/29/18 05:00 BUN 6 mg/dL (7-25) L 09/29/18 05:00 Creatinine 0.2 mg/dL (0.6-1.2) L 09/29/18 05:00 Est GFR ( Amer) > 60.0 ml/min (>90) 09/29/18 05:00 Est GFR (Non-Af Amer) > 60.0 ml/min 09/29/18 05:00 BUN/Creatinine Ratio 30.0 09/29/18 05:00 Glucose 159 mg/dL (70-105) H 09/29/18 05:00 POC Glucose 193 MG/DL (70 - 105) H 09/29/18 08:01 Whole Bld Lactic Acid 1.00 mmol/L (0.60-1.99) 09/23/18 22:38 Calcium 8.8 mg/dL (8.6-10.3) 09/29/18 05:00 Total Bilirubin 0.2 mg/dL (0.3-1.0) L 09/29/18 05:00 AST 14 U/L (13-39) 09/29/18 05:00 ALT 10 U/L (7-52) 09/29/18 05:00 Alkaline Phosphatase 134 U/L (34-104) H 09/29/18 05:00 Total Protein 6.5 gm/dL (6.0-8.3) 09/29/18 05:00 Albumin 2.5 gm/dL (3.7-5.3) L 09/29/18 05:00 Globulin 4.0 gm/dL 09/29/18 05:00 Albumin/Globulin Ratio 0.6 (1.0-1.8) L 09/29/18 05:00 - Physical Exam Vitals and I&O: Vital Signs Temp 96.9 F 09/29/18 07:26 Pulse 91 09/29/18 07:26 Resp 18 09/29/18 07:26 BP 97/59 09/29/18 07:26 Pulse Ox 99 09/29/18 07:26 Intake & Output 09/28/18 09/29/18 09/29/18 18:59 06:59 18:59 Intake Total 221.32 Output Total 800 750 Balance -578.68 -750 Weight (lbs) 47.627 kg 46.221 kg Intake: Intake, IV Amount 101.32 Amikacin 330 mg In Sodium 101.32 Chloride 0.9% 100 ml @ 101.32 mls/hr IV Q12HR [facility] Rx#:[id number] Tube Feeding 120 Output: Urine 800 750 Other: # Bowel Movements 0 0 Stool Characteristics Soft Soft Weight Source Bedscale Bedscale Active Medications: Current Medications Acetaminophen (Tylenol 650mg/20.3ml Suspension) 650 mg GT Q6H PRN PRN Reason: MILD PAIN OR FEVER >100.4 Albuterol/Ipratropium (Duoneb Neb) 3 ml HHN Q6HRT [facility] Stop: 11/23/18 00:00 Last Admin: 09/29/18 07:01 Dose: 3 ml Albuterol/Ipratropium (Duoneb Neb) 3 ml HHN Q2HRT PRN PRN Reason: Wheezing Stop: 11/22/18 23:14 Ascorbic Acid (Vitamin C) 500 mg GT DAILY [facility] Stop: 11/23/18 08:59 Last Admin: 09/28/18 08:57 Dose: 500 mg Calamine/Phenol (Calmoseptine) 1 appl TP QID PRN PRN Reason: Skin Irritation Stop: 11/23/18 16:36 [place] Oil/[place] Balsam/Trypsin (Venelex) 1 appl TP DAILY [facility] Stop: 11/24/18 08:59 Last Admin: 09/28/18 09:08 Dose: 1 appl Dextrose (D50w) 50 ml IVP PRN PRN PRN Reason: Blood Glucose less than 70 Stop: 11/22/18 23:11 Dextrose (Glutose 40%) 18.75 gm PO PRN PRN PRN Reason: Blood Glucose less than 70 Stop: 11/22/18 23:11 Diltiazem HCl (Cardizem) 60 mg GT TID [facility] Stop: 11/23/18 08:59 Last Admin: 09/28/18 20:53 Dose: 60 mg Docusate Sodium (Colace) 100 mg GT BID [facility] Stop: 11/23/18 08:59 Last Admin: 09/28/18 16:19 Dose: Not Given Glucagon (Glucagen) 1 mg IM PRN PRN PRN Reason: Blood Glucose less than 70 Stop: 11/22/18 23:11 Heparin Sodium (Porcine) (Heparin) 5,000 units SUBQ Q12H [facility] Stop: 11/23/18 20:59 Last Admin: 09/28/18 20:54 Dose: 5,000 units Dextrose/Sodium Chloride (D5-0.45ns) 1,000 mls @ 50 mls/hr IV .Q20H [facility] Stop: 11/22/18 22:23 Last Admin: 09/28/18 05:47 Dose: 50 mls/hr Amikacin Sulfate 330 mg/ (Sodium Chloride) 101.32 mls @ 101.32 mls/hr IV Q12HR [facility] Stop: 11/26/18 08:59 Last Admin: 09/28/18 20:56 Dose: 101.32 mls/hr Insulin Glargine (Lantus Insulin) 10 units SUBQ BID [facility] Stop: 11/23/18 08:59 Last Admin: 09/28/18 16:34 Dose: Not Given Insulin Human Lispro (Humalog Insulin Sliding Scale) 0 units SUBQ Q6HR [facility]; Protocol Stop: 11/23/18 00:00 Last Admin: 09/29/18 06:15 Dose: Not Given Metoclopramide HCl (Reglan) 10 mg IVP Q8HR [facility] Stop: 11/23/18 12:59 Last Admin: 09/29/18 06:13 Dose: 10 mg Miscellaneous (Vte Chemical Prophylaxis Screen/ Admission) 1 ea MC PRN PRN PRN Reason: PROTOCOL Stop: 11/23/18 13:26 Miscellaneous (Amikacin Iv Per Pharmacy) 1 ea MC PRN PRN PRN Reason: PROTOCOL Stop: 11/25/18 15:27 Mupirocin (Bactroban Oint) 1 appl NS Q12HR [facility] Stop: 10/02/18 09:01 Last Admin: 09/28/18 20:53 Dose: 1 appl General: No acute distress Cardiovascular: Regular rate, Normal S1, Normal S2 Lungs: Clear to auscultation Abdomen: Bowel sounds, Soft, Other (G-tube in place with minimal leak), no Tender Extremities: Other (contractures of both extremities) - Procedures Procedures: Procedures Procedure Code Date CHANGE FEEDING DEVICE IN UP INTEST TRACT, [employer]ATOR APPROACH [id number] 09/13/18 CHANGE GASTROSTOMY TUBE 99896 10/04/15 INSERT TUNNELED CV CATH [id number] 10/04/15 INSERTION OF FEEDING DEVICE INTO STOMACH, OPEN APPROACH [id number] 10/06/16 INSERTION OF INFUSION DEV INTO L SUBCLAV VEIN, PERC APPROACH [id number] 10/04/15 INSPECTION OF UPPER VEIN, PERCUTANEOUS APPROACH [id number] 10/04/15 INTRODUCTION OF NUTRITIONAL INTO PERIPH VEIN, PERC APPROACH [id number] 08/02/[address] PL[address] GASTROSTOMY TUBE 64693 10/06/16 REMOVAL OF FEEDING DEVICE FROM STOMACH, EXTERNAL APPROACH [id number] 08/02/18 RESPIRATORY VENTILATION, GREATER THAN 96 CONSECUTIVE HOURS [id number] 08/02/18 ULTRASONOGRAPHY OF LEFT SUBCLAVIAN VEIN, GUIDANCE [id number] 10/04/15 Assessment/Plan - Assessment Assessment: 1. Malfunctioning G tube 2.Dysphagia - Plan Plan: 1. Malfunctioning G tube S/P change to 24 Fr Cont conservative management If leaking increases then Size 26 Or GJ 2.Dysphagia As above Cont Feeding Seems to be tolerated
[2018-09-29] MEDS: SODIUM CHLORIDE 0.9% IV SCH ×2 (08:57→22:27)
[2018-09-29] MEDS: AMIKACIN IV SCH ×2 (08:57→22:27)
[2018-09-29] MEDS: Heparin Sod 5,000Units/ML 5,000 UNITS/ML VIAL SUBQ SCH ×2 (09:02→22:27)
[2018-09-29] MEDS: Insulin Glargine 100 units/ml 10ml Vial SUBQ SCH ×2 (09:02→17:19)
[2018-09-29] MEDS: Docusate Sodium 100 mg/10 mL UD GT SCH ×2 (09:02→17:20)
[2018-09-29] MEDS: Venelex 60gm Tube TP SCH (09:03)
[2018-09-29] MEDS: Diltiazem 30 mg Tab GT SCH ×3 (09:10→22:26)
--- NOTE | 2018-09-29 14:21 | General Progress Note ---
Subjective - Review of Systems Service Date: 09/29/18 Subjective: Patient still has chronic respiratory failure with tracheostomy G-tube leaking better heart rate controlled Objective - Results Result Diagrams: 09/29/18 05:00 09/29/18 05:00 Recent Labs: Laboratory Last Values WBC 7.7 Th/cmm (4.8-10.8) 09/29/18 05:00 RBC 4.55 Mil/cmm (3.80-5.10) 09/29/18 05:00 Hgb 11.3 gm/dL (12-16) L 09/29/18 05:00 Hct 34.8 % (41.0-60) L 09/29/18 05:00 MCV 76.5 fl (81-100) L 09/29/18 05:00 MCH 24.9 pg (27.0-31.0) L 09/29/18 05:00 MCHC Differential 32.6 pg (28.0-36.0) 09/29/18 05:00 RDW 16.7 % (11.5-20.0) 09/29/18 05:00 Plt Count 316 Th/cmm (150-400) D 09/29/18 05:00 MPV 7.8 fl 09/29/18 05:00 Add Manual Diff YES 09/23/18 18:45 Neutrophils % 63.7 % (40.0-80.0) 09/29/18 05:00 Band Neutrophils % 0 % (0-10) 09/23/18 18:45 Lymphocytes % 30.1 % (20.0-50.0) 09/29/18 05:00 Monocytes % 3.7 % (2.0-10.0) 09/29/18 05:00 Eosinophils % 2.4 % (0.0-5.0) 09/29/18 05:00 Basophils % 0.1 % (0.0-2.0) 09/29/18 05:00 Neutrophils (Manual) 80 % (40-80) 09/23/18 18:45 Lymphocytes 15 % (20-50) L 09/23/18 18:45 Monocytes 4 % (2-10) 09/23/18 18:45 Eosinophils 1 % (0-5) 09/23/18 18:45 Basophils 0 % (0-3) 09/23/18 18:45 Platelet Estimate INCREASED PLATELETS (NORMAL) 09/23/18 18:45 Microcytosis 1+ 09/23/18 18:45 Smear Path Review 09/23/18 18:45 PT 11.4 SECONDS (9.5-11.5) 09/23/18 18:45 INR 1.11 (0.5-1.4) 09/23/18 18:45 PTT (Actin FS) 28.0 SECONDS (26.0-38.0) 09/23/18 18:45 Sodium 139 mEq/L (136-145) 09/29/18 05:00 Potassium 3.5 mEq/L (3.5-5.1) 09/29/18 05:00 Chloride 104 mEq/L (98-107) 09/29/18 05:00 Carbon Dioxide 26.4 mEq/L (21.0-31.0) 09/29/18 05:00 Anion Gap 12.1 (7.0-16.0) 09/29/18 05:00 BUN 6 mg/dL (7-25) L 09/29/18 05:00 Creatinine 0.2 mg/dL (0.6-1.2) L 09/29/18 05:00 Est GFR ( Amer) > 60.0 ml/min (>90) 09/29/18 05:00 Est GFR (Non-Af Amer) > 60.0 ml/min 09/29/18 05:00 BUN/Creatinine Ratio 30.0 09/29/18 05:00 Glucose 159 mg/dL (70-105) H 09/29/18 05:00 POC Glucose 188 MG/DL (70 - 105) H 09/29/18 11:06 Whole Bld Lactic Acid 1.00 mmol/L (0.60-1.99) 09/23/18 22:38 Calcium 8.8 mg/dL (8.6-10.3) 09/29/18 05:00 Total Bilirubin 0.2 mg/dL (0.3-1.0) L 09/29/18 05:00 AST 14 U/L (13-39) 09/29/18 05:00 ALT 10 U/L (7-52) 09/29/18 05:00 Alkaline Phosphatase 134 U/L (34-104) H 09/29/18 05:00 Total Protein 6.5 gm/dL (6.0-8.3) 09/29/18 05:00 Albumin 2.5 gm/dL (3.7-5.3) L 09/29/18 05:00 Globulin 4.0 gm/dL 09/29/18 05:00 Albumin/Globulin Ratio 0.6 (1.0-1.8) L 09/29/18 05:00 - Physical Exam Vitals and I&O: Vital Signs Temp 97.1 F 09/29/18 11:55 Pulse 83 09/29/18 14:03 Resp 18 09/29/18 13:55 BP 95/64 09/29/18 11:55 Pulse Ox 97 09/29/18 13:55 Intake & Output 09/28/18 09/29/18 09/29/18 18:59 06:59 18:59 Intake Total 221.32 101.32 Output Total 800 750 Balance -578.68 -648.68 Weight (lbs) 47.627 kg 46.221 kg Intake: Intake, IV Amount 101.32 101.32 Amikacin 330 mg In Sodium 101.32 101.32 Chloride 0.9% 100 ml @ 101.32 mls/hr IV Q12HR [facility] Rx#:[id number] Tube Feeding 120 Output: Urine 800 750 Other: # Bowel Movements 0 0 Stool Characteristics Soft Soft Weight Source Bedscale Bedscale Active Medications: Current Medications Acetaminophen (Tylenol 650mg/20.3ml Suspension) 650 mg GT Q6H PRN PRN Reason: MILD PAIN OR FEVER >100.4 Albuterol/Ipratropium (Duoneb Neb) 3 ml HHN Q6HRT [facility] Stop: 11/23/18 00:00 Last Admin: 09/29/18 13:55 Dose: 3 ml Albuterol/Ipratropium (Duoneb Neb) 3 ml HHN Q2HRT PRN PRN Reason: Wheezing Stop: 11/22/18 23:14 Ascorbic Acid (Vitamin C) 500 mg GT DAILY [facility] Stop: 11/23/18 08:59 Last Admin: 09/29/18 09:02 Dose: 500 mg Calamine/Phenol (Calmoseptine) 1 appl TP QID PRN PRN Reason: Skin Irritation Stop: 11/23/18 16:36 [place] Oil/[place] Balsam/Trypsin (Venelex) 1 appl TP DAILY [facility] Stop: 11/24/18 08:59 Last Admin: 09/29/18 09:03 Dose: 1 appl Dextrose (D50w) 50 ml IVP PRN PRN PRN Reason: Blood Glucose less than 70 Stop: 11/22/18 23:11 Dextrose (Glutose 40%) 18.75 gm PO PRN PRN PRN Reason: Blood Glucose less than 70 Stop: 11/22/18 23:11 Diltiazem HCl (Cardizem) 60 mg GT TID [facility] Stop: 11/23/18 08:59 Last Admin: 09/29/18 14:03 Dose: Not Given Docusate Sodium (Colace) 100 mg GT BID [facility] Stop: 11/23/18 08:59 Last Admin: 09/29/18 09:02 Dose: 100 mg Glucagon (Glucagen) 1 mg IM PRN PRN PRN Reason: Blood Glucose less than 70 Stop: 11/22/18 23:11 Heparin Sodium (Porcine) (Heparin) 5,000 units SUBQ Q12H [facility] Stop: 11/23/18 20:59 Last Admin: 09/29/18 09:02 Dose: 5,000 units Dextrose/Sodium Chloride (D5-0.45ns) 1,000 mls @ 50 mls/hr IV .Q20H [facility] Stop: 11/22/18 22:23 Last Admin: 09/28/18 05:47 Dose: 50 mls/hr Amikacin Sulfate 330 mg/ (Sodium Chloride) 101.32 mls @ 101.32 mls/hr IV Q12HR [facility] Stop: 11/26/18 08:59 Last Admin: 09/29/18 08:57 Dose: 101.32 mls/hr Insulin Glargine (Lantus Insulin) 10 units SUBQ BID [facility] Stop: 11/23/18 08:59 Last Admin: 09/29/18 09:02 Dose: 10 units Insulin Human Lispro (Humalog Insulin Sliding Scale) 0 units SUBQ Q6HR [facility]; Protocol Stop: 11/23/18 00:00 Last Admin: 09/29/18 11:17 Dose: 2 units Metoclopramide HCl (Reglan) 10 mg IVP Q8HR [facility] Stop: 11/23/18 12:59 Last Admin: 09/29/18 12:48 Dose: 10 mg Miscellaneous (Vte Chemical Prophylaxis Screen/ Admission) 1 ea PRN PRN PRN Reason: PROTOCOL Stop: 11/23/18 13:26 Miscellaneous (Amikacin Iv Per Pharmacy) 1 ea PRN PRN PRN Reason: PROTOCOL Stop: 11/25/18 15:27 Mupirocin (Bactroban Oint) 1 appl NS Q12HR [facility] Stop: 10/02/18 09:01 Last Admin: 09/29/18 09:03 Dose: 1 appl General: No acute distress Cardiovascular: Regular rate, Normal S1, Normal S2 Lungs: Clear to auscultation Abdomen: Bowel sounds, Soft, Other (G-tube in place with minimal leak), no Tender Extremities: Other (contractures of both extremities) - Procedures Procedures: Procedures Procedure Code Date CHANGE FEEDING DEVICE IN UP INTEST TRACT, LOG RAFTER APPROACH [id number] 09/13/18 CHANGE GASTROSTOMY TUBE 52234 10/04/15 INSERT TUNNELED CV CATH 10571 10/04/15 INSERTION OF FEEDING DEVICE INTO STOMACH, OPEN APPROACH [id number] 10/06/16 INSERTION OF INFUSION DEV INTO L SUBCLAV VEIN, PERC APPROACH 99H241T 10/04/15 INSPECTION OF UPPER VEIN, PERCUTANEOUS APPROACH [id number] 10/04/15 INTRODUCTION OF NUTRITIONAL INTO PERIPH VEIN, PERC APPROACH [id number] 08/02/[address] PL[address] GASTROSTOMY TUBE 26563 10/06/16 REMOVAL OF FEEDING DEVICE FROM STOMACH, EXTERNAL APPROACH [id number] 08/02/18 RESPIRATORY VENTILATION, GREATER THAN 96 CONSECUTIVE HOURS [id number] 08/02/18 ULTRASONOGRAPHY OF LEFT SUBCLAVIAN VEIN, GUIDANCE [id number] 10/04/15 Assessment/Plan - Assessment Assessment: Sacral decubitus ulcer stage IV Chronic respiratory failure with tracheostomy G-tube protein calorie malnutrition Diabetes mellitus type 2 COPD Asthma Peptic ulcer GERD Contracture of the extremities 9 deficiency anemia Urinary tract infection G-tube leaking - Plan Plan: Continue present management patient G-tube leaking S Cardizem IV to control the heart rate Nutritional Asmnt/Malnutr-PDOC - Dietary Evaluation Malnutrition Findings (Please click <Entered> for more info): Nutritional Asmnt/Malnutrition Start: 09/24/18 15: 59 Text: Status: Complete Freq: Protocol: Document 09/24/18 15:59 LCHENG (Rec: 09/24/18 16:19 [facility] [email or web address]) Nutritional Asmnt/Malnutrition Patient General Information Nutritional Screening High Risk Consult Diagnosis GI site cellulitis Pertinent Medical Hx/Surgical Hx HTN, DM asthma/COPD, PUD/GERD, 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 Per nurse note, glucerna 1.2 initiated at 60ml /hr in the afternoon, no residual noted. Current Diet Order/ Nutrition Support glucerna 1.2 at 60m, Pertinent Medications vit C, D5-0.45ns, colace, lantus, humalog, reglan Pertinent Labs 09/24 Na 154, K 3.2, Cl 111, Cr 0.3, Glucose 196, POC 185-224 , Alb 2.8 09/23 Na 150, K 3.2, Cr 0.3, Glucose 149 Nutritional Hx/Data Height 1.52 m Height (Calculated Centimeters) 152.4 Current Weight (lbs) 41.277 kg Weight (Calculated Kilograms) 41.3 Weight (Calculated Grams) 01329.9 [place] Body Weight 100 Body Mass Index (BMI) 17.7 Weight Status Underweight GI Symptoms GI Symptoms None Last BM not indicated Difficult in: None Skin Integrity/Comment: pressure ulcer to sacro/coccyx Estimated Nutritional Goals BEE in Kcals: Using Current wt Calories/Kcals/Kg 30-35 Kcals Calculated 4837-2076 Protein: Using Current wt Protein g/k.2-1.4 Protein Calculated 49-57 Fluid: ml 1230-1435ml (1ml/kcal) Nutritional Problem 1. Problem Problem increased nutrition needs Etiology impaired skin integrity Signs/Symptoms: pressure ulcer Intervention/Recommendation Comments 1. Recommend Glucerna 1.2 at 60ml/hr x 16hr to meet nutritional needs. It will provide 1152kcal, 57g protein and 773ml free water. 2. Monitor TF rate, tolerance, wt, skin integrity and labs 3. F/U as high risk in 2-3 days Expected Outcomes/Goals Expected Outcomes/Goals 1. Pt to meet at least 90% of nutritional needs via nutrition support with tolerance 2. Wt stability, skin to remain intact, labs to approach WNL.
--- NOTE | 2018-09-29 19:49 | Internal Medicine Prog Note ---
Internal Medicine Subjective - Subjective Service Date: 09/29/18 Patient seen and examined:: with staff Patient is:: awake, stares blankly, other (pt has been cleared for debridement.) Patient Complaints of:: cough (pt is cleared for debridement ), other ( resp.failure.) Per staff patient has:: no adverse event, no episodes of fall Internal Medicine Objective - Results Result Diagrams: 09/29/18 05:00 09/29/18 05:00 Recent Labs: Laboratory Last Values WBC 7.7 Th/cmm (4.8-10.8) 09/29/18 05:00 Corrected WBC (auto) [employer] PROCESSOR 09/29/18 05:00 RBC 4.55 Mil/cmm (3.80-5.10) 09/29/18 05:00 Hgb 11.3 gm/dL (12-16) L 09/29/18 05:00 Hct 34.8 % (41.0-60) L 09/29/18 05:00 MCV 76.5 fl (81-100) L 09/29/18 05:00 MCH 24.9 pg (27.0-31.0) L 09/29/18 05:00 MCHC Differential 32.6 pg (28.0-36.0) 09/29/18 05:00 RDW 16.7 % (11.5-20.0) 09/29/18 05:00 Plt Count 316 Th/cmm (150-400) D 09/29/18 05:00 MPV 7.8 fl 09/29/18 05:00 Add Manual Diff [employer] PROCESSOR 09/29/18 05:00 Neutrophils % 63.7 % (40.0-80.0) 09/29/18 05:00 Band Neutrophils % 0 % (0-10) 09/23/18 18:45 Lymphocytes % 30.1 % (20.0-50.0) 09/29/18 05:00 Monocytes % 3.7 % (2.0-10.0) 09/29/18 05:00 Eosinophils % 2.4 % (0.0-5.0) 09/29/18 05:00 Basophils % 0.1 % (0.0-2.0) 09/29/18 05:00 Neutrophils (Manual) 80 % (40-80) 09/23/18 18:45 Lymphocytes 15 % (20-50) L 09/23/18 18:45 Monocytes 4 % (2-10) 09/23/18 18:45 Eosinophils 1 % (0-5) 09/23/18 18:45 Basophils 0 % (0-3) 09/23/18 18:45 Platelet Estimate INCREASED PLATELETS (NORMAL) 09/23/18 18:45 Microcytosis 1+ 09/23/18 18:45 Smear Path Review [employer] PROCESSOR 09/29/18 05:00 PT 11.4 SECONDS (9.5-11.5) 09/23/18 18:45 INR 1.11 (0.5-1.4) 09/23/18 18:45 PTT (Actin FS) 28.0 SECONDS (26.0-38.0) 09/23/18 18:45 Sodium 139 mEq/L (136-145) 09/29/18 05:00 Potassium 3.5 mEq/L (3.5-5.1) 09/29/18 05:00 Chloride 104 mEq/L (98-107) 09/29/18 05:00 Carbon Dioxide 26.4 mEq/L (21.0-31.0) 09/29/18 05:00 Anion Gap 12.1 (7.0-16.0) 09/29/18 05:00 BUN 6 mg/dL (7-25) L 09/29/18 05:00 Creatinine 0.2 mg/dL (0.6-1.2) L 09/29/18 05:00 Est GFR ( Amer) > 60.0 ml/min (>90) 09/29/18 05:00 Est GFR (Non-Af Amer) > 60.0 ml/min 09/29/18 05:00 BUN/Creatinine Ratio 30.0 09/29/18 05:00 Glucose 159 mg/dL (70-105) H 09/29/18 05:00 POC Glucose 187 MG/DL (70 - 105) H 09/29/18 17:07 Whole Bld Lactic Acid 1.00 mmol/L (0.60-1.99) 09/23/18 22:38 Calcium 8.8 mg/dL (8.6-10.3) 09/29/18 05:00 Total Bilirubin 0.2 mg/dL (0.3-1.0) L 09/29/18 05:00 AST 14 U/L (13-39) 09/29/18 05:00 ALT 10 U/L (7-52) 09/29/18 05:00 Alkaline Phosphatase 134 U/L (34-104) H 09/29/18 05:00 Total Protein 6.5 gm/dL (6.0-8.3) 09/29/18 05:00 Albumin 2.5 gm/dL (3.7-5.3) L 09/29/18 05:00 Globulin 4.0 gm/dL 09/29/18 05:00 Albumin/Globulin Ratio 0.6 (1.0-1.8) L 09/29/18 05:00 - Physical Exam Vitals and I&O: Vital Signs Temp 97.4 F 09/29/18 16:07 Pulse 102 09/29/18 18:28 Resp 18 09/29/18 18:28 BP 101/70 09/29/18 16:07 Pulse Ox 97 09/29/18 18:28 Intake & Output 09/29/18 09/29/18 09/30/18 06:59 18:59 06:59 Intake Total 101.32 360 Output Total 750 Balance -648.68 360 Weight (lbs) 46.221 kg 47.627 kg Intake: Intake, IV Amount 101.32 Amikacin 330 mg In Sodium 101.32 Chloride 0.9% 100 ml @ 101.32 mls/hr IV Q12HR [facility] Rx#:[id number] Tube Feeding 360 Output: Urine 750 Other: # Voids 1,100 # Bowel Movements 0 1 Stool Characteristics Soft Weight Source Bedscale Bedscale Active Medications: Current Medications Acetaminophen (Tylenol 650mg/20.3ml Suspension) 650 mg GT Q6H PRN PRN Reason: MILD PAIN OR FEVER >100.4 Albuterol/Ipratropium (Duoneb Neb) 3 ml HHN Q6HRT [facility] Stop: 11/23/18 00:00 Last Admin: 09/29/18 18:26 Dose: 3 ml Albuterol/Ipratropium (Duoneb Neb) 3 ml HHN Q2HRT PRN PRN Reason: Wheezing Stop: 11/22/18 23:14 Ascorbic Acid (Vitamin C) 500 mg GT DAILY [facility] Stop: 11/23/18 08:59 Last Admin: 09/29/18 09:02 Dose: 500 mg Calamine/Phenol (Calmoseptine) 1 appl TP QID PRN PRN Reason: Skin Irritation Stop: 11/23/18 16:36 [place] Oil/[place] Balsam/Trypsin (Venelex) 1 appl TP DAILY [facility] Stop: 11/24/18 08:59 Last Admin: 09/29/18 09:03 Dose: 1 appl Dextrose (D50w) 50 ml IVP PRN PRN PRN Reason: Blood Glucose less than 70 Stop: 11/22/18 23:11 Dextrose (Glutose 40%) 18.75 gm PO PRN PRN PRN Reason: Blood Glucose less than 70 Stop: 11/22/18 23:11 Diltiazem HCl (Cardizem) 60 mg GT TID [facility] Stop: 11/23/18 08:59 Last Admin: 09/29/18 14:03 Dose: Not Given Docusate Sodium (Colace) 100 mg GT BID [facility] Stop: 11/23/18 08:59 Last Admin: 09/29/18 17:20 Dose: 100 mg Glucagon (Glucagen) 1 mg IM PRN PRN PRN Reason: Blood Glucose less than 70 Stop: 11/22/18 23:11 Heparin Sodium (Porcine) (Heparin) 5,000 units SUBQ Q12H [facility] Stop: 11/23/18 20:59 Last Admin: 09/29/18 09:02 Dose: 5,000 units Dextrose/Sodium Chloride (D5-0.45ns) 1,000 mls @ 50 mls/hr IV .Q20H [facility] Stop: 11/22/18 22:23 Last Admin: 09/28/18 05:47 Dose: 50 mls/hr Amikacin Sulfate 330 mg/ (Sodium Chloride) 101.32 mls @ 101.32 mls/hr IV Q12HR [facility] Stop: 11/26/18 08:59 Last Admin: 09/29/18 08:57 Dose: 101.32 mls/hr Insulin Glargine (Lantus Insulin) 10 units SUBQ BID [facility] Stop: 11/23/18 08:59 Last Admin: 09/29/18 17:19 Dose: 10 units Insulin Human Lispro (Humalog Insulin Sliding Scale) 0 units SUBQ Q6HR [facility]; Protocol Stop: 11/23/18 00:00 Last Admin: 09/29/18 17:19 Dose: 2 units Metoclopramide HCl (Reglan) 10 mg IVP Q8HR [facility] Stop: 11/23/18 12:59 Last Admin: 09/29/18 12:48 Dose: 10 mg Miscellaneous (Vte Chemical Prophylaxis Screen/ Admission) 1 ea [facility] PRN PRN PRN Reason: PROTOCOL Stop: 11/23/18 13:26 Miscellaneous (Amikacin Iv Per Pharmacy) 1 ea PRN PRN PRN Reason: PROTOCOL Stop: 11/25/18 15:27 Mupirocin (Bactroban Oint) 1 appl NS Q12HR [facility] Stop: 10/02/18 09:01 Last Admin: 09/29/18 09:03 Dose: 1 appl Physical Exam: 58 y/o female patient has chronic respiratory failure, heart rate well controlled. G-tube is leaking. General: weak HEENT: NC/AT Neck: Supple Lungs: wheezing, rales Cardiovascular: RRR, Normal S1, Normal S2 Abdomen: other (s/p g-tube, sacral decubitus ulcer stage 4) Extremities: clear Neurological: no change - Procedures Procedures: Procedures Procedure Code Date CHANGE FEEDING DEVICE IN UP INTEST TRACT, ACCESS ANALYST APPROACH [id number] 09/13/18 CHANGE GASTROSTOMY TUBE 66252 10/04/15 INSERT TUNNELED CV CATH [id number] 10/04/15 INSERTION OF FEEDING DEVICE INTO STOMACH, OPEN APPROACH [id number] 10/06/16 INSERTION OF INFUSION DEV INTO L SUBCLAV VEIN, PERC APPROACH [id number] 10/04/15 INSPECTION OF UPPER VEIN, PERCUTANEOUS APPROACH [id number] 10/04/15 INTRODUCTION OF NUTRITIONAL INTO PERIPH VEIN, PERC APPROACH [id number] 08/02/[address] PL[address] GASTROSTOMY TUBE 42312 10/06/16 REMOVAL OF FEEDING DEVICE FROM STOMACH, EXTERNAL APPROACH [id number] 08/02/18 RESPIRATORY VENTILATION, GREATER THAN 96 CONSECUTIVE HOURS [id number] 08/02/18 ULTRASONOGRAPHY OF LEFT SUBCLAVIAN VEIN, GUIDANCE [id number] 10/04/15 Internal Medicine Assmt/Plan - Assessment Assessment: S/P G-tube change. Cellulitis abdominal wall. HTN. Diabetes. Asthma. COPD. PUD. GERD. Extreme contractures. History of Anemia. History of UTI. - Plan Plan: Continuation of care. GI followup and Contact Center Rep followup Monitor Labs, Monitor Hemoglobin levels. Continue present meds as directed. Respiratory treatments and Pulmonary support prn. Supplemental Oxygen prn. Aspiration precaution. Deep suctioning prn. Monitor Diet/Nutritional support/Continue PEG tube feedings. PEG tube and Trach care. Monitor mental status progression. Monitor behavioral health status. Pain Management. Physical therapy. Occupational therapy. Safety precaution. Supportive care. Fall precaution, frequent nursing rounds, and as needed restraints to prevent fall. Continue collaborating with consulting specialists, case management and nursing team. Will Monitor patient and continue current treatment plan as ordered. 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 Per nurse note, glucerna 1.2 initiated at 60ml /hr in the afternoon, no residual noted. Current Diet Order/ Nutrition Support glucerna 1.2 at 60m, Pertinent Medications vit C, D5-0.45ns, colace, lantus, humalog, reglan Pertinent Labs 09/24 Na 154, K 3.2, Cl 111, Cr 0.3, Glucose 196, POC 185-224 , Alb 2.8 5 Na 150, K 3.2, Cr 0.3, Glucose 149 Nutritional Hx/Data Height 1.52 m Height (Calculated Centimeters) 152.4 Current Weight (lbs) 41.277 kg Weight (Calculated Kilograms) 41.3 Weight (Calculated Grams) 50632.9 Bath Body Weight 100 Body Mass Index (BMI) 17.7 Weight Status Underweight GI Symptoms GI Symptoms None Last BM not indicated Difficult in: None Skin Integrity/Comment: pressure ulcer to sacro/coccyx Estimated Nutritional Goals BEE in Kcals: Using Current wt Calories/Kcals/Kg 30-35 Kcals Calculated 2613-3049 Protein: Using Current wt Protein g/k.2-1.4 Protein Calculated 49-57 Fluid: ml 1230-1435ml (1ml/kcal) Nutritional Problem 1. Problem Problem increased nutrition needs Etiology impaired skin integrity Signs/Symptoms: pressure ulcer Intervention/Recommendation Comments 1. Recommend Glucerna 1.2 at 60ml/hr x 16hr to meet nutritional needs. It will provide 1152kcal, 57g protein and 773ml free water. 2. Monitor TF rate, tolerance, wt, skin integrity and labs 3. F/U as high risk in 2-3 days Expected Outcomes/Goals Expected Outcomes/Goals 1. Pt to meet at least 90% of nutritional needs via nutrition support with tolerance 2. Wt stability, skin to remain intact, labs to approach WNL.
[2018-09-30] MEDS: Albuterol/Ipratropium Neb 3 ML AERS HHN SCH ×4 (00:28→18:41)
[2018-09-30] MEDS: Metoclopramide 5 mg/mL 2mL Vial IVP SCH ×3 (05:15→21:41)
[2018-09-30] MEDS: INSULIN LISPRO SLIDING SCALE 100 UNITS/ML UNIT SUBQ SCH ×4 (07:30→22:01)
[2018-09-30] MEDS: Insulin Glargine 100 units/ml 10ml Vial SUBQ SCH ×2 (09:00→16:54)
[2018-09-30] MEDS: Venelex 60gm Tube TP SCH (09:00)
--- NOTE | 2018-09-30 09:22 | GI Progress Note ---
Subjective - Review of Systems Service Date: 09/30/18 Subjective: GT site still leaking. Dressing was soaked and replaced. No elevated gastric residuals. Feeds held. Objective - Results Result Diagrams: 09/29/18 05:00 09/29/18 05:00 Recent Labs: Laboratory Last Values WBC 7.7 Th/cmm (4.8-10.8) 09/29/18 05:00 Corrected WBC (auto) [employer]LOOR COVERINGS INSTALLER 09/29/18 05:00 RBC 4.55 Mil/cmm (3.80-5.10) 09/29/18 05:00 Hgb 11.3 gm/dL (12-16) L 09/29/18 05:00 Hct 34.8 % (41.0-60) L 09/29/18 05:00 MCV 76.5 fl (81-100) L 09/29/18 05:00 MCH 24.9 pg (27.0-31.0) L 09/29/18 05:00 MCHC Differential 32.6 pg (28.0-36.0) 09/29/18 05:00 RDW 16.7 % (11.5-20.0) 09/29/18 05:00 Plt Count 316 Th/cmm (150-400) D 09/29/18 05:00 MPV 7.8 fl 09/29/18 05:00 Add Manual Diff [employer]LOOR COVERINGS INSTALLER 09/29/18 05:00 Neutrophils % 63.7 % (40.0-80.0) 09/29/18 05:00 Band Neutrophils % 0 % (0-10) 09/23/18 18:45 Lymphocytes % 30.1 % (20.0-50.0) 09/29/18 05:00 Monocytes % 3.7 % (2.0-10.0) 09/29/18 05:00 Eosinophils % 2.4 % (0.0-5.0) 09/29/18 05:00 Basophils % 0.1 % (0.0-2.0) 09/29/18 05:00 Neutrophils (Manual) 80 % (40-80) 09/23/18 18:45 Lymphocytes 15 % (20-50) L 09/23/18 18:45 Monocytes 4 % (2-10) 09/23/18 18:45 Eosinophils 1 % (0-5) 09/23/18 18:45 Basophils 0 % (0-3) 09/23/18 18:45 Platelet Estimate INCREASED PLATELETS (NORMAL) 09/23/18 18:45 Microcytosis 1+ 09/23/18 18:45 Smear Path Review [employer]LO[employer] COVERINGS INSTALLER 09/29/18 05:00 PT 11.4 SECONDS (9.5-11.5) 09/23/18 18:45 INR 1.11 (0.5-1.4) 09/23/18 18:45 PTT (Actin FS) 28.0 SECONDS (26.0-38.0) 09/23/18 18:45 Sodium 139 mEq/L (136-145) 09/29/18 05:00 Potassium 3.5 mEq/L (3.5-5.1) 09/29/18 05:00 Chloride 104 mEq/L (98-107) 09/29/18 05:00 Carbon Dioxide 26.4 mEq/L (21.0-31.0) 09/29/18 05:00 Anion Gap 12.1 (7.0-16.0) 09/29/18 05:00 BUN 6 mg/dL (7-25) L 09/29/18 05:00 Creatinine 0.2 mg/dL (0.6-1.2) L 09/29/18 05:00 Est GFR ( Amer) > 60.0 ml/min (>90) 09/29/18 05:00 Est GFR (Non-Af Amer) > 60.0 ml/min 09/29/18 05:00 BUN/Creatinine Ratio 30.0 09/29/18 05:00 Glucose 159 mg/dL (70-105) H 09/29/18 05:00 POC Glucose 171 MG/DL (70 - 105) H 09/30/18 05:19 Whole Bld Lactic Acid 1.00 mmol/L (0.60-1.99) 09/23/18 22:38 Calcium 8.8 mg/dL (8.6-10.3) 09/29/18 05:00 Total Bilirubin 0.2 mg/dL (0.3-1.0) L 09/29/18 05:00 AST 14 U/L (13-39) 09/29/18 05:00 ALT 10 U/L (7-52) 09/29/18 05:00 Alkaline Phosphatase 134 U/L (34-104) H 09/29/18 05:00 Total Protein 6.5 gm/dL (6.0-8.3) 09/29/18 05:00 Albumin 2.5 gm/dL (3.7-5.3) L 09/29/18 05:00 Globulin 4.0 gm/dL 09/29/18 05:00 Albumin/Globulin Ratio 0.6 (1.0-1.8) L 09/29/18 05:00 Amikacin Peak 64.6 ug/mL (20.0-30.0) H 09/28/18 10:45 Amikacin Trough 3.0 ug/mL (1.0-8.0) 09/28/18 07:45 - Physical Exam Vitals and I&O: Vital Signs Temp 97.1 F 09/30/18 07:44 Pulse 117 09/30/18 07:44 Resp 18 09/30/18 08:48 BP 134/78 09/30/18 07:44 Pulse Ox 98 09/30/18 07:44 Intake & Output 09/29/18 09/30/18 09/30/18 18:59 06:59 18:59 Intake Total 461.32 360 Output Total 600 1000 Balance 461.32 -600 -640 Weight (lbs) 47.627 kg 46.04 kg 45.813 kg Intake: Intake, IV Amount 101.32 Amikacin 330 mg In Sodium 101.32 Chloride 0.9% 100 ml @ 101.32 mls/hr IV Q12HR [facility] Rx#:[id number] Oral 0 Tube Feeding 360 360 Output: Urine 600 1000 Other: # Voids 1,100 # Bowel Movements 1 1 1 Weight Source Bedscale Bedscale Bedscale Active Medications: Current Medications Acetaminophen (Tylenol 650mg/20.3ml Suspension) 650 mg GT Q6H PRN PRN Reason: MILD PAIN OR FEVER >100.4 Albuterol/Ipratropium (Duoneb Neb) 3 ml HHN Q6HRT [facility] Stop: 11/23/18 00:00 Last Admin: 09/30/18 06:51 Dose: 3 ml Albuterol/Ipratropium (Duoneb Neb) 3 ml HHN Q2HRT PRN PRN Reason: Wheezing Stop: 11/22/18 23:14 Ascorbic Acid (Vitamin C) 500 mg GT DAILY [facility] Stop: 11/23/18 08:59 Last Admin: 09/29/18 09:02 Dose: 500 mg Calamine/Phenol (Calmoseptine) 1 appl TP QID PRN PRN Reason: Skin Irritation Stop: 11/23/18 16:36 [place] Oil/[place] Balsam/Trypsin (Venelex) 1 appl TP DAILY [facility] Stop: 11/24/18 08:59 Last Admin: 09/29/18 09:03 Dose: 1 appl Dextrose (D50w) 50 ml IVP PRN PRN PRN Reason: Blood Glucose less than 70 Stop: 11/22/18 23:11 Dextrose (Glutose 40%) 18.75 gm PO PRN PRN PRN Reason: Blood Glucose less than 70 Stop: 11/22/18 23:11 Diltiazem HCl (Cardizem) 60 mg GT TID [facility] Stop: 11/23/18 08:59 Last Admin: 09/29/18 22:26 Dose: 60 mg Docusate Sodium (Colace) 100 mg GT BID [facility] Stop: 11/23/18 08:59 Last Admin: 09/29/18 17:20 Dose: 100 mg Glucagon (Glucagen) 1 mg IM PRN PRN PRN Reason: Blood Glucose less than 70 Stop: 11/22/18 23:11 Heparin Sodium (Porcine) (Heparin) 5,000 units SUBQ Q12H [facility] Stop: 11/23/18 20:59 Last Admin: 09/29/18 22:27 Dose: 5,000 units Dextrose/Sodium Chloride (D5-0.45ns) 1,000 mls @ 50 mls/hr IV .Q20H [facility] Stop: 11/22/18 22:23 Last Admin: 09/28/18 05:47 Dose: 50 mls/hr Amikacin Sulfate 330 mg/ (Sodium Chloride) 101.32 mls @ 101.32 mls/hr IV Q12HR [facility] Stop: 11/26/18 08:59 Last Admin: 09/29/18 22:27 Dose: 101.32 mls/hr Insulin Glargine (Lantus Insulin) 10 units SUBQ BID [facility] Stop: 11/23/18 08:59 Last Admin: 09/29/18 17:19 Dose: 10 units Insulin Human Lispro (Humalog Insulin Sliding Scale) 0 units SUBQ ACHS [facility]; Protocol Stop: 11/28/18 21:14 Last Admin: 09/29/18 22:28 Dose: 2 units Metoclopramide HCl (Reglan) 10 mg IVP Q8HR [facility] Stop: 11/23/18 12:59 Last Admin: 09/30/18 05:15 Dose: 10 mg Miscellaneous (Vte Chemical Prophylaxis Screen/ Admission) 1 ea PRN PRN PRN Reason: PROTOCOL Stop: 11/23/18 13:26 Miscellaneous (Amikacin Iv Per Pharmacy) 1 [facility] PRN PRN PRN Reason: PROTOCOL Stop: 11/25/18 15:27 Mupirocin (Bactroban Oint) 1 appl NS Q12HR [facility] Stop: 10/02/18 09:01 Last Admin: 09/30/18 03:44 Dose: 1 appl General: No acute distress Cardiovascular: Regular rate, Normal S1, Normal S2 Lungs: Clear to auscultation Abdomen: Bowel sounds, Soft, Other (G-tube in place with minimal leak), no Tender Extremities: Other (contractures of both extremities) - Procedures Procedures: Procedures Procedure Code Date CHANGE FEEDING DEVICE IN UP INTEST TRACT, SKI TOW OPERATOR APPROACH [id number] 09/13/18 CHANGE GASTROSTOMY TUBE 11495 10/04/15 INSERT TUNNELED CV CATH [id number] 10/04/15 INSERTION OF FEEDING DEVICE INTO STOMACH, OPEN APPROACH [id number] 10/06/16 INSERTION OF INFUSION DEV INTO L SUBCLAV VEIN, PERC APPROACH [id number] 10/04/15 INSPECTION OF UPPER VEIN, PERCUTANEOUS APPROACH [id number] 10/04/15 INTRODUCTION OF NUTRITIONAL INTO PERIPH VEIN, PERC APPROACH [id number] 08/02/[address] PL[address] GASTROSTOMY TUBE 59014 10/06/16 REMOVAL OF FEEDING DEVICE FROM STOMACH, EXTERNAL APPROACH [id number] 08/02/18 RESPIRATORY VENTILATION, GREATER THAN 96 CONSECUTIVE HOURS [id number] 08/02/18 ULTRASONOGRAPHY OF LEFT SUBCLAVIAN VEIN, GUIDANCE [id number] 10/04/15 Assessment/Plan - Assessment Assessment: IMPRESSION: 1. 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 Still mild leakage. s/p overinflation of G tube inner balloon with saline today. 2. Dementia. RECS: - restart tube feeds today. If leak persists, then will change GT to 26F size once available. - may need to change GT to G J tube. - IVF for now. - monitor labs.
[2018-09-30] MEDS: Diltiazem 30 mg Tab GT SCH ×3 (09:30→21:41)
[2018-09-30] MEDS: Docusate Sodium 100 mg/10 mL UD GT SCH ×2 (09:30→16:59)
[2018-09-30] MEDS: Heparin Sod 5,000Units/ML 5,000 UNITS/ML VIAL SUBQ SCH ×2 (09:30→21:49)
--- NOTE | 2018-09-30 11:33 | General Progress Note ---
Subjective - Review of Systems Service Date: 09/30/18 Subjective: Patient still has chronic respiratory failure with tracheostomy G-tube leaking better heart rate controlled Objective - Results Result Diagrams: 09/29/18 05:00 09/29/18 05:00 Recent Labs: Laboratory Last Values WBC 7.7 Th/cmm (4.8-10.8) 09/29/18 05:00 Corrected WBC (auto) YARN CARRIER 09/29/18 05:00 RBC 4.55 Mil/cmm (3.80-5.10) 09/29/18 05:00 Hgb 11.3 gm/dL (12-16) L 09/29/18 05:00 Hct 34.8 % (41.0-60) L 09/29/18 05:00 MCV 76.5 fl (81-100) L 09/29/18 05:00 MCH 24.9 pg (27.0-31.0) L 09/29/18 05:00 MCHC Differential 32.6 pg (28.0-36.0) 09/29/18 05:00 RDW 16.7 % (11.5-20.0) 09/29/18 05:00 Plt Count 316 Th/cmm (150-400) D 09/29/18 05:00 MPV 7.8 fl 09/29/18 05:00 Add Manual Diff YARN CARRIER 09/29/18 05:00 Neutrophils % 63.7 % (40.0-80.0) 09/29/18 05:00 Band Neutrophils % 0 % (0-10) 09/23/18 18:45 Lymphocytes % 30.1 % (20.0-50.0) 09/29/18 05:00 Monocytes % 3.7 % (2.0-10.0) 09/29/18 05:00 Eosinophils % 2.4 % (0.0-5.0) 09/29/18 05:00 Basophils % 0.1 % (0.0-2.0) 09/29/18 05:00 Neutrophils (Manual) 80 % (40-80) 09/23/18 18:45 Lymphocytes 15 % (20-50) L 09/23/18 18:45 Monocytes 4 % (2-10) 09/23/18 18:45 Eosinophils 1 % (0-5) 09/23/18 18:45 Basophils 0 % (0-3) 09/23/18 18:45 Platelet Estimate INCREASED PLATELETS (NORMAL) 09/23/18 18:45 Microcytosis 1+ 09/23/18 18:45 Smear Path Review YARN CARRIER 09/29/18 05:00 PT 11.4 SECONDS (9.5-11.5) 09/23/18 18:45 INR 1.11 (0.5-1.4) 09/23/18 18:45 PTT (Actin FS) 28.0 SECONDS (26.0-38.0) 09/23/18 18:45 Sodium 139 mEq/L (136-145) 09/29/18 05:00 Potassium 3.5 mEq/L (3.5-5.1) 09/29/18 05:00 Chloride 104 mEq/L (98-107) 09/29/18 05:00 Carbon Dioxide 26.4 mEq/L (21.0-31.0) 09/29/18 05:00 Anion Gap 12.1 (7.0-16.0) 09/29/18 05:00 BUN 6 mg/dL (7-25) L 09/29/18 05:00 Creatinine 0.2 mg/dL (0.6-1.2) L 09/29/18 05:00 Est GFR ( Amer) > 60.0 ml/min (>90) 09/29/18 05:00 Est GFR (Non-Af Amer) > 60.0 ml/min 09/29/18 05:00 BUN/Creatinine Ratio 30.0 09/29/18 05:00 Glucose 159 mg/dL (70-105) H 09/29/18 05:00 POC Glucose 171 MG/DL (70 - 105) H 09/30/18 05:19 Whole Bld Lactic Acid 1.00 mmol/L (0.60-1.99) 09/23/18 22:38 Calcium 8.8 mg/dL (8.6-10.3) 09/29/18 05:00 Total Bilirubin 0.2 mg/dL (0.3-1.0) L 09/29/18 05:00 AST 14 U/L (13-39) 09/29/18 05:00 ALT 10 U/L (7-52) 09/29/18 05:00 Alkaline Phosphatase 134 U/L (34-104) H 09/29/18 05:00 Total Protein 6.5 gm/dL (6.0-8.3) 09/29/18 05:00 Albumin 2.5 gm/dL (3.7-5.3) L 09/29/18 05:00 Globulin 4.0 gm/dL 09/29/18 05:00 Albumin/Globulin Ratio 0.6 (1.0-1.8) L 09/29/18 05:00 Amikacin Peak 64.6 ug/mL (20.0-30.0) H 09/28/18 10:45 Amikacin Trough 3.0 ug/mL (1.0-8.0) 09/28/18 07:45 - Physical Exam Vitals and I&O: Vital Signs Temp 97 F 09/30/18 11:25 Pulse 107 09/30/18 11:25 Resp 20 09/30/18 11:25 BP 139/52 09/30/18 11:25 Pulse Ox 98 09/30/18 11:25 Intake & Output 09/29/18 09/30/18 09/30/18 18:59 06:59 18:59 Intake Total 461.32 360 Output Total 600 1000 Balance 461.32 -600 -640 Weight (lbs) 47.627 kg 46.04 kg 45.813 kg Intake: Intake, IV Amount 101.32 Amikacin 330 mg In Sodium 101.32 Chloride 0.9% 100 ml @ 101.32 mls/hr IV Q12HR [facility] Rx#:[id number] Oral 0 Tube Feeding 360 360 Output: Urine 600 1000 Other: # Voids 1,100 # Bowel Movements 1 1 1 Weight Source Bedscale Bedscale Bedscale Active Medications: Current Medications Acetaminophen (Tylenol 650mg/20.3ml Suspension) 650 mg GT Q6H PRN PRN Reason: MILD PAIN OR FEVER >100.4 Albuterol/Ipratropium (Duoneb Neb) 3 ml HHN Q6HRT [facility] Stop: 11/23/18 00:00 Last Admin: 09/30/18 06:51 Dose: 3 ml Albuterol/Ipratropium (Duoneb Neb) 3 ml HHN Q2HRT PRN PRN Reason: Wheezing Stop: 11/22/18 23:14 Ascorbic Acid (Vitamin C) 500 mg GT DAILY [facility] Stop: 11/23/18 08:59 Last Admin: 09/30/18 09:30 Dose: 500 mg Calamine/Phenol (Calmoseptine) 1 appl TP QID PRN PRN Reason: Skin Irritation Stop: 11/23/18 16:36 [place] Oil/[place]akh Balsam/Trypsin (Venelex) 1 appl TP DAILY [facility] Stop: 11/24/18 08:59 Last Admin: 09/30/18 09:00 Dose: 1 appl Dextrose (D50w) 50 ml IVP PRN PRN PRN Reason: Blood Glucose less than 70 Stop: 11/22/18 23:11 Dextrose (Glutose 40%) 18.75 gm PO PRN PRN PRN Reason: Blood Glucose less than 70 Stop: 11/22/18 23:11 Diltiazem HCl (Cardizem) 60 mg GT TID [facility] Stop: 11/23/18 08:59 Last Admin: 09/30/18 09:30 Dose: 60 mg Docusate Sodium (Colace) 100 mg GT BID [facility] Stop: 11/23/18 08:59 Last Admin: 09/30/18 09:30 Dose: Not Given Glucagon (Glucagen) 1 mg IM PRN PRN PRN Reason: Blood Glucose less than 70 Stop: 11/22/18 23:11 Heparin Sodium (Porcine) (Heparin) 5,000 units SUBQ Q12H [facility] Stop: 11/23/18 20:59 Last Admin: 09/30/18 09:30 Dose: 5,000 units Dextrose/Sodium Chloride (D5-0.45ns) 1,000 mls @ 50 mls/hr IV .Q20H [facility] Stop: 11/22/18 22:23 Last Admin: 09/28/18 05:47 Dose: 50 mls/hr Amikacin Sulfate 500 mg/ (Dextrose) 102 mls @ 100 mls/hr IV Q24HR [facility] Stop: 11/29/18 11:59 Insulin Glargine (Lantus Insulin) 10 units SUBQ BID [facility] Stop: 11/23/18 08:59 Last Admin: 09/30/18 09:00 Dose: Not Given Insulin Human Lispro (Humalog Insulin Sliding Scale) 0 units SUBQ ACHS [facility]; Protocol Stop: 11/28/18 21:14 Last Admin: 09/30/18 07:30 Dose: Not Given Metoclopramide HCl (Reglan) 10 mg IVP Q8HR [facility] Stop: 11/23/18 12:59 Last Admin: 09/30/18 05:15 Dose: 10 mg Miscellaneous (Vte Chemical Prophylaxis Screen/ Admission) 1 ea PRN PRN PRN Reason: PROTOCOL Stop: 11/23/18 13:26 Miscellaneous (Amikacin Iv Per Pharmacy) 1 ea PRN PRN PRN Reason: PROTOCOL Stop: 11/25/18 15:27 Mupirocin (Bactroban Oint) 1 appl NS Q12HR [facility] Stop: 10/02/18 09:01 Last Admin: 09/30/18 09:30 Dose: 1 appl General: No acute distress Cardiovascular: Regular rate, Normal S1, Normal S2 Lungs: Clear to auscultation Abdomen: Bowel sounds, Soft, Other (G-tube in place with minimal leak), no Tender Extremities: Other (contractures of both extremities) - Procedures Procedures: Procedures Procedure Code Date CHANGE FEEDING DEVICE IN UP INTEST TRACT, DOBBY LOOMS PEGGER APPROACH [id number] 09/13/18 CHANGE GASTROSTOMY TUBE 76216 10/04/15 INSERT TUNNELED CV CATH [id number] 10/04/15 INSERTION OF FEEDING DEVICE INTO STOMACH, OPEN APPROACH [id number] 10/06/16 INSERTION OF INFUSION DEV INTO L SUBCLAV VEIN, PERC APPROACH [id number] 10/04/15 INSPECTION OF UPPER VEIN, PERCUTANEOUS APPROACH [id number] 10/04/15 INTRODUCTION OF NUTRITIONAL INTO PERIPH VEIN, PERC APPROACH [id number] 08/02/[address] PL[address] GASTROSTOMY TUBE 58433 10/06/16 REMOVAL OF FEEDING DEVICE FROM STOMACH, EXTERNAL APPROACH [id number] 08/02/18 RESPIRATORY VENTILATION, GREATER THAN 96 CONSECUTIVE HOURS [id number] 08/02/18 ULTRASONOGRAPHY OF LEFT SUBCLAVIAN VEIN, GUIDANCE [id number] 10/04/15 Assessment/Plan - Assessment Assessment: Sacral decubitus ulcer stage IV Chronic respiratory failure with tracheostomy G-tube protein calorie malnutrition Diabetes mellitus type 2 COPD Asthma Peptic ulcer GERD Contracture of the extremities 9 deficiency anemia Urinary tract infection G-tube leaking - Plan Plan: Continue present management patient G-tube leaking S Cardizem IV to control the heart rate Nutritional Asmnt/Malnutr-PDOC - Dietary Evaluation Malnutrition Findings (Please click <Entered> for more info): Nutritional Asmnt/Malnutrition Start: 09/24/18 15: 59 Text: Status: Complete Freq: Protocol: Document 09/24/18 15:59 VIJAY (Rec: 09/24/18 16:19 VIJAY [email or web address]) Nutritional Asmnt/Malnutrition Patient General Information Nutritional Screening High Risk Consult Diagnosis GI site cellulitis Pertinent Medical Hx/Surgical Hx HTN, DM asthma/COPD, PUD/GERD, 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 Per nurse note, glucerna 1.2 initiated at 60ml /hr in the afternoon, no residual noted. Current Diet Order/ Nutrition Support glucerna 1.2 at 60m, Pertinent Medications vit C, D5-0.45ns, colace, lantus, humalog, reglan Pertinent Labs 09/24 Na 154, K 3.2, Cl 111, Cr 0.3, Glucose 196, POC 185-224 , Alb 2.8 09/23 Na 150, K 3.2, Cr 0.3, Glucose 149 Nutritional Hx/Data Height 1.52 m Height (Calculated Centimeters) 152.4 Current Weight (lbs) 41.277 kg Weight (Calculated Kilograms) 41.3 Weight (Calculated Grams) 90965.9 [place] Body Weight 100 Body Mass Index (BMI) 17.7 Weight Status Underweight GI Symptoms GI Symptoms None Last BM not indicated Difficult in: None Skin Integrity/Comment: pressure ulcer to sacro/coccyx Estimated Nutritional Goals BEE in Kcals: Using Current wt Calories/Kcals/Kg 30-35 Kcals Calculated 7474-0636 Protein: Using Current wt Protein g/k.2-1.4 Protein Calculated 49-57 Fluid: ml 1230-1435ml (1ml/kcal) Nutritional Problem 1. Problem Problem increased nutrition needs Etiology impaired skin integrity Signs/Symptoms: pressure ulcer Intervention/Recommendation Comments 1. Recommend Glucerna 1.2 at 60ml/hr x 16hr to meet nutritional needs. It will provide 1152kcal, 57g protein and 773ml free water. 2. Monitor TF rate, tolerance, wt, skin integrity and labs 3. F/U as high risk in 2-3 days Expected Outcomes/Goals Expected Outcomes/Goals 1. Pt to meet at least 90% of nutritional needs via nutrition support with tolerance 2. Wt stability, skin to remain intact, labs to approach WNL.
[2018-09-30] MEDS ORDERED: Amikacin 500 mg in D5W 100mL (Q24HR) IV SCH (12:00)
[2018-09-30] MEDS: D5-0.45NS 1,000 ML IV SCH (21:54)
[2018-10-01] MEDS: Albuterol/Ipratropium Neb 3 ML AERS HHN SCH ×4 (00:25→20:00)
[2018-10-01] MEDS: Metoclopramide 5 mg/mL 2mL Vial IVP SCH ×2 (06:12→15:28)
[2018-10-01] MEDS: INSULIN LISPRO SLIDING SCALE 100 UNITS/ML UNIT SUBQ SCH ×3 (08:41→17:13)
[2018-10-01] MEDS: Insulin Glargine 100 units/ml 10ml Vial SUBQ SCH ×2 (09:23→17:23)
[2018-10-01] MEDS: Heparin Sod 5,000Units/ML 5,000 UNITS/ML VIAL SUBQ SCH (09:24)
[2018-10-01] MEDS: Docusate Sodium 100 mg/10 mL UD GT SCH ×2 (12:10→17:46)
[2018-10-01] MEDS: Diltiazem 30 mg Tab GT SCH ×2 (12:10→15:28)
[2018-10-01] MEDS: Venelex 60gm Tube TP SCH (12:11)
--- NOTE | 2018-10-01 13:09 | General Progress Note ---
Subjective - Review of Systems Service Date: 10/01/18 Subjective: Patient still has chronic respiratory failure with tracheostomy G-tube leaking better heart rate controlled Objective - Results Result Diagrams: 09/29/18 05:00 09/29/18 05:00 Recent Labs: Laboratory Last Values WBC 7.7 Th/cmm (4.8-10.8) 09/29/18 05:00 Corrected WBC (auto) [employer] 09/29/18 05:00 RBC 4.55 Mil/cmm (3.80-5.10) 09/29/18 05:00 Hgb 11.3 gm/dL (12-16) L 09/29/18 05:00 Hct 34.8 % (41.0-60) L 09/29/18 05:00 MCV 76.5 fl (81-100) L 09/29/18 05:00 MCH 24.9 pg (27.0-31.0) L 09/29/18 05:00 MCHC Differential 32.6 pg (28.0-36.0) 09/29/18 05:00 RDW 16.7 % (11.5-20.0) 09/29/18 05:00 Plt Count 316 Th/cmm (150-400) D 09/29/18 05:00 MPV 7.8 fl 09/29/18 05:00 Add Manual Diff [employer] 09/29/18 05:00 Neutrophils % 63.7 % (40.0-80.0) 09/29/18 05:00 Band Neutrophils % 0 % (0-10) 09/23/18 18:45 Lymphocytes % 30.1 % (20.0-50.0) 09/29/18 05:00 Monocytes % 3.7 % (2.0-10.0) 09/29/18 05:00 Eosinophils % 2.4 % (0.0-5.0) 09/29/18 05:00 Basophils % 0.1 % (0.0-2.0) 09/29/18 05:00 Neutrophils (Manual) 80 % (40-80) 09/23/18 18:45 Lymphocytes 15 % (20-50) L 09/23/18 18:45 Monocytes 4 % (2-10) 09/23/18 18:45 Eosinophils 1 % (0-5) 09/23/18 18:45 Basophils 0 % (0-3) 09/23/18 18:45 Platelet Estimate INCREASED PLATELETS (NORMAL) 09/23/18 18:45 Microcytosis 1+ 09/23/18 18:45 Smear Path Review [employer] 09/29/18 05:00 PT 11.4 SECONDS (9.5-11.5) 09/23/18 18:45 INR 1.11 (0.5-1.4) 09/23/18 18:45 PTT (Actin FS) 28.0 SECONDS (26.0-38.0) 09/23/18 18:45 Sodium 139 mEq/L (136-145) 09/29/18 05:00 Potassium 3.5 mEq/L (3.5-5.1) 09/29/18 05:00 Chloride 104 mEq/L (98-107) 09/29/18 05:00 Carbon Dioxide 26.4 mEq/L (21.0-31.0) 09/29/18 05:00 Anion Gap 12.1 (7.0-16.0) 09/29/18 05:00 BUN 6 mg/dL (7-25) L 09/29/18 05:00 Creatinine 0.2 mg/dL (0.6-1.2) L 09/29/18 05:00 Est GFR ( Amer) > 60.0 ml/min (>90) 09/29/18 05:00 Est GFR (Non-Af Amer) > 60.0 ml/min 09/29/18 05:00 BUN/Creatinine Ratio 30.0 09/29/18 05:00 Glucose 159 mg/dL (70-105) H 09/29/18 05:00 POC Glucose 154 MG/DL (70 - 105) H 10/01/18 11:56 Whole Bld Lactic Acid 1.00 mmol/L (0.60-1.99) 09/23/18 22:38 Calcium 8.8 mg/dL (8.6-10.3) 09/29/18 05:00 Total Bilirubin 0.2 mg/dL (0.3-1.0) L 09/29/18 05:00 AST 14 U/L (13-39) 09/29/18 05:00 ALT 10 U/L (7-52) 09/29/18 05:00 Alkaline Phosphatase 134 U/L (34-104) H 09/29/18 05:00 Total Protein 6.5 gm/dL (6.0-8.3) 09/29/18 05:00 Albumin 2.5 gm/dL (3.7-5.3) L 09/29/18 05:00 Globulin 4.0 gm/dL 09/29/18 05:00 Albumin/Globulin Ratio 0.6 (1.0-1.8) L 09/29/18 05:00 Amikacin Peak 64.6 ug/mL (20.0-30.0) H 09/28/18 10:45 Amikacin Trough 3.0 ug/mL (1.0-8.0) 09/28/18 07:45 - Physical Exam Vitals and I&O: Vital Signs Temp 97.3 F 10/01/18 12:00 Pulse 98 10/01/18 12:10 Resp 19 10/01/18 12:00 BP 94/57 10/01/18 12:00 Pulse Ox 96 10/01/18 12:00 Intake & Output 09/30/18 10/01/18 10/01/18 18:59 06:59 18:59 Intake Total 560 360 Output Total 1300 650 650 Balance -740 -650 -290 Weight (lbs) 45.813 kg 44.815 kg 44.452 kg Intake: Oral 0 Tube Feeding 560 360 Output: Urine 1300 650 Urine/Stool Mix 650 Other: # Bowel Movements 2 0 1 Weight Source Bedscale Bedscale Bedscale Active Medications: Current Medications Acetaminophen (Tylenol 650mg/20.3ml Suspension) 650 mg GT Q6H PRN PRN Reason: MILD PAIN OR FEVER >100.4 Albuterol/Ipratropium (Duoneb Neb) 3 ml HHN Q6HRT [facility] Stop: 11/23/18 00:00 Last Admin: 10/01/18 07:21 Dose: 3 ml Albuterol/Ipratropium (Duoneb Neb) 3 ml HHN Q2HRT PRN PRN Reason: Wheezing Stop: 11/22/18 23:14 Ascorbic Acid (Vitamin C) 500 mg GT DAILY [facility] Stop: 11/23/18 08:59 Last Admin: 10/01/18 12:10 Dose: 500 mg Calamine/Phenol (Calmoseptine) 1 appl TP QID PRN PRN Reason: Skin Irritation Stop: 11/23/18 16:[address] [place] Oil/[place] Balsam/Trypsin (Venelex) 1 appl TP DAILY [facility] Stop: 11/24/18 08:59 Last Admin: 10/01/18 12:11 Dose: 1 appl Dextrose (D50w) 50 ml IVP PRN PRN PRN Reason: Blood Glucose less than 70 Stop: 11/22/18 23:11 Dextrose (Glutose 40%) 18.75 gm PO PRN PRN PRN Reason: Blood Glucose less than 70 Stop: 11/22/18 23:11 Diltiazem HCl (Cardizem) 60 mg GT TID [facility] Stop: 11/23/18 08:59 Last Admin: 10/01/18 12:10 Dose: 60 mg Docusate Sodium (Colace) 100 mg GT BID [facility] Stop: 11/23/18 08:59 Last Admin: 10/01/18 12:10 Dose: 100 mg Glucagon (Glucagen) 1 mg IM PRN PRN PRN Reason: Blood Glucose less than 70 Stop: 11/22/18 23:11 Heparin Sodium (Porcine) (Heparin) 5,000 units SUBQ Q12H [facility] Stop: 11/23/18 20:59 Last Admin: 10/01/18 09:24 Dose: 5,000 units Dextrose/Sodium Chloride (D5-0.45ns) 1,000 mls @ 50 mls/hr IV .Q20H [facility] Stop: 11/22/18 22:23 Last Admin: 09/30/18 21:54 Dose: 50 mls/hr Amikacin Sulfate 650 mg/ (Dextrose) 102.6 mls @ 100 mls/hr IV Q36H [facility] Stop: 11/30/18 22:59 Insulin Glargine (Lantus Insulin) 10 units SUBQ BID [facility] Stop: 11/23/18 08:59 Last Admin: 10/01/18 09:23 Dose: 10 units Insulin Human Lispro (Humalog Insulin Sliding Scale) 0 units SUBQ ACHS [facility]; Protocol Stop: 11/28/18 21:14 Last Admin: 10/01/18 12:09 Dose: 2 units Metoclopramide HCl (Reglan) 10 mg IVP Q8HR [facility] Stop: 11/23/18 12:59 Last Admin: 10/01/18 06:12 Dose: 10 mg Miscellaneous (Vte Chemical Prophylaxis Screen/ Admission) 1 ea MC PRN PRN PRN Reason: PROTOCOL Stop: 11/23/18 13:26 Miscellaneous (Amikacin Iv Per Pharmacy) 1 ea [facility] PRN PRN PRN Reason: PROTOCOL Stop: 11/25/18 15:27 Mupirocin (Bactroban Oint) 1 appl NS Q12HR [facility] Stop: 10/02/18 09:01 Last Admin: 10/01/18 12:11 Dose: 1 appl General: No acute distress Cardiovascular: Regular rate, Normal S1, Normal S2 Lungs: Clear to auscultation Abdomen: Bowel sounds, Soft, Other (G-tube in place with minimal leak), no Tender Extremities: Other (contractures of both extremities) - Procedures Procedures: Procedures Procedure Code Date CHANGE FEEDING DEVICE IN UP INTEST TRACT, SAMPLE SAWYER APPROACH [id number] 09/13/18 CHANGE GASTROSTOMY TUBE 86567 10/04/15 INSERT TUNNELED CV CATH [id number] 10/04/15 INSERTION OF FEEDING DEVICE INTO STOMACH, OPEN APPROACH [id number] 10/06/16 INSERTION OF INFUSION DEV INTO L SUBCLAV VEIN, PERC APPROACH [id number] 10/04/15 INSPECTION OF UPPER VEIN, PERCUTANEOUS APPROACH [id number] 10/04/15 INTRODUCTION OF NUTRITIONAL INTO PERIPH VEIN, PERC APPROACH [id number] 08/02/[address] PL[address] GASTROSTOMY TUBE 05382 10/06/16 REMOVAL OF FEEDING DEVICE FROM STOMACH, EXTERNAL APPROACH [id number] 08/02/18 RESPIRATORY VENTILATION, GREATER THAN 96 CONSECUTIVE HOURS [id number] 08/02/18 ULTRASONOGRAPHY OF LEFT SUBCLAVIAN VEIN, GUIDANCE [id number] 10/04/15 Assessment/Plan - Assessment Assessment: Sacral decubitus ulcer stage IV Chronic respiratory failure with tracheostomy G-tube protein calorie malnutrition Diabetes mellitus type 2 COPD Asthma Peptic ulcer GERD Contracture of the extremities iron deficiency anemia Urinary tract infection G-tube leaking - Plan Plan: Continue present management patient G-tube leaking S Cardizem IV to control the heart rate Nutritional Asmnt/Malnutr-PDOC - Dietary Evaluation Malnutrition Findings (Please click <Entered> for more info): Nutritional Asmnt/Malnutrition Start: 09/24/18 15: 59 Text: Status: Complete Freq: Protocol: Document 09/24/18 15:59 LCHENG (Rec: 09/24/18 16:19 [facility] [email or web address]) Nutritional Asmnt/Malnutrition Patient General Information Nutritional Screening High Risk Consult Diagnosis GI site cellulitis Pertinent Medical Hx/Surgical Hx HTN, DM asthma/COPD, PUD/GERD, 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 Per nurse note, glucerna 1.2 initiated at 60ml /hr in the afternoon, no residual noted. Current Diet Order/ Nutrition Support glucerna 1.2 at 60m, Pertinent Medications vit C, D5-0.45ns, colace, lantus, humalog, reglan Pertinent Labs 09/24 Na 154, K 3.2, Cl 111, Cr 0.3, Glucose 196, POC 185-224 , Alb 2.8 09/23 Na 150, K 3.2, Cr 0.3, Glucose 149 Nutritional Hx/Data Height 1.52 m Height (Calculated Centimeters) 152.4 Current Weight (lbs) 41.277 kg Weight (Calculated Kilograms) 41.3 Weight (Calculated Grams) 09247.9 [place] Body Weight 100 Body Mass Index (BMI) 17.7 Weight Status Underweight GI Symptoms GI Symptoms None Last BM not indicated Difficult in: None Skin Integrity/Comment: pressure ulcer to sacro/coccyx Estimated Nutritional Goals BEE in Kcals: Using Current wt Calories/Kcals/Kg 30-35 Kcals Calculated 5376-0315 Protein: Using Current wt Protein g/k.2-1.4 Protein Calculated 49-57 Fluid: ml 1230-1435ml (1ml/kcal) Nutritional Problem 1. Problem Problem increased nutrition needs Etiology impaired skin integrity Signs/Symptoms: pressure ulcer Intervention/Recommendation Comments 1. Recommend Glucerna 1.2 at 60ml/hr x 16hr to meet nutritional needs. It will provide 1152kcal, 57g protein and 773ml free water. 2. Monitor TF rate, tolerance, wt, skin integrity and labs 3. F/U as high risk in 2-3 days Expected Outcomes/Goals Expected Outcomes/Goals 1. Pt to meet at least 90% of nutritional needs via nutrition support with tolerance 2. Wt stability, skin to remain intact, labs to approach WNL.
--- NOTE | 2018-10-01 14:31 | Infectious Disease Prog Note ---
Infectious Disease Subjective - Review of Systems Service Date: 10/01/18 Subjective: There is no new change, no fever. Infectious Disease Objective - Results Result Diagrams: 09/29/18 05:00 09/29/18 05:00 Recent Labs: Laboratory Last Values WBC 7.7 Th/cmm (4.8-10.8) 09/29/18 05:00 Corrected WBC (auto) VENDING MACHINE COLLECTOR 09/29/18 05:00 RBC 4.55 Mil/cmm (3.80-5.10) 09/29/18 05:00 Hgb 11.3 gm/dL (12-16) L 09/29/18 05:00 Hct 34.8 % (41.0-60) L 09/29/18 05:00 MCV 76.5 fl (81-100) L 09/29/18 05:00 MCH 24.9 pg (27.0-31.0) L 09/29/18 05:00 MCHC Differential 32.6 pg (28.0-36.0) 09/29/18 05:00 RDW 16.7 % (11.5-20.0) 09/29/18 05:00 Plt Count 316 Th/cmm (150-400) D 09/29/18 05:00 MPV 7.8 fl 09/29/18 05:00 Add Manual Diff VENDING MACHINE COLLECTOR 09/29/18 05:00 Neutrophils % 63.7 % (40.0-80.0) 09/29/18 05:00 Band Neutrophils % 0 % (0-10) 09/23/18 18:45 Lymphocytes % 30.1 % (20.0-50.0) 09/29/18 05:00 Monocytes % 3.7 % (2.0-10.0) 09/29/18 05:00 Eosinophils % 2.4 % (0.0-5.0) 09/29/18 05:00 Basophils % 0.1 % (0.0-2.0) 09/29/18 05:00 Neutrophils (Manual) 80 % (40-80) 09/23/18 18:45 Lymphocytes 15 % (20-50) L 09/23/18 18:45 Monocytes 4 % (2-10) 09/23/18 18:45 Eosinophils 1 % (0-5) 09/23/18 18:45 Basophils 0 % (0-3) 09/23/18 18:45 Platelet Estimate INCREASED PLATELETS (NORMAL) 09/23/18 18:45 Microcytosis 1+ 09/23/18 18:45 Smear Path Review VENDING MACHINE COLLECTOR 09/29/18 05:00 PT 11.4 SECONDS (9.5-11.5) 09/23/18 18:45 INR 1.11 (0.5-1.4) 09/23/18 18:45 PTT (Actin FS) 28.0 SECONDS (26.0-38.0) 09/23/18 18:45 Sodium 139 mEq/L (136-145) 09/29/18 05:00 Potassium 3.5 mEq/L (3.5-5.1) 09/29/18 05:00 Chloride 104 mEq/L (98-107) 09/29/18 05:00 Carbon Dioxide 26.4 mEq/L (21.0-31.0) 09/29/18 05:00 Anion Gap 12.1 (7.0-16.0) 09/29/18 05:00 BUN 6 mg/dL (7-25) L 09/29/18 05:00 Creatinine 0.2 mg/dL (0.6-1.2) L 09/29/18 05:00 Est GFR ( Amer) > 60.0 ml/min (>90) 09/29/18 05:00 Est GFR (Non-Af Amer) > 60.0 ml/min 09/29/18 05:00 BUN/Creatinine Ratio 30.0 09/29/18 05:00 Glucose 159 mg/dL (70-105) H 09/29/18 05:00 POC Glucose 154 MG/DL (70 - 105) H 10/01/18 11:56 Whole Bld Lactic Acid 1.00 mmol/L (0.60-1.99) 09/23/18 22:38 Calcium 8.8 mg/dL (8.6-10.3) 09/29/18 05:00 Total Bilirubin 0.2 mg/dL (0.3-1.0) L 09/29/18 05:00 AST 14 U/L (13-39) 09/29/18 05:00 ALT 10 U/L (7-52) 09/29/18 05:00 Alkaline Phosphatase 134 U/L (34-104) H 09/29/18 05:00 Total Protein 6.5 gm/dL (6.0-8.3) 09/29/18 05:00 Albumin 2.5 gm/dL (3.7-5.3) L 09/29/18 05:00 Globulin 4.0 gm/dL 09/29/18 05:00 Albumin/Globulin Ratio 0.6 (1.0-1.8) L 09/29/18 05:00 Amikacin Peak 64.6 ug/mL (20.0-30.0) H 09/28/18 10:45 Amikacin Trough 3.0 ug/mL (1.0-8.0) 09/28/18 07:45 - Physical Exam Vitals and I&O: Vital Signs Temp 97.3 F 10/01/18 12:00 Pulse 98 10/01/18 13:55 Resp 20 10/01/18 13:55 BP 94/57 10/01/18 12:00 Pulse Ox 98 10/01/18 13:55 Intake & Output 09/30/18 10/01/18 10/01/18 18:59 06:59 18:59 Intake Total 560 360 Output Total 1300 650 650 Balance -740 -650 -290 Weight (lbs) 45.813 kg 44.815 kg 44.452 kg Intake: Oral 0 Tube Feeding 560 360 Output: Urine 1300 650 Urine/Stool Mix 650 Other: # Bowel Movements 2 0 1 Weight Source Bedscale Bedscale Bedscale Active Medications: Current Medications Acetaminophen (Tylenol 650mg/20.3ml Suspension) 650 mg GT Q6H PRN PRN Reason: MILD PAIN OR FEVER >100.4 Albuterol/Ipratropium (Duoneb Neb) 3 ml HHN Q6HRT [facility] Stop: 11/23/18 00:00 Last Admin: 10/01/18 13:54 Dose: 3 ml Albuterol/Ipratropium (Duoneb Neb) 3 ml HHN Q2HRT PRN PRN Reason: Wheezing Stop: 11/22/18 23:14 Ascorbic Acid (Vitamin C) 500 mg GT DAILY [facility] Stop: 11/23/18 08:59 Last Admin: 10/01/18 12:10 Dose: 500 mg Calamine/Phenol (Calmoseptine) 1 appl TP QID PRN PRN Reason: Skin Irritation Stop: 11/23/18 16:36 [place] Oil/[place]ian Balsam/Trypsin (Venelex) 1 appl TP DAILY [facility] Stop: 11/24/18 08:59 Last Admin: 10/01/18 12:11 Dose: 1 appl Dextrose (D50w) 50 ml IVP PRN PRN PRN Reason: Blood Glucose less than 70 Stop: 11/22/18 23:11 Dextrose (Glutose 40%) 18.75 gm PO PRN PRN PRN Reason: Blood Glucose less than 70 Stop: 11/22/18 23:11 Diltiazem HCl (Cardizem) 60 mg GT TID [facility] Stop: 11/23/18 08:59 Last Admin: 10/01/18 12:10 Dose: 60 mg Docusate Sodium (Colace) 100 mg GT BID [facility] Stop: 11/23/18 08:59 Last Admin: 10/01/18 12:10 Dose: 100 mg Glucagon (Glucagen) 1 mg IM PRN PRN PRN Reason: Blood Glucose less than 70 Stop: 11/22/18 23:11 Heparin Sodium (Porcine) (Heparin) 5,000 units SUBQ Q12H [facility] Stop: 11/23/18 20:59 Last Admin: 10/01/18 09:24 Dose: 5,000 units Dextrose/Sodium Chloride (D5-0.45ns) 1,000 mls @ 50 mls/hr IV .Q20H [facility] Stop: 11/22/18 22:23 Last Admin: 09/30/18 21:54 Dose: 50 mls/hr Amikacin Sulfate 650 mg/ (Dextrose) 102.6 mls @ 100 mls/hr IV Q36H [facility] Stop: 11/30/18 22:59 Insulin Glargine (Lantus Insulin) 10 units SUBQ BID [facility] Stop: 11/23/18 08:59 Last Admin: 10/01/18 09:23 Dose: 10 units Insulin Human Lispro (Humalog Insulin Sliding Scale) 0 units SUBQ ACHS [facility]; Protocol Stop: 11/28/18 21:14 Last Admin: 10/01/18 12:09 Dose: 2 units Metoclopramide HCl (Reglan) 10 mg IVP Q8HR [facility] Stop: 11/23/18 12:59 Last Admin: 10/01/18 06:12 Dose: 10 mg Miscellaneous (Vte Chemical Prophylaxis Screen/ Admission) 1 [facility] PRN PRN PRN Reason: PROTOCOL Stop: 11/23/18 13:26 Miscellaneous (Amikacin Iv Per Pharmacy) 1 [facility] PRN PRN PRN Reason: PROTOCOL Stop: 11/25/18 15:27 Mupirocin (Bactroban Oint) 1 appl NS Q12HR [facility] Stop: 10/02/18 09:01 Last Admin: 10/01/18 12:11 Dose: 1 appl General: no acute distress, cachectic HEENT: atraumatic, normocephalic, PERRLA, EOMI Neck: supple, tracheostomy, no thyromegaly Cardiovascular: S1S2, regular Lungs: clear to auscultation bilaterally, clear to percussion Abdomen: soft, other (g tube with surropunding erythema), no tender, no distended, no mass Extremities: other (contractures), no cyanosis, no clubbing, no edema Neurological: awake, alert Skin: other (sacralstage 4 decubitus.) - Procedures Procedures: Procedures Procedure Code Date CHANGE FEEDING DEVICE IN UP INTEST TRACT, TRANSIT PLANNING DIRECTOR APPROACH [id number] 09/13/18 CHANGE GASTROSTOMY TUBE 22046 10/04/15 INSERT TUNNELED CV CATH [id number] 10/04/15 INSERTION OF FEEDING DEVICE INTO STOMACH, OPEN APPROACH [id number] 10/06/16 INSERTION OF INFUSION DEV INTO L SUBCLAV VEIN, PERC APPROACH [id number] 10/04/15 INSPECTION OF UPPER VEIN, PERCUTANEOUS APPROACH [id number] 10/04/15 INTRODUCTION OF NUTRITIONAL INTO PERIPH VEIN, PERC APPROACH [id number] 08/02/[address] PL[address] GASTROSTOMY TUBE 07056 10/06/16 REMOVAL OF FEEDING DEVICE FROM STOMACH, EXTERNAL APPROACH [id number] 08/02/18 RESPIRATORY VENTILATION, GREATER THAN 96 CONSECUTIVE HOURS [id number] 08/02/18 ULTRASONOGRAPHY OF LEFT SUBCLAVIAN VEIN, GUIDANCE [id number] 10/04/15 Infectious Disease Assmt/Plan - Assessment Assessment: 1. Pneumonia, HAP. 2. Infected sacral decubitus ulcer. 3. Protein calorie malnutrition. 4. UTI. 4. Malfunctioning G tube : was replaced. 5. COPD. 6. Respiratory failure with T bar. 7. Abd wall cellultis. - Plan Plan: Continue Amikacin for 08 days more.. WOund care. Dc plan. 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 Per nurse note, glucerna 1.2 initiated at 60ml /hr in the afternoon, no residual noted. Current Diet Order/ Nutrition Support glucerna 1.2 at 60m, Pertinent Medications vit C, D5-0.45ns, colace, lantus, humalog, reglan Pertinent Labs 09/24 Na 154, K 3.2, Cl 111, Cr 0.3, Glucose 196, POC 185-224 , Alb 2.8 09/23 Na 150, K 3.2, Cr 0.3, Glucose 149 Nutritional Hx/Data Height 1.52 m Height (Calculated Centimeters) 152.4 Current Weight (lbs) 41.277 kg Weight (Calculated Kilograms) 41.3 Weight (Calculated Grams) [address].[address] [place] Body Weight 100 Body Mass Index (BMI) 17.7 Weight Status Underweight GI Symptoms GI Symptoms None Last BM not indicated Difficult in: None Skin Integrity/Comment: pressure ulcer to sacro/coccyx Estimated Nutritional Goals BEE in Kcals: Using Current wt Calories/Kcals/Kg 30-35 Kcals Calculated 8815-8825 Protein: Using Current wt Protein g/k.2-1.4 Protein Calculated 49-57 Fluid: ml 1230-1435ml (1ml/kcal) Nutritional Problem 1. Problem Problem increased nutrition needs Etiology impaired skin integrity Signs/Symptoms: pressure ulcer Intervention/Recommendation Comments 1. Recommend Glucerna 1.2 at 60ml/hr x 16hr to meet nutritional needs. It will provide 1152kcal, 57g protein and 773ml free water. 2. Monitor TF rate, tolerance, wt, skin integrity and labs 3. F/U as high risk in 2-3 days Expected Outcomes/Goals Expected Outcomes/Goals 1. Pt to meet at least 90% of nutritional needs via nutrition support with tolerance 2. Wt stability, skin to remain intact, labs to approach WNL.
--- NOTE | 2018-10-01 16:09 | GI Progress Note ---
Subjective - Review of Systems Service Date: 10/01/18 Subjective: GT site with only mild leakage now. Rob GT feeds. Objective - Results Result Diagrams: 09/29/18 05:00 09/29/18 05:00 Recent Labs: Laboratory Last Values WBC 7.7 Th/cmm (4.8-10.8) 09/29/18 05:00 Corrected WBC (auto) REGIONAL TRANSFER LIAISON 09/29/18 05:00 RBC 4.55 Mil/cmm (3.80-5.10) 09/29/18 05:00 Hgb 11.3 gm/dL (12-16) L 09/29/18 05:00 Hct 34.8 % (41.0-60) L 09/29/18 05:00 MCV 76.5 fl (81-100) L 09/29/18 05:00 MCH 24.9 pg (27.0-31.0) L 09/29/18 05:00 MCHC Differential 32.6 pg (28.0-36.0) 09/29/18 05:00 RDW 16.7 % (11.5-20.0) 09/29/18 05:00 Plt Count 316 Th/cmm (150-400) D 09/29/18 05:00 MPV 7.8 fl 09/29/18 05:00 Add Manual Diff REGIONAL TRANSFER LIAISON 09/29/18 05:00 Neutrophils % 63.7 % (40.0-80.0) 09/29/18 05:00 Band Neutrophils % 0 % (0-10) 09/23/18 18:45 Lymphocytes % 30.1 % (20.0-50.0) 09/29/18 05:00 Monocytes % 3.7 % (2.0-10.0) 09/29/18 05:00 Eosinophils % 2.4 % (0.0-5.0) 09/29/18 05:00 Basophils % 0.1 % (0.0-2.0) 09/29/18 05:00 Neutrophils (Manual) 80 % (40-80) 09/23/18 18:45 Lymphocytes 15 % (20-50) L 09/23/18 18:45 Monocytes 4 % (2-10) 09/23/18 18:45 Eosinophils 1 % (0-5) 09/23/18 18:45 Basophils 0 % (0-3) 09/23/18 18:45 Platelet Estimate INCREASED PLATELETS (NORMAL) 09/23/18 18:45 Microcytosis 1+ 09/23/18 18:45 Smear Path Review REGIONAL TRANSFER LIAISON 09/29/18 05:00 PT 11.4 SECONDS (9.5-11.5) 09/23/18 18:45 INR 1.11 (0.5-1.4) 09/23/18 18:45 PTT (Actin FS) 28.0 SECONDS (26.0-38.0) 09/23/18 18:45 Sodium 139 mEq/L (136-145) 09/29/18 05:00 Potassium 3.5 mEq/L (3.5-5.1) 09/29/18 05:00 Chloride 104 mEq/L (98-107) 09/29/18 05:00 Carbon Dioxide 26.4 mEq/L (21.0-31.0) 09/29/18 05:00 Anion Gap 12.1 (7.0-16.0) 09/29/18 05:00 BUN 6 mg/dL (7-25) L 09/29/18 05:00 Creatinine 0.2 mg/dL (0.6-1.2) L 09/29/18 05:00 Est GFR ( Amer) > 60.0 ml/min (>90) 09/29/18 05:00 Est GFR (Non-Af Amer) > 60.0 ml/min 09/29/18 05:00 BUN/Creatinine Ratio 30.0 09/29/18 05:00 Glucose 159 mg/dL (70-105) H 09/29/18 05:00 POC Glucose 154 MG/DL (70 - 105) H 10/01/18 11:56 Whole Bld Lactic Acid 1.00 mmol/L (0.60-1.99) 09/23/18 22:38 Calcium 8.8 mg/dL (8.6-10.3) 09/29/18 05:00 Total Bilirubin 0.2 mg/dL (0.3-1.0) L 09/29/18 05:00 AST 14 U/L (13-39) 09/29/18 05:00 ALT 10 U/L (7-52) 09/29/18 05:00 Alkaline Phosphatase 134 U/L (34-104) H 09/29/18 05:00 Total Protein 6.5 gm/dL (6.0-8.3) 09/29/18 05:00 Albumin 2.5 gm/dL (3.7-5.3) L 09/29/18 05:00 Globulin 4.0 gm/dL 09/29/18 05:00 Albumin/Globulin Ratio 0.6 (1.0-1.8) L 09/29/18 05:00 Amikacin Peak 64.6 ug/mL (20.0-30.0) H 09/28/18 10:45 Amikacin Trough 3.0 ug/mL (1.0-8.0) 09/28/18 07:45 - Physical Exam Vitals and I&O: Vital Signs Temp 97.3 F 10/01/18 12:00 Pulse 95 10/01/18 15:28 Resp 20 10/01/18 13:55 BP 94/57 10/01/18 12:00 Pulse Ox 98 10/01/18 13:55 Intake & Output 09/30/18 10/01/18 10/01/18 18:59 06:59 18:59 Intake Total 560 360 Output Total 1300 650 650 Balance -740 -650 -290 Weight (lbs) 45.813 kg 44.815 kg 44.452 kg Intake: Oral 0 Tube Feeding 560 360 Output: Urine 1300 650 Urine/Stool Mix 650 Other: # Bowel Movements 2 0 1 Weight Source Bedscale Bedscale Bedscale Active Medications: Current Medications Acetaminophen (Tylenol 650mg/20.3ml Suspension) 650 mg GT Q6H PRN PRN Reason: MILD PAIN OR FEVER >100.4 Albuterol/Ipratropium (Duoneb Neb) 3 ml HHN Q6HRT [facility] Stop: 11/23/18 00:00 Last Admin: 10/01/18 13:54 Dose: 3 ml Albuterol/Ipratropium (Duoneb Neb) 3 ml HHN Q2HRT PRN PRN Reason: Wheezing Stop: 11/22/18 23:14 Ascorbic Acid (Vitamin C) 500 mg GT DAILY [facility] Stop: 11/23/18 08:59 Last Admin: 10/01/18 12:10 Dose: 500 mg Calamine/Phenol (Calmoseptine) 1 appl TP QID PRN PRN Reason: Skin Irritation Stop: 11/23/18 16:36 [place] Oil/[place] Balsam/Trypsin (Venelex) 1 appl TP DAILY [facility] Stop: 11/24/18 08:59 Last Admin: 10/01/18 12:11 Dose: 1 appl Dextrose (D50w) 50 ml IVP PRN PRN PRN Reason: Blood Glucose less than 70 Stop: 11/22/18 23:11 Dextrose (Glutose 40%) 18.75 gm PO PRN PRN PRN Reason: Blood Glucose less than 70 Stop: 11/22/18 23:11 Diltiazem HCl (Cardizem) 60 mg GT TID [facility] Stop: 11/23/18 08:59 Last Admin: 10/01/18 15:28 Dose: 60 mg Docusate Sodium (Colace) 100 mg GT BID [facility] Stop: 11/23/18 08:59 Last Admin: 10/01/18 12:10 Dose: 100 mg Glucagon (Glucagen) 1 mg IM PRN PRN PRN Reason: Blood Glucose less than 70 Stop: 11/22/18 23:11 Heparin Sodium (Porcine) (Heparin) 5,000 units SUBQ Q12H [facility] Stop: 11/23/18 20:59 Last Admin: 10/01/18 09:24 Dose: 5,000 units Dextrose/Sodium Chloride (D5-0.45ns) 1,000 mls @ 50 mls/hr IV .Q20H [facility] Stop: 11/22/18 22:23 Last Admin: 09/30/18 21:54 Dose: 50 mls/hr Amikacin Sulfate 650 mg/ (Dextrose) 102.6 mls @ 100 mls/hr IV Q36H [facility] Stop: 11/30/18 22:59 Insulin Glargine (Lantus Insulin) 10 units SUBQ BID [facility] Stop: 11/23/18 08:59 Last Admin: 10/01/18 09:23 Dose: 10 units Insulin Human Lispro (Humalog Insulin Sliding Scale) 0 units SUBQ ACHS [facility]; Protocol Stop: 11/28/18 21:14 Last Admin: 10/01/18 12:09 Dose: 2 units Metoclopramide HCl (Reglan) 10 mg IVP Q8HR [facility] Stop: 11/23/18 12:59 Last Admin: 05/17/19 15:28 Dose: 10 mg Miscellaneous (Vte Chemical Prophylaxis Screen/ Admission) 1 ea PRN PRN PRN Reason: PROTOCOL Stop: 11/23/18 13:26 Miscellaneous (Amikacin Iv Per Pharmacy) 1 [facility] PRN PRN PRN Reason: PROTOCOL Stop: 11/25/18 15:27 Mupirocin (Bactroban Oint) 1 appl NS Q12HR [facility] Stop: 10/02/18 09:01 Last Admin: 10/01/18 12:11 Dose: 1 appl General: No acute distress Cardiovascular: Regular rate, Normal S1, Normal S2 Lungs: Clear to auscultation Abdomen: Bowel sounds, Soft, Other (G-tube in place with mild maceration of insertion site), no Tender Extremities: Other (contractures of both extremities) - Procedures Procedures: Procedures Procedure Code Date CHANGE FEEDING DEVICE IN UP INTEST TRACT, COMPOSITION BOARD PRESS OPERATOR APPROACH [id number] 09/13/18 CHANGE GASTROSTOMY TUBE 46990 10/04/15 INSERT TUNNELED CV CATH [id number] 10/04/15 INSERTION OF FEEDING DEVICE INTO STOMACH, OPEN APPROACH [id number] 10/06/16 INSERTION OF INFUSION DEV INTO L SUBCLAV VEIN, PERC APPROACH [id number] 10/04/15 INSPECTION OF UPPER VEIN, PERCUTANEOUS APPROACH [id number] 10/04/15 INTRODUCTION OF NUTRITIONAL INTO PERIPH VEIN, PERC APPROACH [id number] 08/02/[address] PLACE GASTROSTOMY TUBE 23280 10/06/16 REMOVAL OF FEEDING DEVICE FROM STOMACH, EXTERNAL APPROACH [id number] 08/02/18 RESPIRATORY VENTILATION, GREATER THAN 96 CONSECUTIVE HOURS [id number] 08/02/18 ULTRASONOGRAPHY OF LEFT SUBCLAVIAN VEIN, GUIDANCE [id number] 10/04/15 Assessment/Plan - Assessment Assessment: IMPRESSION: 1. 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 Still mild leakage. s/p overinflation of G tube inner balloon with saline today. 2. Dementia. RECS: - Continue GT feeds at goal rate. If leak persists, then will change GT to 26F size once available. - may need to change GT to G J tube. - IVF for now. - monitor labs. Pending transfer to [facility] - can f/u pt there.
--- NOTE | 2018-10-11 12:40 | Discharge Summary ---
DATE OF DISCHARGE: 10/01/2018 HOSPITAL COURSE: This patient is from [facility], unfortunate female, the patient is a subacute patient, status post trach, status post PEG, history of hypertension, diabetes, asthma, COPD, anemia, history of recurrent infections and bilateral prolonged contractures. The patient was admitted because of a G-tube leakage and cellulitis of abdominal wall. The patient was treated with IV antibiotics and the GI doctor saw the patient as well as the surgeon saw the patient. The patient continued to have problems with her GI leakage and it was decided that the patient will be transferred to LTAC at [facility] [place] where I will follow the patient and the surgeon will repair the GI PEG site. Condition at the time of discharge to [facility] was stable. JOB# [id number]
== END 2018-10-01 20:15 | DRG 393 ==
LOC: ER 17:21 → MSI 21:34 → TELE 09-25 10:54
PROVIDERS: ADMIT Internal Medicine; ATTEND Internal Medicine
PROC: 0D20XUZ Change Feeding Device in Upper Intestinal Tract, External Approach (ICD-10-PCS; principal; 2018-09-28)
DX: K94.23 Gastrostomy malfunction (principal); L89.154 Pressure ulcer of sacral region, stage 4; J96.20 Acute and chronic respiratory failure, unspecified whether with hypoxia or hypercapnia; J18.9 Pneumonia, unspecified organism; L03.311 Cellulitis of abdominal wall; E46 Unspecified protein-calorie malnutrition; Z68.1 Body mass index [BMI] 19.9 or less, adult; N39.0 Urinary tract infection, site not specified; K31.6 Fistula of stomach and duodenum; K94.22 Gastrostomy infection; I10 Essential (primary) hypertension; E11.9 Type 2 diabetes mellitus without complications; J44.9 Chronic obstructive pulmonary disease, unspecified; K21.9 Gastro-esophageal reflux disease without esophagitis; R13.10 Dysphagia, unspecified; K27.9 Peptic ulcer, site unspecified, unspecified as acute or chronic, without hemorrhage or perforation; D50.9 Iron deficiency anemia, unspecified; B96.1 Klebsiella pneumoniae [K. pneumoniae] as the cause of diseases classified elsewhere; D63.8 Anemia in other chronic diseases classified elsewhere; Y95 Nosocomial condition; F03.90 Unspecified dementia, unspecified severity, without behavioral disturbance, psychotic disturbance, mood disturbance, and anxiety; Z16.12 Extended spectrum beta lactamase (ESBL) resistance; Y83.3 Surgical operation with formation of external stoma as the cause of abnormal reaction of the patient, or of later complication, without mention of misadventure at the time of the procedure; Y92.89 Other specified places as the place of occurrence of the external cause; Z79.4 Long term (current) use of insulin
CPT/HCPCS: 36415-UA; 71045-TC; 80048-TC; 80053-TC; 80150-TC; 82948-90; 83605; 85007-TC; 85025-TC; 85610-TC; 85730-TC; 87070-90; 87086-90; 93005; 94640; 94760; A4217; J0278; J1644; J1815; J2765; X7704; Z7610